=== PATIENT | female | born 1960 | race Caucasian/White ===

== ENCOUNTER → 2016-09-14 | Outpatient (CLI) | payer BC ==
[~2016-09-14] MED LIST: BIOT25007 PO; CALCIUM CITRATE; CHOL2000 PO; CHOL200041 PO; CRANBERRY FRUIT; CYAN5000 PO; FERR-74 PO; FOLI1TAB24 PO; HCG SL; HCT25T; HYDR-3812 PO; KCL10CCR; LACT1CAP62 PO; LEVO88TA2 PO; LEVO88TA26 PO; NF-LEVTH75; NFBIOT1000; OMEG-70 PO; OMG1KC; THM100T; TRIA1CAP4 PO; VIT B; [UNRECOGNIZED DRUG - OTHER]
--- OUTSIDE RECORDS SUMMARY | 2016-09-14 12:00 | XMS REPORT | Continuity of Care Document ---
Author Author [facility] Organization [facility] Address Unknown Phone Unavailable Allergies Active Description Code Type Severity Reaction Onset Reported/Identified Relationship to Patient Clinical Status Yes No Known Drug Allergies [id number] Drug Allergy Unknown N/ A 05/14/2008 Medications Problems Date Dx Coded Attending Type Code Diagnosis Diagnosed By 10/25/2011 Ot 246.9 DISORDER OF THYROID NOS 10/25/2011 Ot 560.9 INTESTINAL OBSTRUCT NOS 10/25/2011 Ot V12.55 PERSONAL HISTORY OF PULMONARY EMBOLISM 10/25/2011 Ot V45.86 BARIATRIC SURGERY STATUS 01/23/2013 NADYA GARRETT, VIGNESH Edmondson Ot V76.51 SCREEN MAL NEOP-COLON 01/28/2015 YONATHAN VALDES DO Ot V76.12 02/07/2015 YONATHAN VALDES DO Ot V76.12 05/11/2015 TATUM HADDAD MD Ot S42.212A UNSP DISP FX OF SURGICAL NECK OF LEFT HU 05/11/2015 TATUM HADDAD MD, Ot S42.252A DISP FX OF GREATER TUBEROSITY OF LEFT HU 05/11/2015 TATUM HADDAD MD Ot W01.0XXA FALL SAME LEV FROM SLIP/TRIP W/O STRIKE 06/21/2015 Ot V76.12 06/21/2015 Ot 611.72 06/21/2015 Ot V76.12 06/21/2015 Ot 793.89 06/21/2015 Ot 793.89 06/21/2015 YONATHAN VALDES DO Ot V76.12 06/21/2015 NADYA GARRETT, VIGNESH Edmondson Ot V72.84 06/21/2015 YONATHAN VALDES DO, Ot V76.12 06/21/2015 YONATHAN VALDES DO, Ot V76.12 07/15/2015 TATUM HADDAD MD Ot S42.232D 07/15/2015 TATUM HADDAD MD Ot X58.XXXD 07/15/2015 TATUM HADDAD MD Ot Y99.8 08/19/2015 BOO GARRETT, TATUM Bryant Ot S42.232D 08/19/2015 BOO GARERTT, TATUM Bryant Ot X58.XXXD 08/19/2015 BOO GARRETT, TATUM Bryant Ot Y99.8 09/03/2015 BOO GARRETT, TATUM Bryant Ot S42.232D 09/03/2015 BOO GARRETT, TATUM Bryant Ot X58.XXXD 09/03/2015 BOO GARRETT, TATUM Bryant Ot Y99.8 09/22/2015 BOO GARRETT, TATUM Bryant Ot S42.232D 3-PART FX SURG NECK OF L HUMERUS, SUBS F 09/22/2015 BOO GARRETT, TATUM Bryant Ot X58.XXXD EXPOSURE TO OTHER SPECIFIED FACTORS, SUB 09/22/2015 BOO GARRETT, TATUM Bryant Ot Y99.8 OTHER EXTERNAL CAUSE STATUS 01/11/2016 Ot 611.72 LUMP OR MASS IN BREAST 01/11/2016 Ot V76.12 OTH SCREEN MAMMO-MALIGN NEOPLASM OF YESI 01/11/2016 Ot 793.89 OTH (ABN) FINDINGS ON RADIOLOGICAL EXAMI 01/11/2016 Ot 793.89 OTH (ABN) FINDINGS ON RADIOLOGICAL EXAMI 01/11/2016 YONATHAN VALDES DO Ot V76.12 OTH SCREEN MAMMO-MALIGN NEOPLASM OF YESI 01/11/2016 NADYA GARRETT, VIGNESH Edmondson Ot V72.84 EXAM PRE-OPERATIVE NOS 01/11/2016 YONATHAN VALDES DO Ot V76.12 OTH SCREEN MAMMO-MALIGN NEOPLASM OF YESI 01/11/2016 YONATHAN VALDES DO Ot V76.12 OTH SCREEN MAMMO-MALIGN NEOPLASM OF YESI 01/11/2016 BOO GARRETT, TATUM Bryant Ot S42.232D 3-PART FX SURG NECK OF L HUMERUS, SUBS F 01/11/2016 BOO GARRETT, TATUM Bryant Ot X58.XXXD EXPOSURE TO OTHER SPECIFIED FACTORS, SUB 01/11/2016 BOO GARRETT, TATUM Bryant Ot Y99.8 OTHER EXTERNAL CAUSE STATUS 02/21/2016 Ot 611.72 LUMP OR MASS IN BREAST 02/21/2016 Ot V76.12 OTH SCREEN MAMMO-MALIGN NEOPLASM OF YESI 02/21/2016 Ot 793.89 OTH (ABN) FINDINGS ON RADIOLOGICAL EXAMI 02/21/2016 Ot 793.89 OTH (ABN) FINDINGS ON RADIOLOGICAL EXAMI 02/21/2016 YONATHAN VALDES DO Ot V76.12 OTH SCREEN MAMMO-MALIGN NEOPLASM OF YESI 02/21/2016 NADYA GARRETT, VIGNESH Edmondson Ot V72.84 EXAM PRE-OPERATIVE NOS 02/21/2016 YONATHAN VALDES DO Ot V76.12 OTH SCREEN MAMMO-MALIGN NEOPLASM OF YESI 02/21/2016 YONATHAN VALDES DO Ot V76.12 OTH SCREEN MAMMO-MALIGN NEOPLASM OF YESI 02/21/2016 TATUM HADDAD MD Ot S42.232D 3-PART FX SURG NECK OF L HUMERUS, SUBS F 02/21/2016 TATUM HADDAD MD Ot X58.XXXD EXPOSURE TO OTHER SPECIFIED FACTORS, SUB 02/21/2016 TATUM HADDAD MD Ot Y99.8 OTHER EXTERNAL CAUSE STATUS 02/24/2016 YONATHAN VALDES DO Ot Z12.31 ENCNTR SCREEN MAMMOGRAM FOR MALIGNANT NE 02/24/2016 YONATHAN VALDES DO, Ot Z12.31 ENCNTR SCREEN MAMMOGRAM FOR MALIGNANT NE 03/16/2016 YONATHAN VALDES DO, Ot Z12.31 ENCNTR SCREEN MAMMOGRAM FOR MALIGNANT NE Procedures Results Encounters ACCT No. Visit Date/Time Discharge Status Pt. Type Provider Facility Loc./Unit Complaint [id number] 09/13/2015 08:02:00 2015 00:01:00 DIS Outpatient TATUM HADDAD MD [facility] REHAB [id number] 05/10/2015 16:38:00 2014 13:10:00 DIS Inpatient TATUM HADDAD MD [facility] 4TH FX L HUMERAL HEAD/NECK [id number] 01/25/2015 13:03:00 2014 23:59:59 CLS Outpatient YONATHAN VALDES DO [facility] RAD [id number] 01/12/2014 09:35:00 2013 23:59:59 CLS Outpatient YONATHAN VALDES DO [facility] RAD [id number] 01/23/2013 06:18:00 2012 08:45:00 DIS Outpatient VIGNESH COVINGTON MD [facility] SDC [id number] 01/20/2013 08:52:00 2012 23:59:59 CLS Outpatient VIGNESH COVINGTON MD [facility] PREOP [id number] 01/06/2013 08:56:00 2012 23:59:59 CLS Outpatient YONATHAN VALDES DO [facility] RAD [id number] 02/21/2016 12:59:00 ACT Outpatient YONATHAN VALDES DO [facility] RAD SCREENING [id number] 09/23/2015 00:07:00 PEN Preadmit BOO GARRETT, TATUM Bryant [facility] REHAB [id number] 01/25/2012 14:31:00 Document Registration [id number] 10/24/2011 11:55:00 Document Registration [id number] 07/21/2011 14:12:00 Document Registration [id number] 07/16/2011 07:55:00 Document Registration [id number] 07/14/2010 08:09:00 Document Registration
--- NOTE | 2016-09-14 12:15 | Diagnostic Imaging Report ---
EXAMINATION: PA and lateral views of the chest. INDICATION: Cough and shortness of breath. FINDINGS: There are predominantly interstitial infiltrates in the mid and lower zones of the left lung. The right lung is clear. The heart size is normal. No effusion or pneumothorax. The mediastinum and jason appear unremarkable. In the upper abdomen, surgical clips and an IVC filter are seen. IMPRESSION: Predominantly interstitial infiltrates in the mid and lower left lung, favored to be atypical pneumonia. The report was faxed to the office of Dr. Tan by MIREYA at 12:20 PM. Dictated by: Dictated on workstation # [id number]
== END ==
LOC: RAD 11:55
PROVIDERS: ATTEND Internal Medicine
DX: J18.9 Pneumonia, unspecified organism (principal)
CPT/HCPCS: 71020

== ENCOUNTER → 2016-09-25 | Outpatient (CLI) | payer BC ==
[~2016-09-25] MED LIST changes: +CATHETER FLUSH 10 ML SYR IV PRN; +IOHEXOL 350 MG/ML 100 ML (OMNIPAQUE 350) VIAL IV ONE; +NS 100 ML (IVPB) BAG IV ONE
--- OUTSIDE RECORDS SUMMARY | 2016-09-25 08:59 | XMS REPORT | Continuity of Care Document ---
Author Author [facility] Organization [facility] Address Unknown Phone Unavailable Allergies Active Description Code Type Severity Reaction Onset Reported/Identified Relationship to Patient Clinical Status Yes No Known Drug Allergies [id number] Drug Allergy Unknown N/ A 05/14/2008 Medications [...] GARRETT, TATUM Bryant Ot S42.232D 08/19/2015 BOO GARRETT, TATUM Bryant Ot X58.XXXD 08/19/2015 BOO GARRETT, [...] MAMMOGRAM FOR MALIGNANT NE 02/24/2016 YONATHAN VALDES DO Ot Z12.31 ENCNTR SCREEN MAMMOGRAM FOR MALIGNANT NE 03/16/2016 YONATHAN VALDES DO Ot Z12.31 ENCNTR SCREEN MAMMOGRAM FOR MALIGNANT NE 09/14/2016 Ot 611.72 LUMP OR MASS IN BREAST 09/14/2016 Ot V76.12 OTH SCREEN MAMMO-MALIGN NEOPLASM OF YESI 09/14/2016 Ot 793.89 OTH (ABN) FINDINGS ON RADIOLOGICAL EXAMI 09/14/2016 Ot 793.89 OTH (ABN) FINDINGS ON RADIOLOGICAL EXAMI 09/14/2016 YONATHAN VALDES DO Ot V76.12 OTH SCREEN MAMMO-MALIGN NEOPLASM OF YESI 09/14/2016 NADYA GARRETT, VIGNESH Edmondson Ot V72.84 EXAM PRE-OPERATIVE NOS 09/14/2016 YONATHAN VALDES DO Ot V76.12 OTH SCREEN MAMMO-MALIGN NEOPLASM OF YESI 09/14/2016 YONATHAN VALDES DO Ot V76.12 OTH SCREEN MAMMO-MALIGN NEOPLASM OF YESI 09/14/2016 TATUM HADDAD MD Ot S42.232D 3-PART FX SURG NECK OF L HUMERUS, SUBS F 09/14/2016 TATUM HADDAD MD Ot X58.XXXD EXPOSURE TO OTHER SPECIFIED FACTORS, SUB 09/14/2016 BOO GARRETT, TATUM Bryant Ot Y99.8 OTHER EXTERNAL CAUSE STATUS 09/14/2016 YONATHAN VALDES DO Ot Z12.31 ENCNTR SCREEN MAMMOGRAM FOR MALIGNANT NE 09/20/2016 YONATHAN VALDES DO Ot J18.9 PNEUMONIA, UNSPECIFIED ORGANISM Procedures Results Encounters ACCT No. Visit Date/Time Discharge Status Pt. Type Provider Facility Loc./Unit Complaint [id number] 09/13/2015 08:02:00 2015 00:01:00 DIS Outpatient TATUM HADDAD MD [facility] REHAB L HUMERAL HEAD FX COMMUNITED FX HEAD AND NECK [id number] 05/10/2015 16:38:00 2014 13:10:00 DIS Inpatient TATUM HADDAD MD [facility] 4TH FX L HUMERAL HEAD/NECK [id number] 01/25/2015 13:03:00 2014 23:59:59 CLS Outpatient YONATHAN VALDES DO [facility] RAD SCREENING [id number] 01/12/2014 09:35:00 2013 23:59:59 CLS Outpatient YONATHAN VALDES DO [facility] RAD SCREENING [id number] 01/23/2013 06:18:00 2012 08:45:00 DIS Outpatient VIGNESH COVINGTON MD [facility] SDC SCREENING [id number] 01/20/2013 08:52:00 2012 23:59:59 CLS Outpatient VIGNESH COVINGTON MD [facility] PREOP SCREENING [id number] 01/06/2013 08:56:00 2012 23:59:59 CLS Outpatient YONATHAN VALDSE DO [facility] RAD SCREENING [id number] 09/14/2016 11:55:00 ACT Outpatient YONATHAN VALDES DO [facility] RAD J18.9 [id number] 02/21/2016 12:59:00 ACT Outpatient YONATHAN VALDES DO [facility] RAD SCREENING [id number] 09/23/2015 00:07:00 PEN Preadmit BOO MD, TATUM [facility] REHAB L HUMERAL HEAD FX COMMUNITED FX HEAD AND NECK [id number] 01/25/2012 14:31:00 Document Registration [id number] 10/24/2011 11:55:00 Document Registration [id number] 07/21/2011 14:12:00 Document Registration [id number] 07/16/2011 07:55:00 Document Registration [id number] 07/14/2010 08:09:00 Document Registration
--- NOTE | 2016-09-25 09:51 | Diagnostic Imaging Report ---
PROCEDURE: CT chest with contrast only. TECHNIQUE: Multiple contiguous axial images were obtained through the chest after administration of intravenous contrast. INDICATION: Increasing cough in patient with melanoma. Correlation is made to abdominal CT scan of 10/24/2011. FINDINGS: At the site of focal parenchymal density seen previously in the left lung base, there has been development of an irregular, spiculated mass measuring 6.3 x 4.0 cm. Reticulonodular densities are scattered throughout the lower two thirds of the left lung as well. There is no significant pleural or pericardial fluid. The right lung is clear. There are mildly prominent lymph nodes in the left hilum and subcarinal region. Left hilar lymph node measures approximately 2.3 x 1.3 cm with subcarinal lymph node measuring 2.3 x 1.2 cm. Aorticopulmonary window and azygous region lymph nodes are also enlarged with largest right paratracheal lymph node near the azygos arch measuring 2.3 x 1.2 cm. No osseous abnormality is seen. IMPRESSION: Spiculated irregular mass in the left lower lobe is suspicious for malignancy. This could be related to melanoma or primary neoplasm of the lung. This would be accessible for bronchoscopy or transthoracic CT guided biopsy. The reticulonodular densities at the left lung would be most suspicious for lymphangitic spread of neoplasm and there is mediastinal adenopathy as well. PET scan may also be of value for further staging. Dictated by: Dictated on workstation # [id number]
== END ==
LOC: RAD 08:55
PROVIDERS: ATTEND Internal Medicine
DX: J18.9 Pneumonia, unspecified organism (principal); R91.8 Other nonspecific abnormal finding of lung field
CPT/HCPCS: 71260

== ENCOUNTER 2016-10-06 12:56 | Outpatient (CLI) | payer BC ==
[~2016-10-06] VITALS: Ht 172.7 cm; Wt 98.5 kg
[~2016-10-06 12:56] MED LIST changes: -CATHETER FLUSH 10 ML SYR IV PRN; -FOLI1TAB24 PO; -IOHEXOL 350 MG/ML 100 ML (OMNIPAQUE 350) VIAL IV ONE; -NS 100 ML (IVPB) BAG IV ONE
[2016-10-23] MEDS ORDERED: BIOT25007 PO (08:59)
== END 2016-10-06 14:26 ==
LOC: PREOP 12:56
PROVIDERS: ATTEND Internal Medicine Critical Care Medicine
DX: J18.9 Pneumonia, unspecified organism (principal); R91.8 Other nonspecific abnormal finding of lung field

== ENCOUNTER 2016-10-07 06:05 | Day surgery (SDC) | payer BC ==
[~2016-10-07] VITALS: Ht 172.7 cm; Wt 98.5 kg
[2016-10-07] MEDS ORDERED: NS IV 1000 ML 1,000 ML IV STA (06:18)
[2016-10-07] MEDS ORDERED: FLUMAZENIL (ROMAZICON) 0.1 MG/ML 5 ML VIAL INJ PRN (06:30)
[2016-10-07] MEDS ORDERED: NALOXONE 0.4 MG/ML 1 ML (NARCAN) VIAL IVP PRN (06:30)
[2016-10-07] MEDS ORDERED: SCOPOLAMINE 1.5 MG (TRANSDERM-SCOP) PATCH ONE (06:32)
[2016-10-07] MEDS ORDERED: FAMOTIDINE 20MG/2ML IV (PEPCID) ONE (06:34)
[2016-10-07] MEDS ORDERED: ONDANSETRON 4 MG/2 ML (SDV) Z0FRAN ONE (06:34)
[2016-10-07] MEDS ORDERED: proPOfol 200 MG/20 ML (DIPRIVAN) VIAL IV ONE (06:46)
[2016-10-07] MEDS ORDERED: MIDAZOLAM 2 MG/2 ML (VERSED) VIAL ONE (06:46)
[2016-10-07] MEDS ORDERED: fentaNYL INJECTION 100 MCG/2 ML AMP ONE (06:46)
[2016-10-07] MEDS ORDERED: LIDOCAINE PF 2% 10 ML (XYLOCAINE) AMP ONE (06:47)
[2016-10-07] MEDS ORDERED: DEXAMETHASONE PF 10 MG/ML (DECADRON) VIAL ONE (06:47)
[2016-10-07 06:54] VITALS: BP 132/95
[2016-10-07] MEDS ORDERED: ONDANSETRON 4 MG/2 ML (SDV) Z0FRAN IVP ONE (07:00)
[2016-10-07] MEDS ORDERED: SCOPOLAMINE 1.5 MG (TRANSDERM-SCOP) PATCH TD ONE (07:00)
[2016-10-07] MEDS ORDERED: FAMOTIDINE 20MG/2ML IV (PEPCID) IVP ONE (07:00)
--- NOTE | 2016-10-07 07:04 | Progress Note-Pre Operative ---
Pre-Operative Progress Note H&P Reviewed The H&P was reviewed, patient examined and no changes noted. Date H&P Reviewed: Oct 07, 2016 Time H&P Reviewed: 07:04 Pre-Operative Diagnosis: lung mass ANTOLIN JULIAN DO Oct 07, 2016 07:04
[2016-10-07] MEDS ORDERED: ROCURONIUM 50 MG/5 ML (ZEMURON) VIAL IV ONE (07:13)
[2016-10-07] MEDS ORDERED: SEVOFLURANE (ULTANE) 15 ML INHAL SOLN ONE (08:05)
[2016-10-07] MEDS ORDERED: GLYCOPYRROLATE 0.2 MG/ML (ROBINUL) 2 ML VIAL ONE (08:10)
[2016-10-07] MEDS ORDERED: NEOSTIGMINE (BLOXIVERZ ) 1 MG/1ML 10 ML VIAL ONE (08:11)
[2016-10-07] MEDS ORDERED: LACTATED RINGERS 1,000 ML IV ONE (08:12)
--- NOTE | 2016-10-07 08:28 | Pulmonary Procedures ---
Pulmonary Procedures Date of Procedure Date of Service: Oct 07, 2016 Bronch Bronchoscopy with EBUS with bx of station 7 and 10R lymph nodes Preop DX: LLL lung mass, mediastinal lymphadenopathy PostOP DX: same Complications: None Pt was sedated per anesthesia. Bronchoscopy was advanced through the ED tube and an anatomical undertaken down to the segmental bronchi bilaterally. No endobronchial lesions noted. From the LLL Wash, BAL and brushes for fungal and cytology were obtained. EBUS was then advanced through ET tube and the mediastinum was US. Station [7] and [4L] lymph nodes were sampled via needle bx under US guidance. Pt tolerated procedure well. No complications noted. ANTOLIN JULIAN DO Oct 07, 2016 08:27
[2016-10-07] MEDS ORDERED: MEPERIDINE (DEMEROL) INJ 50 MG/ML IVP ONE (09:00)
[2016-10-07 09:05] VITALS: BP 122/67
--- NOTE | 2016-10-07 09:17 | Diagnostic Imaging Report ---
EXAMINATION: Portable supine radiograph of the chest. INDICATION: Post thoracoscopy. FINDINGS: There are nodular interstitial infiltrates in the mid and lower left lung zones. The right lung is clear of focal consolidation with minimal background interstitial scarring suggested. The heart size is normal. No effusion or pneumothorax. Mediastinum and jason appear unremarkable. IMPRESSION: Mid and lower left lung nodular infiltrates. Left lung base mass/consolidation in the left lower lobe is not well seen on this radiograph. Dictated by: Dictated on workstation # [id number]
[2016-10-07 09:35] VITALS: BP 124/74
[2016-10-07 09:50] VITALS: BP 124/74
--- NOTE | 2016-10-08 13:51 | Diagnostic Imaging Report ---
INDICATION: Bronchoscopy. Fluoroscopic time provided to the or is 2 minutes and 2 seconds. IMPRESSION: Bronchoscope projecting over the left lung base is seen. Dictated by: Dictated on workstation # [id number]
--- OUTSIDE RECORDS SUMMARY | 2016-10-11 04:28 | XMS REPORT | Continuity of Care Document ---
Author Author [facility] Organization [facility] Address Unknown Phone Unavailable Allergies Active Description Code Type Severity Reaction Onset Reported/Identified Relationship to Patient Clinical Status Yes No Known Drug Allergies [id number] Drug Allergy Unknown N/ A 05/14/2008 Medications [...] MAMMOGRAM FOR MALIGNANT NE 09/20/2016 YONATHAN VALDES DO, Ot J18.9 PNEUMONIA, UNSPECIFIED ORGANISM 09/25/2016 Ot 611.72 LUMP OR MASS IN BREAST 09/25/2016 Ot V76.12 OTH SCREEN MAMMO-MALIGN NEOPLASM OF YESI 09/25/2016 Ot 793.89 OTH (ABN) FINDINGS ON RADIOLOGICAL EXAMI 09/25/2016 Ot 793.89 OTH (ABN) FINDINGS ON RADIOLOGICAL EXAMI 09/25/2016 YONATHAN VALDES DO Ot V76.12 OTH SCREEN MAMMO-MALIGN NEOPLASM OF YESI 09/25/2016 NADYA GARRETT, VIGNESH Edmondson Ot V72.84 EXAM PRE-OPERATIVE NOS 09/25/2016 YONATHAN VALDES DO Ot V76.12 OTH SCREEN MAMMO-MALIGN NEOPLASM OF YESI 09/25/2016 YONATHAN VALDES DO Ot V76.12 OTH SCREEN MAMMO-MALIGN NEOPLASM OF YESI 09/25/2016 BOO GARRETT, TATUM Bryant Ot S42.232D 3-PART FX SURG NECK OF L HUMERUS, SUBS F 09/25/2016 TATUM HADDAD MD Ot X58.XXXD EXPOSURE TO OTHER SPECIFIED FACTORS, SUB 09/25/2016 TATUM HADDAD MD Ot Y99.8 OTHER EXTERNAL CAUSE STATUS 09/25/2016 YONATHAN VALDES DO Ot Z12.31 ENCNTR SCREEN MAMMOGRAM FOR MALIGNANT NE 09/25/2016 YONATHAN VALDES DO Ot J18.9 PNEUMONIA, UNSPECIFIED ORGANISM 09/28/2016 YONATHAN VALDES DO Ot J18.9 PNEUMONIA, UNSPECIFIED ORGANISM 09/28/2016 YONATHAN VALDES DO Ot R91.8 OTHER NONSPECIFIC ABNORMAL FINDING OF [place]BERTO 10/01/2016 YONATHAN VALDES DO Ot J18.9 PNEUMONIA, UNSPECIFIED ORGANISM Procedures Results Test Result Range Sputum Gram stain - 10/07/16 08:00 GRAM STAIN SPUTUM RARE GRAM POSITIVE COCCI NRG Bacteria identification in bronchial specimen by aerobe culture - 10/07/16 08: 00 Bacteria identification in bronchial specimen by aerobe culture NG NRG Sputum Gram stain - 10/07/16 08:00 GRAM STAIN SPUTUM NO BACTERIA NRG Bacteria identification in bronchial specimen by aerobe culture - 10/07/16 08: 00 Bacteria identification in bronchial specimen by aerobe culture NG NRG Mycobacterium species detection by organism specific culture - 10/07/16 08:00 DATE/TIME MICROSCOPIC 10/08/16 17:00 NRG MICROSCOPIC NO ACID-FAST BACILLI FOUND NRG Encounters ACCT No. Visit Date/Time Discharge Status Pt. Type Provider Facility Loc./Unit Complaint [id number] 10/06/2016 12:56:00 2016 14:26:00 DIS Outpatient ANTOLIN JULIAN DO [facility] PREOP LUNG MASS [id number] 09/13/2015 08:02:00 2015 00:01:00 DIS Outpatient TATUM HADDAD MD [facility] REHAB L HUMERAL HEAD FX COMMUNITED FX HEAD AND NECK [id number] 05/10/2015 16:38:00 2014 13:10:00 DIS Inpatient TATUM HADDAD MD [facility] 4TH FX L HUMERAL HEAD/NECK [id number] 01/25/2015 13:03:00 2014 23:59:59 CLS Outpatient YONATHAN VALDES DO [facility] RAD SCREENING [id number] 01/12/2014 09:35:00 2013 23:59:59 CLS Outpatient YONATHAN VALDES DO [facility] RAD SCREENING [id number] 01/23/2013 06:18:00 2012 08:45:00 DIS Outpatient VIGNESH COVINGTON MD [facility] SDC SCREENING [id number] 01/20/2013 08:52:00 2012 23:59:59 CLS Outpatient VIGNESH COVINGTON MD [facility] PREOP SCREENING [id number] 01/06/2013 08:56:00 2012 23:59:59 CLS Outpatient YONATHAN VALDES DO [facility] RAD SCREENING [id number] 10/07/2016 06:05:00 ACT Outpatient ANTOLIN JULIAN DO [facility] ENDO LUNG MASS [id number] 09/25/2016 08:55:00 ACT Outpatient VALDESYONATHAN FRITZ DO [facility] RAD J18.9 [id number] 09/14/2016 11:55:00 ACT Outpatient YONATHAN VALDES DO [facility] RAD J18.9 [id number] 02/21/2016 12:59:00 ACT Outpatient VALDES YONATHAN [facility] RAD SCREENING [id number] 09/23/2015 00:07:00 PEN Preadjose HADDAD MD, TATUM Bryant [facility] REHAB L HUMERAL HEAD FX COMMUNITED FX HEAD AND NECK [id number] 01/25/2012 14:31:00 Document Registration [id number] 10/24/2011 11:55:00 Document Registration [id number] 07/21/2011 14:12:00 Document Registration [id number] 07/16/2011 07:55:00 Document Registration [id number] 07/14/2010 08:09:00 Document Registration
--- OUTSIDE RECORDS SUMMARY | 2016-10-11 04:28 | XMS REPORT | Continuity of Care Document ---
Author Author [facility] Organization [facility] Address Unknown Phone Unavailable Care Team Providers Care Predatory Animal Exterminator Name Role Phone YONATHAN VALDES DO PP Insurance Providers Payer Name Policy Number Subscriber Name Relationship [facility] [id number] Mansoor Cosby 01 Self / Same As Patient Advance Directives Directive Response Recorded Date Advance Directives Y 01/23/13 7:19am Health Care Power of Dietary Aide Y 01/23/13 7:19am Organ Donor Y 01/23/13 7:19am Problems No Known Problems or Medical conditions. Family History History Response Recorded Date/Time Hx Family Cancer Y 10/24/11 1:58pm Hx Family Cardiac Disorders N 10/24/11 1: 58pm Allergies, Adverse Reactions, Alerts Allergen Type Severity Reaction Last Updated No Known Drug Allergies 05/14/08 Medications Medication Dose Units Route Sig Qty Days [Vit B12 5000MCG D] Lactobacillus Acidophilus (Probiotic) 1 Each PO [place]-3S/Dha/Epa/Fish Oil ([place]-3 Fish Oil 1,400 Mg Sfgl) 1 Each PO DAILY Cholecalciferol (Vitamin D3) (D3 Dots) 2000 Unit PO DAILY [Cranberry Fruit +Mg] [Calcium Citrate Pwd] Levothyroxine Sodium (Synthroid) 1 Each PO DAILY Triamterene/Hydrochlorothiazid (Triamterene-Hctz 37.5-25 Mg Cp) 1 Each PO DAILY [Hcg] 120 Ml SL TID Biotin Thiamine HCl (Vitamin B-1) Potassium Chloride (Klor-Con) Immunizations Name Given Type Date of Influenza Vaccine 04/25/12 H Response Recorded Date/Time Status not known Unknown Results Test Date Result Interp. Ref. Range Alanine Aminotransferase (ALT/SGPT) October 25, 2011 5:42am 29 U/L L 30-65 Albumin October 25, 2011 5:42am 3.1 G/DL L 3.4-5.0 Alkaline Phosphatase October 25, 2011 5:42am 86 U/L N 50-136 Amylase Level October 25, 2011 5:42am 69 U /L N 25-115 Aspartate Amino Transf (AST/SGOT) October 25, 2011 5:42am 15 U/L N 15-37 BUN/Creatinine Ratio October 25, 2011 5:42am 7 - Band Neutrophils October 24, 2011 9:30am 13 % - Basophils # (Auto) October 24, 2011 9:30am 0.0 10^3/uL N 0.0-0.1 Basophils % (Manual) October 24, 2011 9:30am 0 % - Basophils (%) (Auto) October 24, 2011 9:30am 0 % N 0-10 Blood Urea Nitrogen October 25, 2011 5:42am 8 MG/DL N 7-18 Calcium Level October 25, 2011 5:42am 8.4 MG/DL L 8.5-10.1 Carbon Dioxide Level October 25, 2011 5:42am 31 MMOL/L N 21-32 Chloride Level October 25, 2011 5:42am 102 MMOL/L N 101-110 Creatinine October 25, 2011 5:42am 1.1 MG/ DL N 0.6-1.3 Eosinophils # (Auto) October 24, 2011 9:30am 0.0 10^3/uL N 0.0-0.3 Eosinophils % (Manual) October 24, 2011 9:30am 0 % - Eosinophils (%) (Auto) October 24, 2011 9:30am 0 % N 0-10 Glucose Level October 25, 2011 5:42am 78 MG/DL N 74-106 Hematocrit October 25, 2011 5:42am 31 % L 35-52 Hemoglobin October 25, 2011 5:42am 10.0 G/ DL L 11.5-16.0 Lipase October 25, 2011 5:42am 135 U/L N 73-393 Lymphocytes # (Auto) October 24, 2011 9:30am 0.9 X 10^3 L 1.0-4.0 Lymphocytes % (Manual) October 24, 2011 9:30am 26 % - Lymphocytes (%) (Auto) October 24, 2011 9:30am 27 % N 12-44 Mean Corpuscular Hemoglobin October 25, 2011 5:42am 28 PG N 25-34 Mean Corpuscular Hemoglobin Concent October 25, 2011 5:42am 32 G/DL N 32-36 Mean Corpuscular Volume October 25, 2011 5:42am 87 FL N 80-99 Mean Platelet Volume October 25, 2011 5:42am 10.1 FL N 7.4-10.4 Monocytes # (Auto) October 24, 2011 9:30am 0.4 X 10^3 N 0.0-1.0 Monocytes % (Manual) October 24, 2011 9:30am 12 % - Monocytes (%) (Auto) October 24, 2011 9:30am 12 % N 0-12 Neutrophils # (Auto) October 24, 2011 9:30am 2.1 X 10^3 N 1.8-7.8 Neutrophils % (Manual) October 24, 2011 9:30am 49 % - Neutrophils (%) (Auto) October 24, 2011 9:30am 61 % N 42-75 Platelet Count October 25, 2011 5:42am 224 10^3/uL N 130-400 Potassium Level October 25, 2011 5:42am 3.0 MMOL/L L 3.6-5.0 Red Blood Count October 25, 2011 5:42am 3.56 10^6/uL L 4.35-5.85 Red Cell Distribution Width October 25, 2011 5:42am 15.9 % H 10.0-14.5 Sodium Level October 25, 2011 5:42am 137 MMOL/L N 135-145 Total Bilirubin October 25, 2011 5:42am 0.5 MG/DL N 0.0-1.0 Total Protein October 25, 2011 5:42am 6.8 G/DL N 6.4-8.2 Urine Bacteria October 24, 2011 9:45am NONE - Urine Bilirubin October 24, 2011 9:45am NEGATIVE - Urine Casts October 24, 2011 9:45am NONE - Urine Clarity October 24, 2011 9:45am CLEAR - Urine Color October 24, 2011 9:45am YELLOW - Urine Crystals October 24, 2011 9:45am NONE - Urine Culture Indicated October 24, 2011 9:45am NO - Urine Glucose (UA) October 24, 2011 9:45am NEGATIVE - Urine Ketones October 24, 2011 9:45am 2+ H - Urine Leukocyte Esterase October 24, 2011 9:45am NEGATIVE - Urine Mucus October 24, 2011 9:45am MODERATE H - Urine Nitrite October 24, 2011 9:45am NEGATIVE - Urine Test May 15, 2008 11:05am Negative - Urine Protein October 24, 2011 9:45am NEGATIVE - Urine RBC October 24, 2011 9:45am NONE / HPF - Urine Specific Froid October 24, 2011 9:45am 1.025 H - Urine Squamous Epithelial Cells October 24, 2011 9:45am 0-2 - Urine Urobilinogen October 24, 2011 9:45am NORMAL MG/DL - Urine WBC October 24, 2011 9:45am NONE / HPF - Urine pH October 24, 2011 9:45am 6.0 - White Blood Count October 25, 2011 5:42am 2.6 10^3/uL L 4.3-11.0 Estimat Glomerular Filtration Rate October 24, 2011 9:30am 52 - Blood Morphology Comment October 24, 2011 9:30am NORMAL - Urine RBC (Auto) October 24, 2011 9:45am NEGATIVE - Procedures Procedure Code Date LAPAROSCOPIC CHOLECYSTECTOMY 51.23 INTRAOPER CHOLANGIOGRAM 87.53 05/15/08 ESOPHAGOGASTRODUODENOSCOPY [EGD] W/CLOSED BIOPSY 45.16 05/15/08 MRSA Screen 05/15/08 Encounters Encounter Location Date/Time Discharged Inpatient [facility] 11:55am
[2016-10-23] MEDS ORDERED: BIOT25007 PO (08:59)
== END 2016-10-07 09:50 | disposition home or self-care (01) ==
LOC: DELPENDDIS → ENDO 06:05
PROVIDERS: ATTEND Internal Medicine Critical Care Medicine
DX: C34.32 Malignant neoplasm of lower lobe, left bronchus or lung (principal); C77.1 Secondary and unspecified malignant neoplasm of intrathoracic lymph nodes
CPT/HCPCS: 71010; 87070; 87101; 87116; 87205; 88112; 88305; 88312; 88341; 88342; 88344

== ENCOUNTER → 2016-10-20 | Outpatient (CLI) | payer BC ==
[~2016-10-20] MED LIST changes: +FOLI1TAB24 PO
--- NOTE | 2016-10-20 19:58 | Diagnostic Imaging Report ---
EXAMINATION: PET/CT, lung cancer - initial. INDICATION: Adenocarcinoma of the lung. EXAMINATION: After intravenous administration of 15.83 mCi of F18-FDG, a series of overlapping emission and transmission PET images was obtained. In the coronal, transaxial and sagittal planes, the area imaged extended from the skull base through the upper thighs. FINDINGS: There are no previous PET/CT examinations available for comparison. The recent CT chest exam performed on 09/25/2016 noted an irregular spiculated mass in the left lung base measuring 6.3 x 4.0 cm. There is also a left hilar lymph node measuring 2.3 x 1.3 cm and a subcarinal node measuring 2.3 x 1.2 cm. Enlarged aorticopulmonary window and paratracheal nodes were also identified. On this exam, the spiculated mass in the left lung base is hypermetabolic with a maximum SUV of 14.8. There is also increased hypermetabolic activity in the left infrahilar region. This area has a maximum SUV of 6.3. Curiously, there is virtually no hypermetabolic activity associated with the nodes in the subcarinal region, the paratracheal region, or in the aorticopulmonary window. There is also generalized increased hypermetabolic activity at the left lung base. The SUV values in this area range from 2.9 to 3.7. These findings are probably secondary to pneumonia/atelectasis, although the possibility that there are some neoplastic deposits in this area should still be considered. There is no abnormal hypermetabolic activity identified below the diaphragm. There is a fair amount of hypermetabolic activity throughout the large and small bowel. This is probably physiologic in nature. There is also activity in the kidneys and the bladder. This too is most likely physiologic. IMPRESSION: 1. The spiculated mass in the left lung base seen on the recent CT chest exam is intensely hypermetabolic and should be considered neoplastic until proven otherwise. There is also a sizable poorly defined area of increased metabolic activity in the left perihilar region. Vague slightly increased hypermetabolic activity is also seen in the left lung base. This may be secondary to pneumonia/atelectasis alone, although the possibility that there are a few small neoplastic deposits in this area cannot be entirely excluded. 2. There is no other hypermetabolic activity to suggest the presence of malignancy. In particular, the enlarged mediastinal nodes seen on the prior CT chest exam are not hypermetabolic. 3. These results were discussed with Dr. Hank Gil. Dictated by: Dictated on workstation # [id number]
== END ==
LOC: RAD 09:46
PROVIDERS: ATTEND Internal Medicine Critical Care Medicine
DX: C34.92 Malignant neoplasm of unspecified part of left bronchus or lung (principal)

== ENCOUNTER → 2016-10-23 | Day surgery (SDC) | payer BC ==
[~2016-10-23] VITALS: Ht 172.7 cm; Wt 98.5 kg
[2016-10-23] VITALS (14 sets, daily range): BP systolic 107–136; BP diastolic 72–90
[~2016-10-23] MED LIST changes: +HYDROcodone/APAP 5 MG/325 MG (LORTAB) TAB PO PRN; +LIDOCAINE 1% INJ 20 ML (XYLOCAINE) VIAL INJ ONE
[2016-10-23 08:52] LABS: MEAN PLATELET VOLUME 10.7 FL (7.4-10.4); RED BLOOD COUNT 4.93 10^6/uL (4.35-5.85); RED CELL DISTRIBUTION WIDTH 14.2 % (10.0-14.5); WHITE BLOOD COUNT 2.4 10^3/uL (4.3-11.0)
[2016-10-23 09:03] LABS: PROTHROMBIN TIME PATIENT 13.2 SEC (12.2-14.7)
[2016-10-23] MEDS: fentaNYL INJECTION 100 MCG/2 ML AMP IVP PRN ×4 (09:47→10:28)
--- NOTE | 2016-10-23 10:19 | Discharge Instructions ---
Discharge Instructions Home Medicaitons Changes Hold any current blood thinner home medications for [24 hours]. CORAL MEDINA MD Oct 23, 2016 10:19
--- NOTE | 2016-10-23 10:19 | Pre-Procedure Progress Note ---
Pre-Procedure Progress Note H&P Reviewed The H&P was reviewed, patient examined and no changes noted. Date H&P Reviewed: Oct 23, 2016 Time H&P Reviewed: 09:15 Pre-Procedure Diagnosis: left lower lobe lung mass CORAL MEDINA MD Oct 23, 2016 10:19
--- NOTE | 2016-10-23 10:50 | Diagnostic Imaging Report ---
EXAMINATION: CT-guided biopsy-lung. INDICATION: Right lower lobe. Current history and physical and other medical records are reviewed prior to the procedure. CONSENT: Informed consent was obtained from the patient. The risks, benefits, potential complications and alternatives were reviewed and all questions answered to the patient's satisfaction. The patient's vital signs, cardiac rhythm, and pulse oximetry were observed throughout the procedure by qualified nursing personnel. Sedation/medications: Fentanyl 75 mcg IV. FINDINGS: Left lower lobe lung mass. PROCEDURE: After maximal sterile barrier technique preparation and draping, 1% lidocaine was utilized for local anesthesia. With the patient in left side down position, and via posterior intercostal approach, a 19-gauge guide needle is introduced into the left lower lobe mass under CT scan guidance. After confirming adequate positioning with saved CT images, multiple 20 gauge core biopsy specimens were obtained. 3 cc of autologous blood patch injected in the tract as the guide needle was removed The patient tolerated the procedure well with no immediate complications. IMPRESSION: Successful CT-guided biopsy of left lower lobe mass. Dictated by: Dictated on workstation # [id number]
--- NOTE | 2016-10-23 16:20 | Diagnostic Imaging Report ---
EXAMINATION: Portable upright radiograph of the chest. INDICATION: Post lung biopsy. FINDINGS: Stable extensive infiltrates in the mid and lower left lung zone with left lung base mass is seen. After biopsy, mild hemorrhage around the mass is expected explaining the increased opacity. There is no pneumothorax. There is no pleural effusion. The right lung is clear. The heart size is normal. IMPRESSION: Stable infiltrates and left lower lobe mass with expected postbiopsy changes. No pneumothorax. Dictated by: Dictated on workstation # [id number]
== END | disposition home or self-care (01) ==
LOC: RAD 08:16
PROVIDERS: ATTEND Internal Medicine Critical Care Medicine
DX: C34.32 Malignant neoplasm of lower lobe, left bronchus or lung (principal); Z87.01 Personal history of pneumonia (recurrent)
CPT/HCPCS: 36415; 71035; 77012; 85027; 85610; 85730; 88305; 88368; 88369; 88381

== ENCOUNTER 2016-11-13 08:50 | Outpatient (CLI) | payer BC ==
[~2016-11-13] VITALS: Ht 172.7 cm; Wt 93.0 kg
[~2016-11-13 08:50] MED LIST changes: -FOLI1TAB24 PO; -HYDROcodone/APAP 5 MG/325 MG (LORTAB) TAB PO PRN; -LIDOCAINE 1% INJ 20 ML (XYLOCAINE) VIAL INJ ONE
[2016-11-13 08:57] VITALS: BP 133/73
[2016-11-13] MEDS ORDERED: FOLI1TAB24 PO (09:01)
== END 2016-11-13 09:05 | disposition home or self-care (01) ==
LOC: PREOP 08:50
PROVIDERS: ATTEND Surgery
DX: Z01.818 Encounter for other preprocedural examination (principal); Z11.2 Encounter for screening for other bacterial diseases; C34.32 Malignant neoplasm of lower lobe, left bronchus or lung
CPT/HCPCS: 87081

== ENCOUNTER 2016-11-16 06:00 | Day surgery (SDC) | payer BC ==
[~2016-11-16] VITALS: Ht 172.7 cm; Wt 91.6 kg
[~2016-11-16 06:00] MED LIST changes: +FOLI1TAB24 PO
[2016-11-16] MEDS ORDERED: ceFAZolin 2 GM/50 ML NS 50 ML ONE (06:33)
[2016-11-16 06:35] VITALS: BP 131/79
[2016-11-16] MEDS ORDERED: PROPOFOL INJECTION 50 ML IV ONE (06:58)
[2016-11-16] MEDS ORDERED: ONDANSETRON 4 MG/2 ML (SDV) Z0FRAN ONE (06:58)
[2016-11-16] MEDS ORDERED: MIDAZOLAM 10 MG/2 ML (VERSED) VIAL ONE (06:59)
[2016-11-16] MEDS ORDERED: LACTATED RINGERS 1,000 ML IV PRN (06:59)
[2016-11-16] MEDS ORDERED: ceFAZolin 2 GM/NS 50 ML IV ONE (07:00)
[2016-11-16] MEDS ORDERED: BUPIVACAINE 0.5% 30 ML (SENSORCAINE) VIAL ONE (07:20)
[2016-11-16] MEDS ORDERED: LIDOCAINE 1% INJ 20 ML (XYLOCAINE) VIAL ONE (07:20)
[2016-11-16] MEDS ORDERED: 0.9% SODIUM CHLORIDE PF INJ 20 ML VIAL ONE (07:23)
[2016-11-16] MEDS ORDERED: HEParin (CENTRAL IV FLUSH) 500 UNIT/5 ML SYR ONE (07:23)
--- NOTE | 2016-11-16 07:37 | Progress Note-Pre Operative ---
Pre-Operative Progress Note H&P Reviewed The H&P was reviewed, patient examined and no changes noted. Date H&P Reviewed: November 16, 2016 Time H&P Reviewed: 07:36 Pre-Operative Diagnosis: lung cancer SHRUTHI GARZA DO November 16, 2016 7:37 am
--- NOTE | 2016-11-16 08:23 | Discharge Inst-Simple/Standard ---
Discharge Inst-Standard Patient Instructions/Follow Up Plan of Care/Instructions/FU: Apply ice to site for 15 mins on and 15 off for the next 48 hours Follow up with Dr. Najera in 2 weeks. Activity as Tolerated: No Discharge Diet: No Restrictions Other Inst to Patient Follow up Appt: Make appointment for 2 weeks. Instructions: No lifting greater than 10 pounds. No strenuous activity. May shower in 24 hours, no tub bath or soaking. Use incentive spirometer at home as directed. No Smoking Skin/Wound Care: May remove bandages. You need to leave the white strips over incision on they will fall off on their own. Symptoms to Report: Appetite Changes, Extremity Discoloration, Numbness/Tingling, Swelling Increased , Bleeding Excessive, Eyesight Changes, Pain Increased, Urine Color Change, Constipation(Persistent), Fever over 101 degree F, Pain/Pressure in chest, Urinating Difficulty, Cough Up/Vomit Blood, Heart Beat Irreg/Pounding, Pain/ Pressure in jaw, Vaginal Bleeding Increase, Cramps in feet or legs, Lightheadedness, Pain/Pressure in shoulder, Diarrhea(Persistent), Memory Changes Suddenly, Questions/Concerns, Weight gain consecutive days, Dizziness/ Fainting, Nausea/Vomiting, Shortness of Breath, Weight gain over 2 pounds If questions or concerns contact your physician Or seek help at emergency department. JOHNATHAN KLINE APRN November 16, 2016 8:22 am
--- NOTE | 2016-11-16 08:28 | Progress Note-Post Operative ---
Post-Operative Progess Note Surgeon (s)/Reaming Machine Tender (s) Surgeon SHRUTHI GARZA DO Reaming Machine Tender: na Pre-Operative Diagnosis lung cancer Post-Operative Diagnosis same Post-Op Procedure Note Date of Procedure: November 16, 2016 Name of Procedure Performed: power port placement right IJ vein using u/s guidance Description of the Procedure: power port placed Findings of the Procedure normal placement of power port Anesthesia Type mac c 25 mL of local Estimated blood loss (mL): minimal Specimen(s) collected/removed none SHRUTHI GARZA DO November 16, 2016 8:28 am
[2016-11-16] MEDS ORDERED: morphine INJ 10 MG/ML 1ML (SYR OR VIAL) IVP PRN (08:45)
--- NOTE | 2016-11-16 08:47 | Diagnostic Imaging Report ---
INDICATION: Port placement. 0839 hours Portable upright view of the chest was obtained with comparison made to study of 10/23/2016. FINDINGS: Overall heart size and pulmonary vascularity are within normal limits. Airspace disease in the left lung has remained stable as well. There has been placement of right anterior chest wall port with catheter tip projecting over the midsuperior vena cava. No pneumothorax is identified. IMPRESSION: Stable infiltrate in the left lung without evidence of complication related to right anterior chest wall port placement. Dictated by: Dictated on workstation # [id number]
[2016-11-16 09:05] VITALS: BP 117/60
[2016-11-16 09:35] VITALS: BP 104/74
--- NOTE | 2016-11-16 09:55 | Diagnostic Imaging Report ---
EXAMINATION: Intraoperative view of the chest. INDICATION: Port placement. FINDINGS: The fluoroscopy time utilized was 32 seconds. IMPRESSION: The provided images demonstrate an infusion port with the tip at the lower SVC level. Dictated by: Dictated on workstation # [id number]
--- NOTE | 2016-11-16 10:10 | OPERATIVE REPORT ---
DATE OF SERVICE: 11/16/2016 PREOPERATIVE DIAGNOSIS: Lung cancer. POSTOPERATIVE DIAGNOSIS: Lung cancer. PROCEDURE: PowerPort placement, right internal jugular vein using ultrasound guidance. SURGEON: Shruthi Najera D.O. ANESTHESIA: MAC with 25 mL of 1% lidocaine and 0.5% Marcaine in 50:50 ratio. ESTIMATED BLOOD LOSS: Minimal. COMPLICATIONS: None. INDICATIONS: The patient is a 56-year-old female with recent diagnosis of lung cancer. She is going to undergo chemotherapy and risks and benefits of PowerPort placement were discussed and the patient wishes to proceed with the procedure. Consent was signed and in the chart. DESCRIPTION OF PROCEDURE: The patient was taken to the operating suite. She was prepped and draped in sterile fashion. Surgical pause was performed. Using ultrasound, the right internal jugular vein was located. Local anesthetic was infiltrated into the right neck and onto the right chest for tunneling purposes. The right internal jugular vein was then accessed with a micro-access kit. The micro-access wire was inserted. Dark, nonpulsatile blood was withdrawn. Micro-access wire was then inserted. Fluoroscopy showed proper placement. This was then converted to the regular guidewire, where the micro-access dilator was inserted over the micro-access wire and the dilator and wire were removed. The normal guidewire was then pushed through the sheath and then fluoroscopy showed proper placement and the sheath was removed. The wire was then secured. A pocket was created over the right chest. A 15-blade scalpel was used to make an incision and cautery used to dissect down to the pectoral fascia and a pocket was created, both with cautery and blunt dissection. Under direct visualization of the laparoscope with dilator sheath was then advanced over the wire and the dilator and wire were removed. The Groshong catheter was inserted through the sheath and the sheath was then removed. The Groshong wire was then removed and this was then tunneled from the neck down to the right chest pocket. Fluoroscopy was used to determine the length of the catheter, which was then cut and then secured to the port, which was then placed in the pocket. The port was then accessed without difficulty. It was flushed first with saline and then with heparin without difficulty. The subcutaneous tissues were then reapproximated using 3-0 Vicryl in a subcuticular fashion. The skin was then closed using 4-0 Vicryl in a subcutaneous fashion. The area was then washed and dried. Dermabond was placed over the incisions of the neck and the right chest. After Dermabond was dried, sterile bandages were applied. The patient tolerated procedure well without any complications. She was taken to the recovery room in stable condition. Chest x-ray pending. Job ID: [id number] DocumentID: [id number] Dictated Date: 11/16/2016 08:31:38 Industrial Maintenance Repairer Helper Date: 11/16/2016 09:04:21 Dictated By: SHRUTHI NAJERA DO
== END 2016-11-16 09:50 | disposition home or self-care (01) ==
LOC: SDC 06:00
PROVIDERS: ATTEND Surgery
DX: C34.32 Malignant neoplasm of lower lobe, left bronchus or lung (principal); Z79.899 Other long term (current) drug therapy
CPT/HCPCS: 71010

== ENCOUNTER 2017-01-20 10:55 | Outpatient (RCR) | payer BC ==
[2016-11-18 15:24] LABS: BASOPHILS % (AUTO) 0 % (0-10); EOSINOPHILS % (AUTO) 0 % (0-10); LYMPHOCYTES # (AUTO) 0.6 X 10^3 (1.0-4.0); LYMPHOCYTES % (AUTO) 11 % (12-44); MEAN CORPUSCULAR HEMOGLOBIN 30 PG (25-34); MEAN CORPUSCULAR HGB CONC 33 G/DL (32-36); MEAN CORPUSCULAR VOLUME 89 FL (80-99); MEAN PLATELET VOLUME 9.8 FL (7.4-10.4); MONOCYTES # (AUTO) 0.2 X 10^3 (0.0-1.0); MONOCYTES % (AUTO) 4 % (0-12); NEUTROPHILS # (AUTO) 4.6 X 10^3 (1.8-7.8); NEUTROPHILS % (AUTO) 85 % (42-75); PLATELET COUNT 235 10^3/uL (130-400); RED BLOOD COUNT 4.42 10^6/uL (4.35-5.85); RED CELL DISTRIBUTION WIDTH 14.9 % (10.0-14.5); WHITE BLOOD COUNT 5.5 10^3/uL (4.3-11.0)
[2016-11-18 15:46] LABS: ALANINE AMINOTRANSFERASE 11 U/L (0-55); ANION GAP 11 MMOL/L (5-14); ASPARTATE AMINO TRANSFERASE 14 U/L (5-34); BILIRUBIN,TOTAL 0.7 MG/DL (0.1-1.0); BLOOD UREA NITROGEN 12 MG/DL (7-18); BUN/CREATININE RATIO 16; CALCIUM 9.7 MG/DL (8.5-10.1); CARBON DIOXIDE 24 MMOL/L (21-32); CHLORIDE 104 MMOL/L (98-107); CREATININE SERUM 0.76 MG/DL (0.60-1.30); GFR ESTIMATED > 60; GLUCOSE 102 MG/DL (70-105); POTASSIUM 3.7 MMOL/L (3.6-5.0); SODIUM 139 MMOL/L (135-145); TOTAL PROTEIN 7.2 G/DL (6.4-8.2)
[2016-12-09 09:11] LABS: BASOPHILS % (AUTO) 0 % (0-10); EOSINOPHILS % (AUTO) 0 % (0-10); LYMPHOCYTES # (AUTO) 0.7 X 10^3 (1.0-4.0); LYMPHOCYTES % (AUTO) 16 % (12-44); MEAN CORPUSCULAR HEMOGLOBIN 30 PG (25-34); MEAN CORPUSCULAR HGB CONC 33 G/DL (32-36); MEAN CORPUSCULAR VOLUME 91 FL (80-99); MEAN PLATELET VOLUME 9.3 FL (7.4-10.4); MONOCYTES # (AUTO) 0.4 X 10^3 (0.0-1.0); MONOCYTES % (AUTO) 10 % (0-12); NEUTROPHILS # (AUTO) 3.1 X 10^3 (1.8-7.8); NEUTROPHILS % (AUTO) 73 % (42-75); PLATELET COUNT 354 10^3/uL (130-400); RED CELL DISTRIBUTION WIDTH 14.9 % (10.0-14.5); WHITE BLOOD COUNT 4.2 10^3/uL (4.3-11.0)
[2016-12-09 09:33] LABS: ALANINE AMINOTRANSFERASE 23 U/L (0-55); ALBUMIN 3.8 G/DL (3.2-4.5); ANION GAP 10 MMOL/L (5-14); ASPARTATE AMINO TRANSFERASE 24 U/L (5-34); BILIRUBIN,TOTAL 0.4 MG/DL (0.1-1.0); BLOOD UREA NITROGEN 16 MG/DL (7-18); BUN/CREATININE RATIO 18; CALCIUM 9.6 MG/DL (8.5-10.1); CARBON DIOXIDE 24 MMOL/L (21-32); CHLORIDE 105 MMOL/L (98-107); CREATININE SERUM 0.89 MG/DL (0.60-1.30); GFR ESTIMATED > 60; GLUCOSE 112 MG/DL (70-105); MAGNESIUM 1.9 MG/DL (1.8-2.4); POTASSIUM 3.9 MMOL/L (3.6-5.0); SODIUM 139 MMOL/L (135-145); TOTAL PROTEIN 6.8 G/DL (6.4-8.2)
--- NOTE | 2016-12-09 13:15 | Diagnostic Imaging Report ---
PA and lateral views of the chest. INDICATION: Cough. FINDINGS: There are left mid and lower lung predominantly interstitial infiltrates. Left lower lobe mass is better seen on prior CT scans. There is a small left pleural effusion. There is minimal change compared to previous studies including 09/14/2016. The right lung is clear. The heart size is normal. There is an infusion port with the tip at the SVC level. IMPRESSION: Mid and lower left lung infiltrates, small effusion and underlying left basilar mass. Findings are similar to 09/14/2016. Dictated by: Dictated on workstation # [id number]
[2016-12-30 14:37] LABS: BASOPHILS % (AUTO) 0 % (0-10); EOSINOPHILS % (AUTO) 0 % (0-10); LYMPHOCYTES # (AUTO) 0.5 X 10^3 (1.0-4.0); LYMPHOCYTES % (AUTO) 21 % (12-44); MEAN CORPUSCULAR HEMOGLOBIN 30 PG (25-34); MEAN CORPUSCULAR HGB CONC 33 G/DL (32-36); MEAN CORPUSCULAR VOLUME 92 FL (80-99); MEAN PLATELET VOLUME 9.7 FL (7.4-10.4); MONOCYTES # (AUTO) 0.4 X 10^3 (0.0-1.0); MONOCYTES % (AUTO) 13 % (0-12); NEUTROPHILS # (AUTO) 1.7 X 10^3 (1.8-7.8); NEUTROPHILS % (AUTO) 66 % (42-75); PLATELET COUNT 283 10^3/uL (130-400); RED BLOOD COUNT 3.63 10^6/uL (4.35-5.85); RED CELL DISTRIBUTION WIDTH 16.9 % (10.0-14.5); WHITE BLOOD COUNT 2.6 10^3/uL (4.3-11.0)
[2016-12-30 14:57] LABS: ALANINE AMINOTRANSFERASE 19 U/L (0-55); ALBUMIN 4.1 GM/DL (3.2-4.5); ANION GAP 15 MMOL/L (5-14); ASPARTATE AMINO TRANSFERASE 20 U/L (5-34); BILIRUBIN,TOTAL 0.5 MG/DL (0.1-1.0); BLOOD UREA NITROGEN 17 MG/DL (7-18); BUN/CREATININE RATIO 20 (0-20); CALCIUM 9.8 MG/DL (8.5-10.1); CARBON DIOXIDE 21 MMOL/L (21-32); CHLORIDE 103 MMOL/L (98-107); CREATININE SERUM 0.87 MG/DL (0.60-1.30); GFR ESTIMATED > 60; GLUCOSE 107 MG/DL (70-105); MAGNESIUM 1.8 MG/DL (1.8-2.4); POTASSIUM 3.5 MMOL/L (3.6-5.0); SODIUM 139 MMOL/L (135-145); TOTAL PROTEIN 6.9 GM/DL (6.4-8.2)
--- NOTE | 2016-12-30 15:10 | Diagnostic Imaging Report ---
INDICATION: Left lower lobe infiltrate. EXAMINATION: PA and lateral chest. COMPARISON: Comparison is made with study from 12/09/2016. FINDINGS: There is diffuse interstitial infiltrate in the left lower lung that has not shown any interval improvement. Right lung is clear. There are no effusions or pneumothoraces. Right IJ Port-A-Cath tip projects over the SVC. IMPRESSION: Diffuse alveolar nodular infiltrate in the left lower lung. This could represent bronchoalveolar adenocarcinoma. Dictated by: Dictated on workstation # [id number]
[~2017-01-20] VITALS: Ht 172.7 cm; Wt 89.4 kg
[~2017-01-20 10:55] MED LIST changes: +CARBOPLATIN IV SCH; +CYANOCOBALAMIN INJ 1000 MCG/ML (CANCER CENTER) ONE; +D5W IV SCH; +FOSAPREPITANT 150 MG/NS 150 MG IVPB (CANCER CTR) IV PRN; +NS IV 500 ML (CANCER CENTER) IV SCH; +PALONOSETRON 0.25 MG, DEXAMETHASONE 10 MG/NS 50 ML IVPB IV PRN; +PEMETREXED DISODIUM 1,000 MG in NS (IVPB) CANCER CENTER 100 ML IV SCH; +diphenhydrAMINE 25 MG TAB (BENADRYL) CANCER CENTER PO ONE; +diphenhydrAMINE 50 MG/ML INJ (CANCER CENTER) ONE
[2017-01-20 11:27] LABS: BASOPHILS % (AUTO) 0 % (0-10); EOSINOPHILS % (AUTO) 0 % (0-10); LYMPHOCYTES # (AUTO) 0.4 X 10^3 (1.0-4.0); LYMPHOCYTES % (AUTO) 15 % (12-44); MEAN CORPUSCULAR HEMOGLOBIN 31 PG (25-34); MEAN CORPUSCULAR HGB CONC 33 G/DL (32-36); MEAN CORPUSCULAR VOLUME 93 FL (80-99); MEAN PLATELET VOLUME 9.6 FL (7.4-10.4); MONOCYTES # (AUTO) 0.5 X 10^3 (0.0-1.0); MONOCYTES % (AUTO) 16 % (0-12); NEUTROPHILS # (AUTO) 1.9 X 10^3 (1.8-7.8); NEUTROPHILS % (AUTO) 68 % (42-75); PLATELET COUNT 213 10^3/uL (130-400); RED BLOOD COUNT 3.34 10^6/uL (4.35-5.85); RED CELL DISTRIBUTION WIDTH 18.7 % (10.0-14.5); WHITE BLOOD COUNT 2.7 10^3/uL (4.3-11.0)
[2017-01-20] MEDS ORDERED: diphenhydrAMINE 25 MG TAB (BENADRYL) CANCER CENTER PO ONE (11:48)
[2017-01-20 12:05] LABS: ALANINE AMINOTRANSFERASE 19 U/L (0-55); ANION GAP 13 MMOL/L (5-14); ASPARTATE AMINO TRANSFERASE 21 U/L (5-34); BILIRUBIN,TOTAL 0.5 MG/DL (0.1-1.0); BLOOD UREA NITROGEN 17 MG/DL (7-18); BUN/CREATININE RATIO 19; CALCIUM 9.7 MG/DL (8.5-10.1); CARBON DIOXIDE 23 MMOL/L (21-32); CHLORIDE 103 MMOL/L (98-107); CREATININE SERUM 0.88 MG/DL (0.60-1.30); GFR ESTIMATED > 60; GLUCOSE 113 MG/DL (70-105); MAGNESIUM 1.7 MG/DL (1.8-2.4); POTASSIUM 3.2 MMOL/L (3.6-5.0); SODIUM 139 MMOL/L (135-145); TOTAL PROTEIN 7.2 GM/DL (6.4-8.2)
== END 2017-02-08 | disposition home or self-care (01) ==
LOC: ONC 10:55
PROVIDERS: ATTEND Internal Medicine Hematology & Oncology
DX: Z51.11 Encounter for antineoplastic chemotherapy (principal); C34.32 Malignant neoplasm of lower lobe, left bronchus or lung; C77.1 Secondary and unspecified malignant neoplasm of intrathoracic lymph nodes; E03.9 Hypothyroidism, unspecified; Z98.84 Bariatric surgery status; Z79.899 Other long term (current) drug therapy
CPT/HCPCS: 36591; 71020; 80053; 83735; 85025; 96367; 96372; 96375; 96409; 96411; 96413; 99213; 99214

== ENCOUNTER → 2017-02-25 | Outpatient (CLI) | payer BC ==
[~2017-02-25] MED LIST changes: -CARBOPLATIN IV SCH; -CYANOCOBALAMIN INJ 1000 MCG/ML (CANCER CENTER) ONE; -D5W IV SCH; -FOSAPREPITANT 150 MG/NS 150 MG IVPB (CANCER CTR) IV PRN; -NS IV 500 ML (CANCER CENTER) IV SCH; -PALONOSETRON 0.25 MG, DEXAMETHASONE 10 MG/NS 50 ML IVPB IV PRN; -PEMETREXED DISODIUM 1,000 MG in NS (IVPB) CANCER CENTER 100 ML IV SCH; -diphenhydrAMINE 25 MG TAB (BENADRYL) CANCER CENTER PO ONE; -diphenhydrAMINE 50 MG/ML INJ (CANCER CENTER) ONE
--- NOTE | 2017-02-25 19:30 | Diagnostic Imaging Report ---
Bilateral screening mammogram 2D views with tomosynthesis The current study was also evaluated with a Computer Aided Detection (CAD) system. INDICATION: Screening. No current complaints stated on the questionnaire. COMPARISON: 02/21/2016. FINDINGS: The breasts are composed of scattered fibroglandular densities. There are occasional benign-appearing calcifications. Allowing for technique and positional differences, no suspicious change is seen. IMPRESSION: No significant change. ACR BI-RADS Category 2: Benign findings. Result letter will be mailed to the patient. Note: At least 10% of breast cancer is not imaged by mammography. Dictated by: Dictated on workstation # [id number]
== END ==
LOC: RAD 09:20
PROVIDERS: ATTEND Internal Medicine
DX: Z12.31 Encounter for screening mammogram for malignant neoplasm of breast (principal)
CPT/HCPCS: 77067

== ENCOUNTER 2017-04-15 09:22 | Outpatient (RCR) | payer BC ==
[2017-02-09 14:29] LABS: BASOPHILS % (AUTO) 0 % (0-10); EOSINOPHILS % (AUTO) 0 % (0-10); LYMPHOCYTES # (AUTO) 0.5 X 10^3 (1.0-4.0); LYMPHOCYTES % (AUTO) 15 % (12-44); MEAN CORPUSCULAR HEMOGLOBIN 32 PG (25-34); MEAN CORPUSCULAR HGB CONC 33 G/DL (32-36); MEAN CORPUSCULAR VOLUME 97 FL (80-99); MEAN PLATELET VOLUME 9.6 FL (7.4-10.4); MONOCYTES # (AUTO) 0.4 X 10^3 (0.0-1.0); MONOCYTES % (AUTO) 11 % (0-12); NEUTROPHILS # (AUTO) 2.5 X 10^3 (1.8-7.8); NEUTROPHILS % (AUTO) 74 % (42-75); PLATELET COUNT 171 10^3/uL (130-400); RED BLOOD COUNT 2.81 10^6/uL (4.35-5.85); RED CELL DISTRIBUTION WIDTH 19.9 % (10.0-14.5); WHITE BLOOD COUNT 3.3 10^3/uL (4.3-11.0)
[2017-02-09 14:50] LABS: ALBUMIN 4.1 GM/DL (3.2-4.5); BILIRUBIN,TOTAL 0.4 MG/DL (0.1-1.0); CALCIUM 9.5 MG/DL (8.5-10.1); CREATININE SERUM 0.96 MG/DL (0.60-1.30); MAGNESIUM 1.8 MG/DL (1.8-2.4); POTASSIUM 3.8 MMOL/L (3.6-5.0); TOTAL PROTEIN 7.3 GM/DL (6.4-8.2)
[2017-03-02 14:20] LABS: BASOPHILS % (AUTO) 0 % (0-10); EOSINOPHILS % (AUTO) 0 % (0-10); LYMPHOCYTES # (AUTO) 0.4 X 10^3 (1.0-4.0); LYMPHOCYTES % (AUTO) 15 % (12-44); MEAN CORPUSCULAR HEMOGLOBIN 33 PG (25-34); MEAN CORPUSCULAR HGB CONC 32 G/DL (32-36); MEAN CORPUSCULAR VOLUME 104 FL (80-99); MEAN PLATELET VOLUME 8.6 FL (7.4-10.4); MONOCYTES # (AUTO) 0.2 X 10^3 (0.0-1.0); MONOCYTES % (AUTO) 7 % (0-12); NEUTROPHILS # (AUTO) 2.2 X 10^3 (1.8-7.8); NEUTROPHILS % (AUTO) 78 % (42-75); PLATELET COUNT 278 10^3/uL (130-400); RED BLOOD COUNT 2.59 10^6/uL (4.35-5.85); RED CELL DISTRIBUTION WIDTH 21.2 % (10.0-14.5); WHITE BLOOD COUNT 2.9 10^3/uL (4.3-11.0)
[2017-03-02 14:50] LABS: ALANINE AMINOTRANSFERASE 50 U/L (0-55); ALBUMIN 3.9 GM/DL (3.2-4.5); ANION GAP 11 MMOL/L (5-14); ASPARTATE AMINO TRANSFERASE 46 U/L (5-34); BILIRUBIN,TOTAL 0.6 MG/DL (0.1-1.0); BLOOD UREA NITROGEN 21 MG/DL (7-18); BUN/CREATININE RATIO 22; CALCIUM 9.6 MG/DL (8.5-10.1); CARBON DIOXIDE 25 MMOL/L (21-32); CHLORIDE 104 MMOL/L (98-107); CREATININE SERUM 0.95 MG/DL (0.60-1.30); GFR ESTIMATED > 60; GLUCOSE 119 MG/DL (70-105); MAGNESIUM 1.6 MG/DL (1.8-2.4); POTASSIUM 3.7 MMOL/L (3.6-5.0); SODIUM 140 MMOL/L (135-145); TOTAL PROTEIN 7.1 GM/DL (6.4-8.2)
[2017-03-02 15:12] LABS: RETICULOCYTE % 3.46 % (0.50-2.40)
[2017-03-03 07:40] LABS: HOMOCYSTEINE 12.3 umol/L (<=10.3)
[2017-03-05 06:50] LABS: METHYLMALONIC ACID 0.18 umol/L (0.00-0.40)
[2017-03-24 15:00] LABS: BASOPHILS % (AUTO) 0 % (0-10); EOSINOPHILS % (AUTO) 0 % (0-10); LYMPHOCYTES # (AUTO) 0.4 X 10^3 (1.0-4.0); LYMPHOCYTES % (AUTO) 12 % (12-44); MEAN CORPUSCULAR HEMOGLOBIN 34 PG (25-34); MEAN CORPUSCULAR HGB CONC 31 G/DL (32-36); MEAN CORPUSCULAR VOLUME 109 FL (80-99); MEAN PLATELET VOLUME 9.3 FL (7.4-10.4); MONOCYTES # (AUTO) 0.3 X 10^3 (0.0-1.0); MONOCYTES % (AUTO) 8 % (0-12); NEUTROPHILS # (AUTO) 2.8 X 10^3 (1.8-7.8); NEUTROPHILS % (AUTO) 80 % (42-75); PLATELET COUNT 212 10^3/uL (130-400); RED BLOOD COUNT 2.54 10^6/uL (4.35-5.85); RED CELL DISTRIBUTION WIDTH 17.1 % (10.0-14.5); WHITE BLOOD COUNT 3.5 10^3/uL (4.3-11.0)
[2017-03-24 15:18] LABS: ALBUMIN 3.9 GM/DL (3.2-4.5); BILIRUBIN,TOTAL 0.4 MG/DL (0.1-1.0); CALCIUM 9.1 MG/DL (8.5-10.1); CREATININE SERUM 1.05 MG/DL (0.60-1.30); POTASSIUM 3.7 MMOL/L (3.6-5.0); TOTAL PROTEIN 6.9 GM/DL (6.4-8.2)
--- NOTE | 2017-03-24 19:15 | Diagnostic Imaging Report ---
INDICATION: Carcinoma of the lung. EXAMINATION: PA and lateral chest at 2:42 p.m. FINDINGS: The heart size is within normal limits and stable when compared to 12/30/16. The alveolar/interstitial infiltrate involving the left midlung and left lung base seen on the prior study are again evident and no different. The left upper lung and right lung remain generally clear. The mediastinum is not widened. The right-sided Port-A-Cath is unchanged in position. IMPRESSION: 1. The appearance of the chest is stable when compared to the prior exam. The abnormal parenchymal density involving the left midlung and left lung base, seen previously, is essentially no different. 2. There is no acute cardiopulmonary abnormality evident. Dictated by: Dictated on workstation # [id number]
[~2017-04-15] VITALS: Ht 172.7 cm; Wt 88.0 kg
[~2017-04-15 09:22] MED LIST changes: +CARBOPLATIN IV SCH; +CYANOCOBALAMIN INJ 1000 MCG/ML (CANCER CENTER) ONE; +D5W IV SCH; +FOSAPREPITANT 150 MG/NS 150 MG IVPB (CANCER CTR) IV PRN; +NS IV 500 ML (CANCER CENTER) IV SCH; +PALONOSETRON 0.25 MG, DEXAMETHASONE 10 MG/NS 50 ML IVPB IV PRN; +PEMETREXED DISODIUM 1,000 MG in NS (IVPB) CANCER CENTER 100 ML IV SCH; +PEMETREXED DISODIUM 500 MG, PEMETREXED DISODIUM 400 MG in NS (IVPB) CANCER CENTER 100 ML IV SCH; +diphenhydrAMINE 25 MG TAB (BENADRYL) CANCER CENTER PO PRN; +diphenhydrAMINE 25 MG TAB (BENADRYL) CANCER CENTER PO SCH
[2017-04-15 09:49] LABS: BASOPHILS % (AUTO) 0 % (0-10); EOSINOPHILS % (AUTO) 0 % (0-10); LYMPHOCYTES # (AUTO) 0.6 X 10^3 (1.0-4.0); LYMPHOCYTES % (AUTO) 18 % (12-44); MEAN CORPUSCULAR HEMOGLOBIN 33 PG (25-34); MEAN CORPUSCULAR HGB CONC 31 G/DL (32-36); MEAN CORPUSCULAR VOLUME 107 FL (80-99); MEAN PLATELET VOLUME 9.5 FL (7.4-10.4); MONOCYTES # (AUTO) 0.5 X 10^3 (0.0-1.0); MONOCYTES % (AUTO) 16 % (0-12); NEUTROPHILS # (AUTO) 2.3 X 10^3 (1.8-7.8); NEUTROPHILS % (AUTO) 67 % (42-75); PLATELET COUNT 253 10^3/uL (130-400); RED BLOOD COUNT 2.64 10^6/uL (4.35-5.85); RED CELL DISTRIBUTION WIDTH 14.1 % (10.0-14.5); WHITE BLOOD COUNT 3.5 10^3/uL (4.3-11.0)
[2017-04-15 10:19] LABS: ALBUMIN 3.7 GM/DL (3.2-4.5); BILIRUBIN,TOTAL 0.4 MG/DL (0.1-1.0); CREATININE SERUM 0.96 MG/DL (0.60-1.30); MAGNESIUM 1.7 MG/DL (1.8-2.4); POTASSIUM 3.3 MMOL/L (3.6-5.0); TOTAL PROTEIN 7.3 GM/DL (6.4-8.2)
== END 2017-04-17 | disposition home or self-care (01) ==
LOC: ONC 09:22
PROVIDERS: ATTEND Internal Medicine Hematology & Oncology
DX: Z51.11 Encounter for antineoplastic chemotherapy (principal); C34.32 Malignant neoplasm of lower lobe, left bronchus or lung; C77.1 Secondary and unspecified malignant neoplasm of intrathoracic lymph nodes; D64.9 Anemia, unspecified; E03.9 Hypothyroidism, unspecified; Z98.84 Bariatric surgery status; Z79.899 Other long term (current) drug therapy
CPT/HCPCS: 36591; 71020; 80053; 82728; 83090; 83540; 83735; 83921; 85025; 85045; 96372; 96375; 96409; 99213

== ENCOUNTER 2017-04-21 09:26 | Emergency (ER) | payer BC ==
[~2017-04-21] VITALS: Ht 172.7 cm; Wt 86.6 kg
[~2017-04-21 09:26] MED LIST changes: -CARBOPLATIN IV SCH; -CYANOCOBALAMIN INJ 1000 MCG/ML (CANCER CENTER) ONE; -D5W IV SCH; -FOSAPREPITANT 150 MG/NS 150 MG IVPB (CANCER CTR) IV PRN; -NS IV 500 ML (CANCER CENTER) IV SCH; -PALONOSETRON 0.25 MG, DEXAMETHASONE 10 MG/NS 50 ML IVPB IV PRN; -PEMETREXED DISODIUM 1,000 MG in NS (IVPB) CANCER CENTER 100 ML IV SCH; -PEMETREXED DISODIUM 500 MG, PEMETREXED DISODIUM 400 MG in NS (IVPB) CANCER CENTER 100 ML IV SCH; -diphenhydrAMINE 25 MG TAB (BENADRYL) CANCER CENTER PO PRN; -diphenhydrAMINE 25 MG TAB (BENADRYL) CANCER CENTER PO SCH
[2017-04-21] MEDS ORDERED: fentaNYL INJECTION 100 MCG/2 ML AMP IVP STA ×2 (09:44→10:16)
[2017-04-21] MEDS ORDERED: POTA10TA10 (09:45)
[2017-04-21] MEDS ORDERED: MAGN400T6 (09:45)
[2017-04-21] MEDS ORDERED: ONDANSETRON 4 MG/2 ML (SDV) Z0FRAN IVP ONE (09:45)
[2017-04-21] MEDS ORDERED: PANT20TA3 (09:45)
[2017-04-21] MEDS ORDERED: DEXA4TAB (09:45)
[2017-04-21 10:11] LABS: BASOPHILS % (AUTO) 0 % (0-10); EOSINOPHILS % (AUTO) 2 % (0-10); LYMPHOCYTES # (AUTO) 0.4 X 10^3 (1.0-4.0); LYMPHOCYTES % (AUTO) 27 % (12-44); MEAN CORPUSCULAR HEMOGLOBIN 34 PG (25-34); MEAN CORPUSCULAR HGB CONC 32 G/DL (32-36); MEAN CORPUSCULAR VOLUME 106 FL (80-99); MEAN PLATELET VOLUME 9.1 FL (7.4-10.4); MONOCYTES # (AUTO) 0.1 X 10^3 (0.0-1.0); MONOCYTES % (AUTO) 8 % (0-12); NEUTROPHILS # (AUTO) 0.8 X 10^3 (1.8-7.8); NEUTROPHILS % (AUTO) 63 % (42-75); PLATELET COUNT 139 10^3/uL (130-400); RED BLOOD COUNT 2.48 10^6/uL (4.35-5.85); RED CELL DISTRIBUTION WIDTH 13.2 % (10.0-14.5)
[2017-04-21 10:12] LABS: WHITE BLOOD COUNT 1.3 10^3/uL (4.3-11.0)
--- NOTE | 2017-04-21 10:18 | ED Chest Pain ---
General Chief Complaint: General Problems/Pain Stated Complaint: LT SIDE/LT BREAST/LEFT SIDE BACK PAIN/CANCER PT Nursing Triage Note: ARRIVED VIA AMB TO ROOM 08 WITH COMPLAINTS OF LEFT SIDED CHEST PAIN THAT STARTED THRUSDAY AFTER CHEMO AND IS NOT GOING AWAY WITH TYLENOL. STATES THE CHEST PAIN IS TYPICAL BUT USUALLY GOES AWAY AND THIS ISNT. Nursing Sepsis Screen: No Definite Risk Source: patient Exam Limitations: no limitations History of Present Illness Time seen by provider: 09:40 Initial Comments Here with complaint of left chest wall pain that has been going on for a couple of days. States that this usually occurs after chemotherapy. This is her fourth round of chemotherapy for stage IV lung cancer with lesion on the left and probable metastases to the right. The first 2 rounds of chemotherapy she had similar pain but a little bit lower. The third round of chemotherapy she had right-sided pain. She went to the cancer center but her doctor is out and they sent her here for further evaluation. Patient is very anxious and in obvious pain. She only takes Tylenol for pain control. Some of this is because she does not want to take stronger pain medicines because of concerns about use. She is open to better pain control though now. Does have family history of cardiac disease including mother who from massive heart attack. She does have history of DVT in 2002. Timing/Duration: getting worse, 2-3 days Severity/Quality: moderate Location: other (left middle chest.) Radiation: shoulders (left), back Prior CP/Workup: no prior chest pain ASA po WIRELESS OPERATOR: No NTG SL WIRELESS OPERATOR: No Associated Symptoms: back pain (pain in the back on the left side), No fatigue , No fever/chills, No nausea/vomiting, shortness of breath (pain with deep breathing), No weakness Allergies and Home Medications Allergies Coded Allergies: latex (Verified Allergy, Unknown, 04/21/17) morphine (Verified Adverse Reaction, Unknown, N/V, 04/21/17) Home Medications Biotin 2,500 Mcg Capsule, 5,000 MCG PO DAILY, (Reported) Cholecalciferol (Vitamin D3) 2,000 Unit Capsule, 2,000 UNIT PO HS, (Reported) Cyanocobalamin (Vitamin B-12) 5,000 Mcg Tab.subl, 5,000 MCG PO HS, (Reported) Dexamethasone 4 Mg Tablet, (Reported) Ferrous Sulfate 325 Mg Tablet, 325 MG PO HS, (Reported) Folic Acid 1 Mg Tablet, 1 MG PO DAILY, (Reported) Levothyroxine Sodium 88 Mcg Tablet, 88 MCG PO DAILY, (Reported) Magnesium Oxide 400 Mg Tablet, (Reported) Pantoprazole Sodium 20 Mg Tablet.dr, (Reported) Potassium Chloride 10 Meq Tablet.er, (Reported) Triamterene/Hydrochlorothiazid 1 Each Capsule, 1 TAB PO DAILY, (Reported) Review of Systems Constitutional: see HPI, No chills, No fever EENTM: No Symptoms Reported Respiratory: No Symptoms Reported Cardiovascular: See HPI, Chest Pain, Edema, Denies Irregular Heart Rate Gastrointestinal: Denies Nausea, Denies Vomiting Genitourinary: No Symptoms Reported Musculoskeletal: see HPI, back pain, muscle pain Skin: no symptoms reported Psychiatric/Neurological: Anxiety, Denies Weakness Endocrine: No Symptoms Reported All Other Systems Reviewed Negative Unless Noted: Yes Past Alifxes-Uqfeln-Pgjhno Hx Patient Social History Alcohol Use: Denies Use Recreational Drug Use: No Smoking Status: Never a Smoker Recent Foreign Travel: No Contact w/Someone Who Travel: No Recent Infectious Disease Expo: No Recent Hopitalizations: No Immunizations Up To Date Date of Influenza Vaccine: Apr 24, 2016 Seasonal Allergies Seasonal Allergies: No Surgeries History of Surgeries: Yes (gastric bypass in 2001, WISDOM TEETH, GABY FILTER, PLASTIC SURGERY,) Surgeries: Breast, Eye Surgery, Gallbladder, Orthopedic, Tonsillectomy Respiratory History of Respiratory Disorde: Yes (lung ca) Respiratory Disorders: Pulmonary Embolism Currently Using CPAP: No Cardiovascular History of Cardiac Disorders: No Neurological History of Neurological Disord: Yes Neurological Disorders: Headaches /Migraines Reproductive System Hx Reproductive Disorders: No Sexually Transmitted Disease: No HIV/AIDS: No Female Reproductive Disorders: Denies Gastrointestinal History of Gastrointestinal Di: No Musculoskeletal History of Musculoskeletal Dis: Yes Musculoskeletal Disorders: Osteoporosis 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) Endocrine Disorders: Hyperthyroidism Cancer History of Cancer: Yes Cancer: Lung, Melanoma Psychosocial History of Psychiatric Problem: No Integumentary History of Skin or Integumenta: No Blood Transfusions History of Blood Disorders: No Reviewed Nursing Assessment Reviewed/Agree w Nursing PMH: Yes Family Medical History Family Medial History: Alzheimer's disease Arthritis Cardiovascular disease Diabetes mellitus Glaucoma Hypertension Myocardial infarction Thyroid disease Visual disorder Physical Exam Vital Signs Vital Sign - Last 12Hours 04/21/17 09:26 Temp 98.0 Pulse 99 Resp 18 B/P (MAP) 154/100 Pulse Ox 97 Capillary Refill : Less Than 3 Seconds General Appearance: No Apparent Distress, Anxious HEENT: PERRL/EOMI, Pharynx Normal Neck: Non Tender, Supple Respiratory: Lungs Clear, Normal Breath Sounds, Other (tenderness to the left anterior chest wall) Cardiovascular: Regular Rate, Rhythm, No Murmur Gastrointestinal: Non Tender, Soft Extremity: Normal Range of Motion, Non Tender, Pedal Edema (1+ to the mid tibia bilaterally) Neurologic/Psychiatric: Alert, Oriented x3, No Motor/Sensory Deficits Skin: Normal Color, Warm/Dry Progress/Results/Core Measures Results/Orders Lab Results Laboratory Tests Test 04/21/17 10:00 Range/Units White Blood Count 1.3 *L 4.3-11.0 10^3/uL Red Blood Count 2.48 L 4.35-5.85 10^6/uL Hemoglobin 8.4 L 11.5-16.0 G/DL Hematocrit 26 L 35-52 % Mean Corpuscular Volume 106 H 80-99 FL Mean Corpuscular Hemoglobin 34 25-34 PG Mean Corpuscular Hemoglobin Concent 32 32-36 G/DL Red Cell Distribution Width 13.2 10.0-14.5 % Platelet Count 139 130-400 10^3/uL Mean Platelet Volume 9.1 7.4-10.4 FL Neutrophils (%) (Auto) 63 42-75 % Lymphocytes (%) (Auto) 27 12-44 % Monocytes (%) (Auto) 8 0-12 % Eosinophils (%) (Auto) 2 0-10 % Basophils (%) (Auto) 0 0-10 % Neutrophils # (Auto) 0.8 L 1.8-7.8 X 10^3 Lymphocytes # (Auto) 0.4 L 1.0-4.0 X 10^3 Monocytes # (Auto) 0.1 0.0-1.0 X 10^3 Eosinophils # (Auto) 0.0 0.0-0.3 10^3/uL Basophils # (Auto) 0.0 0.0-0.1 10^3/uL Prothrombin Time 12.6 12.2-14.7 SEC INR Comment 0.9 0.8-1.4 Activated Partial Thromboplast Time 23 L 24-35 SEC Sodium Level 138 135-145 MMOL/L Potassium Level 3.3 L 3.6-5.0 MMOL/L Chloride Level 101 98-107 MMOL/L Carbon Dioxide Level 28 21-32 MMOL/L Anion Gap 9 5-14 MMOL/L Blood Urea Nitrogen 19 H 7-18 MG/DL Creatinine 0.86 0.60-1.30 MG/DL Estimat Glomerular Filtration Rate > 60 BUN/Creatinine Ratio 22 Glucose Level 90 70-105 MG/DL Calcium Level 9.2 8.5-10.1 MG/DL Magnesium Level 1.7 L 1.8-2.4 MG/DL Total Bilirubin 0.6 0.1-1.0 MG/DL Aspartate Amino Transf (AST/SGOT) 26 5-34 U/L Alanine Aminotransferase (ALT/SGPT) 32 0-55 U/L Alkaline Phosphatase 66 40-136 U/L Myoglobin 22.7 10.0-92.0 NG/ML Troponin I < 0.30 <0.30 NG/ML Total Protein 6.5 6.4-8.2 GM/DL Albumin 3.5 3.2-4.5 GM/DL My Orders Orders - HEATHER HERRERA MD Cbc With Automated Diff (04/21/17 09:44) Magnesium (04/21/17 09:44) Chest 1 View, Ap/Pa Only (04/21/17 09:44) Ekg Tracing (04/21/17 09:44) Cardiac Profile 1 (04/21/17 09:44) Comprehensive Metabolic Panel (04/21/17 09:44) Myoglobin Serum (04/21/17 09:44) Protime With Inr (04/21/17 09:44) Partial Thromboplastin Time (04/21/17 09:44) O2 (04/21/17 09:44) Monitor-Rhythm Ecg Trace Only (04/21/17 09:44) Lipid Panel (04/22/17 06:00) Saline Lock/Iv-Start (04/21/17 09:44) Fentanyl Injection (Sublimaze Injection (04/21/17 09:44) Ondansetron Injection (Zofran Injectio (04/21/17 09:45) Fentanyl Injection (Sublimaze Injection (04/21/17 10:16) Lorazepam Injection (Ativan Injection) (04/21/17 10:30) Ct Angio Chest W (04/21/17 11:20) Ns Iv 1000 Ml (Sodium Chloride 0.9%) (04/21/17 11:20) Iohexol Injection (Omnipaque 350 Mg/Ml 1 (04/21/17 11:45) Ns (Ivpb) (Sodium Chloride 0.9% Ivpb Bag (04/21/17 11:45) Hydrocodone/Apap 7.5/325 Tab (Lortab 7. (04/21/17 14:27) Medications Given in ED Current Medications Medications Dose Ordered Sig/Jose Luis Route Start Time Stop Time Status Last Admin Dose Admin Iohexol 125 ml ONCE ONCE IV 04/21/17 11:45 04/21/17 11:46 DC 04/21/17 12:13 125 ML Lorazepam 0.5 mg ONCE ONCE IVP 04/21/17 10:30 04/21/17 10:31 DC 04/21/17 10:25 0.5 MG Ondansetron HCl 4 mg ONCE ONCE IVP 04/21/17 09:45 04/21/17 09:46 DC 04/21/17 10:02 4 MG Sodium Chloride 100 ml ONCE ONCE IV 04/21/17 11:45 04/21/17 11:46 DC 04/21/17 12:13 80 ML Sodium Chloride 1,000 ml @ 0 mls/hr Q0M ONCE IV 04/21/17 11:20 04/21/17 11:21 DC 04/21/17 11:25 1,000 MLS/HR Vital Signs/I&O Vital Sign - Last 12Hours 04/21/17 09:26 Temp 98.0 Pulse 99 Resp 18 B/P (MAP) 154/100 Pulse Ox 97 Blood Pressure Mean: 118 Progress Note : Progress Note Seen and evaluated. IV, labs, EKG and chest x-ray ordered. Fentanyl 50 g IV and Zofran 4 mg IV ordered. Monitor patient. Patient crying and obviously anxious with continued pain. Patient is still very anxious but was concerned about taking any medicines. After conversation, patient decided that it was okay and Ativan 0.5 mg IV and fentanyl 50 g IV ordered and given. 1047: Patient doing a little better. Still intermittently crying but states that she is tolerating better now and does not want anymore medicine. Monitor patient. 1120: CT angiogram chest ordered to rule out pulmonary embolism. Patient is doing better. 1300: CT angiogram complete. Pending results. Patient remains comfortable. 1420: CT angiogram results posted. Results noted. Discussed with patient. No pulmonary embolism. Patient remains improved with pain of 3 or 4 out of 10. She states it's much more tolerable. She is amiable to more appropriate pain relief. Hydrocodone 7.5/325 one tab by mouth given. We will continue outpatient therapy with hydrocodone 5/325 one to 2 tabs every 6 hours. We did discuss pain control and pain management. She will follow-up with her Dr. for further evaluation and control of pain. Discharged home with return precautions. Patient verbalize understanding instructions and agreement with plan. ECG Initial ECG Impression Date: Apr 21, 2017 Initial ECG Impression Time: 10:04 Initial ECG Rate: 92 Initial ECG Rhythm: Normal Sinus Comment Sinus rhythm with right bundle branch block. No evidence of ST elevation [place]. No previous available for comparison. Interpreted by me. Diagnostic Imaging Diagonstic Imaging: Xray Plain Films/CT/US/NM/MRI: chest Comments NAME: MANSOOR PIÑA [employer] REC#: [id number] PT STATUS: REG ER : 1960 PHYSICIAN: HEATHER HERRERA MD ADMIT DATE: 04/21/17/ER Signed Date of Exam: 04/21/17 CHEST 1 VIEW, AP/PA ONLY Portable upright radiograph of the chest. INDICATION: Chest pain. COMPARISON: 03/24/2017. FINDINGS: There are increasing infiltrates in the mid and lower left lung zones. The right lung is clear. The heart size is mildly prominent. No effusion or pneumothorax. The mediastinum and jason appear unremarkable. There is right internal jugular infusion port with the tip at the SVC level without change. IMPRESSION: Worsening mid and lower left lung infiltrates. Dictated by: Dictated on workstation # [id number] Dict: 04/21/17 1050 Trans: 04/21/17 1257 Interpreted by: CORAL MEDINA MD Electronically signed by: CORAL MEDINA MD 04/21/17 1257 Diagonstic Imaging: CT Plain Films/CT/US/NM/MRI: chest Comments NAME: MANSOOR PIÑA J MED REC#: [id number] PT STATUS: REG ER : 1960 PHYSICIAN: HEATHER HERRERA MD ADMIT DATE: 04/21/17/ER Signed Date of Exam: 04/21/17 CT ANGIO CHEST W PROCEDURE: CT angiography of the chest with contrast. TECHNIQUE: Multiple contiguous axial images were obtained through the chest after uneventful bolus administration of intravenous contrast. Reconstructed CTA MIP acquisitions were also performed. INDICATION: Left chest pain. Lung cancer. 125 mL of Omnipaque 350 is administered intravenously. FINDINGS: There is good opacification of the pulmonary arteries with no filling defects to suggest pulmonary embolism. The thoracic aorta is normal in caliber. The mediastinum demonstrates no mass. There is a precarinal mildly enlarged lymph node measuring 1.2 cm in size similar to the previous exam. There is also infracarinal lymphadenopathy measuring up to 1.2 cm. There is a 1.1 cm left infrahilar lymph node seen. The axillae demonstrate no lymphadenopathy or mass. There is a left lower lobe mass measuring 5.4 x 3.5 cm, enlarged compared to 10/20/2016 measurements of 5 x 3.7 cm. There is adjacent atelectasis particularly inferior and posterior to the mass. There is extensive micronodular pattern and groundglass opacities seen in the left lower lobe and extending to parts of the left upper lobe without significant change from 10/20/2016. This could be related to neoplastic involvement. The right lung demonstrates no significant consolidation, mass or suspicious nodule. There is a small left pleural effusion. No pericardial effusion. The osseous structures demonstrate mild degenerative changes. Cholecystectomy clips are seen. There is a portacatheter with the tip at the lower SVC level. IMPRESSION: 1. No pulmonary embolism. 2. Interval enlargement of left lower lobe lung mass measuring now 5.5 cm with associated chronic extensive micronodules involving the left lower lobe and portions of the left upper lobe, probably neoplastic in etiology. There are also mildly enlarged left hilar and mediastinal lymph nodes. Dictated by: Dictated on workstation # [id number] Dict: 04/21/171411 Trans: 04/21/17 141 Interpreted by: CORAL MEDINA MD Electronically signed by: CORAL MEDINA MD 04/21/17 1414 Departure Impression Impression: Primary Impression: Metastatic lung cancer (metastasis from lung to other site) Qualified Codes: C34.92 - Malignant neoplasm of unspecified part of left bronchus or lung Additional Impression: Chest wall pain Disposition: 01 HOME, SELF-CARE Condition: Stable Departure-Patient Inst. Decision time for Depature: 14:36 Referrals: KIMBERLY CARABALLO WILLIAM J DO (PCP/Family) Primary Care Physician Patient Instructions: Chest Pain (DC), Pleuritic Chest Pain Add. Discharge Instructions: All discharge instructions reviewed with patient and/or family. Voiced understanding. Take medications as directed. Follow-up with Dr. Espino in the next 2-3 days. Return for worse pain, fever, vomiting, weakness, breathing problems or other concerns as needed. Scripts Hydrocodone/Acetaminophen (Hydrocodon -Acetaminophen 5-325) 1 Each Tablet 1-2 EACH PO Q6H Y for PAIN-MODERATE, #30 TAB 0 Refills Prov: HEATHER HERRERA MD 04/21/17 Copy Copies To 1: KIMBERLY CARABALLO TIMOTHY D MD Apr 21, 2017 10:18
[2017-04-21 10:20] LABS: INR 0.9 (0.8-1.4); PROTHROMBIN TIME PATIENT 12.6 SEC (12.2-14.7)
[2017-04-21 10:29] LABS: ALANINE AMINOTRANSFERASE 32 U/L (0-55); ALBUMIN 3.5 GM/DL (3.2-4.5); ANION GAP 9 MMOL/L (5-14); ASPARTATE AMINO TRANSFERASE 26 U/L (5-34); BILIRUBIN,TOTAL 0.6 MG/DL (0.1-1.0); BLOOD UREA NITROGEN 19 MG/DL (7-18); BUN/CREATININE RATIO 22; CALCIUM 9.2 MG/DL (8.5-10.1); CARBON DIOXIDE 28 MMOL/L (21-32); CHLORIDE 101 MMOL/L (98-107); CREATININE SERUM 0.86 MG/DL (0.60-1.30); GFR ESTIMATED > 60; GLUCOSE 90 MG/DL (70-105); MAGNESIUM 1.7 MG/DL (1.8-2.4); POTASSIUM 3.3 MMOL/L (3.6-5.0); SODIUM 138 MMOL/L (135-145); TOTAL PROTEIN 6.5 GM/DL (6.4-8.2)
[2017-04-21] MEDS ORDERED: LORazepam INJ 2 MG/ML (ATIVAN) VIAL IVP ONE (10:30)
[2017-04-21 10:35] LABS: MYOGLOBIN SERUM 22.7 NG/ML (10.0-92.0)
--- NOTE | 2017-04-21 10:55 | Diagnostic Imaging Report ---
Portable upright radiograph of the chest. INDICATION: Chest pain. COMPARISON: 03/24/2017. FINDINGS: There are increasing infiltrates in the mid and lower left lung zones. The right lung is clear. The heart size is mildly prominent. No effusion or pneumothorax. The mediastinum and jason appear unremarkable. There is right internal jugular infusion port with the tip at the SVC level without change. IMPRESSION: Worsening mid and lower left lung infiltrates. Dictated by: Dictated on workstation # [id number]
[2017-04-21] MEDS ORDERED: NS IV 1000 ML 1,000 ML IV ONE (11:20)
[2017-04-21] MEDS ORDERED: NS 100 ML (IVPB) BAG IV ONE (11:45)
[2017-04-21] MEDS ORDERED: IOHEXOL 350 MG/ML 150 ML (OMNIPAQUE 350) VIAL IV ONE (11:45)
--- NOTE | 2017-04-21 14:16 | Diagnostic Imaging Report ---
PROCEDURE: CT angiography of the chest with contrast. TECHNIQUE: Multiple contiguous axial images were obtained through the chest after uneventful bolus administration of intravenous contrast. Reconstructed CTA MIP acquisitions were also performed. INDICATION: Left chest pain. Lung cancer. 125 mL of Omnipaque 350 is administered intravenously. FINDINGS: There is good opacification of the pulmonary arteries with no filling defects to suggest pulmonary embolism. The thoracic aorta is normal in caliber. The mediastinum demonstrates no mass. There is a precarinal mildly enlarged lymph node measuring 1.2 cm in size similar to the previous exam. There is also infracarinal lymphadenopathy measuring up to 1.2 cm. There is a 1.1 cm left infrahilar lymph node seen. The axillae demonstrate no lymphadenopathy or mass. There is a left lower lobe mass measuring 5.4 x 3.5 cm, enlarged compared to 10/20/2016 measurements of 5 x 3.7 cm. There is adjacent atelectasis particularly inferior and posterior to the mass. There is extensive micronodular pattern and groundglass opacities seen in the left lower lobe and extending to parts of the left upper lobe without significant change from 10/20/2016. This could be related to neoplastic involvement. The right lung demonstrates no significant consolidation, mass or suspicious nodule. There is a small left pleural effusion. No pericardial effusion. The osseous structures demonstrate mild degenerative changes. Cholecystectomy clips are seen. There is a portacatheter with the tip at the lower SVC level. IMPRESSION: 1. No pulmonary embolism. 2. Interval enlargement of left lower lobe lung mass measuring now 5.5 cm with associated chronic extensive micronodules involving the left lower lobe and portions of the left upper lobe, probably neoplastic in etiology. There are also mildly enlarged left hilar and mediastinal lymph nodes. Dictated by: Dictated on workstation # [id number]
[2017-04-21] MEDS ORDERED: HYDROcodone/APAP 7.5 MG/325 MG (LORTAB, LORCET PLUS) TABLET PO STA (14:27)
[2017-04-21] MEDS ORDERED: HYDR-3812 PO (14:38)
[2017-04-21 14:45] VITALS: BP 107/42
== END 2017-04-21 14:44 | disposition home or self-care (01) ==
LOC: EDUNIT# 09:26 → ER 09:29
DX: C34.92 Malignant neoplasm of unspecified part of left bronchus or lung (principal); C79.9 Secondary malignant neoplasm of unspecified site; G43.909 Migraine, unspecified, not intractable, without status migrainosus; M81.0 Age-related osteoporosis without current pathological fracture; E05.90 Thyrotoxicosis, unspecified without thyrotoxic crisis or storm; Z82.49 Family history of ischemic heart disease and other diseases of the circulatory system; Z86.718 Personal history of other venous thrombosis and embolism; Z98.84 Bariatric surgery status; Z90.89 Acquired absence of other organs
CPT/HCPCS: 36415; 71010; 71275; 80053; 83735; 83874; 84484; 85025; 85610; 85730; 93005; 96361; 96374; 96375

== ENCOUNTER 2017-05-04 14:19 | Outpatient (RCR) | payer BC ==
[~2017-05-04 14:19] MED LIST changes: +DEXA4TAB; +MAGN400T6; +NS IV 500 ML (CANCER CENTER) IV SCH; +PALONOSETRON 0.25 MG, DEXAMETHASONE 10 MG/NS 50 ML IVPB IV PRN; +PANT20TA3; +PEMETREXED DISODIUM 500 MG, PEMETREXED DISODIUM 400 MG in NS (IVPB) CANCER CENTER 100 ML IV SCH; +POTA10TA10; +diphenhydrAMINE 25 MG TAB (BENADRYL) CANCER CENTER PO PRN
[2017-05-04 14:40] LABS: BASOPHILS % (AUTO) 0 % (0-10); EOSINOPHILS % (AUTO) 0 % (0-10); LYMPHOCYTES # (AUTO) 0.5 X 10^3 (1.0-4.0); LYMPHOCYTES % (AUTO) 12 % (12-44); MEAN CORPUSCULAR HEMOGLOBIN 33 PG (25-34); MEAN CORPUSCULAR HGB CONC 31 G/DL (32-36); MEAN CORPUSCULAR VOLUME 107 FL (80-99); MEAN PLATELET VOLUME 9.4 FL (7.4-10.4); MONOCYTES # (AUTO) 0.4 X 10^3 (0.0-1.0); MONOCYTES % (AUTO) 9 % (0-12); NEUTROPHILS # (AUTO) 3.6 X 10^3 (1.8-7.8); NEUTROPHILS % (AUTO) 79 % (42-75); PLATELET COUNT 321 10^3/uL (130-400); RED BLOOD COUNT 2.61 10^6/uL (4.35-5.85); RED CELL DISTRIBUTION WIDTH 14.2 % (10.0-14.5); WHITE BLOOD COUNT 4.5 10^3/uL (4.3-11.0)
[2017-05-04] MEDS ORDERED: CYANOCOBALAMIN INJ 1000 MCG/ML (CANCER CENTER) ONE (14:46)
[2017-05-04 15:02] LABS: ALBUMIN 3.8 GM/DL (3.2-4.5); BILIRUBIN,TOTAL 0.3 MG/DL (0.1-1.0); CALCIUM 9.7 MG/DL (8.5-10.1); CREATININE SERUM 0.98 MG/DL (0.60-1.30); MAGNESIUM 1.6 MG/DL (1.8-2.4); POTASSIUM 3.5 MMOL/L (3.6-5.0); TOTAL PROTEIN 7.6 GM/DL (6.4-8.2)
== END 2017-06-16 08:48 | disposition home or self-care (01) ==
LOC: ONC 14:19
PROVIDERS: ATTEND Internal Medicine Hematology & Oncology
DX: C34.32 Malignant neoplasm of lower lobe, left bronchus or lung (principal); C77.1 Secondary and unspecified malignant neoplasm of intrathoracic lymph nodes; D64.9 Anemia, unspecified; E03.9 Hypothyroidism, unspecified; Z98.84 Bariatric surgery status; Z79.899 Other long term (current) drug therapy
CPT/HCPCS: 36591; 80053; 83735; 85025; 96375; 96409; 99213

== ENCOUNTER → 2017-08-24 | Outpatient (CLI) | payer BC ==
[~2017-08-24] MED LIST changes: +ACET-2267 PO; +ACHD5005 PO; +AZIT250T12 PO; +BIOT50002 SL; +BISA10SU6 RC; -DEXA4TAB; +DEXA4TAB PO; -FERR-74 PO; +FERR325T18 PO; -HYDR-3812 PO; +HYDR-757 PO; -MAGN400T6; +MAGN400T6 PO; -NS IV 500 ML (CANCER CENTER) IV SCH; +ONDA8TAB6 PO; -PALONOSETRON 0.25 MG, DEXAMETHASONE 10 MG/NS 50 ML IVPB IV PRN; -PANT20TA3; +PANT20TA3 PO; -PEMETREXED DISODIUM 500 MG, PEMETREXED DISODIUM 400 MG in NS (IVPB) CANCER CENTER 100 ML IV SCH; +POLY17PO6 PO; +POTA10CA43 PO; +PROC-1 PO; +SORB1SOL2 PO; -diphenhydrAMINE 25 MG TAB (BENADRYL) CANCER CENTER PO PRN
--- NOTE | 2017-08-24 12:26 | Diagnostic Imaging Report ---
EXAMINATION: PA and lateral chest at 1057. INDICATION: Chest pain The heart size is within normal limits and the heart does seem less prominent than noted on the prior exam of 04/21/2017. The previous CTA chest exam performed on 04/21/2017 did note pneumonia/atelectasis throughout the left midlung and left lung base as well as a mass in the left lower lobe. That mass is difficult to appreciate on this exam as the left lung base is obscured by alveolar/interstitial pulmonary infiltrates. There does appear to have been a slight increase in the amount of fluid in the left lung base. The left upper lung and right lung are generally clear. On the lateral view there is a vague 1.3 CM poorly defined nodular density in the retrosternal space. There is no corresponding abnormality seen on the PA view. Even so, this could represent a newly developed nodule since the prior exam. If further study is desired, then a repeat CT chest exam would be recommended. The mediastinum is not widened. The osseous structures are intact. The right-sided Port-A-Cath seen previously is again evident and no different. IMPRESSION: 1. The heart has decreased in size since the prior exam but the left lung base remains obscured by atelectasis/infiltrate. There has also been a slight increase in the amount of fluid in the left lung base. 2. The mass involving the left lower lobe seen previously could not be identified on this study. There is also a question of new mass in the retrosternal region. If further evaluation of these findings are desired, then a repeat CT chest exam should be obtained. Dictated by: Dictated on workstation # [id number]
== END ==
LOC: RAD 10:26
PROVIDERS: ATTEND Internal Medicine Hematology & Oncology
DX: C34.32 Malignant neoplasm of lower lobe, left bronchus or lung (principal); M54.9 Dorsalgia, unspecified; Z95.828 Presence of other vascular implants and grafts
CPT/HCPCS: 71046

== ENCOUNTER 2017-08-26 11:00 | Outpatient (RCR) | payer BC ==
[2017-06-16 09:19] LABS: BASOPHILS % (AUTO) 0 % (0-10); EOSINOPHILS % (AUTO) 0 % (0-10); HEMATOCRIT 29 % (35-52); LYMPHOCYTES # (AUTO) 0.6 X 10^3 (1.0-4.0); LYMPHOCYTES % (AUTO) 20 % (12-44); MEAN CORPUSCULAR HEMOGLOBIN 33 PG (25-34); MEAN CORPUSCULAR HGB CONC 32 G/DL (32-36); MEAN CORPUSCULAR VOLUME 106 FL (80-99); MEAN PLATELET VOLUME 9.7 FL (7.4-10.4); MONOCYTES # (AUTO) 0.5 X 10^3 (0.0-1.0); MONOCYTES % (AUTO) 16 % (0-12); NEUTROPHILS # (AUTO) 2.1 X 10^3 (1.8-7.8); NEUTROPHILS % (AUTO) 65 % (42-75); PLATELET COUNT 248 10^3/uL (130-400); RED CELL DISTRIBUTION WIDTH 15.4 % (10.0-14.5); WHITE BLOOD COUNT 3.2 10^3/uL (4.3-11.0)
[2017-06-16 09:39] LABS: ALBUMIN 3.7 GM/DL (3.2-4.5); BILIRUBIN,TOTAL 0.4 MG/DL (0.1-1.0); CALCIUM 9.7 MG/DL (8.5-10.1); CREATININE SERUM 1.06 MG/DL (0.60-1.30); POTASSIUM 3.6 MMOL/L (3.6-5.0); TOTAL PROTEIN 7.4 GM/DL (6.4-8.2)
[2017-07-07 15:20] LABS: BASOPHILS % (AUTO) 0 % (0-10); EOSINOPHILS % (AUTO) 0 % (0-10); HEMATOCRIT 28 % (35-52); HEMOGLOBIN 8.6 G/DL (11.5-16.0); LYMPHOCYTES # (AUTO) 0.5 X 10^3 (1.0-4.0); LYMPHOCYTES % (AUTO) 12 % (12-44); MEAN CORPUSCULAR HEMOGLOBIN 33 PG (25-34); MEAN CORPUSCULAR HGB CONC 31 G/DL (32-36); MEAN CORPUSCULAR VOLUME 107 FL (80-99); MEAN PLATELET VOLUME 9.2 FL (7.4-10.4); MONOCYTES # (AUTO) 0.3 X 10^3 (0.0-1.0); MONOCYTES % (AUTO) 7 % (0-12); NEUTROPHILS # (AUTO) 3.7 X 10^3 (1.8-7.8); NEUTROPHILS % (AUTO) 81 % (42-75); PLATELET COUNT 308 10^3/uL (130-400); RED BLOOD COUNT 2.62 10^6/uL (4.35-5.85); RED CELL DISTRIBUTION WIDTH 15.8 % (10.0-14.5); WHITE BLOOD COUNT 4.5 10^3/uL (4.3-11.0)
[2017-07-07 15:47] LABS: ALBUMIN 3.7 GM/DL (3.2-4.5); BILIRUBIN,TOTAL 0.3 MG/DL (0.1-1.0); CALCIUM 9.4 MG/DL (8.5-10.1); CREATININE SERUM 1.12 MG/DL (0.60-1.30); MAGNESIUM 1.8 MG/DL (1.8-2.4); POTASSIUM 3.5 MMOL/L (3.6-5.0); TOTAL PROTEIN 7.5 GM/DL (6.4-8.2)
[2017-07-28 15:13] LABS: BASOPHILS % (AUTO) 0 % (0-10); EOSINOPHILS % (AUTO) 0 % (0-10); HEMATOCRIT 27 % (35-52); HEMOGLOBIN 8.4 G/DL (11.5-16.0); LYMPHOCYTES # (AUTO) 0.4 X 10^3 (1.0-4.0); LYMPHOCYTES % (AUTO) 13 % (12-44); MEAN CORPUSCULAR HEMOGLOBIN 34 PG (25-34); MEAN CORPUSCULAR HGB CONC 32 G/DL (32-36); MEAN CORPUSCULAR VOLUME 106 FL (80-99); MEAN PLATELET VOLUME 9.1 FL (7.4-10.4); MONOCYTES # (AUTO) 0.3 X 10^3 (0.0-1.0); MONOCYTES % (AUTO) 9 % (0-12); NEUTROPHILS # (AUTO) 2.6 X 10^3 (1.8-7.8); NEUTROPHILS % (AUTO) 78 % (42-75); PLATELET COUNT 276 10^3/uL (130-400); RED BLOOD COUNT 2.51 10^6/uL (4.35-5.85); RED CELL DISTRIBUTION WIDTH 15.3 % (10.0-14.5); WHITE BLOOD COUNT 3.3 10^3/uL (4.3-11.0)
[2017-07-28 15:25] LABS: ALBUMIN 3.4 GM/DL (3.2-4.5); BILIRUBIN,TOTAL 0.3 MG/DL (0.1-1.0); CALCIUM 9.1 MG/DL (8.5-10.1); CREATININE SERUM 0.99 MG/DL (0.60-1.30); MAGNESIUM 1.6 MG/DL (1.8-2.4); POTASSIUM 3.6 MMOL/L (3.6-5.0); TOTAL PROTEIN 6.8 GM/DL (6.4-8.2)
[2017-08-18 14:45] LABS: BASOPHILS % (AUTO) 0 % (0-10); EOSINOPHILS % (AUTO) 0 % (0-10); HEMATOCRIT 26 % (35-52); HEMOGLOBIN 7.9 G/DL (11.5-16.0); LYMPHOCYTES # (AUTO) 0.6 X 10^3 (1.0-4.0); LYMPHOCYTES % (AUTO) 16 % (12-44); MEAN CORPUSCULAR HEMOGLOBIN 33 PG (25-34); MEAN CORPUSCULAR HGB CONC 31 G/DL (32-36); MEAN CORPUSCULAR VOLUME 107 FL (80-99); MEAN PLATELET VOLUME 9.6 FL (7.4-10.4); MONOCYTES # (AUTO) 0.4 X 10^3 (0.0-1.0); MONOCYTES % (AUTO) 11 % (0-12); NEUTROPHILS # (AUTO) 2.5 X 10^3 (1.8-7.8); NEUTROPHILS % (AUTO) 73 % (42-75); PLATELET COUNT 285 10^3/uL (130-400); RED BLOOD COUNT 2.39 10^6/uL (4.35-5.85); RED CELL DISTRIBUTION WIDTH 15.7 % (10.0-14.5); WHITE BLOOD COUNT 3.4 10^3/uL (4.3-11.0)
[2017-08-18 15:07] LABS: ALBUMIN 3.4 GM/DL (3.2-4.5); BILIRUBIN,TOTAL 0.2 MG/DL (0.1-1.0); CALCIUM 9.1 MG/DL (8.5-10.1); CREATININE SERUM 1.09 MG/DL (0.60-1.30); MAGNESIUM 1.8 MG/DL (1.8-2.4); POTASSIUM 3.9 MMOL/L (3.6-5.0)
[2017-08-24 09:41] LABS: BASOPHILS % (AUTO) 0 % (0-10); EOSINOPHILS % (AUTO) 3 % (0-10); HEMATOCRIT 29 % (35-52); HEMOGLOBIN 9.4 G/DL (11.5-16.0); LYMPHOCYTES # (AUTO) 0.4 X 10^3 (1.0-4.0); LYMPHOCYTES % (AUTO) 49 % (12-44); MEAN CORPUSCULAR HEMOGLOBIN 33 PG (25-34); MEAN CORPUSCULAR HGB CONC 32 G/DL (32-36); MEAN CORPUSCULAR VOLUME 102 FL (80-99); MEAN PLATELET VOLUME 8.8 FL (7.4-10.4); MONOCYTES % (AUTO) 4 % (0-12); NEUTROPHILS # (AUTO) 0.3 X 10^3 (1.8-7.8); NEUTROPHILS % (AUTO) 45 % (42-75); PLATELET COUNT 112 10^3/uL (130-400); RED BLOOD COUNT 2.88 10^6/uL (4.35-5.85); RED CELL DISTRIBUTION WIDTH 14.9 % (10.0-14.5)
[2017-08-24 09:44] LABS: WHITE BLOOD COUNT 0.7 10^3/uL (4.3-11.0)
[2017-08-24 09:59] LABS: CALCIUM 9.4 MG/DL (8.5-10.1); CREATININE SERUM 1.41 MG/DL (0.60-1.30); MAGNESIUM 1.6 MG/DL (1.8-2.4); POTASSIUM 3.7 MMOL/L (3.6-5.0)
[~2017-08-26] VITALS: Ht 172.7 cm; Wt 87.1 kg
[~2017-08-26 11:00] MED LIST changes: -ACET-2267 PO; -AZIT250T12 PO; -BIOT50002 SL; -BISA10SU6 RC; +CYANOCOBALAMIN INJ 1000 MCG/ML (CANCER CENTER) ONE; -HYDR-757 PO; +NS IV 1000 ML (CANCER CTR) 1,000 ML ONE; +NS IV 500 ML (CANCER CENTER) 500 ML ONE; +NS IV 500 ML (CANCER CENTER) IV SCH; -ONDA8TAB6 PO; +PALONOSETRON 0.25 MG, DEXAMETHASONE 10 MG/NS 50 ML IVPB IV PRN; +PEMETREXED DISODIUM 500 MG, PEMETREXED DISODIUM 400 MG in NS (IVPB) CANCER CENTER 100 ML IV SCH; -POLY17PO6 PO; -POTA10CA43 PO; -PROC-1 PO; -SORB1SOL2 PO; +diphenhydrAMINE 25 MG TAB (BENADRYL) CANCER CENTER PO PRN
[2017-08-26] MEDS ORDERED: NS IV 1000 ML (CANCER CTR) 1,000 ML ONE (11:19)
[2017-08-26 12:36] LABS: BASOPHILS % (AUTO) 2 % (0-10); EOSINOPHILS % (AUTO) 2 % (0-10); HEMATOCRIT 25 % (35-52); HEMOGLOBIN 8.2 G/DL (11.5-16.0); LYMPHOCYTES # (AUTO) 0.3 X 10^3 (1.0-4.0); LYMPHOCYTES % (AUTO) 52 % (12-44); MEAN CORPUSCULAR HEMOGLOBIN 33 PG (25-34); MEAN CORPUSCULAR HGB CONC 33 G/DL (32-36); MEAN CORPUSCULAR VOLUME 99 FL (80-99); MEAN PLATELET VOLUME 10.8 FL (7.4-10.4); MONOCYTES # (AUTO) 0.1 X 10^3 (0.0-1.0); MONOCYTES % (AUTO) 17 % (0-12); NEUTROPHILS # (AUTO) 0.2 X 10^3 (1.8-7.8); NEUTROPHILS % (AUTO) 28 % (42-75); PLATELET COUNT 44 10^3/uL (130-400); RED BLOOD COUNT 2.51 10^6/uL (4.35-5.85); RED CELL DISTRIBUTION WIDTH 14.5 % (10.0-14.5)
[2017-08-26 12:37] LABS: WHITE BLOOD COUNT 0.6 10^3/uL (4.3-11.0)
[2017-08-26 12:55] LABS: ALBUMIN 3.2 GM/DL (3.2-4.5); BILIRUBIN,TOTAL 0.4 MG/DL (0.1-1.0); CALCIUM 8.4 MG/DL (8.5-10.1); CREATININE SERUM 1.24 MG/DL (0.60-1.30); POTASSIUM 2.7 MMOL/L (3.6-5.0); TOTAL PROTEIN 6.5 GM/DL (6.4-8.2)
[2017-08-26] MEDS ORDERED: POLY17PO6 PO (14:09)
[2017-08-26] MEDS ORDERED: AZIT250T12 PO (14:09)
[2017-08-26] MEDS ORDERED: SORB1SOL2 PO (14:09)
[2017-08-26] MEDS ORDERED: ACET-2267 PO (14:09)
[2017-08-26] MEDS ORDERED: POTA10CA43 PO (14:09)
[2017-08-26] MEDS ORDERED: ONDA8TAB6 PO (14:09)
[2017-08-26] MEDS ORDERED: PROC-1 PO (14:09)
[2017-08-26] MEDS ORDERED: HYDR-757 PO (14:09)
[2017-08-26] MEDS ORDERED: BIOT50002 SL (14:09)
[2017-08-26] MEDS ORDERED: BISA10SU6 RC (14:09)
== END 2017-09-07 12:31 | disposition home or self-care (01) ==
LOC: ONC 11:00
PROVIDERS: ATTEND Internal Medicine Hematology & Oncology
DX: C34.32 Malignant neoplasm of lower lobe, left bronchus or lung (principal); C77.1 Secondary and unspecified malignant neoplasm of intrathoracic lymph nodes; D64.9 Anemia, unspecified; E03.9 Hypothyroidism, unspecified; R42 Dizziness and giddiness; Z98.84 Bariatric surgery status; Z79.899 Other long term (current) drug therapy
CPT/HCPCS: 36415; 36591; 80048; 80053; 83735; 85025; 87040; 87804; 96360; 96361; 96372; 96375; 96409

== ENCOUNTER 2017-08-26 12:25 | Inpatient (IN) | payer BC ==
[~2017-08-26] VITALS: Ht 172.7 cm; Wt 85.7 kg
[~2017-08-26 12:25] MED LIST changes: -CYANOCOBALAMIN INJ 1000 MCG/ML (CANCER CENTER) ONE; -NS IV 1000 ML (CANCER CTR) 1,000 ML ONE; -NS IV 500 ML (CANCER CENTER) 500 ML ONE; -NS IV 500 ML (CANCER CENTER) IV SCH; -PALONOSETRON 0.25 MG, DEXAMETHASONE 10 MG/NS 50 ML IVPB IV PRN; -PEMETREXED DISODIUM 500 MG, PEMETREXED DISODIUM 400 MG in NS (IVPB) CANCER CENTER 100 ML IV SCH; -diphenhydrAMINE 25 MG TAB (BENADRYL) CANCER CENTER PO PRN
[2017-08-26] MEDS ORDERED: BISACODYL 10 MG SUPP (DULCOLAX) PR PRN (14:00)
[2017-08-26] MEDS ORDERED: ENOXAPARIN 40 MG/0.4 ML (LOVENOX) SYR SC SCH (14:00)
[2017-08-26] MEDS ORDERED: ONDANSETRON 4 MG/2 ML (SDV) Z0FRAN IV PRN (14:00)
[2017-08-26] MEDS ORDERED: ANTACID SUSP 30 ML UDC (MYLANTA) PO PRN (14:00)
[2017-08-26] MEDS ORDERED: MILK OF MAGNESIA 400 MG/5 ML 30 ML UDC PO PRN (14:00)
[2017-08-26] MEDS ORDERED: VANCOMYCIN INJECTION 1,000 MG in NS (IVPB) 250 ML IV SCH (14:00)
[2017-08-26] MEDS ORDERED: ONDA8TAB6 PO (14:09)
[2017-08-26] MEDS ORDERED: BIOT50002 SL (14:09)
[2017-08-26] MEDS ORDERED: ACET-2267 PO (14:09)
[2017-08-26] MEDS ORDERED: BISA10SU6 RC (14:09)
[2017-08-26] MEDS ORDERED: HYDR-757 PO (14:09)
[2017-08-26] MEDS ORDERED: POTA10CA43 PO (14:09)
[2017-08-26] MEDS ORDERED: POLY17PO6 PO (14:09)
[2017-08-26] MEDS ORDERED: PROC-1 PO (14:09)
[2017-08-26] MEDS ORDERED: SORB1SOL2 PO (14:09)
[2017-08-26] MEDS ORDERED: AZIT250T12 PO (14:09)
[2017-08-26] MEDS ORDERED: PIPERACILLIN SODIUM/TAZOBACTAM 4.5 GM in NS (IVPB) 100 ML IV NR (14:30)
[2017-08-26] MEDS ORDERED: ACETAMINOPHEN 325 MG TABLET/CAPLET (TYLENOL) PO PRN (14:30)
[2017-08-26] MEDS ORDERED: CATHETER FLUSH 10 ML SYR IV PRN (14:45)
[2017-08-26] MEDS ORDERED: VANCOMYCIN 1,750 MG/NS 500 ML IVPB IV NR ×2 (15:00)
--- NOTE | 2017-08-26 15:20 | History & Physical-Hospitalist ---
HPI History of Present Illness: HPI/Chief Complaint Pt is a 56yoCF with a PMH of hypothyroidism and lung cancer who presented as a direct admit for neutropenic fever and presumed pneumonia after failing outpatient therapy. She reports that she had her 14th cycle of chemo on 08/18 and felt well immediately following it but on 08/21 started to cough and feel very weak. She continued to worsen and was seen by her Oncologist on 08/24 and was started on a Z-pack for pneumonia. She was feeling better on 08/25 but worsened today and presented back to her oncologist. She was found to be febrile and WBC from 08/24 was 0.7. She was then direct admitted for IV abx for outpatient failure. She complains to me of cough still and that her weakness has progressed to the point where she has passed out twice while ambulating. She has had poor PO intake but has been trying to drink gatorade. She is also SOB and GUNDERSON. Denies any chest pain. Source: patient Date Seen 08/26/17 Time Seen by Provider: 13:45 Attending Physician Zandra Lutz MD PCP Francis Tan DO Referring Physician Date of Admission Aug 26, 2017 at 1:20 pm Home Medications & Allergies Home Medications Reviewed patient Home Medication Reconciliation Form Allergies Allergies Coded Allergies latex (Verified Allergy, Unknown, 04/21/17) morphine (Verified Adverse Reaction, Unknown, N/V, 04/21/17) Past Apmahzr-Wkxnvh-Ismhiz Hx Patient Social History Marrital Status: Employed/Student: employed Smoking Status: Never a Smoker Recent Hopitalizations: No Immunizations Up To Date Date of Influenza Vaccine: Apr 24, 2016 Seasonal Allergies Seasonal Allergies: No Surgeries Yes (gastric bypass in 2001, WISDOM TEETH, GABY FILTER, PLASTIC SURGERY,) Breast, Eye Surgery, Gallbladder, Orthopedic, Tonsillectomy Respiratory Yes (lung ca) Currently Using CPAP: No Cardiovascular No Neurological Yes Headaches /Migraines Reproductive System Hx Reproductive Disorders: No Sexually Transmitted Disease: No HIV/AIDS: No Female Reproductive Disorders: Denies Gastrointestinal No Musculoskeletal Yes Osteoporosis 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) Endocrine Disorders: Hyperthyroidism Cancer Yes Lung, Melanoma Psychosocial History of Psychiatric Problem: No Integumentary History of Skin or Integumenta: No Blood Transfusions History of Blood Disorders: No Family Medical History Family Hx: Alzheimer's disease Arthritis Cardiovascular disease Diabetes mellitus Glaucoma Hypertension Myocardial infarction Thyroid disease Visual disorder Review of Systems Constitutional: fever, weakness Respiratory: cough, dyspnea on exertion, No hemoptysis, No phlegm, short of breath Cardiovascular: No chest pain, No palpitations Gastrointestinal: No abdominal pain, diarrhea, loss of appetite, No nausea, No vomiting Genitourinary: No dysuria, No frequency Musculoskeletal: muscle weakness Skin: no symptoms reported Psychiatric/Neurological: No Symptoms Reported Physical Exam Physical Exam Vital Signs Vital Signs - First Documented 08/26/17 14:51 Temp 100.1 Capillary Refill : General Appearance: No Apparent Distress, WD/WN Respiratory: No Accessory Muscle Use, No Respiratory Distress, Decreased Breath Sounds, Rhonci Cardiovascular: Regular Rate, Rhythm, No Murmur Gastrointestinal: Normal Bowel Sounds, Non Tender, Soft Extremity: No Calf Tenderness, No Pedal Edema Neurologic/Psychiatric: Alert, Oriented x3 Assessment/Plan Admission Diagnosis CAP neutropenic fever Diagnosis/Problems Diagnosis/Problems (1) CAP (community acquired pneumonia) Status: Acute Assessment & Plan: Meets sepsis criteria (fever and leukopenic) Lactic normal Blood cultures drawn in Cancer center Will start Vanc and Zosyn Sputum culture ordered Qualifiers: Qualified Codes: J18.1 - Lobar pneumonia, unspecified organism (2) Neutropenic fever Assessment & Plan: Chemo on 08/18 Will cover with broad spectrum antibiotics and place on precautions Diflucan ordered in addition to above antibiotics (3) Lung cancer Status: Chronic Assessment & Plan: Follows with Dr Anderson Onc consulted, appreciate recs Qualifiers: Qualified Codes: C34.90 - Malignant neoplasm of unspecified part of unspecified bronchus or lung (4) Normocytic anemia Assessment & Plan: Like due to chemo Will trend (5) Hyponatremia Assessment & Plan: Hypovolumia likely as no previous hyponetremia noted If worsens with fluids could CT chest IVF (6) Hypokalemia Assessment & Plan: In fluids Recheck in AM Will add Mag (7) Prophylactic measure Assessment & Plan: Lovenox given- will hold now that labs available and thrombocytopenia noted Neutropenic diet NS +20KCl at 125ml/hr ZANDRA LUTZ MD Aug 26, 2017 3:20 pm
[2017-08-26] MEDS ORDERED: FLUCONAZOLE 200 MG/100 ML 100 ML IV NR (15:30)
--- NOTE | 2017-08-26 15:48 | Diagnostic Imaging Report ---
INDICATION: Lower respiratory infection. PA and lateral chest. FINDINGS: Right IJ Port-A-Cath tip projects over the SVC. There are some patchy alveolar infiltrate in the right upper lobe and left lower lung. These are unchanged from 08/24/2017. IMPRESSION: Stable right upper lobe and left lower lobe infiltrates. Dictated by: Dictated on workstation # [id number]
[2017-08-26 16:00] VITALS: BP 113/65
[2017-08-26] MEDS: NS W/KCL 20 MEQ/L 1,000 ML IV SCH ×2 (16:59→21:25)
[2017-08-26] MEDS: inSUlin ASPART (NovoLOG) 1 UNIT/0.01 ML (CHARGE PER UNIT) SC SCH ×2 (16:59→20:47)
[2017-08-26] MEDS ORDERED: RT-ALBUTEROL SULF 2.5 MG/3 ML PRE-MIX VIAL INH PRN (17:15)
[2017-08-26] MEDS: MAGNESIUM 1 GM/100 ML IVPB 100 ML IV SCH ×2 (18:05→19:35)
[2017-08-26 19:43] VITALS: BP 107/64
[2017-08-26] MEDS: PIPERACILLIN SODIUM/TAZOBACTAM 4.5 GM in NS (IVPB) 100 ML IV SCH (21:26)
[2017-08-26] MEDS: CATHETER FLUSH 10 ML SYR IV SCH (21:31)
[2017-08-27 00:43] VITALS: BP 93/55
[2017-08-27] MEDS: PIPERACILLIN SODIUM/TAZOBACTAM 4.5 GM in NS (IVPB) 100 ML IV SCH ×3 (04:40→20:24)
[2017-08-27 05:39] VITALS: BP 101/66
[2017-08-27] MEDS: CATHETER FLUSH 10 ML SYR IV SCH ×3 (06:03→20:25)
[2017-08-27] MEDS: inSUlin ASPART (NovoLOG) 1 UNIT/0.01 ML (CHARGE PER UNIT) SC SCH ×4 (06:03→21:06)
[2017-08-27 06:40] LABS: CALCIUM 7.6 MG/DL (8.5-10.1); CREATININE SERUM 1.27 MG/DL (0.60-1.30); POTASSIUM 3.2 MMOL/L (3.6-5.0)
[2017-08-27 07:10] LABS: BASOPHILS % (AUTO) 0 % (0-10); EOSINOPHILS % (AUTO) 3 % (0-10); HEMATOCRIT 21 % (35-52); LYMPHOCYTES # (AUTO) 0.4 X 10^3 (1.0-4.0); LYMPHOCYTES % (AUTO) 61 % (12-44); MEAN CORPUSCULAR HEMOGLOBIN 33 PG (25-34); MEAN CORPUSCULAR HGB CONC 33 G/DL (32-36); MEAN CORPUSCULAR VOLUME 100 FL (80-99); MEAN PLATELET VOLUME 11.7 FL (7.4-10.4); MONOCYTES # (AUTO) 0.1 X 10^3 (0.0-1.0); MONOCYTES % (AUTO) 10 % (0-12); NEUTROPHILS # (AUTO) 0.2 X 10^3 (1.8-7.8); NEUTROPHILS % (AUTO) 25 % (42-75); RED BLOOD COUNT 2.13 10^6/uL (4.35-5.85); RED CELL DISTRIBUTION WIDTH 14.6 % (10.0-14.5)
[2017-08-27 07:37] LABS: PLATELET COUNT 27 10^3/uL (130-400); WHITE BLOOD COUNT 0.7 10^3/uL (4.3-11.0)
[2017-08-27 08:00] VITALS: BP 104/68
[2017-08-27] MEDS ORDERED: KCL 20 MEQ TAB (K-DUR) PO NR (08:00)
[2017-08-27] MEDS: TBO-FILGRASTIM 480 MCG/0.8 ML (GRANIX) SQ SCH (09:49)
[2017-08-27] MEDS: FLUCONAZOLE 100 MG/50 ML 50 ML IV SCH (09:49)
[2017-08-27] MEDS: FOLIC ACID 1 MG TAB PO SCH (10:49)
[2017-08-27 12:00] VITALS: BP 94/62
--- NOTE | 2017-08-27 13:24 | Progress Note-Hospitalist ---
Subjective HPI/CC On Admission Date Seen by Provider: Aug 27, 2017 Time Seen by Provider: 09:00 Pt is a 56yoCF with a PMH of hypothyroidism and lung cancer who presented as a direct admit for neutropenic fever and presumed pneumonia after failing outpatient therapy. She reports that she had her 14th cycle of chemo on 08/18 and felt well immediately following it but on 08/21 started to cough and feel very weak. She continued to worsen and was seen by her Oncologist on 08/24 and was started on a Z-pack for pneumonia. She was feeling better on 08/25 but worsened today and presented back to her oncologist. She was found to be febrile and WBC from 08/24 was 0.7. She was then direct admitted for IV abx for outpatient failure. She complains to me of cough still and that her weakness has progressed to the point where she has passed out twice while ambulating. She has had poor PO intake but has been trying to drink gatorade. She is also SOB and GUNDERSON. Denies any chest pain. Subjective/Events-last exam Pt reports feeling much better today. She has been up and ambulating and does not feel weak any longer. Remains neutropenic. Objective Exam Vital Signs Vital Signs Date Time Temp Pulse Resp B/P (MAP) Pulse Ox O2 Delivery O2 Flow Rate FiO2 08/26/17 14:51 100.1 08/26/17 16:00 61 14 113/65 (81) 91 Nasal Cannula 3.00 Capillary Refill : General Appearance: No Apparent Distress, WD/WN Respiratory: Lungs Clear, No Accessory Muscle Use, No Respiratory Distress Cardiovascular: Regular Rate, Rhythm, No Murmur Gastrointestinal: Normal Bowel Sounds, Non Tender, Soft Extremity: No Calf Tenderness, No Pedal Edema Neurologic/Psychiatric: Alert, Oriented x3 Results/Procedures Lab Laboratory Tests 08/27/17 05:55 08/27/17 07:03 Assessment/Plan Assessment and Plan Assess & Plan/Chief Complaint Neutropenic Fever Diagnosis/Problems Diagnosis/Problems (1) CAP (community acquired pneumonia) Status: Acute Assessment & Plan: Sepsis criteria resolved Lactic normal Blood cultures drawn in Cancer center- pending Will start Vanc and Zosyn Sputum culture ordered Qualifiers: Qualified Codes: J18.1 - Lobar pneumonia, unspecified organism (2) Neutropenic fever Assessment & Plan: Chemo on 08/18 Will cover with broad spectrum antibiotics and place on precautions Diflucan ordered in addition to above antibiotics Granix added (3) Lung cancer Status: Chronic Assessment & Plan: Follows with Dr Anderson Onc consulted, appreciate recs Qualifiers: Qualified Codes: C34.90 - Malignant neoplasm of unspecified part of unspecified bronchus or lung (4) Normocytic anemia Assessment & Plan: Likely due to chemo Will trend- done to 7.0 today If drops further will transfuse (5) Hyponatremia Status: Resolved Assessment & Plan: Hypovolumia likely as no previous hyponetremia noted Resolved with IVF (6) Hypokalemia Assessment & Plan: In fluids Recheck in AM Will add Mag (7) Prophylactic measure Assessment & Plan: SCDs for thrombocytopenia Neutropenic diet NS +20KCl at 50ml/hr ARVIN CROUCH MD Aug 27, 2017 1:24 pm
[2017-08-27] MEDS ORDERED: VANCOMYCIN 1500 MG/NS 500 ML IVPB IV SCH ×2 (15:00)
[2017-08-27 15:44] VITALS: BP 101/63
[2017-08-27] MEDS: NS W/KCL 20 MEQ/L 1,000 ML IV SCH ×2 (16:02→19:32)
[2017-08-27 20:30] VITALS: BP 98/65
[2017-08-28] VITALS: BP 95/58
[2017-08-28 04:00] VITALS: BP 99/64
[2017-08-28] MEDS: CATHETER FLUSH 10 ML SYR IV SCH ×3 (04:10→21:27)
[2017-08-28] MEDS: PIPERACILLIN SODIUM/TAZOBACTAM 4.5 GM in NS (IVPB) 100 ML IV SCH ×3 (05:22→21:27)
[2017-08-28 05:29] LABS: BASOPHILS % (AUTO) 0 % (0-10); EOSINOPHILS # (AUTO) 0.1 10^3/uL (0.0-0.3); EOSINOPHILS % (AUTO) 1 % (0-10); LYMPHOCYTES # (AUTO) 0.7 X 10^3 (1.0-4.0); LYMPHOCYTES % (AUTO) 11 % (12-44); MEAN CORPUSCULAR HEMOGLOBIN 33 PG (25-34); MEAN CORPUSCULAR HGB CONC 33 G/DL (32-36); MEAN CORPUSCULAR VOLUME 101 FL (80-99); MEAN PLATELET VOLUME 12.2 FL (7.4-10.4); MONOCYTES # (AUTO) 0.1 X 10^3 (0.0-1.0); MONOCYTES % (AUTO) 2 % (0-12); NEUTROPHILS # (AUTO) 5.3 X 10^3 (1.8-7.8); NEUTROPHILS % (AUTO) 86 % (42-75); RED BLOOD COUNT 1.98 10^6/uL (4.35-5.85); RED CELL DISTRIBUTION WIDTH 14.6 % (10.0-14.5); WHITE BLOOD COUNT 6.2 10^3/uL (4.3-11.0)
[2017-08-28 05:33] LABS: HEMATOCRIT 20 % (35-52); HEMOGLOBIN 6.6 G/DL (11.5-16.0); PLATELET COUNT 19 10^3/uL (130-400)
[2017-08-28 05:45] LABS: CALCIUM 7.8 MG/DL (8.5-10.1); CREATININE SERUM 1.12 MG/DL (0.60-1.30); POTASSIUM 2.9 MMOL/L (3.6-5.0)
[2017-08-28] MEDS: inSUlin ASPART (NovoLOG) 1 UNIT/0.01 ML (CHARGE PER UNIT) SC SCH (06:01)
[2017-08-28 08:00] VITALS: BP 92/61
--- NOTE | 2017-08-28 08:33 | Progress Note-Hospitalist ---
Subjective HPI/CC On Admission Time Seen by Provider: 08:32 Pt is a 56yoCF with a PMH of hypothyroidism and lung cancer who presented as a direct admit for neutropenic fever and presumed pneumonia after failing outpatient therapy. She reports that she had her 14th cycle of chemo on 08/18 and felt well immediately following it but on 08/21 started to cough and feel very weak. She continued to worsen and was seen by her Oncologist on 08/24 and was started on a Z-pack for pneumonia. She was feeling better on 08/25 but worsened today and presented back to her oncologist. She was found to be febrile and WBC from 08/24 was 0.7. She was then direct admitted for IV abx for outpatient failure. She complains to me of cough still and that her weakness has progressed to the point where she has passed out twice while ambulating. She has had poor PO intake but has been trying to drink gatorade. She is also SOB and GUNDERSON. Denies any chest pain. Subjective/Events-last exam Pt reports continued improvement but having dry cough. Objective Exam Vital Signs Vital Signs Date Time Temp Pulse Resp B/P (MAP) Pulse Ox O2 Delivery O2 Flow Rate FiO2 08/26/17 14:51 100.1 08/26/17 16:00 61 14 113/65 (81) 91 Nasal Cannula 3.00 Capillary Refill : General Appearance: No Apparent Distress, WD/WN Respiratory: Lungs Clear, No Respiratory Distress Cardiovascular: Regular Rate, Rhythm, No Murmur Gastrointestinal: Normal Bowel Sounds, Non Tender, Soft Extremity: Non Tender, No Calf Tenderness Neurologic/Psychiatric: Alert, Oriented x3 Results/Procedures Lab Laboratory Tests 08/28/17 05:25 Assessment/Plan Assessment and Plan Assess & Plan/Chief Complaint Neutropenic Fever Diagnosis/Problems Diagnosis/Problems (1) CAP (community acquired pneumonia) Status: Acute Assessment & Plan: Sepsis criteria resolved Lactic normal Blood cultures drawn in Cancer center- NGTD Continue on Zosyn Will DC Vanc Sputum culture ordered Qualifiers: Qualified Codes: J18.1 - Lobar pneumonia, unspecified organism (2) Neutropenic fever Assessment & Plan: Chemo on 08/18 Will cover with broad spectrum antibiotics and place on precautions Diflucan ordered in addition to above antibiotics Granix added and neutropenia now resolved Will DC when ANC >10k (3) Lung cancer Status: Chronic Assessment & Plan: Follows with Dr Anderson Onc consulted, appreciate recs Qualifiers: Qualified Codes: C34.90 - Malignant neoplasm of unspecified part of unspecified bronchus or lung (4) Normocytic anemia Assessment & Plan: Likely due to chemo Will trend- down to 6.6 this am Offered transfusion and discussed risks and benefits and patient declined at this time (5) Hyponatremia Status: Resolved Assessment & Plan: Hypovolumia likely as no previous hyponetremia noted Resolved with IVF (6) Hypokalemia Assessment & Plan: Persistent, will add daily supplement Mag level added again (7) Prophylactic measure Assessment & Plan: SCDs for thrombocytopenia Neutropenic diet Saline lock ARVIN CROUCH MD Aug 28, 2017 08:33
[2017-08-28] MEDS: FOLIC ACID 1 MG TAB PO SCH (09:18)
[2017-08-28] MEDS: BENZONATATE 100 MG (TESSALON) CAPSULE PO SCH ×3 (09:18→21:27)
[2017-08-28] MEDS: FLUCONAZOLE 100 MG/50 ML 50 ML IV SCH (09:18)
[2017-08-28] MEDS: TBO-FILGRASTIM 480 MCG/0.8 ML (GRANIX) SQ SCH (09:29)
[2017-08-28] MEDS: KCL 20 MEQ TAB (K-DUR) PO SCH (12:37)
[2017-08-28] MEDS ORDERED: TROUGH ORDER-PHARMACY XX ONE (14:00)
[2017-08-28 15:30] VITALS: BP 98/53
[2017-08-28 22:29] LABS: BILIRUBIN,URINE NEGATIVE (NEGATIVE); CLARITY,URINE CLEAR; COLOR,URINE YELLOW; GLUCOSE, URINE (UA) NEGATIVE (NEGATIVE); KETONES,URINE NEGATIVE (NEGATIVE); LEUKOCYTE ESTERASE ,URINE 1+ (NEGATIVE); NITRITE,URINE NEGATIVE (NEGATIVE); PH,URINE 6 (5-9); PROTEIN,URINE 1+ (NEGATIVE); UROBILINOGEN,URINE NORMAL (NORMAL)
[2017-08-28 22:37] LABS: BACTERIA,URINE TRACE /HPF
[2017-08-29] VITALS: BP 103/63
[2017-08-29] MEDS: PIPERACILLIN SODIUM/TAZOBACTAM 4.5 GM in NS (IVPB) 100 ML IV SCH ×3 (05:30→20:17)
[2017-08-29] MEDS: KCL 20 MEQ TAB (K-DUR) PO SCH (05:39)
[2017-08-29] MEDS: CATHETER FLUSH 10 ML SYR IV SCH ×3 (05:39→20:17)
[2017-08-29] MEDS: guaiFENesin/CODEINE (ROBITUSSIN AC) 10ML UDC PO PRN ×2 (05:40→13:05)
[2017-08-29 05:41] LABS: BASOPHILS % (AUTO) 0 % (0-10); EOSINOPHILS # (AUTO) 0.1 10^3/uL (0.0-0.3); EOSINOPHILS % (AUTO) 1 % (0-10); HEMATOCRIT 21 % (35-52); LYMPHOCYTES # (AUTO) 0.9 X 10^3 (1.0-4.0); LYMPHOCYTES % (AUTO) 8 % (12-44); MEAN CORPUSCULAR HEMOGLOBIN 34 PG (25-34); MEAN CORPUSCULAR HGB CONC 33 G/DL (32-36); MEAN CORPUSCULAR VOLUME 102 FL (80-99); MEAN PLATELET VOLUME 11.9 FL (7.4-10.4); MONOCYTES # (AUTO) 0.3 X 10^3 (0.0-1.0); MONOCYTES % (AUTO) 3 % (0-12); NEUTROPHILS % (AUTO) 88 % (42-75); RED BLOOD COUNT 2.09 10^6/uL (4.35-5.85); RED CELL DISTRIBUTION WIDTH 14.8 % (10.0-14.5); WHITE BLOOD COUNT 11.4 10^3/uL (4.3-11.0)
--- OUTSIDE RECORDS SUMMARY | 2017-08-29 05:41 | XMS REPORT | Continuity of Care Document ---
Author Author [facility] Organization [facility] Address Unknown Phone Unavailable Allergies Active Description Code Type Severity Reaction Onset Reported/Identified Relationship to Patient Clinical Status Yes No Known Drug Allergies [id number] Drug Allergy Unknown N/A 05/14/2008 Yes latex [id number] Drug Allergy Unknown N/A 04/21/2017 Yes morphine [id number] Drug Allergy Unknown N/V 04/21/2017 Medications There is no data. 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 KIMBERLY CARABALLO Ot D64.9 ANEMIA, UNSPECIFIED KIMBERLY CARABALLO Ot E03.9 HYPOTHYROIDISM, UNSPECIFIED KIMBERLY CARABALLO Ot Z79.899 OTHER HALF-WAY (CURRENT) DRUG THERAPY KIMBERLY CARABALLO Ot Z98.84 BARIATRIC SURGERY STATUS 10/25/2011 Ot 246.9 DISORDER OF THYROID NOS 10/25/2011 Ot 560.9 INTESTINAL OBSTRUCT NOS 10/25/2011 Ot V12.55 PERSONAL HISTORY OF PULMONARY EMBOLISM 10/25/2011 Ot V45.86 BARIATRIC SURGERY STATUS 01/23/2013 NADYA GARRETT, VIGNESH Edmondson Ot V76.51 SCREEN MAL NEOP-COLON 01/28/2015 YONATHAN VALDES DO Ot V76.12 02/07/2015 YONATHAN VALDES DO Ot V76.12 05/11/2015 BOO GARRETT, TATUM Bryant Ot S42.212A UNSP DISP FX OF SURGICAL NECK OF LEFT HU 05/11/2015 TATUM HADDAD MD Ot S42.252A DISP FX OF GREATER TUBEROSITY OF LEFT HU 05/11/2015 BOO GARRETT, TATUM Bryant Ot W01.0XXA FALL SAME LEV FROM SLIP/TRIP W/O STRIKE 06/21/2015 Ot V76.12 06/21/2015 Ot 611.72 06/21/2015 Ot V76.12 06/21/2015 Ot 793.89 06/21/2015 Ot 793.89 06/21/2015 YONATHAN VALDES DO Ot V76.12 06/21/2015 NADYA GARRETT, VIGNESH Edmondson Ot V72.84 06/21/2015 YONATHAN VALDES DO Ot V76.12 06/21/2015 YONATHAN VALDES DO Ot V76.12 07/15/2015 BOO GARRETT, TATUM Bryant Ot S42.232D 07/15/2015 BOO GARRETT, TATUM Bryant Ot X58.XXXD 07/15/2015 BOO GARRETT, TATUM Bryant Ot Y99.8 08/19/2015 BOO GARRETT, TATUM Bryant Ot S42.232D 08/19/2015 BOO GARRETT, TATUM Bryant Ot X58.XXXD 08/19/2015 BOO GARRETT, TAUTM rByant Ot Y99.8 09/03/2015 BOO GARRETT, TATUM Bryant [...] OTH SCREEN MAMMO-MALIGN NEOPLASM OF YESI 01/11/2016 TATUM HADDAD MD Ot S42.232D 3-PART FX SURG NECK OF L HUMERUS, SUBS F 01/11/2016 TATUM HADDAD MD Ot X58.XXXD EXPOSURE TO OTHER SPECIFIED FACTORS, SUB 01/11/2016 TATUM HADDAD MD Ot Y99.8 OTHER EXTERNAL CAUSE STATUS 02/21/2016 [...] EXPOSURE TO OTHER SPECIFIED FACTORS, SUB 09/14/2016 TATUM HADDAD MD Ot Y99.8 OTHER EXTERNAL CAUSE STATUS 09/14/2016 YONATHAN VALDES DO Ot Z12.31 ENCNTR SCREEN MAMMOGRAM FOR MALIGNANT NE 09/20/2016 YONATHAN VALDES DO Ot J18.9 PNEUMONIA, UNSPECIFIED ORGANISM 09/25/2016 Ot [...] OTH SCREEN MAMMO-MALIGN NEOPLASM OF YESI 09/25/2016 TATUM HADDAD MD Ot S42.232D 3-PART FX [...] VALDES DO Ot J18.9 PNEUMONIA, UNSPECIFIED ORGANISM 10/06/2016 ANTOLIN JULIAN DO Ot J18.9 PNEUMONIA, UNSPECIFIED ORGANISM 10/06/2016 ANTOLIN JULIAN DO Ot R91.8 OTHER NONSPECIFIC ABNORMAL FINDING OF NORBERTO 10/07/2016 ANTOLIN JULIAN DO Ot C34.32 MALIGNANT NEOPLASM OF LOWER LOBE, LEFT B 10/07/2016 ANTOLIN JULIAN DO Ot 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 10/07/2016 ANTOLIN JULIAN DO Ot R59.0 LOCALIZED ENLARGED LYMPH NODES 10/07/2016 ANTOLIN JULIAN DO Ot R91.8 OTHER NONSPECIFIC ABNORMAL FINDING OF NORBERTO 10/07/2016 ANTOLIN JULIAN DO Ot J18.9 PNEUMONIA, UNSPECIFIED ORGANISM 10/07/2016 ANTOLIN JULIAN DO Ot R91.8 OTHER NONSPECIFIC ABNORMAL FINDING OF NORBERTO 10/07/2016 ANTOLIN JULIAN DO Ot J18.9 PNEUMONIA, UNSPECIFIED ORGANISM 10/07/2016 ANTOLIN JULIAN DO Ot R91.8 OTHER NONSPECIFIC ABNORMAL FINDING OF NORBERTO 10/07/2016 YONATHAN VALDES DO Ot J18.9 PNEUMONIA, UNSPECIFIED ORGANISM 10/07/2016 YONATHAN VALDES DO Ot R91.8 OTHER NONSPECIFIC ABNORMAL FINDING OF NORBERTO 10/09/2016 Ot 611.72 LUMP OR MASS IN BREAST 10/09/2016 Ot V76.12 OTH SCREEN MAMMO-MALIGN NEOPLASM OF YESI 10/09/2016 Ot 793.89 OTH (ABN) FINDINGS ON RADIOLOGICAL EXAMI 10/09/2016 Ot 793.89 OTH (ABN) FINDINGS ON RADIOLOGICAL EXAMI 10/09/2016 YONATHAN VALDES DO Ot V76.12 OTH SCREEN MAMMO-MALIGN NEOPLASM OF YESI 10/09/2016 NADYA GARRETT, VIGNESH Edmondson Ot V72.84 EXAM PRE-OPERATIVE NOS 10/09/2016 YONATHAN VALDES DO Ot V76.12 OTH SCREEN MAMMO-MALIGN NEOPLASM OF YESI 10/09/2016 YONATHAN VALDES DO Ot V76.12 OTH SCREEN MAMMO-MALIGN NEOPLASM OF YESI 10/09/2016 TATUM HADDAD MD Ot S42.232D 3-PART FX SURG NECK OF L HUMERUS, SUBS F 10/09/2016 TATUM HADDAD MD Ot X58.XXXD EXPOSURE TO OTHER SPECIFIED FACTORS, SUB 10/09/2016 TATUM HADDAD MD Ot Y99.8 OTHER EXTERNAL CAUSE STATUS 10/09/2016 YONATHAN VALDES DO Ot Z12.31 ENCNTR SCREEN MAMMOGRAM FOR MALIGNANT NE 10/09/2016 YONATHAN VALDES DO Ot J18.9 PNEUMONIA, UNSPECIFIED ORGANISM 10/09/2016 YONATHAN VALDES DO Ot J18.9 PNEUMONIA, UNSPECIFIED ORGANISM 10/09/2016 YONATHAN VLADES DO Ot R91.8 OTHER NONSPECIFIC ABNORMAL FINDING OF NORBERTO 10/12/2016 ANTOLIN JULIAN DO Ot J18.9 PNEUMONIA, UNSPECIFIED ORGANISM 10/12/2016 ANTOLIN JULIAN DO Ot R91.8 OTHER NONSPECIFIC ABNORMAL FINDING OF NORBERTO 10/12/2016 ANTOLIN JULIAN DO Ot C34.32 MALIGNANT NEOPLASM OF LOWER LOBE, LEFT B 10/12/2016 ANTOLIN JULIAN DO Ot 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 10/20/2016 ANTOLIN JULIAN DO Ot C34.32 MALIGNANT NEOPLASM OF LOWER LOBE, LEFT B 10/20/2016 ANTOLIN JULIAN DO Ot 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 10/28/2016 ANTOLIN JULIAN DO Ot C34.32 MALIGNANT NEOPLASM OF LOWER LOBE, LEFT B 10/28/2016 ANTOLIN JULIAN DO Ot Z87.01 PERSONAL HISTORY OF PNEUMONIA (RECURRENT 11/06/2016 ANTOLIN JULIAN DO Ot C34.32 MALIGNANT NEOPLASM OF LOWER LOBE, LEFT B 11/06/2016 ANTOLIN JULIAN DO Ot Z87.01 PERSONAL HISTORY OF PNEUMONIA (RECURRENT 11/06/2016 ANTOLIN JULIAN DO Ot C34.92 MALIGNANT NEOPLASM OF UNSP PART OF LEFT 11/10/2016 Ot 611.72 LUMP OR MASS IN BREAST 11/10/2016 Ot V76.12 OTH SCREEN MAMMO-MALIGN NEOPLASM OF YESI 11/10/2016 Ot 793.89 OTH (ABN) FINDINGS ON RADIOLOGICAL EXAMI 11/10/2016 Ot 793.89 OTH (ABN) FINDINGS ON RADIOLOGICAL EXAMI 11/10/2016 YONATHAN VALDES DO Ot V76.12 OTH SCREEN MAMMO-MALIGN NEOPLASM OF YSEI 11/10/2016 NADYA GARRETT, VIGNESH Edmondson Ot V72.84 EXAM PRE-OPERATIVE NOS 11/10/2016 YONATHAN VALDES DO Ot V76.12 OTH SCREEN MAMMO-MALIGN NEOPLASM OF YESI 11/10/2016 YONATHAN VALDES DO Ot V76.12 OTH SCREEN MAMMO-MALIGN NEOPLASM OF YESI 11/10/2016 BOO GARRETT, TATUM Bryant Ot S42.232D 3-PART FX SURG NECK OF L HUMERUS, SUBS F 11/10/2016 TATUM HADDAD MD Ot X58.XXXD EXPOSURE TO OTHER SPECIFIED FACTORS, SUB 11/10/2016 TATUM HADDAD MD Ot Y99.8 OTHER EXTERNAL CAUSE STATUS 11/10/2016 YONATHAN VALDES DO Ot Z12.31 ENCNTR SCREEN MAMMOGRAM FOR MALIGNANT NE 11/10/2016 YONATHAN VALDES DO Ot J18.9 PNEUMONIA, UNSPECIFIED ORGANISM 11/10/2016 YONATHAN VALDES DO, Ot J18.9 PNEUMONIA, UNSPECIFIED ORGANISM 11/10/2016 YONATHAN VALDES DO Ot R91.8 OTHER NONSPECIFIC ABNORMAL FINDING OF NORBERTO 11/10/2016 ANTOLIN JULIAN DO Ot C34.32 MALIGNANT NEOPLASM OF LOWER LOBE, LEFT B 11/10/2016 ANTOLIN JULIAN DO Ot Z87.01 PERSONAL HISTORY OF PNEUMONIA (RECURRENT 11/10/2016 ANTOLIN JULIAN DO Ot C34.92 MALIGNANT NEOPLASM OF UNSP PART OF LEFT 11/16/2016 SHRUTHI GARZA DO Ot C34.32 MALIGNANT NEOPLASM OF LOWER LOBE, LEFT B 11/16/2016 SHRUTHI GARZA DO Ot Z79.899 OTHER HIGH HEEL BUILDER (CURRENT) DRUG THERAPY 11/16/2016 SHRUTHI GARZA DO Ot C34.32 MALIGNANT NEOPLASM OF LOWER LOBE, LEFT B 11/16/2016 GARZA SHRUTHI Ot Z01.818 ENCOUNTER FOR OTHER PREPROCEDURAL EXAMIN 11/16/2016 SHRUTHI GARZA DO Ot Z11.2 ENCOUNTER FOR SCREENING FOR OTHER BACTER 11/18/2016 KIMBERLY CARABALLO N Ot C34.32 MALIGNANT NEOPLASM OF LOWER LOBE, LEFT B 11/18/2016 KIMBERLY CARABALLO N Ot 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 11/18/2016 KIMBERLY CARABALLO N Ot E03.9 HYPOTHYROIDISM, UNSPECIFIED 11/18/2016 KIMBERLY CARABALLO N Ot Z79.899 OTHER HIGH HEEL BUILDER (CURRENT) DRUG THERAPY 11/18/2016 KIMBERLY CARABALLO N Ot Z98.84 BARIATRIC SURGERY STATUS 12/03/2016 KIMBERLY CARABALLO N Ot C34.32 MALIGNANT NEOPLASM OF LOWER LOBE, LEFT B 12/03/2016 KIMBERLY CARABALLO N Ot 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 12/03/2016 KIMBERLY CARABALLO N Ot E03.9 HYPOTHYROIDISM, UNSPECIFIED 12/03/2016 RASHMIKIMBERLY HINKLE N Ot Z79.899 OTHER HALF-WAY (CURRENT) DRUG THERAPY 12/03/2016 KIMBERLY CARABALLO N Ot Z98.84 BARIATRIC SURGERY STATUS 12/09/2016 KIMBERLY CARABALLO N Ot C34.32 MALIGNANT NEOPLASM OF LOWER LOBE, LEFT B 12/09/2016 KIMBERLY CARABALLO N Ot 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 12/09/2016 KIMBERLY CARABALLO N Ot E03.9 HYPOTHYROIDISM, UNSPECIFIED 12/09/2016 KIMBERLY CARABALLO N Ot Z79.899 OTHER HIGH HEEL BUILDER (CURRENT) DRUG THERAPY 12/09/2016 RASHMIKIMBERLY HINKLE N Ot Z98.84 BARIATRIC SURGERY STATUS 12/30/2016 KIMBERLY CARABALLO N Ot C34.32 MALIGNANT NEOPLASM OF LOWER LOBE, LEFT B 12/30/2016 KIMBERLY CARABALLO N Ot 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 12/30/2016 KIMBERLY CARABALLO N Ot E03.9 HYPOTHYROIDISM, UNSPECIFIED 12/30/2016 RASHMI BOBAN N Ot Z79.899 OTHER HALF-WAY (CURRENT) DRUG THERAPY 12/30/2016 RASHMI, BOBAN N Ot Z98.84 BARIATRIC SURGERY STATUS 02/08/2017 RASHMIKIMBERLY HINKLE N Ot C34.32 MALIGNANT NEOPLASM OF LOWER LOBE, LEFT B 02/08/2017 RASHMIKIMBERLY HINKLE N Ot 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 02/08/2017 KIMBERLY CARABALLO N Ot E03.9 HYPOTHYROIDISM, UNSPECIFIED 02/08/2017 RASHMIKIMBERLY N Ot Z51.11 ENCOUNTER FOR ANTINEOPLASTIC CHEMOTHERAP 02/08/2017 SEBASTIAN CARABALLOAN N Ot Z79.899 OTHER HIGH HEEL BUILDER (CURRENT) DRUG THERAPY 02/08/2017 RASHMIKIMBERLY N Ot Z98.84 BARIATRIC SURGERY STATUS 02/09/2017 RASHMIKIMBERLY HINKLE N Ot C34.32 MALIGNANT NEOPLASM OF LOWER LOBE, LEFT B 02/09/2017 KIMBERLY CARABALLO N Ot 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 02/09/2017 KIMBERLY CARABALLO N Ot E03.9 HYPOTHYROIDISM, UNSPECIFIED 02/09/2017 RASHMIKIMBERLY N Ot Z51.11 ENCOUNTER FOR ANTINEOPLASTIC CHEMOTHERAP 02/09/2017 KIMBERLY CARABALLO N Ot Z79.899 OTHER HIGH HEEL BUILDER (CURRENT) DRUG THERAPY 02/09/2017 RASHMIKIMBERLY HINKLE N Ot Z98.84 BARIATRIC SURGERY STATUS 02/10/2017 KIMBERLY CARABALLO N Ot C34.32 MALIGNANT NEOPLASM OF LOWER LOBE, LEFT B 02/10/2017 KIMBERLY CARABALLO N Ot 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 02/10/2017 KIMBERLY CARABALLO N Ot E03.9 HYPOTHYROIDISM, UNSPECIFIED 02/10/2017 KIMBERLY CARABALLO N Ot Z51.11 ENCOUNTER FOR ANTINEOPLASTIC CHEMOTHERAP 02/10/2017 SEBASTIAN CARABALLOAN N Ot Z79.899 OTHER HIGH HEEL BUILDER (CURRENT) DRUG THERAPY 02/10/2017 KIMBERLY CARABALLO N Ot Z98.84 BARIATRIC SURGERY STATUS 03/02/2017 KIMBERLY CARABALLO N Ot C34.32 MALIGNANT NEOPLASM OF LOWER LOBE, LEFT B 03/02/2017 KIMBERLY CARABALLO N Ot 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 03/02/2017 RASHMIKIMBERLY HINKLE N Ot E03.9 HYPOTHYROIDISM, UNSPECIFIED 03/02/2017 RASHMIKIMBERLY N Ot Z51.11 ENCOUNTER FOR ANTINEOPLASTIC CHEMOTHERAP 03/02/2017 RASHMI BOBAN N Ot Z79.899 OTHER HALF-WAY (CURRENT) DRUG THERAPY 03/02/2017 RASHMIKIMBERLY N Ot Z98.84 BARIATRIC SURGERY STATUS 03/10/2017 RASHMIKIMBERLY HINKLE N Ot C34.32 MALIGNANT NEOPLASM OF LOWER LOBE, LEFT B 03/10/2017 RASHMIKIMBERLY HINKLE N Ot 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 03/10/2017 RASHMIKIMBERLY N Ot E03.9 HYPOTHYROIDISM, UNSPECIFIED 03/10/2017 RASHMI BOBAPPLE N Ot Z51.11 ENCOUNTER FOR ANTINEOPLASTIC CHEMOTHERAP 03/10/2017 RASHMI BOBAN N Ot Z79.899 OTHER HALF-WAY (CURRENT) DRUG THERAPY 03/10/2017 RASHMI, BOBAN N Ot Z98.84 BARIATRIC SURGERY STATUS 03/15/2017 YONATHAN VALDES DO Ot Z12.31 ENCNTR SCREEN MAMMOGRAM FOR MALIGNANT NE 03/24/2017 KIMBERLY CARABALLO N Ot C34.32 MALIGNANT NEOPLASM OF LOWER LOBE, LEFT B 03/24/2017 RASHMIKIMBERLY HINKLE N Ot 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 03/24/2017 RASHMIKIMBERLY N Ot E03.9 HYPOTHYROIDISM, UNSPECIFIED 03/24/2017 RASHMI BOBAN N Ot Z51.11 ENCOUNTER FOR ANTINEOPLASTIC CHEMOTHERAP 03/24/2017 RASHMIKIMBERLY N Ot Z79.899 OTHER HIGH HEEL BUILDER (CURRENT) DRUG THERAPY 03/24/2017 RASHMIKIMBERLY N Ot Z98.84 BARIATRIC SURGERY STATUS 04/17/2017 RASHMIKIMBERLY HINKLE N Ot C34.32 MALIGNANT NEOPLASM OF LOWER LOBE, LEFT B 04/17/2017 RASHMIKIMBERLY N Ot 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 04/17/2017 RASHMIKIMBERLY N Ot D64.9 ANEMIA, UNSPECIFIED 04/17/2017 RASHMI BOBAN N Ot E03.9 HYPOTHYROIDISM, UNSPECIFIED 04/17/2017 RASHMI, BOBAN N Ot Z51.11 ENCOUNTER FOR ANTINEOPLASTIC CHEMOTHERAP 04/17/2017 RASHMI BOBAN N Ot Z79.899 OTHER HALF-WAY (CURRENT) DRUG THERAPY 04/17/2017 RASHMISEBASTIANAN N Ot Z98.84 BARIATRIC SURGERY STATUS 04/21/2017 BOOTATUM CRAFT MD Ot S42.232D 3-PART FX SURG NECK OF L HUMERUS, SUBS F 04/21/2017 TATUM HADDAD MD Ot X58.XXXD EXPOSURE TO OTHER SPECIFIED FACTORS, SUB 04/21/2017 TATUM HADDAD MD Ot Y99.8 OTHER EXTERNAL CAUSE STATUS 04/21/2017 RASHMI, KIMBERLY [place] Ot C34.32 MALIGNANT NEOPLASM OF LOWER LOBE, LEFT B 04/21/2017 RASHMI, KIMBERLY [place] Ot 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 04/21/2017 RASHMI KIMBERLY [place] Ot E03.9 HYPOTHYROIDISM, UNSPECIFIED 04/21/2017 RASHMIKIMBERLY Ot Z51.11 ENCOUNTER FOR ANTINEOPLASTIC CHEMOTHERAP 04/21/2017 KIMBERLY CARABALLO Ot Z79.899 OTHER HALF-WAY (CURRENT) DRUG THERAPY 04/21/2017 KIMBERLY CARABALLO Ot Z98.84 BARIATRIC SURGERY STATUS 04/21/2017 HEATHER HERRERA MD, Ot C34.92 MALIGNANT NEOPLASM OF UNSP PART OF LEFT 04/21/2017 HEATHER HERRERA MD, Ot C79.9 SECONDARY MALIGNANT NEOPLASM OF UNSPECIF 04/21/2017 HEATHER HERRERA MD Ot E05.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, UNSP WITHOUT THYROTOXIC 04/21/2017 HEATHER HERRERA MD, Ot G43.909 MIGRAINE, UNSP, NOT INTRACTABLE, WITHOUT 04/21/2017 HEATHER HERRERA MD Ot M81.0 AGE-RELATED OSTEOPOROSIS W/O CURRENT PAT 04/21/2017 HEATHER HERRERA MD Ot R07.89 OTHER CHEST PAIN 04/21/2017 HEATHER HERRERA MD Ot Z82.49 FAMILY HX OF ISCHEM HEART DIS AND OTH DI 04/21/2017 HEATHER HERRERA MD, Ot Z86.718 PERSONAL HISTORY OF OTHER VENOUS THROMBO 04/21/2017 HEATHER HERRERA MD, Ot Z90.89 ACQUIRED ABSENCE OF OTHER ORGANS 04/21/2017 HEATHER HERRERA MD, Ot Z98.84 BARIATRIC SURGERY STATUS 04/26/2017 RASHMI KIMBERLY [place] Ot C34.32 MALIGNANT NEOPLASM OF LOWER LOBE, LEFT B 04/26/2017 KIMBERLY CARABALLO Ot 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 04/26/2017 KIMBERLY CARABALLO N Ot D64.9 ANEMIA, UNSPECIFIED 04/26/2017 KIMBERLY CARABALLO N Ot E03.9 HYPOTHYROIDISM, UNSPECIFIED 04/26/2017 KIMBERLY CARABALLO N Ot Z79.899 OTHER HIGH HEEL BUILDER (CURRENT) DRUG THERAPY 04/26/2017 KIMBERLY CARABALLO N Ot Z98.84 BARIATRIC SURGERY STATUS 06/08/2017 KIMBERLY CARABALLO N Ot C34.32 MALIGNANT NEOPLASM OF LOWER LOBE, LEFT B 06/08/2017 KIMBERLY CARABALLO N Ot 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 06/08/2017 KIMBERLY CARABALLO N Ot D64.9 ANEMIA, UNSPECIFIED 06/08/2017 KIMBERLY CARABALLO N Ot E03.9 HYPOTHYROIDISM, UNSPECIFIED 06/08/2017 KIMBERLY CARABALLO N Ot Z79.899 OTHER HIGH HEEL BUILDER (CURRENT) DRUG THERAPY 06/08/2017 KIMBERLY CARABALLO N Ot Z98.84 BARIATRIC SURGERY STATUS 06/16/2017 KIMBERLY CARABALLO N Ot C34.32 MALIGNANT NEOPLASM OF LOWER LOBE, LEFT B 06/16/2017 KIMBERLY CARABALLO N Ot 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 06/16/2017 KIMBERLY CARABALLO N Ot D64.9 ANEMIA, UNSPECIFIED 06/16/2017 KIMBERLY CARABALLO N Ot E03.9 HYPOTHYROIDISM, UNSPECIFIED 06/16/2017 KIMBERLY CARABALLO N Ot Z79.899 OTHER HALF-WAY (CURRENT) DRUG THERAPY 06/16/2017 KIMBERLY CARABALLO N Ot Z98.84 BARIATRIC SURGERY STATUS 06/17/2017 LAVONNE MARR MD, Ot C34.32 MALIGNANT NEOPLASM OF LOWER LOBE, LEFT B 06/17/2017 LAVONNE MARR MD, Ot 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 06/17/2017 LAVONNE MARR MD Ot D64.9 ANEMIA, UNSPECIFIED 06/17/2017 LAVONNE MARR MD Ot E03.9 HYPOTHYROIDISM, UNSPECIFIED 06/17/2017 LAVONNE MARR MD Ot Z79.899 OTHER HIGH HEEL BUILDER (CURRENT) DRUG THERAPY 06/17/2017 LAVONNE MARR MD Ot Z98.84 BARIATRIC SURGERY STATUS 07/07/2017 LAVONNE MARR MD Ot C34.32 MALIGNANT NEOPLASM OF LOWER LOBE, LEFT B 07/07/2017 LAVONNE MARR MD, Ot 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 07/07/2017 LAVONNE MARR MD Ot D64.9 ANEMIA, UNSPECIFIED 07/07/2017 LAVONNE MARR MD Ot E03.9 HYPOTHYROIDISM, UNSPECIFIED 07/07/2017 LAVONNE MARR MD Ot Z79.899 OTHER HALF-WAY (CURRENT) DRUG THERAPY 07/07/2017 LAVONNE MARR MD Ot Z98.84 BARIATRIC SURGERY STATUS 07/28/2017 LAVONNE MARR MD Ot C34.32 MALIGNANT NEOPLASM OF LOWER LOBE, LEFT B 07/28/2017 LAVONNE MARR MD Ot 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 07/28/2017 LAVONNE MARR MD Ot D64.9 ANEMIA, UNSPECIFIED 07/28/2017 LAVONNE MARR MD Ot E03.9 HYPOTHYROIDISM, UNSPECIFIED 07/28/2017 LAVONNE MARR MD Ot Z79.899 OTHER HIGH HEEL BUILDER (CURRENT) DRUG THERAPY 07/28/2017 LAVONNE MARR MD Ot Z98.84 BARIATRIC SURGERY STATUS 08/25/2017 KIMBERLY CARABALLO N Ot C34.32 MALIGNANT NEOPLASM OF LOWER LOBE, LEFT B 08/25/2017 KIMBERLY CARABALLO N Ot M54.9 DORSALGIA, UNSPECIFIED 08/25/2017 KIMBERLY CARABALLO N Ot Z95.828 PRESENCE OF OTHER VASCULAR IMPLANTS AND 08/25/2017 KIMBERLY CARABALLO N Ot C34.32 MALIGNANT NEOPLASM OF LOWER LOBE, LEFT B 08/25/2017 KIMBERLY CARABALLO N Ot M54.9 DORSALGIA, UNSPECIFIED 08/25/2017 KIMBERLY CARABALLO N Ot Z95.828 PRESENCE OF OTHER VASCULAR IMPLANTS AND Procedures There is no data. Results Test Result Range Sputum Gram stain [...] NRG MICROSCOPIC NO ACID-FAST BACILLI FOUND NRG AFB CULTURE NO MYCOBACTERIA RECOVERED AFTER 6 WEEKS NRG DATE FINAL AFB CULTURE 11/19/2016 NRG Fungus culture - 10/07/16 08:00 Fungus culture NG NRG Fungus culture - 10/07/16 08:00 Fungus culture NG NR Automated blood complete blood count (hemogram) panel - 10/23/16 08:40 Blood leukocytes automated count (number/volume) 2.4 10*3/uL 4.3-11.0 Blood erythrocytes automated count (number/volume) 4.93 10*6/uL 4.35-5.85 Venous blood hemoglobin measurement (mass/volume) 14.6 g/dL 11.5-16.0 Blood hematocrit (volume fraction) 43 % 35-52 Automated erythrocyte mean corpuscular volume 87 [foz_us] 80-99 Automated erythrocyte mean corpuscular hemoglobin (mass per erythrocyte) 30 pg 25-34 Automated erythrocyte mean corpuscular hemoglobin concentration measurement ( mass/volume) 34 g/dL 32-36 Automated erythrocyte distribution width ratio 14.2 % 10.0-14.5 Automated blood platelet count (count/volume) 203 10*3/uL 130-400 Automated blood platelet mean volume measurement 10.7 [foz_us] 7.4-10.4 PT panel in platelet poor plasma by coagulation assay - 10/23/16 08:40 Prothrombin time (PT) in platelet poor plasma by coagulation assay 13.2 s 12.2-14.7 INR in platelet poor plasma or blood by coagulation assay 1.0 0.8-1.4 Activated partial thromboplastin time (aPTT) in platelet poor plasma bycoagulation assay - 10/23/16 08:40 Activated partial thromboplastin time (aPTT) in platelet poor plasma bycoagulation assay 23 s 24-35 Methicillin resistant Staphylococcus aureus (MRSA) screening culture - 09:04 Methicillin resistant Staphylococcus aureus (MRSA) screening culture NEG NR Complete blood count (CBC) with automated white blood cell (WBC) differential - 04/21/17 10:00 Blood leukocytes automated count (number/volume) 1.3 10*3/uL 4.3-11.0 Blood erythrocytes automated count (number/volume) 2.48 10*6/uL 4.35-5.85 Venous blood hemoglobin measurement (mass/volume) 8.4 g/dL 11.5-16.0 Blood hematocrit (volume fraction) 26 % 35-52 Automated erythrocyte mean corpuscular volume 106 [foz_us] 80-99 Automated erythrocyte mean corpuscular hemoglobin (mass per erythrocyte) 34 pg 25-34 Automated erythrocyte mean corpuscular hemoglobin concentration measurement ( mass/volume) 32 g/dL 32-36 Automated erythrocyte distribution width ratio 13.2 % 10.0-14.5 Automated blood platelet count (count/volume) 139 10*3/uL 130-400 Automated blood platelet mean volume measurement 9.1 [foz_us] 7.4-10.4 Automated blood neutrophils/100 leukocytes 63 % 42-75 Automated blood lymphocytes/100 leukocytes 27 % 12-44 Blood monocytes/100 leukocytes 8 % 0-12 Automated blood eosinophils/100 leukocytes 2 % 0-10 Automated blood basophils/100 leukocytes 0 % 0-10 Blood neutrophils automated count (number/volume) 0.8 10*3 1.8-7.8 Blood lymphocytes automated count (number/volume) 0.4 10*3 1.0-4.0 Blood monocytes automated count (number/volume) 0.1 10*3 0.0-1.0 Automated eosinophil count 0.0 10*3/uL 0.0-0.3 Automated blood basophil count (count/volume) 0.0 10*3/uL 0.0-0.1 PT panel in platelet poor plasma by coagulation assay - 04/21/17 10:00 Prothrombin time (PT) in platelet poor plasma by coagulation assay 12.6 s 12.2-14.7 INR in platelet poor plasma or blood by coagulation assay 0.9 0.8-1.4 Activated partial thromboplastin time (aPTT) in platelet poor plasma bycoagulation assay - 04/21/17 10:00 Activated partial thromboplastin time (aPTT) in platelet poor plasma bycoagulation assay 23 s 24-35 Comprehensive metabolic panel - 04/21/17 10:00 Serum or plasma sodium measurement (moles/volume) 138 mmol/L 135-145 Serum or plasma potassium measurement (moles/volume) 3.3 mmol/L 3.6-5.0 Serum or plasma chloride measurement (moles/volume) 101 mmol/L 98-107 Carbon dioxide 28 mmol/L 21-32 Serum or plasma anion gap determination (moles/volume) 9 mmol/L 5-14 Serum or plasma urea nitrogen measurement (mass/volume) 19 mg/dL 7-18 Serum or plasma creatinine measurement (mass/volume) 0.86 mg/dL 0.60-1.30 Serum or plasma urea nitrogen/creatinine mass ratio 22 NRG Serum or plasma creatinine measurement with calculation of estimated glomerular filtration rate > NRG Serum or plasma glucose measurement (mass/volume) 90 mg/dL 70-105 Serum or plasma calcium measurement (mass/volume) 9.2 mg/dL 8.5-10.1 Serum or plasma total bilirubin measurement (mass/volume) 0.6 mg/dL 0.1-1.0 Serum or plasma alkaline phosphatase measurement (enzymatic activity/volume) 66 U/L 40-136 Serum or plasma aspartate aminotransferase measurement (enzymatic activity/ volume) 26 U/L 5-34 Serum or plasma alanine aminotransferase measurement (enzymatic activity/volume ) 32 U/L 0-55 Serum or plasma protein measurement (mass/volume) 6.5 g/dL 6.4-8.2 Serum or plasma albumin measurement (mass/volume) 3.5 g/dL 3.2-4.5 Magnesium - 04/21/17 10:00 Magnesium 1.7 mg/dL 1.8-2.4 Serum or plasma troponin i.cardiac measurement (mass/volume) - 04/21/17 10:00 Serum or plasma troponin i.cardiac measurement (mass/volume) < ng/ mL <0.30 Myoglobin, serum - 04/21/17 10:00 Myoglobin, serum 22.7 ng/mL 10.0-92.0 Magnesium - 08/26/17 11:15 Magnesium 1.3 mg/dL 1.8-2.4 Blood lactic acid measurement (moles/volume) - 08/26/17 14:19 Blood lactic acid measurement (moles/volume) 0.74 mmol/L 0.50-2.00 Urine Legionella pneumophila antigen assay - 08/26/17 16:07 Urine Legionella pneumophila antigen assay Negative NRG Streptococcus pneumoniae antigen detection - 08/26/17 16:07 Streptococcus pneumoniae antigen detection Negative NRG Capillary blood glucose measurement by glucometer (mass/volume) - 08/26/17 16: 41 Capillary blood glucose measurement by glucometer (mass/volume) 100 mg/dL 70-110 Capillary blood glucose measurement by glucometer (mass/volume) - 08/26/17 20: 35 Capillary blood glucose measurement by glucometer (mass/volume) 142 mg/dL 70-110 Whole blood basic metabolic panel - 08/27/17 05:55 Serum or plasma sodium measurement (moles/volume) 139 mmol/L 135-145 Serum or plasma potassium measurement (moles/volume) 3.2 mmol/L 3.6-5.0 Serum or plasma chloride measurement (moles/volume) 103 mmol/L 98-107 Carbon dioxide 23 mmol/L 21-32 Serum or plasma anion gap determination (moles/volume) 13 mmol/L 5-14 Serum or plasma urea nitrogen measurement (mass/volume) 18 mg/dL 7-18 Serum or plasma creatinine measurement (mass/volume) 1.27 mg/dL 0.60-1.30 Serum or plasma urea nitrogen/creatinine mass ratio 14 NRG Serum or plasma creatinine measurement with calculation of estimated glomerular filtration rate 44 NRG Serum or plasma glucose measurement (mass/volume) 77 mg/dL 70-105 Serum or plasma calcium measurement (mass/volume) 7.6 mg/dL 8.5-10.1 Magnesium - 08/27/17 05:55 Magnesium 1.9 mg/dL 1.8-2.4 Capillary blood glucose measurement by glucometer (mass/volume) - 08/27/17 05: 58 Capillary blood glucose measurement by glucometer (mass/volume) 87 mg/dL 70-110 Sputum Gram stain - 08/27/17 06:50 GRAM STAIN SPUTUM NO BACTERIA OBSERVED NRG Bacterial sputum culture - 08/27/17 06:50 Bacterial sputum culture NORMAL NRG Complete blood count (CBC) with automated white blood cell (WBC) differential - 08/27/17 07:03 Blood leukocytes automated count (number/volume) 0.7 10*3/uL 4.3-11.0 Blood erythrocytes automated count (number/volume) 2.13 10*6/uL 4.35-5.85 Venous blood hemoglobin measurement (mass/volume) 7.0 g/dL 11.5-16.0 Blood hematocrit (volume fraction) 21 % 35-52 Automated erythrocyte mean corpuscular volume 100 [foz_us] 80-99 Automated erythrocyte mean corpuscular hemoglobin (mass per erythrocyte) 33 pg 25-34 Automated erythrocyte mean corpuscular hemoglobin concentration measurement ( mass/volume) 33 g/dL 32-36 Automated erythrocyte distribution width ratio 14.6 % 10.0-14.5 Automated blood platelet count (count/volume) 27 10*3/uL 130-400 Automated blood platelet mean volume measurement 11.7 [foz_us] 7.4-10.4 Automated blood neutrophils/100 leukocytes 25 % 42-75 Automated blood lymphocytes/100 leukocytes 61 % 12-44 Blood monocytes/100 leukocytes 10 % 0-12 Automated blood eosinophils/100 leukocytes 3 % 0-10 Automated blood basophils/100 leukocytes 0 % 0-10 Blood neutrophils automated count (number/volume) 0.2 10*3 1.8-7.8 Blood lymphocytes automated count (number/volume) 0.4 10*3 1.0-4.0 Blood monocytes automated count (number/volume) 0.1 10*3 0.0-1.0 Automated eosinophil count 0.0 10*3/uL 0.0-0.3 Automated blood basophil count (count/volume) 0.0 10*3/uL 0.0-0.1 [id number] - 08/27/17 07:03 [id number] SPECIMEN AVAILABLE [facility] Capillary blood glucose measurement by glucometer (mass/volume) - 08/27/17 10: 50 Capillary blood glucose measurement by glucometer (mass/volume) 111 mg/dL 70-110 Capillary blood glucose measurement by glucometer (mass/volume) - 08/27/17 15: 55 Capillary blood glucose measurement by glucometer (mass/volume) 92 mg/dL 70-110 Capillary blood glucose measurement by glucometer (mass/volume) - 08/27/17 20: 53 Capillary blood glucose measurement by glucometer (mass/volume) 121 mg/dL 70-110 Complete blood count (CBC) with automated white blood cell (WBC) differential - 08/28/17 05:25 Blood leukocytes automated count (number/volume) 6.2 10*3/uL 4.3-11.0 Blood erythrocytes automated count (number/volume) 1.98 10*6/uL 4.35-5.85 Venous blood hemoglobin measurement (mass/volume) 6.6 g/dL 11.5-16.0 Blood hematocrit (volume fraction) 20 % 35-52 Automated erythrocyte mean corpuscular volume 101 [foz_us] 80-99 Automated erythrocyte mean corpuscular hemoglobin (mass per erythrocyte) 33 pg 25-34 Automated erythrocyte mean corpuscular hemoglobin concentration measurement ( mass/volume) 33 g/dL 32-36 Automated erythrocyte distribution width ratio 14.6 % 10.0-14.5 Automated blood platelet count (count/volume) 19 10*3/uL 130-400 Automated blood platelet mean volume measurement 12.2 [foz_us] 7.4-10.4 Automated blood neutrophils/100 leukocytes 86 % 42-75 Automated blood lymphocytes/100 leukocytes 11 % 12-44 Blood monocytes/100 leukocytes 2 % 0-12 Automated blood eosinophils/100 leukocytes 1 % 0-10 Automated blood basophils/100 leukocytes 0 % 0-10 Blood neutrophils automated count (number/volume) 5.3 10*3 1.8-7.8 Blood lymphocytes automated count (number/volume) 0.7 10*3 1.0-4.0 Blood monocytes automated count (number/volume) 0.1 10*3 0.0-1.0 Automated eosinophil count 0.1 10*3/uL 0.0-0.3 Automated blood basophil count (count/volume) 0.0 10*3/uL 0.0-0.1 Whole blood basic metabolic panel - 08/28/17 05:25 Serum or plasma sodium measurement (moles/volume) 138 mmol/L 135-145 Serum or plasma potassium measurement (moles/volume) 2.9 mmol/L 3.6-5.0 Serum or plasma chloride measurement (moles/volume) 105 mmol/L 98-107 Carbon dioxide 22 mmol/L 21-32 Serum or plasma anion gap determination (moles/volume) 11 mmol/L 5-14 Serum or plasma urea nitrogen measurement (mass/volume) 12 mg/dL 7-18 Serum or plasma creatinine measurement (mass/volume) 1.12 mg/dL 0.60-1.30 Serum or plasma urea nitrogen/creatinine mass ratio 11 NRG Serum or plasma creatinine measurement with calculation of estimated glomerular filtration rate 50 NRG Serum or plasma glucose measurement (mass/volume) 74 mg/dL 70-105 Serum or plasma calcium measurement (mass/volume) 7.8 mg/dL 8.5-10.1 Magnesium - 08/28/17 05:25 Magnesium 1.5 mg/dL 1.8-2.4 Complete urinalysis with reflex to culture - 08/28/17 21:30 Urine color determination YELLOW NRG Urine clarity determination CLEAR NRG Urine pH measurement by test strip 6 5-9 Specific gravity of urine by test strip 1.010 1.016- 1.022 Urine protein assay by test strip, semi-quantitative 1+ NEGATIVE Urine glucose detection by automated test strip NEGATIVE NEGATIVE Erythrocytes detection in urine sediment by light microscopy NEGATIVE NEGATIVE Urine ketones detection by automated test strip NEGATIVE NEGATIVE Urine nitrite detection by test strip NEGATIVE NEGATIVE Urine total bilirubin detection by test strip NEGATIVE NEGATIVE Urine urobilinogen measurement by automated test strip (mass/volume) NORMAL NORMAL Urine leukocyte esterase detection by dipstick 1+ NEGATIVE Automated urine sediment erythrocyte count by microscopy (number/high power field) NONE NRG Automated urine sediment leukocyte count by microscopy (number/high power field ) [HPF] NRG Bacteria detection in urine sediment by light microscopy TRACE NRG Crystals detection in urine sediment by light microscopy NONE NRG Casts detection in urine sediment by light microscopy NONE NRG Mucus detection in urine sediment by light microscopy NEGATIVE NRG Complete urinalysis with reflex to culture YES NRG Encounters ACCT No. Visit Date/Time Discharge Status Pt. Type Provider Facility Loc./Unit Complaint [id number] 08/24/2017 10:26:00 08/24/2017 23:59:59 CLS Outpatient KIMBERLY CARABALLO [facility] RAD [id number] 05/04/2017 14:19:00 06/16/2017 08:48:00 DIS Outpatient KIMBERLY CARABALLO [facility] ONC [id number] 04/21/2017 09:29:00 04/21/2017 14:44:00 DIS Emergency HEATHER HERRERA MD [facility] ER LT SIDE/LT BREAST/ LEFT SIDE BACK PAIN/CANCER PT [id number] 04/15/2017 09:22:00 04/17/2017 00:01:00 DIS Outpatient KIMBERLY CARABALLO [facility] ONC [id number] 02/25/2017 09:20:00 02/25/2017 23:59:59 CLS Outpatient YONATHAN VALDES DO [facility] RAD SCREENING Z12.31 [id number] 01/20/2017 10:55:00 02/08/2017 00:01:00 DIS Outpatient KIMBERLY CARABALLO [facility] ONC [id number] 11/16/2016 06:00:00 11/16/2016 09:50:00 DIS Outpatient SHRUTHI GARZA DO [facility] SDC LUNG CA [id number] 11/13/2016 08:50:00 11/13/2016 09:05:00 DIS Outpatient SHRUTHI GARZA DO [facility] PREOP LUNG CA [id number] 10/23/2016 08:16:00 10/23/2016 23:59:59 CLS Outpatient ANTOLIN JULIAN DO [facility] RAD LUNG MASS,ADENOCARCINOMA, PNEUMONIA [id number] 10/20/2016 09:46:00 10/20/2016 23:59:59 CLS Outpatient ANTOLIN JULIAN DO [facility] RAD ADENOCARCINOMA [id number] 10/07/2016 06:05:00 10/07/2016 09:50:00 DIS Outpatient ANTOLIN JULIAN DO [facility] ENDO LUNG MASS [id number] 10/06/2016 12:56:00 10/06/2016 14:26:00 DIS Outpatient ANTOLIN JULIAN DO [facility] PREOP LUNG MASS [id number] 09/25/2016 08:55:00 09/25/2016 23:59:59 CLS Outpatient YONATHAN VALDES DO [facility] RAD J18.9 [id number] 09/14/2016 11:55:00 09/14/2016 23:59:59 CLS Outpatient YONATHAN VALDES DO [facility] RAD J18.9 [id number] 02/21/2016 12:59:00 02/21/2016 23:59:59 CLS Outpatient YONATHAN VALDES DO [facility] RAD SCREENING [id number] 09/23/2015 00:07:00 09/23/2015 23:59:59 CLS Preadmit TATUM HADDAD MD [facility] REHAB L HUMERAL HEAD FX COMMUNITED FX HEAD AND NECK [id number] 09/13/2015 08:02:00 09/22/2015 00:01:00 DIS Outpatient TATUM HADDAD MD [facility] REHAB L HUMERAL HEAD FX COMMUNITED FX HEAD AND NECK [id number] 05/10/2015 16:38:00 05/11/2015 13:10:00 DIS Inpatient TATUM HADDAD MD [facility] 4TH FX L HUMERAL HEAD/NECK [id number] 01/25/2015 13:03:00 01/25/2015 23:59:59 CLS Outpatient YONATHAN VALDES DO [facility] RAD SCREENING [id number] 01/12/2014 09:35:00 01/12/2014 23:59:59 CLS Outpatient YONATHAN VALDES DO [facility] RAD SCREENING [id number] 01/23/2013 06:18:00 01/23/2013 08:45:00 DIS Outpatient VIGNESH COVINGTON MD [facility] SDC SCREENING [id number] 01/20/2013 08:52:00 01/20/2013 23:59:59 CLS Outpatient VIGNESH COVINGTON MD [facility] PREOP SCREENING [id number] 01/06/2013 08:56:00 01/06/2013 23:59:59 CLS Outpatient YONATHAN VALDES DO [facility] RAD SCREENING [id number] 08/26/2017 13:20:00 ACT Inpatient ARVIN CROUCH MD [facility] 4TH FEVER [id number] 08/26/2017 11:00:00 ACT Outpatient LAVONNE MARR MD [facility] ONC [id number] 01/25/2012 14:31:00 Document Registration [id number] 10/24/2011 11:55:00 Document Registration [id number] 07/21/2011 14:12:00 Document Registration [id number] 07/16/2011 07:55:00 Document Registration [id number] 07/14/2010 08:09:00 Document Registration
[2017-08-29 05:44] LABS: PLATELET COUNT 20 10^3/uL (130-400)
[2017-08-29 05:59] LABS: CREATININE SERUM 1.06 MG/DL (0.60-1.30); POTASSIUM 3.3 MMOL/L (3.6-5.0)
[2017-08-29 07:55] VITALS: BP 103/63
[2017-08-29 08:00] VITALS: BP 104/63
[2017-08-29] MEDS: FLUCONAZOLE 100 MG/50 ML 50 ML IV SCH (09:02)
[2017-08-29] MEDS: FOLIC ACID 1 MG TAB PO SCH (09:02)
--- NOTE | 2017-08-29 09:34 | Progress Note-Hospitalist ---
Subjective HPI/CC On Admission Date Seen by Provider: Aug 29, 2017 Time Seen by Provider: 08:45 Pt is a 56yoCF with a PMH of hypothyroidism and lung cancer who presented as a direct admit for neutropenic fever and presumed pneumonia after failing outpatient therapy. She reports that she had her 14th cycle of chemo on 08/18 and felt well immediately following it but on 08/21 started to cough and feel very weak. She continued to worsen and was seen by her Oncologist on 08/24 and was started on a Z-pack for pneumonia. She was feeling better on 08/25 but worsened today and presented back to her oncologist. She was found to be febrile and WBC from 08/24 was 0.7. She was then direct admitted for IV abx for outpatient failure. She complains to me of cough still and that her weakness has progressed to the point where she has passed out twice while ambulating. She has had poor PO intake but has been trying to drink gatorade. She is also SOB and GUNDERSON. Denies any chest pain. Subjective/Events-last exam Pt reports feeling better. Eating and drinking well. Has been up ambulating around her room. Objective Exam Vital Signs Vital Signs Date Time Temp Pulse Resp B/P (MAP) Pulse Ox O2 Delivery O2 Flow Rate FiO2 08/26/17 14:51 100.1 08/26/17 16:00 61 14 113/65 (81) 91 Nasal Cannula 3.00 08/29/17 07:55 28 Capillary Refill : General Appearance: No Apparent Distress, WD/WN Respiratory: Lungs Clear, No Respiratory Distress Cardiovascular: Regular Rate, Rhythm, No Murmur Gastrointestinal: Normal Bowel Sounds, Non Tender, Soft Extremity: Non Tender, No Calf Tenderness Neurologic/Psychiatric: Alert, Oriented x3 Results/Procedures Lab Laboratory Tests 08/29/17 05:35 Assessment/Plan Assessment and Plan Assess & Plan/Chief Complaint Neutropenic Fever Diagnosis/Problems Diagnosis/Problems (1) CAP (community acquired pneumonia) Status: Acute Assessment & Plan: Sepsis criteria resolved Lactic normal Blood cultures drawn in Cancer center- NGTD Continue on Zosyn and Diflucan Sputum culture- normal archana Qualifiers: Qualified Codes: J18.1 - Lobar pneumonia, unspecified organism (2) Neutropenic fever Assessment & Plan: Chemo on 08/18 Continue abx as above Granix added and neutropenia resolved with ANC 10k DC granix today (3) Lung cancer Status: Chronic Assessment & Plan: Follows with Dr Anderson Onc consulted, appreciate recs Qualifiers: Qualified Codes: C34.90 - Malignant neoplasm of unspecified part of unspecified bronchus or lung (4) Normocytic anemia Assessment & Plan: Likely due to chemo Hgb up to 7.0 this AM (5) Hyponatremia Status: Resolved Assessment & Plan: Hypovolumia likely as no previous hyponetremia noted Resolved with IVF (6) Hypokalemia Assessment & Plan: Persistent, cont daily supplement (7) Hypomagnesemia Assessment & Plan: supplementation ordered (8) Prophylactic measure Assessment & Plan: SCDs for thrombocytopenia Neutropenic diet Saline lock ARVIN CROUCH MD Aug 29, 2017 9:34 am
[2017-08-29] MEDS: MAGNESIUM 1 GM/100 ML IVPB 100 ML IV SCH ×2 (09:46→10:52)
[2017-08-29] MEDS: BENZONATATE 100 MG (TESSALON) CAPSULE PO SCH ×3 (09:46→19:28)
[2017-08-29 16:45] VITALS: BP 128/79
[2017-08-30] VITALS: BP 103/56
[2017-08-30] MEDS: CATHETER FLUSH 10 ML SYR IV SCH (05:35)
[2017-08-30] MEDS: PIPERACILLIN SODIUM/TAZOBACTAM 4.5 GM in NS (IVPB) 100 ML IV SCH ×2 (05:35→11:32)
[2017-08-30] MEDS: KCL 20 MEQ TAB (K-DUR) PO SCH (05:35)
[2017-08-30 05:46] LABS: BASOPHILS % (AUTO) 0 % (0-10); EOSINOPHILS # (AUTO) 0.1 10^3/uL (0.0-0.3); EOSINOPHILS % (AUTO) 1 % (0-10); HEMATOCRIT 21 % (35-52); LYMPHOCYTES # (AUTO) 0.9 X 10^3 (1.0-4.0); LYMPHOCYTES % (AUTO) 11 % (12-44); MEAN CORPUSCULAR HEMOGLOBIN 34 PG (25-34); MEAN CORPUSCULAR HGB CONC 33 G/DL (32-36); MEAN CORPUSCULAR VOLUME 104 FL (80-99); MEAN PLATELET VOLUME 10.9 FL (7.4-10.4); MONOCYTES # (AUTO) 0.3 X 10^3 (0.0-1.0); MONOCYTES % (AUTO) 4 % (0-12); NEUTROPHILS % (AUTO) 84 % (42-75); RED BLOOD COUNT 1.99 10^6/uL (4.35-5.85); WHITE BLOOD COUNT 8.3 10^3/uL (4.3-11.0)
[2017-08-30 05:48] LABS: HEMOGLOBIN 6.7 G/DL (11.5-16.0); PLATELET COUNT 24 10^3/uL (130-400)
[2017-08-30 06:02] LABS: BUN/CREATININE RATIO 7; CALCIUM 8.2 MG/DL (8.5-10.1); CARBON DIOXIDE 23 MMOL/L (21-32); CHLORIDE 108 MMOL/L (98-107); CREATININE SERUM 0.95 MG/DL (0.60-1.30); GFR ESTIMATED > 60; GLUCOSE 80 MG/DL (70-105); MAGNESIUM 1.7 MG/DL (1.8-2.4); POTASSIUM 3.5 MMOL/L (3.6-5.0); SODIUM 140 MMOL/L (135-145)
[2017-08-30 08:00] VITALS: BP 104/55
[2017-08-30 08:27] VITALS: BP 104/55
[2017-08-30] MEDS: FLUCONAZOLE 100 MG/50 ML 50 ML IV SCH (08:39)
[2017-08-30] MEDS: FOLIC ACID 1 MG TAB PO SCH (08:39)
[2017-08-30] MEDS: BENZONATATE 100 MG (TESSALON) CAPSULE PO SCH ×2 (08:39→12:29)
[2017-08-30] MEDS: guaiFENesin/CODEINE (ROBITUSSIN AC) 10ML UDC PO PRN (08:42)
--- NOTE | 2017-08-30 11:45 | Progress Note-Hospitalist ---
Standard Progress Note Progress Notes/Assess & Plan Date Seen 08/30/17 Time Seen by Provider: 11:40 Diagnosis CAP neutropenic fever Assess & Plan/Chief Complaint The patient has exhibited fever only at admission and then at 100.1. Her white count has climbed from the admission 300 to 8300 today. She continues to have a bit of cough but produces only clear sputum. Chest x-ray had suggested an infiltrate on the right. Additionally there is comment about the left which is actually apparently the site of her tumor. Accordingly she will be dismissed today. Physical exam: She is pleasant alert and oriented. Breath sounds are distant but clear. CV is regular. Impression: 1.neutropenic fever. 2.carcinoma of the lung undergoing chemotherapy. Plan: Discharge. See discharge sequence for medications and particulars. Labs Laboratory Tests 08/29/17 05:35 08/30/17 05:38 FLORENTIN PLUMMER MD Aug 30, 2017 11:45
[2017-08-30 13:50] VITALS: BP 104/55
== END 2017-08-30 13:50 | disposition home health service (06) | DRG 808 ==
LOC: 4TH 13:20
PROVIDERS: ADMIT Family Medicine; ATTEND Family Medicine
DX: D70.9 Neutropenia, unspecified (principal); R50.81 Fever presenting with conditions classified elsewhere; J18.9 Pneumonia, unspecified organism; C34.90 Malignant neoplasm of unspecified part of unspecified bronchus or lung; E87.1 Hypo-osmolality and hyponatremia; E87.6 Hypokalemia; E83.42 Hypomagnesemia; D64.9 Anemia, unspecified; E03.9 Hypothyroidism, unspecified; L93.2 Other local lupus erythematosus; Z98.84 Bariatric surgery status
CPT/HCPCS: 36415; 71046; 80048; 81000; 82962; 83605; 83735; 85025; 87070; 87088; 87205; 87449; 87899; 94640; 94664; 94761

== ENCOUNTER 2017-12-03 14:25 | Outpatient (RCR) | payer BC ==
[2017-09-08 10:36] LABS: BASOPHILS % (AUTO) 0 % (0-10); EOSINOPHILS % (AUTO) 0 % (0-10); HEMATOCRIT 24 % (35-52); HEMOGLOBIN 7.5 G/DL (11.5-16.0); LYMPHOCYTES # (AUTO) 0.7 X 10^3 (1.0-4.0); LYMPHOCYTES % (AUTO) 11 % (12-44); MEAN CORPUSCULAR HEMOGLOBIN 34 PG (25-34); MEAN CORPUSCULAR HGB CONC 32 G/DL (32-36); MEAN CORPUSCULAR VOLUME 106 FL (80-99); MEAN PLATELET VOLUME 9.6 FL (7.4-10.4); MONOCYTES # (AUTO) 0.5 X 10^3 (0.0-1.0); MONOCYTES % (AUTO) 8 % (0-12); NEUTROPHILS % (AUTO) 81 % (42-75); PLATELET COUNT 250 10^3/uL (130-400); RED BLOOD COUNT 2.23 10^6/uL (4.35-5.85); RED CELL DISTRIBUTION WIDTH 16.5 % (10.0-14.5); WHITE BLOOD COUNT 6.2 10^3/uL (4.3-11.0)
[2017-09-08 10:54] LABS: ALBUMIN 3.6 GM/DL (3.2-4.5); BILIRUBIN,TOTAL 0.5 MG/DL (0.1-1.0); CALCIUM 9.6 MG/DL (8.5-10.1); CREATININE SERUM 1.23 MG/DL (0.60-1.30); MAGNESIUM 1.8 MG/DL (1.8-2.4); POTASSIUM 3.5 MMOL/L (3.6-5.0); TOTAL PROTEIN 7.5 GM/DL (6.4-8.2)
[~2017-12-03 14:25] MED LIST changes: +ACET-2267 PO; +ACETAMINOPHEN 500 MG TAB (TYLENOL) CANCER CTR ONE; +AZIT250T12 PO; +BIOT50002 SL; +BISA10SU6 RC; +CYANOCOBALAMIN INJ 1000 MCG/ML (CANCER CENTER) ONE; +HYDR-757 PO; +NS (IVPB) CANCER CENTER 250 ML ONE; +NS IV 1000 ML (CANCER CTR) 1,000 ML ONE; +NS IV 500 ML (CANCER CENTER) IV SCH; +ONDA8TAB6 PO; +PALONOSETRON 0.25 MG, DEXAMETHASONE 10 MG/NS 50 ML IVPB IV PRN; +PEGFILGRASTIM 6 MG/0.6ML NEULASTA SC SCH; +PEMETREXED DISODIUM 500 MG, PEMETREXED DISODIUM 300 MG in NS (IVPB) CANCER CENTER 100 ML IV SCH; +PEMETREXED DISODIUM 500 MG, PEMETREXED DISODIUM 400 MG in NS (IVPB) CANCER CENTER 100 ML IV SCH; +POLY17PO6 PO; +POTA10CA43 PO; +PROC-1 PO; +SORB1SOL2 PO; +TBO-FILGRASTIM 480 MCG/0.8 ML (GRANIX) CANCER CTR SQ SCH; +diphenhydrAMINE 25 MG TAB (BENADRYL) CANCER CENTER PO PRN
== END 2017-12-07 | disposition home or self-care (01) ==
LOC: ONC 14:25
PROVIDERS: ATTEND Internal Medicine Hematology & Oncology
DX: C34.32 Malignant neoplasm of lower lobe, left bronchus or lung (principal); C77.1 Secondary and unspecified malignant neoplasm of intrathoracic lymph nodes; D70.1 Agranulocytosis secondary to cancer chemotherapy; D64.9 Anemia, unspecified; E03.9 Hypothyroidism, unspecified; Z98.84 Bariatric surgery status; Z79.899 Other long term (current) drug therapy; T45.1X5A Adverse effect of antineoplastic and immunosuppressive drugs, initial encounter
CPT/HCPCS: 36430; 36591; 80053; 83735; 85025; 86850; 86900; 86901; 86920; 96360; 96361; 96372; 96375; 96409

== ENCOUNTER 2018-03-25 15:22 | Outpatient (RCR) | payer BC ==
[2018-03-12 08:57] VITALS: BP 104/68
[~2018-03-25] VITALS: Ht 172.7 cm; Wt 82.7 kg
[~2018-03-25 15:22] MED LIST changes: -ACETAMINOPHEN 500 MG TAB (TYLENOL) CANCER CTR ONE; -CYANOCOBALAMIN INJ 1000 MCG/ML (CANCER CENTER) ONE; +FILGRASTIM 480 MCG/1.6 ML VIAL CANCER CENTER SQ SCH; +HYDR-4226 PO; -HYDR-757 PO; -NS (IVPB) CANCER CENTER 250 ML ONE; -NS IV 1000 ML (CANCER CTR) 1,000 ML ONE; -NS IV 500 ML (CANCER CENTER) IV SCH; -PALONOSETRON 0.25 MG, DEXAMETHASONE 10 MG/NS 50 ML IVPB IV PRN; -PEGFILGRASTIM 6 MG/0.6ML NEULASTA SC SCH; -PEMETREXED DISODIUM 500 MG, PEMETREXED DISODIUM 300 MG in NS (IVPB) CANCER CENTER 100 ML IV SCH; -PEMETREXED DISODIUM 500 MG, PEMETREXED DISODIUM 400 MG in NS (IVPB) CANCER CENTER 100 ML IV SCH; -diphenhydrAMINE 25 MG TAB (BENADRYL) CANCER CENTER PO PRN
== END 2018-04-20 15:24 | disposition home or self-care (01) ==
LOC: ONC 15:22
PROVIDERS: ATTEND Internal Medicine Hematology & Oncology
DX: D70.9 Neutropenia, unspecified (principal)
CPT/HCPCS: 96372

== ENCOUNTER → 2018-04-07 | Outpatient (CLI) | payer BC ==
[~2018-04-07] MED LIST changes: -FILGRASTIM 480 MCG/1.6 ML VIAL CANCER CENTER SQ SCH; -TBO-FILGRASTIM 480 MCG/0.8 ML (GRANIX) CANCER CTR SQ SCH
--- NOTE | 2018-04-11 16:05 | Diagnostic Imaging Report ---
Indication: Screening. The current study was also evaluated with a Computer Aided Detection (CAD) system. Comparison made with prior examination of 02/25/2017 back through 07/16/2011. Findings: The fibroglandular tissue is heterogeneously dense. There are a few benign type calcifications. There is no dominant mass, spiculated lesion or suspicious calcifications identified. Skin, nipples and axilla are unremarkable. Impression: Category 2 benign. ACR BI-RADS Category 2: Benign findings. Result letter will be mailed to the patient. Note: At least 10% of breast cancer is not imaged by mammography. Dictated by: Dictated on workstation # [id number]
== END ==
LOC: RAD 14:17
PROVIDERS: ATTEND Internal Medicine
DX: Z12.31 Encounter for screening mammogram for malignant neoplasm of breast (principal)
CPT/HCPCS: 77067

== ENCOUNTER 2018-04-22 15:30 | Outpatient (RCR) | payer BC ==
[~2018-04-22 15:30] MED LIST changes: +FILGRASTIM 480 MCG/1.6 ML VIAL CANCER CENTER SQ SCH; +TBO-FILGRASTIM 480 MCG/0.8 ML (GRANIX) CANCER CTR SQ SCH
== END 2018-07-19 | disposition home or self-care (01) ==
LOC: ONC 15:30
PROVIDERS: ATTEND Internal Medicine Hematology & Oncology
DX: D70.9 Neutropenia, unspecified (principal)
CPT/HCPCS: 96372

== ENCOUNTER 2018-11-21 10:18 | Inpatient (IN) | payer BC ==
[~2018-11-21] VITALS: Ht 172.7 cm; Wt 76.3 kg
[~2018-11-21 10:18] MED LIST changes: -FILGRASTIM 480 MCG/1.6 ML VIAL CANCER CENTER SQ SCH; -TBO-FILGRASTIM 480 MCG/0.8 ML (GRANIX) CANCER CTR SQ SCH
--- NOTE | 2018-11-21 10:30 | NUR ---
MANSOOR PIÑA admitted to room 429-1, with an admitting diagnosis of FEVER, LUNG CANCER, FATIGUE, on 11/21/18 from DIRECT ADMIT FROM CANCER CENTER via WHEELCHAIR, accompanied by [facility] STAFF. MANSOOR PIÑA introduced to surroundings, call light, bed controls, phone, TV, temperature control, lights, meal times, smoking policy, visitor policy, side rail policy, bathrooms and showers. Patient Rights given to patient in the handbook. MANSOOR PI[facility]A verbalizes understanding that [facility] is not responsible for the loss or damage to any personal effects or valuables that are kept in the patients possession during their hospitalization. The following Patient Care Plans were discussed with the PATIENT: Discharge Planning, LUNG CANCER, INFLUENZA and KNOWLEDGE DEFICIT. MANSOOR PIÑA verbalizes understanding of Interdisciplinary Patient Education. Patient and/or family were informed about the Rapid Response Team and its purpose.
[2018-11-21 10:52] VITALS: BP 106/57
[2018-11-21 10:53] VITALS: BP 106/57
[2018-11-21] MEDS ORDERED: NS 1000 ML IV BAG IV SCH (11:00)
[2018-11-21] MEDS ORDERED: PIPERACILLIN/TAZOBACTAM (BULK) 4.5 GM in NS (IVPB) 100 ML IV NR (11:24)
[2018-11-21] MEDS: NS IV 1000 ML 1,000 ML IV SCH ×2 (11:36→21:11)
[2018-11-21 11:43] VITALS: BP 108/54
[2018-11-21] MEDS: OSELTAMIVIR 75 MG (TAMIFLU) CAPSULE PO SCH ×2 (12:10→21:05)
[2018-11-21] MEDS: ENOXAPARIN 40 MG/0.4 ML (LOVENOX) SYR SC SCH (12:11)
--- OUTSIDE RECORDS SUMMARY | 2018-11-21 13:17 | XMS REPORT | Continuity of Care Document ---
Author Organization Unknown Address Unknown Allergies Active Description Code Type Severity Reaction Onset Reported/Identified Relationship to Patient Clinical Status Yes No Known Drug Allergies [id number] Drug Allergy Unknown N/A 05/14/2008 Yes latex [id number] Drug Allergy Unknown N/A 04/21/2017 Yes morphine [id number] Drug Allergy Unknown N/V 04/21/2017 Medications There is no data. 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 KIMBERLY CARABALLO Ot Z98.84 BARIATRIC SURGERY STATUS 06/17/1230 LAVONNE MARR MD, Ot C34.32 MALIGNANT NEOPLASM OF LOWER LOBE, LEFT B 06/17/1230 LAVONNE MARR MD Ot 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 06/17/1230 LAVONNE MARR MD Ot D64.9 ANEMIA, UNSPECIFIED 06/17/1230 LAVONNE MARR MD Ot E03.9 HYPOTHYROIDISM, UNSPECIFIED 06/17/1230 LAVONNE MARR MD Ot R42 DIZZINESS AND GIDDINESS 06/17/1230 LAVONNE MARR MD Ot 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 06/17/1230 LAVONNE MARR MD Ot Z98.84 BARIATRIC SURGERY STATUS 06/17/1313 KIMBERLY CARABALLO Ot C34.32 MALIGNANT NEOPLASM OF LOWER LOBE, LEFT B 06/17/1313 KIMBERLY CARABALLO Ot 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 06/17/1313 KIMBERLY CARABALLO Ot D64.9 ANEMIA, UNSPECIFIED 06/17/1313 KIMBERLY CARABALLO Ot D70.1 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 06/17/1313 KIMBERLY CARABALLO Ot E03.9 HYPOTHYROIDISM, UNSPECIFIED 06/17/1313 KIMBERLY CARABALLO Ot T45.1X5A ADVERSE EFFECT OF ANTINEOPLASTIC AND IMM 06/17/1313 KIMBERLY CARABALLO Ot Z79.899 OTHER LONGTERM (CURRENT) DRUG THERAPY 06/17/1313 KIMBERLY CARABALLO Ot Z98.84 BARIATRIC SURGERY STATUS 06/17/1523 KIMBERLY CARABALLO Ot D70.9 NEUTROPENIA, UNSPECIFIED 10/25/2011 Ot 246.9 DISORDER OF THYROID NOS 10/25/2011 Ot 560.9 INTESTINAL OBSTRUCT NOS 10/25/2011 Ot V12.55 PERSONAL HISTORY OF PULMONARY EMBOLISM 10/25/2011 Ot V45.86 BARIATRIC SURGERY STATUS 01/23/2013 NADYA GARRETT, VIGNEHS Edmondson Ot V76.51 SCREEN MAL NEOP-COLON 01/28/2015 YONATHAN VALDES DO Ot V76.12 02/07/2015 YONATHAN VALDES DO, Ot V76.12 05/11/2015 TATUM HADDAD MD Ot S42.212A UNSP DISP FX OF SURGICAL NECK OF LEFT HU 05/11/2015 TATUM HADDAD MD, Ot S42.252A DISP FX OF GREATER TUBEROSITY OF LEFT HU 05/11/2015 TATUM HADDAD MD Ot W01.0XXA FALL SAME LEV FROM SLIP/TRIP W/O STRIKE 06/21/2015 Ot V76.12 06/21/2015 Ot 611.72 06/21/2015 Ot V76.12 06/21/2015 Ot 793.89 06/21/2015 Ot 793.89 06/21/2015 YONATHAN VALDES DO, Ot V76.12 06/21/2015 NADYA GARRETT, VIGNESH Edmondson Ot V72.84 06/21/2015 YONATHAN VALDES DO, Ot V76.12 06/21/2015 YONATHAN VALDES DO, Ot V76.12 07/15/2015 TATUM HADDAD MD, Ot S42.232D 07/15/2015 TATUM HADDAD MD T Ot X58.XXXD 07/15/2015 BOO GARRETT, TATUM Bryant [...] NECK OF L HUMERUS, SUBS F 09/22/2015 TATUM HADDAD MD Ot X58.XXXD EXPOSURE TO OTHER SPECIFIED FACTORS, SUB 09/22/2015 TATUM HADDAD MD Ot Y99.8 OTHER EXTERNAL CAUSE STATUS 01/11/2016 [...] MAMMO-MALIGN NEOPLASM OF YESI 10/09/2016 YONATHAN VALDES DO, Ot V76.12 OTH SCREEN MAMMO-MALIGN NEOPLASM OF YESI 10/09/2016 TATUM HADDAD MD, Ot S42.232D 3-PART FX SURG NECK OF [...] UNSPECIFIED ORGANISM 10/09/2016 YONATHAN VALDES DO Ot R91.8 OTHER NONSPECIFIC [...] OTH SCREEN MAMMO-MALIGN NEOPLASM OF YESI 11/10/2016 NADYA GARRETT, VIGNESH Edmondson Ot V72.84 EXAM PRE-OPERATIVE NOS 11/10/2016 YONATHAN VALDES DO Ot V76.12 OTH SCREEN MAMMO-MALIGN NEOPLASM OF YESI 11/10/2016 YONATHAN VALDES DO Ot V76.12 OTH SCREEN MAMMO-MALIGN NEOPLASM OF YESI 11/10/2016 TATUM HADDAD MD Ot S42.232D 3-PART FX SURG NECK OF L HUMERUS, SUBS F 11/10/2016 TATUM HADDAD MD Ot X58.XXXD EXPOSURE TO OTHER SPECIFIED FACTORS, SUB 11/10/2016 TATUM HADDAD MD Ot Y99.8 OTHER EXTERNAL CAUSE STATUS 11/10/2016 YONATHAN VALDES DO Ot Z12.31 ENCNTR SCREEN MAMMOGRAM FOR MALIGNANT NE 11/10/2016 YONATHAN VALDES DO, Ot J18.9 PNEUMONIA, UNSPECIFIED ORGANISM 11/10/2016 YONATHAN VALDES DO, Ot J18.9 PNEUMONIA, UNSPECIFIED ORGANISM 11/10/2016 YONATHAN VALDES DO Ot R91.8 OTHER NONSPECIFIC ABNORMAL FINDING OF NORBERTO 11/10/2016 ANTOLIN JULIAN DO, Ot C34.32 MALIGNANT NEOPLASM OF LOWER LOBE, LEFT B 11/10/2016 ANTOLIN JULIAN DO Ot Z87.01 PERSONAL HISTORY OF PNEUMONIA (RECURRENT 11/10/2016 ANTOLIN JULIAN DO Ot C34.92 MALIGNANT NEOPLASM OF UNSP PART OF LEFT 11/13/2016 SHRUTHI GARZA DO, Ot C34.32 MALIGNANT NEOPLASM OF LOWER LOBE, LEFT B 11/13/2016 SHRUTHI GARZA DO Ot Z01.818 ENCOUNTER FOR OTHER PREPROCEDURAL EXAMIN 11/13/2016 SHRUTHI GARZA DO Ot Z11.2 ENCOUNTER FOR SCREENING FOR OTHER BACTER 11/16/2016 SHRUTHI GARZA DO Ot C34.32 MALIGNANT NEOPLASM OF LOWER LOBE, LEFT B 11/16/2016 SHRUTHI GARZA DO Ot 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 11/16/2016 SHRUTHI GARZA DO, Ot C34.32 MALIGNANT NEOPLASM OF LOWER LOBE, LEFT B 11/16/2016 SHRUTHI GARZA DO Ot Z01.818 ENCOUNTER FOR OTHER PREPROCEDURAL EXAMIN 11/16/2016 SHRUTHI GARZA DO Ot Z11.2 ENCOUNTER FOR SCREENING FOR OTHER BACTER 11/18/2016 RASHMI, BOBAN N Ot C34.32 MALIGNANT NEOPLASM OF LOWER LOBE, LEFT B 11/18/2016 RASHMIKIMBERLY HINKLE N Ot 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 11/18/2016 KIMBERLY CARABALLO N Ot E03.9 HYPOTHYROIDISM, UNSPECIFIED 11/18/2016 KIMBERLY CARABALLO N Ot 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 11/18/2016 RASHMIKIMBERLY HINKLE N Ot Z98.84 BARIATRIC SURGERY STATUS 12/03/2016 KIMBERLY CARABALLO N Ot C34.32 MALIGNANT NEOPLASM OF LOWER LOBE, LEFT B 12/03/2016 KIMBERLY CARABALLO N Ot 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 12/03/2016 KIMBERLY CARABALLO N Ot E03.9 HYPOTHYROIDISM, UNSPECIFIED 12/03/2016 RASHMIKIMBERLY HINKLE N Ot Z79.899 OTHER LONGTERM (CURRENT) DRUG THERAPY 12/03/2016 RASHMIKIMBERLY HINKLE N Ot Z98.84 BARIATRIC SURGERY STATUS 12/09/2016 KIMBERLY CARABALLO N Ot C34.32 MALIGNANT NEOPLASM OF LOWER LOBE, LEFT B 12/09/2016 RASHMIKIMBERLY HINKLE N Ot 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 12/09/2016 RASHMIKIMBERLY HINKLE N Ot E03.9 HYPOTHYROIDISM, UNSPECIFIED 12/09/2016 RASHMIKIMBERLY HINKLE N Ot Z79.899 OTHER LONGTERM (CURRENT) DRUG THERAPY 12/09/2016 RASHMIKIMBERLY HINKLE N Ot Z98.84 BARIATRIC SURGERY STATUS 12/30/2016 KIMBERLY CARABALLO N Ot C34.32 MALIGNANT NEOPLASM OF LOWER LOBE, LEFT B 12/30/2016 KIMBERLY CARABALLO N Ot 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 12/30/2016 RASHMIKIMBERLY HINKLE N Ot E03.9 HYPOTHYROIDISM, UNSPECIFIED 12/30/2016 RASHMIKIMBERLY N Ot 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 12/30/2016 RASHMIKIMBERLY N Ot Z98.84 BARIATRIC SURGERY STATUS 02/08/2017 KIMBERLY CARABALLO N Ot C34.32 MALIGNANT NEOPLASM OF LOWER LOBE, LEFT B 02/08/2017 RASHMIKIMBERLY HINKLE N Ot 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 02/08/2017 RASHMIKIMBERLY HINKLE N Ot E03.9 HYPOTHYROIDISM, UNSPECIFIED 02/08/2017 RASHMISEBASTIAN HINKLEAN N Ot Z51.11 ENCOUNTER FOR ANTINEOPLASTIC CHEMOTHERAP 02/08/2017 RASHMISEBASTIANAN N Ot 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 02/08/2017 RASHMISEBASTIANAN N Ot Z98.84 BARIATRIC SURGERY STATUS 02/09/2017 SEBASTIAN CARABALLOAN N Ot C34.32 MALIGNANT NEOPLASM OF LOWER LOBE, LEFT B 02/09/2017 RASHMISEBASTIANAN N Ot 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 02/09/2017 RASHMISEBASTIANAN N Ot E03.9 HYPOTHYROIDISM, UNSPECIFIED 02/09/2017 RASHMISEBASTIANAN N Ot Z51.11 ENCOUNTER FOR ANTINEOPLASTIC CHEMOTHERAP 02/09/2017 RASHMI BOBAN N Ot 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 02/09/2017 RASHMI BOBAN N Ot Z98.84 BARIATRIC SURGERY STATUS 02/10/2017 RASHMISEBASTIANAN N Ot C34.32 MALIGNANT NEOPLASM OF LOWER LOBE, LEFT B 02/10/2017 RASHMI BOBAN N Ot 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 02/10/2017 RASHMIKIMBERLY N Ot E03.9 HYPOTHYROIDISM, UNSPECIFIED 02/10/2017 RASHMISEBASTIANAN N Ot Z51.11 ENCOUNTER FOR ANTINEOPLASTIC CHEMOTHERAP 02/10/2017 RASHMIKIMBERLY N Ot Z79.899 OTHER LONGTERM (CURRENT) DRUG THERAPY 02/10/2017 RASHMIKIMBERLY N Ot Z98.84 BARIATRIC SURGERY STATUS 03/02/2017 RASHMIKIMBERLY N Ot C34.32 MALIGNANT NEOPLASM OF LOWER LOBE, LEFT B 03/02/2017 RASHMIKIMBERLY N Ot 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 03/02/2017 RASHMI BOBAN N Ot E03.9 HYPOTHYROIDISM, UNSPECIFIED 03/02/2017 RASHMI BOBAN N Ot Z51.11 ENCOUNTER FOR ANTINEOPLASTIC CHEMOTHERAP 03/02/2017 RASHIM BOBAN N Ot Z79.899 OTHER LONGTERM (CURRENT) DRUG THERAPY 03/02/2017 RASHMI BOBAN N Ot Z98.84 BARIATRIC SURGERY STATUS 03/10/2017 RASHMISEBASTIANAN N Ot C34.32 MALIGNANT NEOPLASM OF LOWER LOBE, LEFT B 03/10/2017 RASHMI, BOBAN N Ot 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 03/10/2017 RASHMIKIMBERLY HINKLE N Ot E03.9 HYPOTHYROIDISM, UNSPECIFIED 03/10/2017 RASHMIKIMBERLY N Ot Z51.11 ENCOUNTER FOR ANTINEOPLASTIC CHEMOTHERAP 03/10/2017 KIMBERLY CARABALLO N Ot 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 03/10/2017 RASHMIKIMBERLY HINKLE N Ot Z98.84 BARIATRIC SURGERY STATUS 03/15/2017 YONATHAN VALDES DO Ot Z12.31 ENCNTR SCREEN MAMMOGRAM FOR MALIGNANT NE 03/24/2017 KIMBERLY CARABALLO N Ot C34.32 MALIGNANT NEOPLASM OF LOWER LOBE, LEFT B 03/24/2017 KIMBERLY CARABALLO N Ot 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 03/24/2017 KIMBERLY CARABALLO N Ot E03.9 HYPOTHYROIDISM, UNSPECIFIED 03/24/2017 RASHMIKIMBERLY HINKLE N Ot Z51.11 ENCOUNTER FOR ANTINEOPLASTIC CHEMOTHERAP 03/24/2017 KIMBERLY CARABALLO N Ot Z79.899 OTHER LONGTERM (CURRENT) DRUG THERAPY 03/24/2017 RASHMIKIMBERLY HINKLE N Ot Z98.84 BARIATRIC SURGERY STATUS 04/17/2017 RASHMIKIMBERLY HINKLE N Ot C34.32 MALIGNANT NEOPLASM OF LOWER LOBE, LEFT B 04/17/2017 KIMBERLY CARABALLO N Ot 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 04/17/2017 KIMBERLY CARABALLO N Ot D64.9 ANEMIA, UNSPECIFIED 04/17/2017 KIMBERLY CARABALLO N Ot E03.9 HYPOTHYROIDISM, UNSPECIFIED 04/17/2017 KIMBERLY CARABALLO N Ot Z51.11 ENCOUNTER FOR ANTINEOPLASTIC CHEMOTHERAP 04/17/2017 RASHMIKIMBERLY N Ot 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11 ENCOUNTER FOR ANTINEOPLASTIC CHEMOTHERAP 04/21/2017 KIMBERLY CARABALLO [employer] Ot 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 04/21/2017 RASHMI KIMBERLY [place] Ot Z98.84 BARIATRIC SURGERY STATUS 04/21/2017 HEATHER HERRERA MD, Ot C34.92 MALIGNANT NEOPLASM OF UNSP PART OF LEFT 04/21/2017 HEATHER HERRERA MD, Ot C79.9 SECONDARY MALIGNANT NEOPLASM OF UNSPECIF 04/21/2017 HEATHER HERRERA MD, Ot E05.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, UNSP WITHOUT THYROTOXIC 04/21/2017 HEATHER HERRERA MD, Ot G43.909 MIGRAINE, UNSP, NOT INTRACTABLE, WITHOUT 04/21/2017 HEATHER HERRERA MD Ot M81.0 AGE-RELATED OSTEOPOROSIS W/O CURRENT PAT 04/21/2017 HEATHER HERRERA MD Ot R07.89 OTHER CHEST PAIN 04/21/2017 HEATHER HERRERA MD Ot Z82.49 FAMILY HX OF ISCHEM HEART DIS AND OTH DI 04/21/2017 HEATHER HERRERA MD Ot Z86.718 PERSONAL HISTORY OF OTHER VENOUS THROMBO 04/21/2017 HEATHER HERRERA MD Ot Z90.89 ACQUIRED ABSENCE OF OTHER ORGANS 04/21/2017 HEATHER HERRERA MD Ot Z98.84 BARIATRIC SURGERY STATUS 04/26/2017 KIMBERLY CARABALLO [employer] Ot C34.32 MALIGNANT NEOPLASM OF LOWER LOBE, LEFT B 04/26/2017 KIMBERLY CARABALLO [employer] Ot 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 04/26/2017 KIMBERLY CARABALLO [employer] Ot D64.9 ANEMIA, UNSPECIFIED 04/26/2017 RASHMI SEBASTIANAPPLE [employer] Ot E03.9 HYPOTHYROIDISM, UNSPECIFIED 04/26/2017 RASHMI SEBASTIANAPPLE [employer] Ot Z79.899 OTHER LONGTERM (CURRENT) DRUG THERAPY 04/26/2017 RASHMI, KIMBERLY [place] Ot Z98.84 BARIATRIC SURGERY STATUS 06/08/2017 KIMBERLY CARABALLO Ot C34.32 MALIGNANT NEOPLASM OF LOWER LOBE, LEFT B 06/08/2017 KIMBERLY CARABALLO Ot 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 06/08/2017 KIMBERLY CARABALLO Ot D64.9 ANEMIA, UNSPECIFIED 06/08/2017 KIMBERLY CARABALLO Ot E03.9 HYPOTHYROIDISM, UNSPECIFIED 06/08/2017 KIMBERLY CARABALLO Ot 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 06/08/2017 KIMBERLY CARABALLO N Ot Z98.84 BARIATRIC SURGERY STATUS 06/16/2017 KIMBERLY CARABALLO Ot C34.32 MALIGNANT NEOPLASM OF LOWER LOBE, LEFT B 06/16/2017 KIMBERLY CARABALLO Ot 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 06/16/2017 KIMBERLY CARABALLO N Ot D64.9 ANEMIA, UNSPECIFIED 06/16/2017 KIMBERLY CARABALLO N Ot E03.9 HYPOTHYROIDISM, UNSPECIFIED 06/16/2017 KIMBERLY CARABALLO N Ot Z79.899 OTHER LONGTERM (CURRENT) DRUG THERAPY 06/16/2017 KIMBERLY CARABALLO N Ot Z98.84 BARIATRIC SURGERY STATUS 06/17/2017 LAVONNE MARR MD, Ot C34.32 MALIGNANT NEOPLASM OF LOWER LOBE, LEFT B 06/17/2017 LAVONNE MARR MD, Ot 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 06/17/2017 LAVONNE MARR MD, Ot D64.9 ANEMIA, UNSPECIFIED 06/17/2017 LAVONNE MARR MD Ot E03.9 HYPOTHYROIDISM, UNSPECIFIED 06/17/2017 LAVONNE MARR MD Ot 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 06/17/2017 LAVONNE MARR MD Ot Z98.84 BARIATRIC SURGERY STATUS 07/07/2017 LAVONNE MARR MD Ot C34.32 MALIGNANT NEOPLASM OF LOWER LOBE, LEFT B 07/07/2017 LAVONNE MARR MD, Ot 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 07/07/2017 LAVONNE MARR MD Ot D64.9 ANEMIA, UNSPECIFIED 07/07/2017 LAVONNE MARR MD Ot E03.9 HYPOTHYROIDISM, UNSPECIFIED 07/07/2017 LAVONNE MARR MD Ot 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 07/07/2017 LAVONNE MARR MD Ot Z98.84 BARIATRIC SURGERY STATUS 07/28/2017 LAVONNE MARR MD Ot C34.32 MALIGNANT NEOPLASM OF LOWER LOBE, LEFT B 07/28/2017 LAVONNE MARR MD Ot 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 07/28/2017 LAVONNE MARR MD, Ot D64.9 ANEMIA, UNSPECIFIED 07/28/2017 LAVONNE MARR MD Ot E03.9 HYPOTHYROIDISM, UNSPECIFIED 07/28/2017 LAVONNE MARR MD Ot 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 07/28/2017 LAVONNE MARR MD Ot Z98.84 BARIATRIC SURGERY STATUS 08/25/2017 RASHMI, BOBAN N Ot C34.32 MALIGNANT NEOPLASM OF LOWER LOBE, LEFT B 08/25/2017 RASHMI, BOBAN N Ot M54.9 DORSALGIA, UNSPECIFIED 08/25/2017 RASHMI, BOBAN N Ot Z95.828 PRESENCE OF OTHER VASCULAR IMPLANTS AND 08/25/2017 RASHMI, BOBAN N Ot C34.32 MALIGNANT NEOPLASM OF LOWER LOBE, LEFT B 08/25/2017 RASHMI, BOBAN N Ot M54.9 DORSALGIA, UNSPECIFIED 08/25/2017 RASHMI, BOBAN N Ot Z95.828 PRESENCE OF OTHER VASCULAR IMPLANTS AND 08/30/2017 RASHMI, BOBAN N Ot C34.32 MALIGNANT NEOPLASM OF LOWER LOBE, LEFT B 08/30/2017 RASHMI, BOBAN N Ot M54.9 DORSALGIA, UNSPECIFIED 08/30/2017 RASHMI, BOBAN N Ot Z95.828 PRESENCE OF OTHER VASCULAR IMPLANTS AND 08/30/2017 ARVIN CROUCH MD Ot C34.90 MALIGNANT NEOPLASM OF UNSP PART OF UNSP 08/30/2017 ARVIN CROUCH MD, Ot C34.92 MALIGNANT NEOPLASM OF UNSP PART OF LEFT 08/30/2017 ARVIN CROUCH MD, Ot 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 08/30/2017 ARVIN CROUCH MD, Ot D64.81 ANEMIA DUE TO ANTINEOPLASTIC CHEMOTHERAP 08/30/2017 ARVIN CROUCH MD, Ot D64.9 ANEMIA, UNSPECIFIED 08/30/2017 ARVIN CROUCH MD, Ot D70.9 NEUTROPENIA, UNSPECIFIED 08/30/2017 ARVIN CROUCH MD, Ot E03.9 HYPOTHYROIDISM, UNSPECIFIED 08/30/2017 ARVIN CROUCH MD Ot E83.42 HYPOMAGNESEMIA 08/30/2017 ARVIN CROUCH MD Ot E87.1 HYPO-OSMOLALITY AND HYPONATREMIA 08/30/2017 ARVIN CROUCH MD Ot E87.6 HYPOKALEMIA 08/30/2017 ARVIN CROUCH MD Ot J18.9 PNEUMONIA, UNSPECIFIED ORGANISM 08/30/2017 ARVIN CROUCH MD Ot L93.2 OTHER LOCAL LUPUS ERYTHEMATOSUS 08/30/2017 ARVIN CROUCH MD Ot R50.81 FEVER PRESENTING WITH CONDITIONS CLASSIF 08/30/2017 ARVIN CROUCH MD Ot T45.1X5A ADVERSE EFFECT OF ANTINEOPLASTIC AND IMM 08/30/2017 ARVIN CROUCH MD Ot Z98.84 BARIATRIC SURGERY STATUS 09/07/2017 LAVONNE MARR MD Ot C34.32 MALIGNANT NEOPLASM OF LOWER LOBE, LEFT B 09/07/2017 LAVONNE MARR MD Ot 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 09/07/2017 LAVONNE MARR MD Ot D64.9 ANEMIA, UNSPECIFIED 09/07/2017 LAVONNE MARR MD Ot E03.9 HYPOTHYROIDISM, UNSPECIFIED 09/07/2017 LAVONNE MARR MD Ot R42 DIZZINESS AND GIDDINESS 09/07/2017 LAVONNE MARR MD Ot Z79.899 OTHER LONGTERM (CURRENT) DRUG THERAPY 09/07/2017 LAVONNE MARR MD Ot Z98.84 BARIATRIC SURGERY STATUS 09/07/2017 KIMBERLY CARABALLO Ot C34.32 MALIGNANT NEOPLASM OF LOWER LOBE, LEFT B 09/07/2017 KIMBERLY CARABALLO Ot 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 09/07/2017 KIMBERLY CARABALLO Ot D64.9 ANEMIA, UNSPECIFIED 09/07/2017 KIMBERLY CARABALLO Ot E03.9 HYPOTHYROIDISM, UNSPECIFIED 09/07/2017 KIMBERLY CARABALLO Ot 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 09/07/2017 KIMBERLY CARABALLO Ot Z98.84 BARIATRIC SURGERY STATUS 09/08/2017 KIMBERLY CARABALLO Ot C34.32 MALIGNANT NEOPLASM OF LOWER LOBE, LEFT B 09/08/2017 KIMBERLY CARABALLO N Ot 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 09/08/2017 RASHMIKIMBERLY HINKLE N Ot D64.9 ANEMIA, UNSPECIFIED 09/08/2017 RASHMIKIMBERLY N Ot E03.9 HYPOTHYROIDISM, UNSPECIFIED 09/08/2017 RASHMIKIMBERLY N Ot Z79.899 OTHER LONGTERM (CURRENT) DRUG THERAPY 09/08/2017 RASHMIKIMBERLY HINKLE N Ot Z98.84 BARIATRIC SURGERY STATUS 09/08/2017 RASHMIKIMBERLY HINKLE N Ot C34.32 MALIGNANT NEOPLASM OF LOWER LOBE, LEFT B 09/08/2017 RASHMIKIMBERLY HINKLE N Ot 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 09/08/2017 RASHMIKIMBERLY HINKLE N Ot D64.9 ANEMIA, UNSPECIFIED 09/08/2017 RASHMIKIMBERLY N Ot E03.9 HYPOTHYROIDISM, UNSPECIFIED 09/08/2017 RASHMIKIMBERLY N Ot Z79.899 OTHER LONGTERM (CURRENT) DRUG THERAPY 09/08/2017 RASHMIKIMBERLY N Ot Z98.84 BARIATRIC SURGERY STATUS 09/09/2017 RASHMIKIMBERLY N Ot C34.32 MALIGNANT NEOPLASM OF LOWER LOBE, LEFT B 09/09/2017 RASHMIKIMBERLY HINKLE N Ot 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 09/09/2017 RASHMIKIMBERLY HINKLE N Ot D64.9 ANEMIA, UNSPECIFIED 09/09/2017 RASHMIKIMBERLY HINKLE N Ot E03.9 HYPOTHYROIDISM, UNSPECIFIED 09/09/2017 RASHMIKIMBERLY N Ot Z79.899 OTHER LONGTERM (CURRENT) DRUG THERAPY 09/09/2017 RASHMIKIMBERLY N Ot Z98.84 BARIATRIC SURGERY STATUS 10/01/2017 RASHMIKIMBERLY N Ot C34.32 MALIGNANT NEOPLASM OF LOWER LOBE, LEFT B 10/01/2017 RASHMIKIMBERLY HINKLE N Ot 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 10/01/2017 RASHMIKIMBERLY HINKLE N Ot D64.9 ANEMIA, UNSPECIFIED 10/01/2017 RASHMI, BOBAN N Ot E03.9 HYPOTHYROIDISM, UNSPECIFIED 10/01/2017 RASHMIKIMBERLY N Ot 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 10/01/2017 RASHMI BOBAN N Ot Z98.84 BARIATRIC SURGERY STATUS 10/01/2017 KIMBERLY CARABALLO N Ot C34.32 MALIGNANT NEOPLASM OF LOWER LOBE, LEFT B 10/01/2017 RASHMIKIMBERLY HINKLE N Ot M54.9 DORSALGIA, UNSPECIFIED 10/01/2017 KIMBERLY CARABALLO N Ot Z95.828 PRESENCE OF OTHER VASCULAR IMPLANTS AND 12/07/2017 RASHMIKIMBERLY HINKLE N Ot C34.32 MALIGNANT NEOPLASM OF LOWER LOBE, LEFT B 12/07/2017 RASHMIKIMBERLY HINKLE N Ot 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 12/07/2017 RASHMIKIMBERLY HINKLE N Ot D64.9 ANEMIA, UNSPECIFIED 12/07/2017 RASHMIKIMBERLY N Ot D70.1 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 12/07/2017 RASHMIKIMBERLY N Ot E03.9 HYPOTHYROIDISM, UNSPECIFIED 12/07/2017 RASHMIKIMBERLY N Ot T45.1X5A ADVERSE EFFECT OF ANTINEOPLASTIC AND IMM 12/07/2017 RASHMIKIMBERLY N Ot 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 12/07/2017 RASHMIKIMBERLY HINKLE N Ot Z98.84 BARIATRIC SURGERY STATUS 12/13/2017 RASHMIKIMBERLY HINKLE N Ot C34.32 MALIGNANT NEOPLASM OF LOWER LOBE, LEFT B 12/13/2017 RASHMIKIMBERLY HINKLE N Ot 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 12/13/2017 RASHMIKIMBERLY N Ot D64.9 ANEMIA, UNSPECIFIED 12/13/2017 RASHMIKIMBERLY N Ot D70.1 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 12/13/2017 RASHMIKIMBERLY N Ot E03.9 HYPOTHYROIDISM, UNSPECIFIED 12/13/2017 RASHMIKIMBERLY N Ot T45.1X5A ADVERSE EFFECT OF ANTINEOPLASTIC AND IMM 12/13/2017 RASHMIKIMBERLY N Ot Z79.899 OTHER LONGTERM (CURRENT) DRUG THERAPY 12/13/2017 RASHMIKIMBERLY N Ot Z98.84 BARIATRIC SURGERY STATUS 01/10/2018 RASHMIKIMBERLY HINKLE N Ot C34.32 MALIGNANT NEOPLASM OF LOWER LOBE, LEFT B 01/10/2018 RASHMIKIMBERLY HINKLE N Ot 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 01/10/2018 RASHMIKIMBERLY N Ot D64.9 ANEMIA, UNSPECIFIED 01/10/2018 RASHMIKIMBERLY N Ot D70.1 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 01/10/2018 RASHMIKIMBERLY N Ot E03.9 HYPOTHYROIDISM, UNSPECIFIED 01/10/2018 RASHMIKIMBERLY N Ot T45.1X5A ADVERSE EFFECT OF ANTINEOPLASTIC AND IMM 01/10/2018 RASHMIKIMBERLY N Ot 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 01/10/2018 RASHMIKIMBERLY N Ot Z98.84 BARIATRIC SURGERY STATUS 01/10/2018 RASHMIKIMBERLY HINKLE N Ot C34.32 MALIGNANT NEOPLASM OF LOWER LOBE, LEFT B 01/10/2018 RASHMIKIMBERLY N Ot 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 01/10/2018 RASHMIKIMBERLY HINKLE N Ot D64.9 ANEMIA, UNSPECIFIED 01/10/2018 RASHMIKIMBERLY N Ot D70.1 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 01/10/2018 RASHMIKIMBERLY N Ot E03.9 HYPOTHYROIDISM, UNSPECIFIED 01/10/2018 RASHMIKIMBERLY N Ot T45.1X5A ADVERSE EFFECT OF ANTINEOPLASTIC AND IMM 01/10/2018 RASHMIKIMBERLY N Ot Z79.899 OTHER LONGTERM (CURRENT) DRUG THERAPY 01/10/2018 RASHMIKIMBERLY N Ot Z98.84 BARIATRIC SURGERY STATUS 01/27/2018 RASHMIKIMBERLY N Ot C34.32 MALIGNANT NEOPLASM OF LOWER LOBE, LEFT B 01/27/2018 RASHMIKIMBERLY N Ot 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 01/27/2018 RASHMIKIMBERLY HINKLE N Ot D64.9 ANEMIA, UNSPECIFIED 01/27/2018 RASHMIKIMBERLY N Ot D70.1 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 01/27/2018 RASHMISEBASTIANAN N Ot E03.9 HYPOTHYROIDISM, UNSPECIFIED 01/27/2018 RASHMI, KIMBERLY N Ot T45.1X5A ADVERSE EFFECT OF ANTINEOPLASTIC AND IMM 01/27/2018 RASHMI BOBAN N Ot 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 01/27/2018 RASHMIKIMBERLY N Ot Z98.84 BARIATRIC SURGERY STATUS 01/29/2018 RASHMIKIMBERLY N Ot C34.32 MALIGNANT NEOPLASM OF LOWER LOBE, LEFT B 01/29/2018 RASHMIKIMBERLY N Ot 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 01/29/2018 RASHMIKIMBERLY N Ot D64.9 ANEMIA, UNSPECIFIED 01/29/2018 RASHMI BOBAN N Ot D70.1 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 01/29/2018 RASHMI, BOBAN N Ot E03.9 HYPOTHYROIDISM, UNSPECIFIED 01/29/2018 RASHMI BOBAN N Ot T45.1X5A ADVERSE EFFECT OF ANTINEOPLASTIC AND IMM 01/29/2018 RASHMIKIMBERLY N Ot Z79.899 OTHER LONGTERM (CURRENT) DRUG THERAPY 01/29/2018 RASHMI BOBAN N Ot Z98.84 BARIATRIC SURGERY STATUS 01/31/2018 RASHMIKIMBERLY N Ot C34.32 MALIGNANT NEOPLASM OF LOWER LOBE, LEFT B 01/31/2018 RASHMIKIMBERLY HINKLE N Ot 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 01/31/2018 RASHMIKIMBERLY HINKLE N Ot D64.9 ANEMIA, UNSPECIFIED 01/31/2018 RASHMI BOBAN N Ot D70.1 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 01/31/2018 RASHMI BOBAN N Ot E03.9 HYPOTHYROIDISM, UNSPECIFIED 01/31/2018 RASHMI, BOBAN N Ot T45.1X5A ADVERSE EFFECT OF ANTINEOPLASTIC AND IMM 01/31/2018 RASHMI, BOBAN N Ot Z79.899 OTHER LONGTERM (CURRENT) DRUG THERAPY 01/31/2018 RASHMIKIMBERLY N Ot Z98.84 BARIATRIC SURGERY STATUS 02/12/2018 RASHMIKIMBERLY N Ot C34.32 MALIGNANT NEOPLASM OF LOWER LOBE, LEFT B 02/12/2018 RASHMIKIMBERLY N Ot 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 02/12/2018 RASHMI, BOBAN N Ot D64.9 ANEMIA, UNSPECIFIED 02/12/2018 RASHMI BOBAN N Ot D70.1 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 02/12/2018 RASHMI, BOBAN N Ot E03.9 HYPOTHYROIDISM, UNSPECIFIED 02/12/2018 RASHMI, BOBAN N Ot T45.1X5A ADVERSE EFFECT OF ANTINEOPLASTIC AND IMM 02/12/2018 RASHMI, BOBAN N Ot Z79.899 OTHER LONGTERM (CURRENT) DRUG THERAPY 02/12/2018 RASHMI, BOBAN N Ot Z98.84 BARIATRIC SURGERY STATUS 03/10/2018 KIMBERLY CARABALLO Ot C34.32 MALIGNANT NEOPLASM OF LOWER LOBE, LEFT B 03/10/2018 KIMBERLY CARABALLO Ot 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 03/10/2018 KIMBERLY CARABALLO Ot D64.9 ANEMIA, UNSPECIFIED 03/10/2018 KIMBERLY CARABALLO Ot D70.1 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 03/10/2018 KIMBERLY CARABALLO Ot E03.9 HYPOTHYROIDISM, UNSPECIFIED 03/10/2018 KIMBERLY CARABALLO Ot T45.1X5A ADVERSE EFFECT OF ANTINEOPLASTIC AND IMM 03/10/2018 KIMBERLY CARABALLO [facility] Ot Z79.899 OTHER LONGTERM (CURRENT) DRUG THERAPY 03/10/2018 KIMBERLY CARABALLO [facility] Ot Z98.84 BARIATRIC SURGERY STATUS 03/12/2018 KIMBERLY CARABALLO Ot D70.9 NEUTROPENIA, UNSPECIFIED 03/30/2018 KIMBERLY CARABALLO Ot D70.9 NEUTROPENIA, UNSPECIFIED 04/20/2018 YONATHAN VALDES DO Ot Z12.31 ENCNTR SCREEN MAMMOGRAM FOR MALIGNANT NE 04/20/2018 KIMBERLY CARABALLO [facility] Ot D70.9 NEUTROPENIA, UNSPECIFIED 04/20/2018 YONATHAN VALDES DO Ot V76.12 OTH SCREEN MAMMO-MALIGN NEOPLASM OF YESI 04/20/2018 NADYA GARRETT, VIGNESH Edmondson Ot V72.84 EXAM PRE-OPERATIVE NOS 04/20/2018 YONATHAN VALDES DO Ot V76.12 OTH SCREEN MAMMO-MALIGN NEOPLASM OF YESI 04/20/2018 YONATHAN VALDES DO, Ot V76.12 OTH SCREEN MAMMO-MALIGN NEOPLASM OF YESI 04/20/2018 BOO GARRETT, TATUM Bryant Ot S42.232D 3-PART FX SURG NECK OF L HUMERUS, SUBS F 04/20/2018 TATUM HADDAD MD, Ot X58.XXXD EXPOSURE TO OTHER SPECIFIED FACTORS, SUB 04/20/2018 TATUM HADDAD MD, Ot Y99.8 OTHER EXTERNAL CAUSE STATUS 04/20/2018 YONATHAN VALDES DO Ot Z12.31 ENCNTR SCREEN MAMMOGRAM FOR MALIGNANT NE 04/20/2018 YONATHAN VALDES DO Ot J18.9 PNEUMONIA, UNSPECIFIED ORGANISM 04/20/2018 YONATHAN VALDES DO Ot J18.9 PNEUMONIA, UNSPECIFIED ORGANISM 04/20/2018 YONATHAN VALDES DO Ot R91.8 OTHER NONSPECIFIC ABNORMAL FINDING OF NORBERTO 04/20/2018 ANTOLIN JULIAN DO, Ot C34.32 MALIGNANT NEOPLASM OF LOWER LOBE, LEFT B 04/20/2018 ANTOLIN JULIAN DO, Ot Z87.01 PERSONAL HISTORY OF PNEUMONIA (RECURRENT 04/20/2018 ANTOLIN JULIAN DO, Ot C34.92 MALIGNANT NEOPLASM OF UNSP PART OF LEFT 04/20/2018 YONATHAN VALDES DO Ot Z12.31 ENCNTR SCREEN MAMMOGRAM FOR MALIGNANT NE 04/20/2018 KIMBELRY CARABALLO Ot C34.32 MALIGNANT NEOPLASM OF LOWER LOBE, LEFT B 04/20/2018 KIMBERLY CARABALLO Ot M54.9 DORSALGIA, UNSPECIFIED 04/20/2018 KIMBERLY CARABALLO Ot Z95.828 PRESENCE OF OTHER VASCULAR IMPLANTS AND 04/20/2018 YONATHAN VALDES DO Ot Z12.31 ENCNTR SCREEN MAMMOGRAM FOR MALIGNANT NE 04/20/2018 KIMBERLY CARABALLO Ot D70.9 NEUTROPENIA, UNSPECIFIED 04/22/2018 KIMBERLY CARABALLO Ot D70.9 NEUTROPENIA, UNSPECIFIED 07/19/2018 KIMBERLY CARABALLO Ot D70.9 NEUTROPENIA, UNSPECIFIED 07/20/2018 RASHMIKIMBERLY Ot D70.9 NEUTROPENIA, UNSPECIFIED 07/26/2018 RASHMIKIMBERLY Ot D70.9 NEUTROPENIA, UNSPECIFIED 11/07/2018 KIMBERLY CARABALLO Ot C34.32 MALIGNANT NEOPLASM OF LOWER LOBE, LEFT B 11/07/2018 KIMBERLY CARABALLO Ot 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 11/07/2018 KIMBERLY CARABALLO Ot D64.9 ANEMIA, UNSPECIFIED 11/07/2018 KIMBERLY CARABALLO Ot E03.9 HYPOTHYROIDISM, UNSPECIFIED 11/07/2018 KIMBERLY CARABALLO Ot Z45.2 ENCOUNTER FOR ADJUSTMENT AND MANAGEMENT 11/07/2018 KIMBERLY CARABALLO Ot Z79.899 OTHER LONGTERM (CURRENT) DRUG THERAPY 11/07/2018 KIMBERLY CARABALLO Ot Z98.84 BARIATRIC SURGERY STATUS 11/09/2018 KIMBERLY CARABALLO Ot C34.32 MALIGNANT NEOPLASM OF LOWER LOBE, LEFT B 11/09/2018 RASHMIKIMBERLY N Ot 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 11/09/2018 RASHMIKIMBERLY HINKLE N Ot D64.9 ANEMIA, UNSPECIFIED 11/09/2018 RASHMI, BOBAN N Ot E03.9 HYPOTHYROIDISM, UNSPECIFIED 11/09/2018 RASHMI, BOBAN N Ot Z45.2 ENCOUNTER FOR ADJUSTMENT AND MANAGEMENT 11/09/2018 RASHMISEBASTIANAN N Ot Z79.899 OTHER LONGTERM (CURRENT) DRUG THERAPY 11/09/2018 RASHMI BOBAN N Ot Z98.84 BARIATRIC SURGERY STATUS 11/10/2018 RASHMISEBASTIANAN N Ot C34.32 MALIGNANT NEOPLASM OF LOWER LOBE, LEFT B 11/10/2018 RASHMI, BOBAPPLE N Ot 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 11/10/2018 RASHMI, BOBAPPLE N Ot D64.9 ANEMIA, UNSPECIFIED 11/10/2018 RASHMI BOBAN N Ot E03.9 HYPOTHYROIDISM, UNSPECIFIED 11/10/2018 RASHMI, BOBAN N Ot Z45.2 ENCOUNTER FOR ADJUSTMENT AND MANAGEMENT 11/10/2018 RASHMI BOBAN N Ot 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 11/10/2018 RASHMI BOBAN N Ot Z98.84 BARIATRIC SURGERY STATUS 11/10/2018 RASHMI, BOBAPPLE N Ot C34.32 MALIGNANT NEOPLASM OF LOWER LOBE, LEFT B 11/10/2018 RASHMIKIMBERLY HINKLE N Ot 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 11/10/2018 RASHMIKIMBERLY HINKLE N Ot D64.9 ANEMIA, UNSPECIFIED 11/10/2018 RASHMI BOBAN N Ot E03.9 HYPOTHYROIDISM, UNSPECIFIED 11/10/2018 RASHMI, BOBAN N Ot Z45.2 ENCOUNTER FOR ADJUSTMENT AND MANAGEMENT 11/10/2018 RASHMI BOBAN N Ot 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 11/10/2018 RASHMI, BOBAN N Ot Z98.84 BARIATRIC SURGERY STATUS 11/10/2018 RASHMI BOBAN N Ot C34.32 MALIGNANT NEOPLASM OF LOWER LOBE, LEFT B 11/10/2018 RASHMIKIMBERLY N Ot 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 11/10/2018 RASHMI BOBAN N Ot D64.9 ANEMIA, UNSPECIFIED 11/10/2018 KIMBERLY CARABALLO Ot E03.9 HYPOTHYROIDISM, UNSPECIFIED 11/10/2018 KIMBERLY CARABALLO Ot Z45.2 ENCOUNTER FOR ADJUSTMENT AND MANAGEMENT 11/10/2018 KIMBERLY CARABALLO Ot 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 Results Test [...] - 10/07/16 08:00 Fungus culture NG NRG Automated blood complete blood count (hemogram) panel [...] resistant Staphylococcus aureus (MRSA) screening culture NEG NRG Complete blood count (CBC) with automated [...] NRG Bacterial sputum culture - 08/27/17 06:50 FREE TEXT EXTERNAL FEW COLONIES OBSERVED NRG QUANTITY OF GROWTH Scant Growth NRG Bacterial sputum culture [id number] NRG Complete blood count (CBC) with automated [...] blood basophil count (count/volume) 0.0 10*3/uL 0.0-0.1 [id number] - 08/27/17 07:03 [id number] SPECIMEN AVAILABLE NRG Capillary blood glucose measurement by glucometer [...] urinalysis with reflex to culture YES NRG Bacterial urine culture - 08/28/17 21:30 Bacterial urine culture NG NRG Complete blood count (CBC) with automated white blood cell (WBC) differential - 08/29/17 05:35 Blood leukocytes automated count (number/volume) 11.4 10*3/uL 4.3-11.0 Blood erythrocytes automated count (number/volume) 2.09 10*6/uL 4.35-5.85 Venous blood hemoglobin measurement (mass/volume) 7.0 g/dL 11.5-16.0 Blood hematocrit (volume fraction) 21 % 35-52 Automated erythrocyte mean corpuscular volume 102 [foz_us] 80-99 Automated erythrocyte mean corpuscular hemoglobin (mass per erythrocyte) 34 pg 25-34 Automated erythrocyte mean corpuscular hemoglobin concentration measurement ( mass/volume) 33 g/dL 32-36 Automated erythrocyte distribution width ratio 14.8 % 10.0-14.5 Automated blood platelet count (count/volume) 20 10*3/uL 130-400 Automated blood platelet mean volume measurement 11.9 [foz_us] 7.4-10.4 Automated blood neutrophils/100 leukocytes 88 % 42-75 Automated blood lymphocytes/100 leukocytes 8 % 12-44 Blood monocytes/100 leukocytes 3 % 0-12 Automated blood eosinophils/100 leukocytes 1 % 0-10 Automated blood basophils/100 leukocytes 0 % 0-10 Blood neutrophils automated count (number/volume) 10.0 10*3 1.8-7.8 Blood lymphocytes automated count (number/volume) 0.9 10*3 1.0-4.0 Blood monocytes automated count (number/volume) 0.3 10*3 0.0-1.0 Automated eosinophil count 0.1 10*3/uL 0.0-0.3 Automated blood basophil count (count/volume) 0.0 10*3/uL 0.0-0.1 Whole blood basic metabolic panel - 08/29/17 05:35 Serum or plasma sodium measurement (moles/volume) 140 mmol/L 135-145 Serum or plasma potassium measurement (moles/volume) 3.3 mmol/L 3.6-5.0 Serum or plasma chloride measurement (moles/volume) 107 mmol/L 98-107 Carbon dioxide 22 mmol/L 21-32 Serum or plasma anion gap determination (moles/volume) 11 mmol/L 5-14 Serum or plasma urea nitrogen measurement (mass/volume) 9 mg/dL 7-18 Serum or plasma creatinine measurement (mass/volume) 1.06 mg/dL 0.60-1.30 Serum or plasma urea nitrogen/creatinine mass ratio 8 NRG Serum or plasma creatinine measurement with calculation of estimated glomerular filtration rate 54 NRG Serum or plasma glucose measurement (mass/volume) 75 mg/dL 70-105 Serum or plasma calcium measurement (mass/volume) 8.0 mg/dL 8.5-10.1 Complete blood count (CBC) with automated white blood cell (WBC) differential - 08/30/17 05:38 Blood leukocytes automated count (number/volume) 8.3 10*3/uL 4.3-11.0 Blood erythrocytes automated count (number/volume) 1.99 10*6/uL 4.35-5.85 Venous blood hemoglobin measurement (mass/volume) 6.7 g/dL 11.5-16.0 Blood hematocrit (volume fraction) 21 % 35-52 Automated erythrocyte mean corpuscular volume 104 [foz_us] 80-99 Automated erythrocyte mean corpuscular hemoglobin (mass per erythrocyte) 34 pg 25-34 Automated erythrocyte mean corpuscular hemoglobin concentration measurement ( mass/volume) 33 g/dL 32-36 Automated erythrocyte distribution width ratio 15.0 % 10.0-14.5 Automated blood platelet count (count/volume) 24 10*3/uL 130-400 Automated blood platelet mean volume measurement 10.9 [foz_us] 7.4-10.4 Automated blood neutrophils/100 leukocytes 84 % 42-75 Automated blood lymphocytes/100 leukocytes 11 % 12-44 Blood monocytes/100 leukocytes 4 % 0-12 Automated blood eosinophils/100 leukocytes 1 % 0-10 Automated blood basophils/100 leukocytes 0 % 0-10 Blood neutrophils automated count (number/volume) 7.0 10*3 1.8-7.8 Blood lymphocytes automated count (number/volume) 0.9 10*3 1.0-4.0 Blood monocytes automated count (number/volume) 0.3 10*3 0.0-1.0 Automated eosinophil count 0.1 10*3/uL 0.0-0.3 Automated blood basophil count (count/volume) 0.0 10*3/uL 0.0-0.1 Whole blood basic metabolic panel - 08/30/17 05:38 Serum or plasma sodium measurement (moles/volume) 140 mmol/L 135-145 Serum or plasma potassium measurement (moles/volume) 3.5 mmol/L 3.6-5.0 Serum or plasma chloride measurement (moles/volume) 108 mmol/L 98-107 Carbon dioxide 23 mmol/L 21-32 Serum or plasma anion gap determination (moles/volume) 9 mmol/L 5-14 Serum or plasma urea nitrogen measurement (mass/volume) 7 mg/dL 7-18 Serum or plasma creatinine measurement (mass/volume) 0.95 mg/dL 0.60-1.30 Serum or plasma urea nitrogen/creatinine mass ratio 7 NRG Serum or plasma creatinine measurement with calculation of estimated glomerular filtration rate > NRG Serum or plasma glucose measurement (mass/volume) 80 mg/dL 70-105 Serum or plasma calcium measurement (mass/volume) 8.2 mg/dL 8.5-10.1 Magnesium - 08/30/17 05:38 Magnesium 1.7 mg/dL 1.8-2.4 Encounters ACCT No. Visit Date/Time Discharge Status Pt. Type Provider Facility Loc./Unit Complaint [id number] 11/10/2018 10:00:00 11/10/2018 23:59:59 CLS Outpatient KIMBERLY CARABALLO [facility] ONC [id number] 04/22/2018 15:30:00 07/19/2018 00:01:00 DIS Outpatient KIMBERLY CARABALLO [facility] ONC [id number] 03/25/2018 15:22:00 04/20/2018 15:24:00 DIS Outpatient KIMBERLY CARABALLO [facility] ONC [id number] 04/07/2018 14:17:00 04/07/2018 23:59:59 CLS Outpatient YONATHAN VALDES DO [facility] RAD SCREENING [id number] 02/12/2018 09:15:00 03/10/2018 13:14:00 DIS Outpatient KIMBERLY CARABALLO [facility] 4TH RCR [id number] 02/14/2018 08:48:00 02/14/2018 08:48:00 CAN Preadmit KIMBERLY CARABALLO [facility] 4THo CANCER SHOT ON 4TH FLOOR [id number] 12/03/2017 14:25:00 12/07/2017 00:01:00 DIS Outpatient KIMBERLY CARABALLO [facility] ONC [id number] 08/26/2017 11:00:00 09/07/2017 12:31:00 DIS Outpatient LAVONNE MARR MD [facility] ONC [id number] 08/26/2017 13:20:00 08/30/2017 13:50:00 DIS Inpatient ARVIN CROUCH MD [facility] 4TH FEVER [id number] 08/24/2017 10:26:00 08/24/2017 23:59:59 CLS Outpatient RASHMIKIMBERLY [facility] RAD [id number] 05/04/2017 14:19:00 06/16/2017 08:48:00 DIS Outpatient RASHMI KIMBERLY [facility] ONC [id number] 04/21/2017 09:29:00 04/21/2017 14:44:00 DIS Emergency HEATHER HERRERA MD [facility] ER LT SIDE/LT BREAST/ LEFT SIDE BACK PAIN/CANCER PT [id number] 04/15/2017 09:22:00 04/17/2017 00:01:00 DIS Outpatient KIMBERLY CARABALLO [facility] ONC [id number] 02/25/2017 09:20:00 02/25/2017 23:59:59 CLS Outpatient YONATHAN VALDES DO [facility] RAD SCREENING Z12.31 [id number] 01/20/2017 10:55:00 02/08/2017 00:01:00 DIS Outpatient KIMBERLY CARABALLO [facility] ONC [id number] 11/16/2016 06:00:00 11/16/2016 09:50:00 DIS Outpatient SHRUTHI GARZA DO [facility] SDC LUNG CA [id number] 11/13/2016 08:50:00 11/13/2016 09:05:00 DIS Outpatient SHRUTHI GARZA DO [facility] PREOP LUNG CA [id number] 10/23/2016 08:16:00 10/23/2016 23:59:59 CLS Outpatient ANTOLIN JULIAN DO [facility] RAD LUNG MASS,ADENOCARCINOMA, PNEUMONIA [id number] 10/20/2016 09:46:00 10/20/2016 23:59:59 CLS Outpatient IESHA CESPEDESANTOLIN [facility] RAD ADENOCARCINOMA [id number] 10/07/2016 06:05:00 10/07/2016 09:50:00 DIS Outpatient IESHA CESPEDESANTOLIN [facility] ENDO LUNG MASS [id number] 10/06/2016 12:56:00 10/06/2016 14:26:00 DIS Outpatient IESHA CESPEDESANTOLIN [facility] PREOP LUNG MASS [id number] 09/25/2016 08:55:00 09/25/2016 23:59:59 CLS Outpatient YONATHAN VALDES DO [facility] RAD J18.9 [id number] 09/14/2016 11:55:00 09/14/2016 23:59:59 CLS Outpatient YONATHAN VALDES DO [facility] RAD J18.9 [id number] 02/21/2016 12:59:00 02/21/2016 23:59:59 CLS Outpatient YONATHAN VALDES DO [facility] RAD SCREENING [id number] 09/23/2015 00:07:00 09/23/2015 23:59:59 CLS Preadmit TATUM HADDAD MD [facility] REHAB L HUMERAL HEAD FX COMMUNITED FX HEAD AND NECK [id number] 09/13/2015 08:02:00 09/22/2015 00:01:00 DIS Outpatient TATUM HADDAD MD [facility] REHAB L HUMERAL HEAD FX COMMUNITED FX HEAD AND NECK [id number] 05/10/2015 16:38:00 05/11/2015 13:10:00 DIS Inpatient TATUM HADDAD MD [facility] 4TH FX L HUMERAL HEAD/NECK [id number] 01/25/2015 13:03:00 01/25/2015 23:59:59 CLS Outpatient YONATHAN VALDES DO [facility] RAD SCREENING [id number] 01/12/2014 09:35:00 01/12/2014 23:59:59 CLS Outpatient VALDES DO, YONATHAN J [facility] RAD SCREENING [id number] 01/23/2013 06:18:00 01/23/2013 08:45:00 DIS Outpatient VIGNESH COVINGTON MD [facility] SDC SCREENING [id number] 01/20/2013 08:52:00 01/20/2013 23:59:59 CLS Outpatient VIGNESH COVINGTON MD [facility] PREOP SCREENING [id number] 01/06/2013 08:56:00 01/06/2013 23:59:59 CLS Outpatient YONATHAN VALDES DO [facility] RAD SCREENING [id number] 01/25/2012 14:31:00 Document Registration [id number] 10/24/2011 11:55:00 Document Registration [id number] 07/21/2011 14:12:00 Document Registration [id number] 07/16/2011 07:55:00 Document Registration [id number] 07/14/2010 08:09:00 Document Registration [id number] 01/26/2015 05:00:20 ACT Document Registration
--- NOTE | 2018-11-21 14:15 | Diagnostic Imaging Report ---
INDICATION: Pneumothorax. COMPARISON: 11/14/2018. FINDINGS: Single frontal radiographic view of the chest was obtained and demonstrates interval resolution of previously described left-sided pneumothorax. Left pleural space is now fluid-filled. There is persistent dense consolidation of the left mid and lower lung cherry. Multiple subcentimeter nodular opacities are again identified within the residual aerated portions of the left upper lung. By comparison, right lung is clear. There is no large effusion or pneumothorax on the right. Cardiac silhouette is heavily obscured. Pulmonary vasculature is within normal limits. Right internal jugular Port-A-Cath is seen with tip in the low SVC. Bony structures show no gross acute abnormalities. IMPRESSION: 1. Interval resolution of left-sided pneumothorax. 2. Moderate left-sided pleural effusion with persistent dense consolidation of the left mid and lower lung cherry as well as multiple persistent nodular and micronodular opacities of the residual aerated left upper lung. Dictated by: Dictated on workstation # [id number]
[2018-11-21] MEDS ORDERED: POTA20TA15 PO (14:27)
[2018-11-21] MEDS ORDERED: CYAN100015 SL (14:27)
[2018-11-21] MEDS ORDERED: CURCUMIN PO (14:27)
[2018-11-21] MEDS ORDERED: FURO40TA4 PO (14:27)
[2018-11-21] MEDS ORDERED: RT-ALBUINH IH (14:28)
--- NOTE | 2018-11-21 14:29 | NUR ---
SPOKE WITH THE PATIENT ABOUT HER MEDICATIONS, WE WENT OVER THE EXT MED HX AND SHE VERIFIED HOW SHE TAKES THEM.
[2018-11-21 15:49] VITALS: BP 96/62
[2018-11-21] MEDS ORDERED: ACETAMINOPHEN 325 MG TABLET PO PRN (16:45)
[2018-11-21] MEDS: PIPERACILLIN/TAZOBACTAM (BULK) 4.5 GM in NS (IVPB) 100 ML IV SCH (17:57)
[2018-11-21 19:15] VITALS: BP 90/56
--- NOTE | 2018-11-21 20:07 | HISTORY AND PHYSICAL ---
DATE OF SERVICE: 11/21/2018 THE PATIENT IS ADMITTED TO ROOM: 429. PRESENTING COMPLAINT: Fever and fatigue. HISTORY OF PRESENT ILLNESS: The patient is a 58-year-old female with history of metastatic nonsmall cell lung cancer, adenocarcinoma subtype diagnosed in early 2016. She was initially treated with chemotherapy using carboplatin and pemetrexed regimen followed by pemetrexed maintainence, but had evidence of progressive disease by 08/2017. She was then started on investigational therapy with Nivolumab and [id number] at [facility]. She was diagnosed with progressive disease approximately a month ago and was taken off the clinical trial. She was recommended to continue Nivolumab as a single agent until further progression or symptoms. She received the last dose of Nivolumab on 11/03/2018. She started feeling sick last week and did not seek medical attention until today morning. She has significant fatigue and has not been eating or drinking well. Today during evaluation at the Cancer Center she was noted to have a temperature of more than 101 degree Fahrenheit. Because of this, baseline lab work as well as mars cultures and a nasal swab for influenza was obtained. The patient was positive for influenza B. Because of her extreme fatigue, and poor oral intake, it was decided to admit her to the hospital for further management. PAST MEDICAL HISTORY: Significant for diagnosis of adenocarcinoma of the left lung diagnosed in early 2016. Tumor was negative for EGFR, ALK, ROS1 and low positive for PD-L1 at 1%. She completed a consultation at [facility] and was recommended standard chemotherapy. She was treated with four courses of chemotherapy with carboplatin and Alimta regimen followed by Alimta maintenance. She was diagnosed with progressive disease by 08/2017. At this point, she was enrolled in a clinical trial at [facility] utilizing Opdivo plus [id number]. She was diagnosed with progressive disease by early 2018 and discontinued the investigational trial. Since then she has continued on single agent Opdivo and took one course. Other significant past medical history include a laparoscopic gastric bypass surgery in late 2001. She was diagnosed with pulmonary embolism in early 2002 and had an IVC filter placed and was on anticoagulation for 3 months. Hypothyroidism diagnosed more than 20 years ago and is on replacement. History of bundle branch block, but no other cardiac symptoms. PAST SURGICAL HISTORY: Includes tonsillectomy and adenoidectomy in 1963. Left wrist compound fracture requiring hardware followed by removal in 1981. Laparoscopic gastric bypass surgery in 2001. Excess skin removal in 2003. Laparoscopic cholecystectomy in 2007. Bronchoscopy and biopsy as well as CT-guided needle biopsy in early 2016 followed by port placement. SOCIAL HISTORY: The patient is and lives in [place], [place]. They have no children. 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 No history of tobacco use, but has exposure to secondhand smoke during childhood until the age of 12 years. No history of alcohol or other recreational drug use. No history of exposure to chemicals or asbestos. FAMILY HISTORY: Significant for maternal grandmother with breast cancer diagnosed at the age of 53 years. No other malignancies in the family. PHYSICAL EXAMINATION: GENERAL: Today showed an elderly female, weak appearing, awake and oriented and in moderate distress due to the fatigue. VITAL SIGNS: Temperature was more than 101 degrees Fahrenheit at the Cancer Center. Pulse rate was 82, respirations 18, blood pressure 106/57, pulse oximetry was 98% on 2 liters of oxygen by nasal cannula. HEENT: Normocephalic, extraocular muscles intact, conjunctivae pink, oral mucosa moist. NECK: Supple, with no JVD. No cervical, supraclavicular or axillary lymphadenopathy palpable. CHEST: Symmetrical. LUNGS: Decreased breath sounds in the left lung except in the apex. Right lung is fairly clear without any wheezes or rales. CARDIOVASCULAR: Regular in rate and rhythm without murmurs or gallops. ABDOMEN: Soft, nontender with no hepatosplenomegaly or other masses palpable. EXTREMITIES: Showed trace edema around the ankles. NEUROLOGIC EXAMINATION: Showed no focal motor deficits. LABORATORY DATA: CBC done today showed WBC 14.3, hemoglobin 8.4, MCV 95, platelet count 348,000 with a neutrophil count 13.2 and lymphocyte count 0.4. Chemistry panel done today showed sodium level of 132 and chloride 91. BUN was 17 and creatinine 1.07 with GFR 53 mL per minute. Nonfasting glucose was 124, corrected calcium was 10.4. Total bilirubin was 1.2 with the rest of the liver function studies normal. Albumin level was 3.0. TSH 0.89. Serum lactic acid level was 1.47. Nasal swab for influenza was positive for influenza B antigen. Chest x-ray done today showed interval resolution of left-sided pneumothorax, which was noted in late 10/2018. Moderate left-sided pleural effusion with persistent dense consolidation of the left mid and lower lung field as well as multiple persistent nodular and micronodular opacities of the residual aerated left upper lung. Right internal jugular Port-A-Cath is seen. ASSESSMENT: 1. Febrile illness and significant fatigue. 2. Influenza B. 3. Rule out secondary bacterial infection, either pneumonia or UTI. 4. Metastatic non-small cell lung cancer, adenocarcinoma subtype. Currently on treatment with single agent Opdivo. 5. Chronic kidney disease stage III. PLAN: 1. I will admit the patient to the hospital and start her on hydration with normal saline at 100 mL per hour. 2. Start her on Tamiflu 75 mg b.i.d. 3. I will start the patient on broad spectrum antibiotic with Zosyn until the blood culture results and the urine culture results are available. 4. Continue home medication and Tylenol as needed to control the temperature. 5. I will hold treatment with Opdivo until her clinical status is improved. 6. Her overall prognosis is guarded. Job ID: [id number] DocumentID: [id number] Dictated Date: 11/21/2018 18:39:13 Laundry Presser Date: 11/21/2018 20:05:58 Dictated By: KIMBERLY CARABALLO MD [facility]
[2018-11-21 23:49] VITALS: BP 107/66
[2018-11-22] MEDS: PIPERACILLIN/TAZOBACTAM (BULK) 4.5 GM in NS (IVPB) 100 ML IV SCH ×3 (01:56→16:51)
[2018-11-22 04:22] VITALS: BP 102/64
[2018-11-22] MEDS: LEVOTHYROXINE 88 MCG (LEVOTHORID) TAB PO SCH (06:05)
[2018-11-22] MEDS: NS IV 1000 ML 1,000 ML IV SCH (06:05)
[2018-11-22] MEDS: ACETAMINOPHEN 325 MG TABLET PO PRN ×3 (06:07→23:25)
[2018-11-22 08:45] VITALS: BP 110/62
[2018-11-22] MEDS: PANTOPRAZOLE 40 MG (PROTONIX) TAB PO SCH (09:22)
[2018-11-22] MEDS: OSELTAMIVIR 75 MG (TAMIFLU) CAPSULE PO SCH ×2 (09:25→21:23)
[2018-11-22] MEDS ORDERED: NS IV 1000 ML 1,000 ML IV SCH (09:30)
[2018-11-22] MEDS: BENZONATATE 100 MG (TESSALON) CAPSULE PO SCH ×3 (09:41→21:24)
[2018-11-22] MEDS: NS W/KCL 20 MEQ/L 1,000 ML IV SCH ×3 (10:24→21:23)
[2018-11-22] MEDS: ENOXAPARIN 40 MG/0.4 ML (LOVENOX) SYR SC SCH (11:41)
--- NOTE | 2018-11-22 12:33 | Progress Note-Standard ---
Standard Progress Note Progress Notes/Assess & Plan Date Seen by a Provider: November 22, 2018 Time Seen by a Provider: 12:30 Progress/Assessment & Plan 58-year-old female with the history of metastatic adenocarcinoma of lung admitted to the hospital with febrile illness. Influenza screen positive for influenza B. Patient was started on IV hydration, Tamiflu and Zosyn. She had low-grade temperature of 100.3F last night. No chills or sweats. Overall she is feeling slightly better. Oral intake still poor. Continue IV fluids. Gradually increase activity and oral intake. Cultures negative so far. We'll continue current antibiotics and antiviral agents. Add antitussive agents. We will hold treatment for lung cancer until she has recovered. Repeat lab work tomorrow. KIMBERLY CARABALLO November 22, 2018 12:33
[2018-11-22 12:41] VITALS: BP 113/54
[2018-11-22] MEDS ORDERED: POLYETHYLENE GLYCOL 17 GM (MIRALAX) PACK PO NR (14:30)
[2018-11-22 17:05] VITALS: BP 116/63
--- NOTE | 2018-11-22 18:09 | NUR ---
AFTER TYLENOL TEMPERATURE IS NOW 98.6.
[2018-11-22 19:03] VITALS: BP 99/61
--- NOTE | 2018-11-22 21:00 | NUR ---
when verifying fluids, and preparing to change iv tubing i found the zosyn had not started. Started zosyn, contacted pharmacy to retime.
[2018-11-22] MEDS: DOCUSATE SODIUM 100 MG (COLACE) CAP PO SCH (21:25)
[2018-11-22 23:29] VITALS: BP 109/60
--- NOTE | 2018-11-23 | NUR ---
temp 100.9 tylenol 650 given
--- NOTE | 2018-11-23 01:00 | NUR ---
patient temperature 99 after tylenol 650
[2018-11-23] MEDS: PIPERACILLIN/TAZOBACTAM (BULK) 4.5 GM in NS (IVPB) 100 ML IV SCH ×4 (05:39→21:37)
[2018-11-23] MEDS: LEVOTHYROXINE 88 MCG (LEVOTHORID) TAB PO SCH (05:43)
[2018-11-23 06:46] LABS: BASOPHILS % (AUTO) 0 % (0-10); EOSINOPHILS % (AUTO) 0 % (0-10); HEMATOCRIT 22 % (35-52); LYMPHOCYTES # (AUTO) 0.3 X 10^3 (1.0-4.0); LYMPHOCYTES % (AUTO) 3 % (12-44); MEAN CORPUSCULAR HEMOGLOBIN 31 PG (25-34); MEAN CORPUSCULAR HGB CONC 32 G/DL (32-36); MEAN CORPUSCULAR VOLUME 96 FL (80-99); MEAN PLATELET VOLUME 8.7 FL (7.4-10.4); MONOCYTES # (AUTO) 0.7 X 10^3 (0.0-1.0); MONOCYTES % (AUTO) 7 % (0-12); NEUTROPHILS # (AUTO) 9.8 X 10^3 (1.8-7.8); NEUTROPHILS % (AUTO) 90 % (42-75); PLATELET COUNT 304 10^3/uL (130-400); WHITE BLOOD COUNT 10.9 10^3/uL (4.3-11.0)
[2018-11-23 07:09] LABS: ALANINE AMINOTRANSFERASE 10 U/L (0-55); ALBUMIN 2.2 GM/DL (3.2-4.5); ALKALINE PHOSPHATASE 52 U/L (40-136); BILIRUBIN,TOTAL 0.5 MG/DL (0.1-1.0); BUN/CREATININE RATIO 14; CALCIUM 8.7 MG/DL (8.5-10.1); CARBON DIOXIDE 26 MMOL/L (21-32); CHLORIDE 103 MMOL/L (98-107); CREATININE SERUM 0.79 MG/DL (0.60-1.30); GFR ESTIMATED > 60; GLUCOSE 95 MG/DL (70-105); MAGNESIUM 1.5 MG/DL (1.8-2.4); POTASSIUM 3.3 MMOL/L (3.6-5.0); SODIUM 138 MMOL/L (135-145); TOTAL PROTEIN 5.7 GM/DL (6.4-8.2)
[2018-11-23 08:00] VITALS: BP 108/52
[2018-11-23] MEDS: PANTOPRAZOLE 40 MG (PROTONIX) TAB PO SCH (09:32)
[2018-11-23] MEDS: BENZONATATE 100 MG (TESSALON) CAPSULE PO SCH ×3 (09:33→21:36)
[2018-11-23] MEDS: OSELTAMIVIR 75 MG (TAMIFLU) CAPSULE PO SCH ×2 (09:33→21:36)
[2018-11-23] MEDS: DOCUSATE SODIUM 100 MG (COLACE) CAP PO SCH ×2 (09:36→21:37)
[2018-11-23] MEDS: NS W/KCL 20 MEQ/L 1,000 ML IV SCH ×2 (09:40→16:22)
[2018-11-23] MEDS: ENOXAPARIN 40 MG/0.4 ML (LOVENOX) SYR SC SCH (12:11)
--- NOTE | 2018-11-23 14:13 | Progress Note-Standard ---
Standard Progress Note Progress Notes/Assess & Plan Date Seen by a Provider: November 23, 2018 Time Seen by a Provider: 14:03 Progress/Assessment & Plan 58-year-old female with the history of metastatic adenocarcinoma of lung admitted to the hospital with febrile illness. Influenza screen positive for influenza B. Patient was started on IV hydration, Tamiflu and Zosyn. She still has low-grade temperature and significant cough. No help with guaifenesin as outpatient and benzonatate. No chills or sweats. Oral intake still poor but improving. Continue IV fluids. Gradually increase activity as tolerated. Cultures negative so far. We'll continue current antibiotics and antiviral agents and I will obtain mycoplasma titers and start patient on Zithromax 500 mg daily. Will start patient on albuterol by nebulizer. We will hold treatment for lung cancer until she has recovered. Hemoglobin level was 7.0 and we will transfuse 1 unit of PRBC today. If cough is not improving by tomorrow, will add steroids. Repeat lab work tomorrow. KIMBERLY CARABALLO November 23, 2018 14:13
[2018-11-23] MEDS: RT-ALBUTEROL SULF 2.5 MG/3 ML PRE-MIX VIAL INH SCH ×2 (14:55→19:04)
[2018-11-23] MEDS: MAGNESIUM 1 GM/100 ML IVPB 100 ML IV SCH ×3 (16:20→23:40)
[2018-11-23] MEDS: AZITHROMYCIN 250 MG TAB (ZITHROMAX) PO SCH (16:20)
[2018-11-23 16:30] VITALS: BP 115/70
[2018-11-23] MEDS: ACETAMINOPHEN 325 MG TABLET PO PRN ×2 (16:34→22:39)
[2018-11-23] MEDS ORDERED: NS IV 500 ML 500 ML ONE (17:32)
[2018-11-23 17:44] VITALS: BP 96/60
[2018-11-23 18:10] VITALS: BP 94/55
[2018-11-23] MEDS ORDERED: MAGNESIUM 1 GM/100 ML IVPB 200 ML IV ONE (19:12)
[2018-11-23 22:24] VITALS: BP 118/69
[2018-11-24] VITALS: BP 98/60
[2018-11-24] MEDS: NS W/KCL 20 MEQ/L 1,000 ML IV SCH ×3 (05:01→23:46)
[2018-11-24] MEDS: PIPERACILLIN/TAZOBACTAM (BULK) 4.5 GM in NS (IVPB) 100 ML IV SCH ×3 (05:03→19:40)
[2018-11-24] MEDS: LEVOTHYROXINE 88 MCG (LEVOTHORID) TAB PO SCH (06:16)
[2018-11-24] MEDS: RT-ALBUTEROL SULF 2.5 MG/3 ML PRE-MIX VIAL INH SCH ×3 (07:00→19:08)
[2018-11-24 07:22] LABS: BASOPHILS % (AUTO) 0 % (0-10); EOSINOPHILS % (AUTO) 0 % (0-10); HEMATOCRIT 25 % (35-52); HEMOGLOBIN 7.8 G/DL (11.5-16.0); LYMPHOCYTES # (AUTO) 0.3 X 10^3 (1.0-4.0); LYMPHOCYTES % (AUTO) 3 % (12-44); MEAN CORPUSCULAR HEMOGLOBIN 30 PG (25-34); MEAN CORPUSCULAR HGB CONC 32 G/DL (32-36); MEAN CORPUSCULAR VOLUME 93 FL (80-99); MEAN PLATELET VOLUME 8.9 FL (7.4-10.4); MONOCYTES # (AUTO) 0.7 X 10^3 (0.0-1.0); MONOCYTES % (AUTO) 7 % (0-12); NEUTROPHILS # (AUTO) 9.7 X 10^3 (1.8-7.8); NEUTROPHILS % (AUTO) 90 % (42-75); PLATELET COUNT 340 10^3/uL (130-400); RED CELL DISTRIBUTION WIDTH 14.6 % (10.0-14.5); WHITE BLOOD COUNT 10.7 10^3/uL (4.3-11.0)
[2018-11-24 07:51] LABS: BUN/CREATININE RATIO 12; CALCIUM 8.3 MG/DL (8.5-10.1); CARBON DIOXIDE 24 MMOL/L (21-32); CHLORIDE 103 MMOL/L (98-107); CREATININE SERUM 0.77 MG/DL (0.60-1.30); GFR ESTIMATED > 60; GLUCOSE 101 MG/DL (70-105); MAGNESIUM 1.9 MG/DL (1.8-2.4); POTASSIUM 3.3 MMOL/L (3.6-5.0); SODIUM 135 MMOL/L (135-145)
[2018-11-24 08:00] VITALS: BP 105/65
[2018-11-24 08:34] LABS: BAND NEUTROPHILS 5 %; BASOPHILS % (MANUAL) 0 %; ELLIPT/OVALOCYTES SLIGHT; EOSINOPHILS % (MANUAL) 0 %; LYMPHOCYTES % (MANUAL) 3 %; MONOCYTES % (MANUAL) 5 %; NEUTROPHILS % (MANUAL) 87 %
[2018-11-24] MEDS: OSELTAMIVIR 75 MG (TAMIFLU) CAPSULE PO SCH ×2 (09:19→19:40)
[2018-11-24] MEDS: PANTOPRAZOLE 40 MG (PROTONIX) TAB PO SCH (09:19)
[2018-11-24] MEDS: DOCUSATE SODIUM 100 MG (COLACE) CAP PO SCH ×2 (09:19→19:41)
[2018-11-24] MEDS: BENZONATATE 100 MG (TESSALON) CAPSULE PO SCH ×3 (09:19→19:40)
[2018-11-24] MEDS: AZITHROMYCIN 250 MG TAB (ZITHROMAX) PO SCH (09:20)
[2018-11-24] MEDS: ENOXAPARIN 40 MG/0.4 ML (LOVENOX) SYR SC SCH (11:39)
[2018-11-24 16:20] VITALS: BP 116/68
--- NOTE | 2018-11-24 17:49 | Progress Note-Standard ---
Standard Progress Note Progress Notes/Assess & Plan Date Seen by a Provider: November 24, 2018 Time Seen by a Provider: 17:43 Progress/Assessment & Plan 58-year-old female with the history of metastatic adenocarcinoma of lung admitted to the hospital with febrile illness. Influenza screen positive for influenza B. Patient was started on IV hydration, Tamiflu and Zosyn. Zithromax added in on 11/23/2018. She had temperature spike of 101F last evening but normal today. She continues to have paroxysmal cough productive of scanty whitish sputum. No chills or sweats. Oral intake still poor but improving. Will decrease IV fluids to 75 ml/hr. Cultures negative so far. We'll continue current antibiotics regimen. No diarrhea but had soft stools today. Continue albuterol by nebulizer. Hemoglobin is 7.9 after transfusion. Decreased breath sounds left lung cherry with right side fairly clear. Repeat lab work tomorrow. Will obtain chest x-ray tomorrow morning. We will start the patient on Solu- Medrol 62.5 IV every 8 hours because of continued paroxysmal cough and shortness of breath. KIMBERLY CARABALLO November 24, 2018 17:49
[2018-11-24] MEDS: ACETAMINOPHEN 325 MG TABLET PO PRN (20:31)
[2018-11-24] MEDS: methylPREDNISolone 125 MG (Solu-MEDROL) VIAL IVP SCH (21:07)
[2018-11-25 00:45] VITALS: BP 115/74
[2018-11-25] MEDS: NS W/KCL 20 MEQ/L 1,000 ML IV SCH (03:09)
[2018-11-25] MEDS: LEVOTHYROXINE 88 MCG (LEVOTHORID) TAB PO SCH (05:06)
[2018-11-25] MEDS: methylPREDNISolone 125 MG (Solu-MEDROL) VIAL IVP SCH ×3 (05:06→20:36)
[2018-11-25] MEDS: PIPERACILLIN/TAZOBACTAM (BULK) 4.5 GM in NS (IVPB) 100 ML IV SCH ×3 (05:06→20:36)
[2018-11-25 05:42] LABS: BASOPHILS % (AUTO) 0 % (0-10); EOSINOPHILS % (AUTO) 0 % (0-10); HEMATOCRIT 29 % (35-52); HEMOGLOBIN 9.3 G/DL (11.5-16.0); LYMPHOCYTES # (AUTO) 0.5 X 10^3 (1.0-4.0); LYMPHOCYTES % (AUTO) 4 % (12-44); MEAN CORPUSCULAR HEMOGLOBIN 30 PG (25-34); MEAN CORPUSCULAR HGB CONC 32 G/DL (32-36); MEAN CORPUSCULAR VOLUME 94 FL (80-99); MEAN PLATELET VOLUME 9.1 FL (7.4-10.4); MONOCYTES # (AUTO) 0.4 X 10^3 (0.0-1.0); MONOCYTES % (AUTO) 4 % (0-12); NEUTROPHILS # (AUTO) 11.5 X 10^3 (1.8-7.8); NEUTROPHILS % (AUTO) 93 % (42-75); PLATELET COUNT 395 10^3/uL (130-400); RED CELL DISTRIBUTION WIDTH 14.9 % (10.0-14.5); WHITE BLOOD COUNT 12.4 10^3/uL (4.3-11.0)
[2018-11-25 05:56] LABS: BUN/CREATININE RATIO 11; CALCIUM 9.5 MG/DL (8.5-10.1); CARBON DIOXIDE 20 MMOL/L (21-32); CHLORIDE 107 MMOL/L (98-107); CREATININE SERUM 0.79 MG/DL (0.60-1.30); GFR ESTIMATED > 60; GLUCOSE 138 MG/DL (70-105); MAGNESIUM 1.8 MG/DL (1.8-2.4); POTASSIUM 4.3 MMOL/L (3.6-5.0); SODIUM 138 MMOL/L (135-145)
[2018-11-25] MEDS: RT-ALBUTEROL SULF 2.5 MG/3 ML PRE-MIX VIAL INH SCH ×4 (07:57→19:31)
[2018-11-25 08:00] VITALS: BP 105/56
[2018-11-25] MEDS: BENZONATATE 100 MG (TESSALON) CAPSULE PO SCH ×3 (08:39→20:36)
[2018-11-25] MEDS: DOCUSATE SODIUM 100 MG (COLACE) CAP PO SCH ×2 (08:39→20:36)
[2018-11-25] MEDS: AZITHROMYCIN 250 MG TAB (ZITHROMAX) PO SCH (08:40)
[2018-11-25] MEDS: PANTOPRAZOLE 40 MG (PROTONIX) TAB PO SCH (08:40)
[2018-11-25] MEDS: OSELTAMIVIR 75 MG (TAMIFLU) CAPSULE PO SCH ×2 (08:41→20:37)
--- NOTE | 2018-11-25 09:19 | Diagnostic Imaging Report ---
Indication: Cough and shortness of breath. Time of exam 8:43 AM Correlation is made with prior study from 11/21/2018. Right chest wall port has tip overlying the SVC. Left-sided effusion and left-sided airspace infiltrate similar to exam 4 days earlier. Right lung is clear. There is no pneumothorax. Impression: Stable left-sided infiltrates and pleural fluid when compared with examination 4 days earlier. Dictated by: Dictated on workstation # [id number]
[2018-11-25] MEDS: ENOXAPARIN 40 MG/0.4 ML (LOVENOX) SYR SC SCH (10:44)
--- NOTE | 2018-11-25 14:17 | Progress Note-Standard ---
Standard Progress Note Progress Notes/Assess & Plan Date Seen by a Provider: November 25, 2018 Time Seen by a Provider: 14:12 Progress/Assessment & Plan 58-year-old female with the history of metastatic adenocarcinoma of lung admitted to the hospital with febrile illness. Influenza screen positive for influenza B. Patient was started on IV hydration, Tamiflu and Zosyn. Zithromax added in on 11/23/2018. She is feeling better today and the cough is also improving. Oral intake better and she is drinking adequately. Will DC IV fluids. She complained of diarrhea 2 today. We'll continue current antibiotics regimen. We will check stools for C. difficile toxin. Continue albuterol by nebulizer. Change Solu-Medrol to twice a day. Has mild bilateral lower extremity edema probably related to steroids. We will request a PT evaluation for strengthening and ambulation. If she is continuing to improve and C. difficile is negative, I will plan on discharging her in few days. KIMBERLY CARABALLO November 25, 2018 14:16
--- NOTE | 2018-11-25 14:56 | Physical Therapy Evaluation ---
PT Evaluation-General Medical Diagnosis Admission Date November 21, 2018 at 10:38 Medical Diagnosis: fever, lung CA, fatigue Onset Date: November 21, 2018 Therapy Diagnosis Therapy Diagnosis: impaired mobility, strength, endurance Height/Weight Height (Feet): 5 Height (Inches): 8.00 Weight (Pounds): 168 Weight (Ounces): 5.0 Precautions Precautions/Isolations: Standard Precautions Weight Bear Status Right Lower Extremity: Right Weight Bearing/Tolerated Left Lower Extremity: Left Weight Bearing/Tolerated Referral Physician: Mayi Anderson MD Reason for Referral: Evaluation/Treatment Medical History Additional Medical History Lung CA, laparoscopic gastric bypass surgery in late 2001. She was diagnosed with pulmonary embolism in early 2002 and had an IVC filter placed and was on anticoagulation for 3 months. Hypothyroidism diagnosed more than 20 years ago and is on replacement. History of bundle branch block, but no other cardiac symptoms. PAST SURGICAL HISTORY: Includes tonsillectomy and adenoidectomy in 1963. Left wrist compound fracture requiring hardware followed by removal in 1981. Laparoscopic gastric bypass surgery in 2001. Excess skin removal in 2003. Laparoscopic cholecystectomy in 2007. Bronchoscopy and biopsy as well as CT-guided needle biopsy in early 2016 followed by port placement. Reviewed History: Yes Social History Home: Single Level Current Living Status: Spouse Entry Into Home: Stairs With Railing PT Steps Into Home: 4 Prior/Core FIM Prior Level of Function Therapy Code Descriptions/Definitions Functional [place] Measure: 0=Not Assessed/NA 4=Minimal Assistance 1=Total Assistance 5=Supervision or Setup 2=Maximal Assistance 6=Modified [place] 3=Moderate Assistance 7=Complete [place] Therapy Quality Codes: 6 Independent with activity with or without an assistive device 5 Patient requires set up or clean up by helper. Patient completes activity by themselves 4 Supervision or touching assist (CGA). [place] provide cues , steadying assist 3 The helper provides less than half the effort to complete the activity 2 The helper provides more than half the effort to complete the activity 1 Dependent. The helper does all the effort to complete an activity 7 Patient refused to complete or attempt activity 9 The patient did not perform the activity before the current illness or injury 88 Not attempted due to Medical conditions or safety concerns Functional Abilities and Goals: Independent: Patient completed the activities by him/herself, with or without an assistive device, with no assistance from a helper. Needed Some Help: Patient needed partial assistance from another person to complete activities. Dependent: A helper completed the activities for the patient. Unknown: Not Applicable: Bed Mobility: 7 Transfers (B,C,W/C) (FIM): 7 Gait: 7 Stairs: 7 Indoor Mobility (Ambulation): Independent Stairs: Independent PT Evaluation-Current Subjective Patient in bed pre tx, agrees to PT, has no complaints of pain. Pt/Family Goals "to get stronger, I feel weak" Objective Patient Orientation: Person, Place, Situation Attachments: Oxygen, IV 2L of O2 nasal canula ROM/Strength ROM Lower Extremities WNL Strength Lower Extremities right lower extremity (hip flexion 3+/5, knee flexion 4+/5, knee extension 4+/5 , dorsiflexion 4+/5), left lower extremity (hip flexion 3+/5, knee flexion 4+/5 , knee extension 4+/5, dorsiflexion 4+/5) Neuromuscular (Tone, Coordination, Reflexes) NT Sensory Vision: Wears Glasses Hearing: Functional Sensation Right Lower Extremit: Intact Sensation Left Lower Extremity: Intact Sensation Lower Extremities Patient states that she has some numbness in her feet but had intact light touch sensation when tested. Transfers Therapy Code Descriptions/Definitions Functional [place] Measure: 0=Not Assessed/NA 4=Minimal Assistance 1=Total Assistance 5=Supervision or Setup 2=Maximal Assistance 6=Modified [place] 3=Moderate Assistance 7=Complete [place] Transfers (B, C, W/C) (FIM): 6 Scootin Rollin Supine to/from Sit: 6 Sit to/from Stand: 6 Safe transfers and bed mobility, no LOB or unsteadiness. Gait Mode of Locomotion: Walk Anticipated Mode of Locomotion: Walk Gait (FIM): 1 Distance: 40' Gait Level of Assist: 5 Gait Persons Needed: 1 Gait Assistive Device: None Comments/Gait Description Slow, steady ambulation but gets SOB with going just 40'. Balance Sitting Static: Normal Sitting Dynamic: Normal Standing Static: Good Standing Dynamic: Good Treatment Supine exercises x15 (AP, HS) Assessment/Needs Patient has impaired mobility, strength, endurance. She has safe transfers and ambulation in the room but gets SOB with activity. Patient encouraged to ambulate in her room several times a day and perform LE ex to help prevent DVT' s and improve LE strength. Rehab Potential: Fair PT Short Term Goals Short Term Goals Time Frame: December 02, 2018 Transfers (B,C,W/C) (FIM): 7 Gait (FIM): 7 Gait Distance Comment: 150' Gait Assistive Device: None PT Plan Problem List Problem List: Activity Tolerance, Functional Strength, Safety, Balance, Gait, Transfer Treatment/Plan Treatment Plan: Continue Plan of Care Treatment Plan: Bed Mobility, Education, Functional Activity Alberto, Functional Strength, Gait, Safety, Therapeutic Exercise, Transfers Treatment Duration: December 02, 2018 Frequency: 6 times per week Estimated Hrs Per Day: .25 hour per day (15-30') Patient and/or Family Agrees t: Yes Safety Risks/Education Patient Education: Gait Training, Transfer Techniques, Correct Positioning, Safety Issues Teaching Recipient: Patient Teaching Methods: Demonstration, Discussion Response to Teaching: Reinforcement Needed Discharge Recommendations Plan Patient will perform bed mobility and transfer training, balance and endurance training, functional strengthening, stair training, gait training, and education , to improve functional mobility and independence at home. Therapy D/C Recommendations: Home w/ Family Support Time/GCodes Time In: 1433 Time Out: 1446 Total Billed Treatment Time: 13 Total Billed Treatment 1 visit JJ 13' JUANA PEREZ PT November 25, 2018 14:56
[2018-11-25 16:59] VITALS: BP 110/67
[2018-11-26 00:30] VITALS: BP 125/75
[2018-11-26] MEDS: PIPERACILLIN/TAZOBACTAM (BULK) 4.5 GM in NS (IVPB) 100 ML IV SCH (05:57)
[2018-11-26] MEDS: LEVOTHYROXINE 88 MCG (LEVOTHORID) TAB PO SCH (05:58)
[2018-11-26] MEDS: RT-ALBUTEROL SULF 2.5 MG/3 ML PRE-MIX VIAL INH SCH ×3 (07:39→12:17)
[2018-11-26] MEDS: DOCUSATE SODIUM 100 MG (COLACE) CAP PO SCH (07:58)
[2018-11-26 08:00] VITALS: BP 113/69
[2018-11-26] MEDS: PANTOPRAZOLE 40 MG (PROTONIX) TAB PO SCH (09:31)
[2018-11-26] MEDS: BENZONATATE 100 MG (TESSALON) CAPSULE PO SCH (09:31)
[2018-11-26] MEDS: AZITHROMYCIN 250 MG TAB (ZITHROMAX) PO SCH (09:31)
[2018-11-26] MEDS: methylPREDNISolone 125 MG (Solu-MEDROL) VIAL IVP SCH (09:33)
[2018-11-26] MEDS: OSELTAMIVIR 75 MG (TAMIFLU) CAPSULE PO SCH (10:09)
[2018-11-26] MEDS: ENOXAPARIN 40 MG/0.4 ML (LOVENOX) SYR SC SCH (11:58)
--- NOTE | 2018-11-26 12:03 | Physical Therapy Progress Note ---
Therapy Progress Note Pt had just returned to bed from walking around her room. Her indicated that she had already done her exercises for the day. Pt is getting up every hour and walking around her room for exercise. Formal treatment withheld due to prior activity. DEVONTE FRANCO PT November 26, 2018 12:03
[2018-11-26] MEDS ORDERED: PRED10TA22 BC (12:21)
[2018-11-26] MEDS ORDERED: PRD10T BC (12:21)
--- NOTE | 2018-11-26 12:24 | Discharge Inst-Simple/Standard ---
Discharge Inst-Standard Discharge Medications New, Converted or Re-Newed RX: Transmitted to Pharmacy Patient Instructions/Follow Up Plan of Care/Instructions/FU: Prednisone 20 mg po in morning with food for 2 days, then 10 mg in morning with food for 4 days. F/u at cancer center on 12/08/2018 as scheduled. Activity as Tolerated: Yes Discharge Diet: No Restrictions Return to The Hospital For: Fever, SOB. KIMBERLY CARABALLO November 26, 2018 12:24
--- NOTE | 2018-11-26 19:27 | DISCHARGE SUMMARY ---
DATE OF SERVICE: FINAL DIAGNOSES: 1. Influenza B infection. 2. Metastatic nonsmall cell lung cancer, adenocarcinoma subtype. 3. Significant weakness and deconditioning. 4. Hypokalemia and hypomagnesemia. HOSPITAL COURSE: The patient is a 58-year-old female with a history of metastatic nonsmall cell lung cancer diagnosed two years ago and has been on various treatments. Most recently, she is on treatment with Opdivo. She presented to the [facility] [place] [facility] on 11/21/2018 with extreme weakness and poor oral intake for a few days. She also had a temperature more than 101 degrees Fahrenheit at the time of presentation. Pancultures as well as a nasal swab was obtained. The nasal swab was positive for influenza B. Because of her significant deconditioning and the possibility of a secondary bacterial infection, it was decided to admit her to the hospital. She was started on Tamiflu as well as a broad spectrum antibiotic with Zosyn. Pancultures were negative with no bacterial agent identified. She continued to have significant cough. The possibility of mycoplasma was entertained with serum titers obtained. Only the IgG was positive but she was empirically started on antibiotic therapy with Zithromax also. In spite of this, she continued to have significant cough. The patient had suffered a small spontaneous pneumothorax a week before her admission to the hospital and a chest x-ray was obtained during the current admission which showed complete resolution of this pneumothorax. As the cultures were negative, it was felt that the cough was related to post-viral tracheobronchitis and she was started on Solu-Medrol. This improved the cough within 24-48 hours. Physical Therapy was consulted who evaluated the patient and made recommendations regarding strengthening exercises. She was able to ambulate with minimal assistance. She continues on oxygen 2 liters by nasal cannula throughout. She also developed significant diarrhea and stool studies were obtained for C. difficile toxin, which was negative. On 11/26/2018, she was felt stable enough to be discharged home with the following instructions and medications: She will continue all her home medications as before. The antibiotics will be discontinued. She will take prednisone 20 mg every morning with food for two additional days and then 10 mg every morning for 4 days. The new prescription was sent to her pharmacy. She was instructed to keep her followup appointment at the [facility] on 12/08/2018. If she is having any new or unusual symptoms prior to followup, she was instructed to contact the [facility] [place] [facility]. Job ID: [id number] DocumentID: [id number] Dictated Date: 11/26/2018 12:33:51 [employer] Farm Laborer Date: 11/26/2018 19:27:09 Dictated By: KIMBERLY CARABALLO MD
== END 2018-11-26 13:21 | disposition home or self-care (01) | DRG 194 ==
LOC: UNDOADMOB 10:38 → 4TH 10:38 → EDSTATUS 11:47 → UNDODISOB 11-26 13:21
PROVIDERS: ADMIT Internal Medicine Hematology & Oncology; ATTEND Internal Medicine Hematology & Oncology
DX: J10.1 Influenza due to other identified influenza virus with other respiratory manifestations (principal); J40 Bronchitis, not specified as acute or chronic; C34.92 Malignant neoplasm of unspecified part of left bronchus or lung; C79.9 Secondary malignant neoplasm of unspecified site; E87.6 Hypokalemia; E83.42 Hypomagnesemia; R19.7 Diarrhea, unspecified; N18.3 Chronic kidney disease, stage 3 (moderate); E03.9 Hypothyroidism, unspecified; I45.4 Nonspecific intraventricular block; Z86.711 Personal history of pulmonary embolism
CPT/HCPCS: 36415; 71045; 71046; 80048; 80053; 83735; 85007; 85025; 85027; 86738; 86850; 86900; 86901; 86920; 87324; 87449; 94640; 94760

== ENCOUNTER → 2019-01-05 | Outpatient (CLI) | payer BC ==
[~2019-01-05] MED LIST changes: +CURCUMIN PO; +CYAN100015 SL; +FURO40TA4 PO; +POTA20TA15 PO; +PRD10T BC; +PRED10TA22 BC; +RT-ALBUINH IH
== END ==
LOC: RAD 13:12
PROVIDERS: ATTEND Nurse Practitioner Adult Health
DX: C34.92 Malignant neoplasm of unspecified part of left bronchus or lung (principal); C77.1 Secondary and unspecified malignant neoplasm of intrathoracic lymph nodes; Z95.828 Presence of other vascular implants and grafts

== ENCOUNTER → 2019-01-05 | Outpatient (CLI) | payer BC ==
--- NOTE | 2019-01-05 15:37 | Diagnostic Imaging Report ---
PA and lateral chest at 1:23. Indication: Lung cancer As noted on the prior exam of 12/08/2018, the left midlung and left lung base are opacified by atelectasis/infiltrate and fluid. The alveolar/interstitial infiltrate involving the left upper lung seen previously is again evident and not significantly changed. There is also fluid extending over the left apex. This finding is stable as well. The small right pleural effusion is no different than noted on the previous study. The right lung is generally clear. The heart is obscured but appears stable. The mediastinum is not widened. The osseous structures are intact. The right-sided Port-A-Cath is unchanged in position. Impression: Stable chest. There has been no significant change since the prior exam. Dictated by: Dictated on workstation # [id number]
== END ==
LOC: RAD 09:16
PROVIDERS: ATTEND Nurse Practitioner Adult Health
DX: C34.92 Malignant neoplasm of unspecified part of left bronchus or lung (principal); C77.1 Secondary and unspecified malignant neoplasm of intrathoracic lymph nodes
CPT/HCPCS: 71046

== ENCOUNTER 2019-01-06 09:50 | Outpatient (RCR) | payer BC ==
[2018-11-03 09:33] LABS: BASOPHILS % (AUTO) 0 % (0-10); EOSINOPHILS % (AUTO) 0 % (0-10); HEMATOCRIT 33 % (35-52); HEMOGLOBIN 10.3 G/DL (11.5-16.0); LYMPHOCYTES # (AUTO) 0.4 X 10^3 (1.0-4.0); LYMPHOCYTES % (AUTO) 17 % (12-44); MEAN CORPUSCULAR HEMOGLOBIN 31 PG (25-34); MEAN CORPUSCULAR HGB CONC 32 G/DL (32-36); MEAN CORPUSCULAR VOLUME 97 FL (80-99); MEAN PLATELET VOLUME 9.1 FL (7.4-10.4); MONOCYTES # (AUTO) 0.3 X 10^3 (0.0-1.0); MONOCYTES % (AUTO) 13 % (0-12); NEUTROPHILS # (AUTO) 1.7 X 10^3 (1.8-7.8); NEUTROPHILS % (AUTO) 70 % (42-75); PLATELET COUNT 352 10^3/uL (130-400); RED CELL DISTRIBUTION WIDTH 14.1 % (10.0-14.5); WHITE BLOOD COUNT 2.5 10^3/uL (4.3-11.0)
[2018-11-03 09:51] LABS: ALBUMIN 3.2 GM/DL (3.2-4.5); BILIRUBIN,TOTAL 0.5 MG/DL (0.1-1.0); CALCIUM 9.8 MG/DL (8.5-10.1); CREATININE SERUM 1.08 MG/DL (0.60-1.30); POTASSIUM 4.2 MMOL/L (3.6-5.0); TOTAL PROTEIN 7.4 GM/DL (6.4-8.2)
--- NOTE | 2018-11-10 17:31 | Diagnostic Imaging Report ---
INDICATION: Adenocarcinoma of the left lung. TIME OF EXAM: 10:31 AM CORRELATION is made with prior chest from 01/10/2018. FINDINGS: Right chest wall port has tip overlying the SVC right atrial junction. Left basilar consolidation and pleural fluid is similar to prior exam. There is a small right effusion. There are some slightly nodular densities in the left upper lobe on today's study. The right lung is fairly clear. There is a left apical pneumothorax which is new on today's study. This measures approximately 2.5 cm in thickness at the left apex is likely less than 10%. No other normalities are seen. Impression: 1. Development of small left apical pneumothorax, less than 10%. 2. Continued left-sided parenchymal consolidation and pleural fluid with small right effusion. Dr. Ray was notified of these results prior to this dictation. Dictated by: Dictated on workstation # [id number]
--- NOTE | 2018-11-14 14:01 | Diagnostic Imaging Report ---
INDICATION: Pneumothorax, left lung carcinoma. PA and lateral chest obtained at 11:57 a.m. and compared with 11/10/2018. FINDINGS: There is cardiomegaly. There are nodular densities over the left upper lobe. There is a left pleural effusion which appears unchanged. There is a minimal right pleural effusion. Right-sided Port-A-Cath is unchanged. The left apical pneumothorax appears stable and unchanged compared to the prior study. The distance between the superior chest wall and top of the lung is about 2.5 cm which is unchanged from the prior study. IMPRESSION: Unchanged left apical pneumothorax. Bilateral pleural effusions remain present, moderate on the left side and minimal on the right side. Left basilar infiltrate and nodular densities overlying left lung are stable. Dictated by: Dictated on workstation # [id number]
[2018-11-21 09:37] LABS: BASOPHILS % (AUTO) 0 % (0-10); EOSINOPHILS % (AUTO) 0 % (0-10); HEMATOCRIT 27 % (35-52); HEMOGLOBIN 8.4 G/DL (11.5-16.0); LYMPHOCYTES # (AUTO) 0.4 X 10^3 (1.0-4.0); LYMPHOCYTES % (AUTO) 3 % (12-44); MEAN CORPUSCULAR HEMOGLOBIN 30 PG (25-34); MEAN CORPUSCULAR HGB CONC 31 G/DL (32-36); MEAN CORPUSCULAR VOLUME 95 FL (80-99); MEAN PLATELET VOLUME 8.7 FL (7.4-10.4); MONOCYTES # (AUTO) 0.7 X 10^3 (0.0-1.0); MONOCYTES % (AUTO) 5 % (0-12); NEUTROPHILS # (AUTO) 13.2 X 10^3 (1.8-7.8); NEUTROPHILS % (AUTO) 92 % (42-75); PLATELET COUNT 348 10^3/uL (130-400); RED CELL DISTRIBUTION WIDTH 13.9 % (10.0-14.5); WHITE BLOOD COUNT 14.3 10^3/uL (4.3-11.0)
[2018-11-21 09:43] LABS: CLARITY,URINE CLEAR; COLOR,URINE YELLOW; GLUCOSE, URINE (UA) NEGATIVE (NEGATIVE); KETONES,URINE NEGATIVE (NEGATIVE); LEUKOCYTE ESTERASE ,URINE 1+ (NEGATIVE); NITRITE,URINE NEGATIVE (NEGATIVE); PH,URINE 7 (5-9); PROTEIN,URINE 2+ (NEGATIVE); UROBILINOGEN,URINE 8 MG/DL (NORMAL)
[2018-11-21 10:06] LABS: BACTERIA,URINE FEW /HPF; BILIRUBIN,URINE 1+ (NEGATIVE); RBC,URINE 0-2 /HPF
[2018-11-21 10:11] LABS: BILIRUBIN,TOTAL 1.2 MG/DL (0.1-1.0); CALCIUM 9.6 MG/DL (8.5-10.1); CREATININE SERUM 1.07 MG/DL (0.60-1.30); POTASSIUM 3.7 MMOL/L (3.6-5.0); TOTAL PROTEIN 7.4 GM/DL (6.4-8.2)
[2018-12-08 10:00] LABS: BASOPHILS % (AUTO) 0 % (0-10); EOSINOPHILS % (AUTO) 0 % (0-10); HEMATOCRIT 27 % (35-52); HEMOGLOBIN 8.6 G/DL (11.5-16.0); LYMPHOCYTES # (AUTO) 0.4 X 10^3 (1.0-4.0); LYMPHOCYTES % (AUTO) 7 % (12-44); MEAN CORPUSCULAR HEMOGLOBIN 30 PG (25-34); MEAN CORPUSCULAR HGB CONC 32 G/DL (32-36); MEAN CORPUSCULAR VOLUME 93 FL (80-99); MEAN PLATELET VOLUME 8.9 FL (7.4-10.4); MONOCYTES # (AUTO) 0.6 X 10^3 (0.0-1.0); MONOCYTES % (AUTO) 12 % (0-12); NEUTROPHILS % (AUTO) 81 % (42-75); PLATELET COUNT 425 10^3/uL (130-400); RED CELL DISTRIBUTION WIDTH 14.9 % (10.0-14.5)
[2018-12-08 10:19] LABS: ALBUMIN 3.3 GM/DL (3.2-4.5); BILIRUBIN,TOTAL 0.6 MG/DL (0.1-1.0); CREATININE SERUM 0.95 MG/DL (0.60-1.30); POTASSIUM 3.9 MMOL/L (3.6-5.0); TOTAL PROTEIN 7.9 GM/DL (6.4-8.2)
--- NOTE | 2018-12-08 15:05 | Diagnostic Imaging Report ---
Indication: Adenocarcinoma of the left lung. Time of Exam: 9:38 AM Correlation is made with prior study from 11/25/2018. Right chest wall port has tip overlying the SVC. Left-sided infiltrate and moderate left effusion are unchanged. There is a small right effusion. No pneumothorax is seen. Impression: Overall similar appearance to the chest when compared to the exam from 11/25/2018. Dictated by: Dictated on workstation # [id number]
[2019-01-05 13:39] LABS: BASOPHILS % (AUTO) 0 % (0-10); EOSINOPHILS % (AUTO) 0 % (0-10); HEMATOCRIT 25 % (35-52); HEMOGLOBIN 7.5 G/DL (11.5-16.0); LYMPHOCYTES # (AUTO) 0.3 X 10^3 (1.0-4.0); LYMPHOCYTES % (AUTO) 8 % (12-44); MEAN CORPUSCULAR HEMOGLOBIN 28 PG (25-34); MEAN CORPUSCULAR HGB CONC 31 G/DL (32-36); MEAN CORPUSCULAR VOLUME 91 FL (80-99); MEAN PLATELET VOLUME 8.4 FL (7.4-10.4); MONOCYTES # (AUTO) 0.3 X 10^3 (0.0-1.0); MONOCYTES % (AUTO) 9 % (0-12); NEUTROPHILS # (AUTO) 2.9 X 10^3 (1.8-7.8); NEUTROPHILS % (AUTO) 83 % (42-75); PLATELET COUNT 392 10^3/uL (130-400); RED CELL DISTRIBUTION WIDTH 16.2 % (10.0-14.5); WHITE BLOOD COUNT 3.4 10^3/uL (4.3-11.0)
[2019-01-05 13:57] LABS: ALBUMIN 3.3 GM/DL (3.2-4.5); BILIRUBIN,TOTAL 0.4 MG/DL (0.1-1.0); CALCIUM 9.2 MG/DL (8.5-10.1); CREATININE SERUM 1.05 MG/DL (0.60-1.30); TOTAL PROTEIN 7.5 GM/DL (6.4-8.2)
[~2019-01-06] VITALS: Ht 172.7 cm; Wt 71.7 kg
[~2019-01-06 09:50] MED LIST changes: +NIVOLUMAB 480 MG in NS (IVPB) CANCER CENTER 100 ML IV SCH; +NS (IVPB) CANCER CENTER 250 ML IV SCH; +NS IV 500 ML (CANCER CENTER) IV SCH
== END 2019-02-01 | disposition home or self-care (01) ==
LOC: ONC 09:50
PROVIDERS: ATTEND Internal Medicine Hematology & Oncology
DX: C34.32 Malignant neoplasm of lower lobe, left bronchus or lung (principal); C77.1 Secondary and unspecified malignant neoplasm of intrathoracic lymph nodes; D64.9 Anemia, unspecified; E03.9 Hypothyroidism, unspecified; Z98.84 Bariatric surgery status; Z79.899 Other long term (current) drug therapy; Z45.2 Encounter for adjustment and management of vascular access device
CPT/HCPCS: 36415; 36430; 36591; 71046; 80053; 81000; 83605; 84443; 85025; 86850; 86900; 86901; 86920; 87040; 87088; 87804; 96413

== ENCOUNTER → 2019-01-24 | Outpatient (CLI) | payer BC ==
[~2019-01-24] MED LIST changes: +CATHETER FLUSH 10 ML SYR IV PRN; +GADOBUTROL 7.5 MMOL/7.5 ML (GADAVIST) VIAL IV ONE; +HOLD METFORMIN - RECEIVED CONTRAST 20 ML VIAL IV SCH; +IOHEXOL 350 MG/ML 100 ML (OMNIPAQUE 350) VIAL IV ONE; -NIVOLUMAB 480 MG in NS (IVPB) CANCER CENTER 100 ML IV SCH; -NS (IVPB) CANCER CENTER 250 ML IV SCH; +NS 100 ML (IVPB) BAG IV ONE; -NS IV 500 ML (CANCER CENTER) IV SCH
--- NOTE | 2019-01-24 13:40 | Diagnostic Imaging Report ---
PROCEDURE: CT chest, abdomen, and pelvis with contrast. TECHNIQUE: Multiple contiguous axial images were obtained through the chest, abdomen, and pelvis after the administration of intravenous contrast. Auto Exposure Controls were utilized during the CT exam to meet ALARA standards for radiation dose reduction. INDICATION: Adenocarcinoma of the left lung. Study is performed for restaging. COMPARISON: Comparison is made with outside CT from [facility] performed on 10/09/2018. A conventional CT of the abdomen and pelvis was submitted, however, no conventional CT chest was submitted. Only CT axial MIP reconstructions were submitted. CT CHEST: Right chest wall port has its tip at the SVC right atrial junction. No definite axillary lymphadenopathy is seen. Lymph node in the precarinal location measures 19 mm x 14 mm. This was not definitely seen on prior exam. Right hilum is unremarkable. There is a small right pleural effusion which appears to be smaller when compared with prior CT. Large loculated left-sided effusion persists and is similar to perhaps slightly smaller on today's study. Significant consolidation/mass in the left lung is noted where there is near complete opacification of the left hemithorax. Only a small amount of aerated lung in the left upper lobe is seen. There are numerous nodular densities throughout the visualized aerated left lung which may represent metastatic nodules. Numerous nodules throughout the right lung are also present. These involve the right upper lobe as well as the right lower lobe, most numerous in the right lower lobe. These are all less than [address] ABDOMEN AND PELVIS: No discrete liver mass is seen. Gallbladder is surgically absent. No biliary duct dilatation is seen. The pancreas and spleen are unremarkable. No adrenal mass is seen. Kidneys appear stable. 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 Aorta is non-aneurysmal. There is a filter in the IVC. No central retroperitoneal or mesenteric lymphadenopathy is seen. Small and large bowel loops are normal in caliber. There is no ascites. Calcified mass in the uterus is seen consistent with a fibroid. Bladder is unremarkable. No definite pelvic lymphadenopathy is seen. Bony structures are nonacute. IMPRESSION: 1. Small right and large left pleural effusion. Pleural fluid on the right appears to be improved since the outside CT. Pleural fluid on the left is largely loculated. There is near complete opacification of the left hemithorax with only a small amount of aeration in the left upper lobe, similar to prior CT. There are numerous bilateral pulmonary nodules consistent with metastatic disease. Enlarged mediastinal lymph node is present which is likely metastatic. 2. No evidence of metastatic disease in the abdomen or pelvis. Dictated by: Dictated on workstation # [id number]
--- NOTE | 2019-01-24 14:03 | Diagnostic Imaging Report ---
PROCEDURE: MR imaging of the brain with and without contrast. TECHNIQUE: Multiplanar, multisequence MR imaging of the brain was performed with and without contrast. INDICATION: Lung cancer. Patient complains of dizziness. COMPARISON: Comparison is made with outside MRI of the brain from [facility] on 11/04/2016. FINDINGS: The ventricles and sulci are within normal limits. No sulcal effacement or midline shift is seen. No acute intra-axial or extra-axial hemorrhage is detected. No diffusion restriction is seen. The normal expected flow voids in the carotid siphons are seen. Postcontrast images demonstrate a small area of enhancement in the right cerebellar hemisphere. This measures approximately 3 mm in size. This is very similar to the MRI from 2017. This has the appearance of a developmental venous abnormality such as venous angioma. There is however an enhancing lesion in the right cerebral hemisphere measuring approximately 4 mm in size in the right centrum semiovale. This was not present on prior MRI. This has some slight ring enhancement and is suspicious for a new metastatic lesion. No perilesional edema is present. No other regions of abnormal enhancement are seen. There is an area of minimal FLAIR signal in the left cerebellar hemisphere which was not present on prior exam but this does not show enhancement on postcontrast imaging. IMPRESSION: 4 mm ring-enhancing lesion in the right centrum semiovale, new since outside study from 2017 and suspicious for a metastatic lesion. Dictated by: Dictated on workstation # [id number]
--- NOTE | 2019-01-24 16:31 | Diagnostic Imaging Report ---
INDICATION: Lung carcinoma. Patient does complain of anterior chest wall pain. TECHNIQUE: The patient was administered 25.8 mCi of technetium-99m MDP intravenously and whole body imaging was performed after a three-hour delay. COMPARISON: No prior bone scan is available for comparison. FINDINGS: There is normal uptake of activity by the axial and appendicular skeleton. There is uptake by the kidneys with excretion into the urinary bladder. There is a very small solitary focus of uptake in the anterior right chest in the region of the anterior right fourth rib. This is indeterminate. No underlying abnormality at this location on CT study performed the same day is identified. No other suspicious foci are identified. IMPRESSION: Solitary focus of uptake in anterior right chest at the level of the anterior fourth rib. A solitary metastasis cannot be excluded. No other significant abnormality is seen. Dictated by: Dictated on workstation # [id number]
== END ==
LOC: CARD 11:41
PROVIDERS: ATTEND Nurse Practitioner Adult Health
DX: Z01.89 Encounter for other specified special examinations (principal); C34.32 Malignant neoplasm of lower lobe, left bronchus or lung; C77.1 Secondary and unspecified malignant neoplasm of intrathoracic lymph nodes; G93.89 Other specified disorders of brain
CPT/HCPCS: 70553; 71260; 74177; 78306

== ENCOUNTER 2019-02-02 15:45 | Outpatient (CLI) | payer BC ==
[~2019-02-02] VITALS: Ht 172.7 cm; Wt 70.3 kg
[~2019-02-02 15:45] MED LIST changes: -CATHETER FLUSH 10 ML SYR IV PRN; -GADOBUTROL 7.5 MMOL/7.5 ML (GADAVIST) VIAL IV ONE; -HOLD METFORMIN - RECEIVED CONTRAST 20 ML VIAL IV SCH; -IOHEXOL 350 MG/ML 100 ML (OMNIPAQUE 350) VIAL IV ONE; -NS 100 ML (IVPB) BAG IV ONE
[2019-02-02 15:50] VITALS: BP 111/66
[2019-02-02 16:28] VITALS: BP 94/61
--- NOTE | 2019-02-02 16:30 | NUR ---
PROCEDURE ENDED AT 1625, XRAY AT BEDSIDE AT 1630. PT TOLERATED WELL
[2019-02-02 17:10] VITALS: BP 103/66
--- NOTE | 2019-02-02 17:17 | Diagnostic Imaging Report ---
INDICATION: Pleural effusion. FINDINGS: Ultrasound guidance was provided for Dr. Najera during right thoracentesis. IMPRESSION: Ultrasound guidance for thoracentesis, as described. Dictated by: Dictated on workstation # [id number]
--- NOTE | 2019-02-02 17:18 | Diagnostic Imaging Report ---
INDICATION: Pleural effusion. EXAMINATION: Upright portable AP view of the chest was obtained. FINDINGS: Since 01/05/2019, there has been reduction in blunting of the right costophrenic sulcus. No pneumothorax is identified. There is near complete opacification of the left hemithorax indicating pleural fluid and associated pulmonary infiltrate. IMPRESSION: 1. No significant residual right pneumothorax or evidence of complication related to right thoracentesis. 2. There is near complete opacification of the left hemithorax. Dictated by: Dictated on workstation # [id number]
--- NOTE | 2019-02-02 17:20 | NUR ---
CALLED DR. GARZA AND READ XRAY REPORT, HE STATED PT CAN GO HOME NOW
--- NOTE | 2019-02-03 02:37 | OPERATIVE REPORT ---
DATE OF SERVICE: 02/02/2019 PREOPERATIVE DIAGNOSIS: Bilateral pleural effusions. POSTOPERATIVE DIAGNOSIS: Bilateral pleural effusions. PROCEDURE: Ultrasound-guided right thoracentesis. SURGEON: Shruthi Najera DO ANESTHESIA: A 1% lidocaine. ESTIMATED BLOOD LOSS: Minimal. COMPLICATIONS: None. INDICATIONS: The patient is a 58-year-old female, who has bilateral pleural effusions. The patient understands risks and benefits of procedure and wished to proceed with procedure. Consent was signed in the chart. DESCRIPTION OF PROCEDURE: The patient was sitting upright in the leaning-forward position over a table. Ultrasound was used to isolate the largest pocket for visualization with the ultrasound. Once the pocket was located, the area was prepped and draped in sterile fashion. Local anesthetic was infiltrated in the area and 11 blade scalpel was used to make a skin incision and the safety thoracentesis needle was advanced with the catheter. Once straw-colored fluid was withdrawn, the catheter was then advanced and a total of 500 mL of straw-colored fluid was withdrawn. Once removed, the catheter was then withdrawn and sterile bandage was applied. The patient tolerated procedure well without any complications. Chest x-ray pending for dismissal. Job ID: [id number] DocumentID: [id number] Dictated Date: 02/02/2019 17:04:18 Rug Cleaning Supervisor Date: 02/03/2019 02:37:46 Dictated By: SHRUTHI NAJERA DO
== END 2019-02-02 17:28 | disposition home or self-care (01) ==
LOC: RAD 15:45
PROVIDERS: ATTEND Surgery
DX: J90 Pleural effusion, not elsewhere classified (principal)
CPT/HCPCS: 32554; 32555; 71045

== ENCOUNTER → 2019-03-23 | Outpatient (CLI) | payer BC ==
[~2019-03-23] VITALS: Ht 172.7 cm; Wt 67.1 kg
[~2019-03-23] MED LIST changes: -BISA10SU6 RC; +BISA10SU8 RC
--- NOTE | 2019-03-23 16:13 | Diagnostic Imaging Report ---
INDICATION: Post thoracentesis. EXAMINATION: Frontal chest was obtained at 4:06 p.m. COMPARISON: 03/22/2019. FINDINGS: Complete opacification of the left hemithorax is again noted. Port-A-Cath is unchanged. There is no pneumothorax. Small right pleural effusion has resolved compared to the prior study. There is some patchy infiltrate in the right perihilar region and base. IMPRESSION: No pneumothorax following right thoracentesis. There is some patchy infiltrate in the right perihilar region and base. Complete opacification of the left hemithorax is again noted. Dictated by: Dictated on workstation # [id number]
--- NOTE | 2019-03-23 17:52 | Diagnostic Imaging Report ---
INDICATION: Lung cancer and pleural effusion. EXAMINATION: Sonographic guidance was provided for Dr. Najera for thoracentesis. FINDINGS: Images demonstrate a markedly septated pleural effusion in the left chest. Approximately 1100 mL of fluid was drained. IMPRESSION: Sonographic guidance for left-sided thoracentesis for Dr. Najera. Dictated by: Dictated on workstation # [id number]
--- NOTE | 2019-03-23 20:54 | OPERATIVE REPORT ---
DATE OF SERVICE: 03/23/2019 PREOPERATIVE DIAGNOSIS: Right symptomatic pleural effusion. POSTOPERATIVE DIAGNOSIS: Symptomatic pleural effusion. PROCEDURE: Right ultrasound-guided thoracentesis. SURGEON: Shruthi Najera DO ANESTHESIA: 1% lidocaine 4 mL. ESTIMATED BLOOD LOSS: Minimal. COMPLICATIONS: None. INDICATIONS: The patient is a 58-year-old female with symptomatic right pleural effusion. She understands risks and benefits of thoracentesis. She has had several before. She wishes to proceed. Consent was signed in the chart. DESCRIPTION OF PROCEDURE: The patient was taken to the procedure room. She was prepped and draped in sterile fashion. The ultrasound was used to isolate the area of the largest pocket and best accessed to the pleural fluid. Local anesthetic was infiltrated in this area. A #11 blade scalpel was used to make a small stab incision and the Hkic-R-Eiafppsc needle and catheter were advanced until straw colored fluid was returned. The catheter was then advanced and the needle was removed. A total of 1100 mL of straw colored fluid was drawn off and the catheter was then removed and sterile bandage was applied. The patient tolerated the procedure well without any complications. She has a chest x-ray pending. Job ID: [id number] DocumentID: [id number] Dictated Date: 03/23/2019 16:34:25 [employer] Sales Consultant Date: 03/23/2019 20:53:16 Dictated By: SHRUTHI NAJERA DO
== END ==
LOC: RAD 14:52
PROVIDERS: ATTEND Nurse Practitioner Adult Health
DX: C34.92 Malignant neoplasm of unspecified part of left bronchus or lung (principal); J90 Pleural effusion, not elsewhere classified; Z95.828 Presence of other vascular implants and grafts; Z98.890 Other specified postprocedural states
CPT/HCPCS: 32555; 71045

== ENCOUNTER → 2019-04-19 | Outpatient (CLI) | payer BC ==
[~2019-04-19] VITALS: Ht 172.7 cm; Wt 64.5 kg
[~2019-04-19] MED LIST changes: +LIDOCAINE 1% INJ 20 ML 20 ML VIAL INJ ONE; +LIDOCAINE 1% INJ 20 ML 20 ML VIAL ONE
--- NOTE | 2019-04-19 15:52 | Diagnostic Imaging Report ---
INDICATION: Lung cancer EXAMINATION: Right-sided thoracentesis. FINDINGS: The chest exam performed on 04/18/2019 at the left lung was opacified by atelectasis/infiltrate and fluid. There also appeared to be a small to moderate right pleural effusion. The ultrasound examination of the right thorax revealed a collection of fluid in the right lung base. The skin over the fluid collection was marked. Following aseptic preparation of the skin and administration of local anesthesia, thoracentesis was performed by Dr. Aubrey Najera. Approximately 1 L of fluid was removed. The patient tolerated the procedure well. IMPRESSION: There has been a successful ultrasound guided right thoracentesis. Dictated by: Dictated on workstation # [id number]
--- NOTE | 2019-04-19 15:59 | Diagnostic Imaging Report ---
EXAMINATION: Portable erect AP chest at 3:39 p.m. INDICATION: post thoracentesis. FINDINGS: The chest exam performed on 04/18/2019 noted a dnrdp-xm-ckcghogw right pleural effusion. In the interval since the prior examination, the patient has undergone thoracentesis on the right. The right lung base does seem much better aerated. There is only minimal residual fluid still present. There is no sign of pneumothorax on the right. As noted on the prior study, there is near-complete opacification of the left hemithorax by atelectasis/infiltrate and fluid. The heart is obscured. The mediastinum does not seem widened C. The osseous structures are intact. The right-sided Port-A-Cath is unchanged in position. IMPRESSION: 1. The appearance of the chest has improved following the thoracentesis on the right as the right lung base does seem better aerated. There is only minimal residual fluid still present. 2. There is no sign of pneumothorax. 3. There is persistent near-complete opacification of the left thorax by atelectasis/infiltrate and fluid. Dictated by: Dictated on workstation # [id number]
--- NOTE | 2019-04-19 20:55 | OPERATIVE REPORT ---
DATE OF SERVICE: 04/19/2019 PREOPERATIVE DIAGNOSIS: Right pleural effusion. POSTOPERATIVE DIAGNOSIS: Right pleural effusion. PROCEDURE: Right ultrasound-guided thoracentesis. SURGEON: Shruthi Najera DO ANESTHESIA: 1% lidocaine 3 mL. ESTIMATED BLOOD LOSS: Minimal. COMPLICATIONS: None. INDICATIONS: The patient is a 58-year-old female with recurrent right pleural effusion. She understands risks and benefits of procedure and wished to proceed with procedure. She has been having increasing shortness of breath and wishes to proceed. Consent was signed in the chart. DESCRIPTION OF PROCEDURE: The patient was prepped and draped in sterile fashion. Ultrasound was used to isolate the largest pocket for insertion of the thoracentesis catheter. A local anesthetic was infiltrated. A 11 blade scalpel was used to make a skin incision. The Smyy-Z-Ucfcbkzp needle and catheter were inserted until straw colored fluid was withdrawn and the catheter was then advanced. A total of 1000 mL was removed and the catheter was removed. The patient began having improved breathing. The catheter was removed and sterile bandage was applied. The patient tolerated the procedure well without any complications. Chest x-ray is pending. Job ID: [id number] DocumentID: [id number] Dictated Date: 04/19/2019 16:34:05 Sack Filler Date: 04/19/2019 20:55:04 Dictated By: SHRUTHI NAJERA DO
== END ==
LOC: RAD 14:34
PROVIDERS: ATTEND Surgery
DX: C34.90 Malignant neoplasm of unspecified part of unspecified bronchus or lung (principal); J90 Pleural effusion, not elsewhere classified
CPT/HCPCS: 32555; 71045

== ENCOUNTER 2019-04-21 11:00 | Outpatient (RCR) | payer BC ==
[2019-02-20 11:06] LABS: BASOPHILS % (AUTO) 0 % (0-10); EOSINOPHILS % (AUTO) 0 % (0-10); HEMATOCRIT 24 % (35-52); LYMPHOCYTES # (AUTO) 0.2 X 10^3 (1.0-4.0); LYMPHOCYTES % (AUTO) 4 % (12-44); MEAN CORPUSCULAR HEMOGLOBIN 27 PG (25-34); MEAN CORPUSCULAR HGB CONC 29 G/DL (32-36); MEAN CORPUSCULAR VOLUME 94 FL (80-99); MEAN PLATELET VOLUME 8.2 FL (7.4-10.4); MONOCYTES # (AUTO) 0.4 X 10^3 (0.0-1.0); MONOCYTES % (AUTO) 7 % (0-12); NEUTROPHILS # (AUTO) 4.8 X 10^3 (1.8-7.8); NEUTROPHILS % (AUTO) 89 % (42-75); PLATELET COUNT 433 10^3/uL (130-400); RED CELL DISTRIBUTION WIDTH 18.2 % (10.0-14.5); WHITE BLOOD COUNT 5.4 10^3/uL (4.3-11.0)
[2019-02-20 11:30] LABS: ALANINE AMINOTRANSFERASE < 6 U/L (0-55); ALBUMIN 3.1 GM/DL (3.2-4.5); ALKALINE PHOSPHATASE 58 U/L (40-136); BILIRUBIN,TOTAL 0.4 MG/DL (0.1-1.0); BUN/CREATININE RATIO 20; CALCIUM 9.7 MG/DL (8.5-10.1); CARBON DIOXIDE 25 MMOL/L (21-32); CHLORIDE 99 MMOL/L (98-107); CREATININE SERUM 1.03 MG/DL (0.60-1.30); GFR ESTIMATED 55; GLUCOSE 96 MG/DL (70-105); POTASSIUM 4.7 MMOL/L (3.6-5.0); SODIUM 136 MMOL/L (135-145)
--- NOTE | 2019-02-22 14:13 | Diagnostic Imaging Report ---
INDICATION: Lung cancer. EXAMINATION: PA and lateral chest. FINDINGS: The right IJ Port-A-Cath tip projects over the SVC. There is a large area of consolidation in the left lower lung. There is a left effusion with some left apical pleural capping. There is a tiny right pleural effusion. IMPRESSION: There is a large area of consolidation in the left lower lung with an effusion. There is also a small right pleural effusion. The changes in the left lung appear similar to the prior exam dated 02/02/2019. Dictated by: Dictated on workstation # [id number]
[2019-02-27 15:43] LABS: BASOPHILS % (AUTO) 0 % (0-10); EOSINOPHILS % (AUTO) 1 % (0-10); HEMATOCRIT 24 % (35-52); HEMOGLOBIN 6.9 G/DL (11.5-16.0); LYMPHOCYTES # (AUTO) 0.3 X 10^3 (1.0-4.0); LYMPHOCYTES % (AUTO) 9 % (12-44); MEAN CORPUSCULAR HEMOGLOBIN 27 PG (25-34); MEAN CORPUSCULAR HGB CONC 29 G/DL (32-36); MEAN CORPUSCULAR VOLUME 93 FL (80-99); MEAN PLATELET VOLUME 8.5 FL (7.4-10.4); MONOCYTES # (AUTO) 0.3 X 10^3 (0.0-1.0); MONOCYTES % (AUTO) 12 % (0-12); NEUTROPHILS # (AUTO) 2.1 X 10^3 (1.8-7.8); NEUTROPHILS % (AUTO) 78 % (42-75); PLATELET COUNT 379 10^3/uL (130-400); RED CELL DISTRIBUTION WIDTH 17.4 % (10.0-14.5); WHITE BLOOD COUNT 2.7 10^3/uL (4.3-11.0)
[2019-02-27 16:04] LABS: ALANINE AMINOTRANSFERASE < 6 U/L (0-55); ALKALINE PHOSPHATASE 63 U/L (40-136); BILIRUBIN,TOTAL 0.3 MG/DL (0.1-1.0); BUN/CREATININE RATIO 21; CALCIUM 8.6 MG/DL (8.5-10.1); CARBON DIOXIDE 26 MMOL/L (21-32); CHLORIDE 101 MMOL/L (98-107); CREATININE SERUM 1.12 MG/DL (0.60-1.30); GFR ESTIMATED 50; GLUCOSE 87 MG/DL (70-105); POTASSIUM 3.5 MMOL/L (3.6-5.0); SODIUM 138 MMOL/L (135-145); TOTAL PROTEIN 6.8 GM/DL (6.4-8.2)
[2019-03-06 14:26] LABS: BASOPHILS % (AUTO) 0 % (0-10); EOSINOPHILS % (AUTO) 0 % (0-10); HEMATOCRIT 31 % (35-52); HEMOGLOBIN 9.6 G/DL (11.5-16.0); LYMPHOCYTES # (AUTO) 0.2 X 10^3 (1.0-4.0); LYMPHOCYTES % (AUTO) 7 % (12-44); MEAN CORPUSCULAR HEMOGLOBIN 29 PG (25-34); MEAN CORPUSCULAR HGB CONC 31 G/DL (32-36); MEAN CORPUSCULAR VOLUME 93 FL (80-99); MEAN PLATELET VOLUME 8.4 FL (7.4-10.4); MONOCYTES # (AUTO) 0.2 X 10^3 (0.0-1.0); MONOCYTES % (AUTO) 8 % (0-12); NEUTROPHILS # (AUTO) 2.3 X 10^3 (1.8-7.8); NEUTROPHILS % (AUTO) 85 % (42-75); PLATELET COUNT 187 10^3/uL (130-400); WHITE BLOOD COUNT 2.7 10^3/uL (4.3-11.0)
[2019-03-06 14:45] LABS: BUN/CREATININE RATIO 22; CALCIUM 9.4 MG/DL (8.5-10.1); CARBON DIOXIDE 24 MMOL/L (21-32); CHLORIDE 102 MMOL/L (98-107); CREATININE SERUM 0.88 MG/DL (0.60-1.30); GFR ESTIMATED > 60; GLUCOSE 159 MG/DL (70-105); POTASSIUM 4.7 MMOL/L (3.6-5.0); SODIUM 136 MMOL/L (135-145)
[2019-03-15 15:10] LABS: BASOPHILS % (AUTO) 0 % (0-10); EOSINOPHILS % (AUTO) 0 % (0-10); HEMATOCRIT 30 % (35-52); HEMOGLOBIN 9.2 G/DL (11.5-16.0); LYMPHOCYTES # (AUTO) 0.3 X 10^3 (1.0-4.0); LYMPHOCYTES % (AUTO) 9 % (12-44); MEAN CORPUSCULAR HEMOGLOBIN 28 PG (25-34); MEAN CORPUSCULAR HGB CONC 31 G/DL (32-36); MEAN CORPUSCULAR VOLUME 93 FL (80-99); MEAN PLATELET VOLUME 9.5 FL (7.4-10.4); MONOCYTES # (AUTO) 0.3 X 10^3 (0.0-1.0); MONOCYTES % (AUTO) 9 % (0-12); NEUTROPHILS # (AUTO) 2.8 X 10^3 (1.8-7.8); NEUTROPHILS % (AUTO) 83 % (42-75); PLATELET COUNT 60 10^3/uL (130-400); RED CELL DISTRIBUTION WIDTH 15.4 % (10.0-14.5); WHITE BLOOD COUNT 3.4 10^3/uL (4.3-11.0)
[2019-03-15 15:26] LABS: BUN/CREATININE RATIO 34; CALCIUM 10.4 MG/DL (8.5-10.1); CARBON DIOXIDE 30 MMOL/L (21-32); CHLORIDE 98 MMOL/L (98-107); CREATININE SERUM 0.86 MG/DL (0.60-1.30); GFR ESTIMATED > 60; GLUCOSE 101 MG/DL (70-105); POTASSIUM 5.5 MMOL/L (3.6-5.0); SODIUM 138 MMOL/L (135-145)
[2019-03-22 11:40] LABS: BASOPHILS % (AUTO) 1 % (0-10); EOSINOPHILS % (AUTO) 2 % (0-10); HEMATOCRIT 27 % (35-52); LYMPHOCYTES # (AUTO) 0.3 X 10^3 (1.0-4.0); LYMPHOCYTES % (AUTO) 13 % (12-44); MEAN CORPUSCULAR HEMOGLOBIN 29 PG (25-34); MEAN CORPUSCULAR HGB CONC 30 G/DL (32-36); MEAN CORPUSCULAR VOLUME 96 FL (80-99); MONOCYTES # (AUTO) 0.6 X 10^3 (0.0-1.0); MONOCYTES % (AUTO) 30 % (0-12); NEUTROPHILS # (AUTO) 1.1 X 10^3 (1.8-7.8); NEUTROPHILS % (AUTO) 55 % (42-75); PLATELET COUNT 671 10^3/uL (130-400); WHITE BLOOD COUNT 2.1 10^3/uL (4.3-11.0)
--- NOTE | 2019-03-22 11:44 | Diagnostic Imaging Report ---
EXAMINATION: PA and lateral chest at 1105 hours. INDICATION: Shortness of breath. FINDINGS: The appearance of the chest has worsened since the prior study of 02/22/2019 as there is now near-complete opacification of the left thorax. There is only minimal residual aerated lung still present in the left upper lobe. The small amount of atelectasis/infiltrate and fluid in the right lung base seen previously is again evident and no different. The right lung is otherwise generally clear. The heart is obscured by the opacified left hemithorax. The mediastinum does not seem to be widened. The osseous structures are intact. The right-sided Port-A-Cath seen previously is again evident. IMPRESSION: 1. The appearance of the chest has worsened since the prior study as there is now near-complete opacification of the left hemithorax by atelectasis/infiltrate and fluid. 2. If further imaging is desired, then a CT chest would be be recommended. Dictated by: Dictated on workstation # [id number]
[2019-03-22 12:02] LABS: ALANINE AMINOTRANSFERASE 11 U/L (0-55); ALBUMIN 3.2 GM/DL (3.2-4.5); ALKALINE PHOSPHATASE 65 U/L (40-136); BILIRUBIN,TOTAL 0.3 MG/DL (0.1-1.0); BUN/CREATININE RATIO 21; CALCIUM 8.1 MG/DL (8.5-10.1); CARBON DIOXIDE 28 MMOL/L (21-32); CHLORIDE 106 MMOL/L (98-107); CREATININE SERUM 0.72 MG/DL (0.60-1.30); GFR ESTIMATED > 60; GLUCOSE 88 MG/DL (70-105); MAGNESIUM 2.2 MG/DL (1.6-2.4); POTASSIUM 4.2 MMOL/L (3.6-5.0); SODIUM 138 MMOL/L (135-145); TOTAL PROTEIN 7.3 GM/DL (6.4-8.2)
[2019-03-28 13:19] LABS: BASOPHILS % (AUTO) 0 % (0-10); EOSINOPHILS % (AUTO) 1 % (0-10); HEMATOCRIT 28 % (35-52); HEMOGLOBIN 8.3 G/DL (11.5-16.0); LYMPHOCYTES # (AUTO) 0.3 X 10^3 (1.0-4.0); LYMPHOCYTES % (AUTO) 11 % (12-44); MEAN CORPUSCULAR HEMOGLOBIN 29 PG (25-34); MEAN CORPUSCULAR HGB CONC 30 G/DL (32-36); MEAN CORPUSCULAR VOLUME 96 FL (80-99); MONOCYTES # (AUTO) 0.7 X 10^3 (0.0-1.0); MONOCYTES % (AUTO) 26 % (0-12); NEUTROPHILS # (AUTO) 1.8 X 10^3 (1.8-7.8); NEUTROPHILS % (AUTO) 63 % (42-75); PLATELET COUNT 493 10^3/uL (130-400); RED CELL DISTRIBUTION WIDTH 17.8 % (10.0-14.5); WHITE BLOOD COUNT 2.8 10^3/uL (4.3-11.0)
[2019-03-28 13:39] LABS: BUN/CREATININE RATIO 26; CALCIUM 9.3 MG/DL (8.5-10.1); CARBON DIOXIDE 29 MMOL/L (21-32); CHLORIDE 102 MMOL/L (98-107); CREATININE SERUM 0.76 MG/DL (0.60-1.30); GFR ESTIMATED > 60; GLUCOSE 84 MG/DL (70-105); SODIUM 140 MMOL/L (135-145)
[2019-04-04 13:16] LABS: BASOPHILS % (AUTO) 0 % (0-10); EOSINOPHILS % (AUTO) 0 % (0-10); HEMATOCRIT 25 % (35-52); HEMOGLOBIN 7.3 G/DL (11.5-16.0); LYMPHOCYTES # (AUTO) 0.3 X 10^3 (1.0-4.0); LYMPHOCYTES % (AUTO) 6 % (12-44); MEAN CORPUSCULAR HEMOGLOBIN 28 PG (25-34); MEAN CORPUSCULAR HGB CONC 30 G/DL (32-36); MEAN CORPUSCULAR VOLUME 95 FL (80-99); MEAN PLATELET VOLUME 8.3 FL (7.4-10.4); MONOCYTES # (AUTO) 0.8 X 10^3 (0.0-1.0); MONOCYTES % (AUTO) 19 % (0-12); NEUTROPHILS # (AUTO) 3.2 X 10^3 (1.8-7.8); NEUTROPHILS % (AUTO) 74 % (42-75); PLATELET COUNT 197 10^3/uL (130-400); RED CELL DISTRIBUTION WIDTH 16.3 % (10.0-14.5); WHITE BLOOD COUNT 4.3 10^3/uL (4.3-11.0)
[2019-04-04 13:35] LABS: BUN/CREATININE RATIO 30; CALCIUM 9.2 MG/DL (8.5-10.1); CARBON DIOXIDE 26 MMOL/L (21-32); CHLORIDE 101 MMOL/L (98-107); CREATININE SERUM 0.79 MG/DL (0.60-1.30); GFR ESTIMATED > 60; GLUCOSE 100 MG/DL (70-105); POTASSIUM 4.3 MMOL/L (3.6-5.0); SODIUM 137 MMOL/L (135-145)
[2019-04-11 15:57] LABS: BASOPHILS % (AUTO) 1 % (0-10); EOSINOPHILS % (AUTO) 1 % (0-10); HEMATOCRIT 28 % (35-52); HEMOGLOBIN 8.3 G/DL (11.5-16.0); LYMPHOCYTES # (AUTO) 0.3 X 10^3 (1.0-4.0); LYMPHOCYTES % (AUTO) 13 % (12-44); MEAN CORPUSCULAR HEMOGLOBIN 29 PG (25-34); MEAN CORPUSCULAR HGB CONC 30 G/DL (32-36); MEAN CORPUSCULAR VOLUME 97 FL (80-99); MEAN PLATELET VOLUME 8.5 FL (7.4-10.4); MONOCYTES # (AUTO) 0.4 X 10^3 (0.0-1.0); MONOCYTES % (AUTO) 21 % (0-12); NEUTROPHILS # (AUTO) 1.4 X 10^3 (1.8-7.8); NEUTROPHILS % (AUTO) 66 % (42-75); PLATELET COUNT 129 10^3/uL (130-400); RED CELL DISTRIBUTION WIDTH 16.6 % (10.0-14.5); WHITE BLOOD COUNT 2.1 10^3/uL (4.3-11.0)
[2019-04-11 16:17] LABS: BUN/CREATININE RATIO 23; CALCIUM 9.6 MG/DL (8.5-10.1); CARBON DIOXIDE 28 MMOL/L (21-32); CHLORIDE 101 MMOL/L (98-107); GFR ESTIMATED > 60; GLUCOSE 95 MG/DL (70-105); POTASSIUM 4.4 MMOL/L (3.6-5.0); SODIUM 138 MMOL/L (135-145)
[2019-04-18 14:41] LABS: BASOPHILS % (AUTO) 0 % (0-10); EOSINOPHILS % (AUTO) 1 % (0-10); HEMATOCRIT 28 % (35-52); HEMOGLOBIN 8.4 G/DL (11.5-16.0); LYMPHOCYTES # (AUTO) 0.3 X 10^3 (1.0-4.0); LYMPHOCYTES % (AUTO) 7 % (12-44); MEAN CORPUSCULAR HEMOGLOBIN 30 PG (25-34); MEAN CORPUSCULAR HGB CONC 30 G/DL (32-36); MEAN CORPUSCULAR VOLUME 98 FL (80-99); MEAN PLATELET VOLUME 8.7 FL (7.4-10.4); MONOCYTES # (AUTO) 0.8 X 10^3 (0.0-1.0); MONOCYTES % (AUTO) 16 % (0-12); NEUTROPHILS # (AUTO) 3.8 X 10^3 (1.8-7.8); NEUTROPHILS % (AUTO) 76 % (42-75); PLATELET COUNT 598 10^3/uL (130-400); WHITE BLOOD COUNT 4.9 10^3/uL (4.3-11.0)
[2019-04-18 14:59] LABS: ALBUMIN 3.5 GM/DL (3.2-4.5); BILIRUBIN,TOTAL 0.4 MG/DL (0.1-1.0); CALCIUM 9.5 MG/DL (8.5-10.1); CREATININE SERUM 1.15 MG/DL (0.60-1.30); POTASSIUM 3.9 MMOL/L (3.6-5.0); TOTAL PROTEIN 7.7 GM/DL (6.4-8.2)
--- NOTE | 2019-04-18 15:24 | Diagnostic Imaging Report ---
EXAMINATION: CHEST (PA AND LATERAL) CLINICAL INDICATION: 58-year-old female, history of adenocarcinoma of the left lung. Increased shortness of breath and weakness. COMPARISON: March 23, 2019. FINDINGS: There is a right-sided port catheter with tip overlying the lower SVC. There is volume loss of the left lung with near complete opacification of the left hemithorax. There are areas of air bronchograms in the upper aspect of the left lung. There is blunting of the right lateral costophrenic angle which is increased from prior imaging. There are also mildly prominent interstitial opacities on the right. The interstitial opacities are largely unchanged. There is no identified pneumothorax. IMPRESSION: 1. Near complete opacification of the left hemithorax with volume loss of the left lung. There is slight improvement in aeration in the left upper lung compared to prior exam. The consolidation may reflect airspace consolidative process, effusion, and/or atelectasis. 2. Qmqdr-ez-zjkdgaeb right pleural effusion which is increased since March 23, 2019. 3. Stable predominantly interstitial opacities in the right lung. Pulmonary edema and atypical infection would be the primary differential diagnostic considerations. Dictated by: Dictated on workstation # [id number]
[~2019-04-21 11:00] MED LIST changes: +GEMCITABINE HCL 1 GM, GEMCITABINE HCL 500 MG in NS (IVPB) CANCER CENTER 100 ML IV SCH; +GEMCITABINE HCL IV SCH; -LIDOCAINE 1% INJ 20 ML 20 ML VIAL INJ ONE; -LIDOCAINE 1% INJ 20 ML 20 ML VIAL ONE; +NIVOLUMAB 480 MG in NS (IVPB) CANCER CENTER 100 ML IV SCH; +NS (IVPB) CANCER CENTER 250 ML IV SCH; +NS IV 1000 ML (CANCER CTR) IV SCH; +NS IV 500 ML (CANCER CENTER) 500 ML ONE; +NS IV 500 ML (CANCER CENTER) IV SCH; +NS IV ONE; +NS IV SCH; +ONDANSETRON MDV (CANCER CENTER 16 MG, DEXAMETHASONE INJECTION 10 MG in NS (IVPB) CANCER... IV SCH; +PAMIDRONATE IV ONE
[2019-04-21] MEDS ORDERED: NS IV 500 ML (CANCER CENTER) 500 ML ONE (11:46)
== END 2019-05-03 | disposition home or self-care (01) ==
LOC: ONC 11:00
PROVIDERS: ATTEND Internal Medicine Hematology & Oncology
DX: Z51.11 Encounter for antineoplastic chemotherapy (principal); C34.32 Malignant neoplasm of lower lobe, left bronchus or lung; C77.1 Secondary and unspecified malignant neoplasm of intrathoracic lymph nodes; D64.9 Anemia, unspecified; E03.9 Hypothyroidism, unspecified; Z98.84 Bariatric surgery status; Z79.899 Other long term (current) drug therapy; Z45.2 Encounter for adjustment and management of vascular access device
CPT/HCPCS: 36415; 36430; 36591; 71046; 80048; 80053; 83735; 84443; 85025; 86850; 86900; 86901; 86920; 96365; 96366; 96375; 96413; 99213

== ENCOUNTER 2019-05-02 12:25 | Outpatient (CLI) | payer BC ==
[~2019-05-02] VITALS: Ht 172 cm; Wt 64.5 kg
[~2019-05-02 12:25] MED LIST changes: -GEMCITABINE HCL 1 GM, GEMCITABINE HCL 500 MG in NS (IVPB) CANCER CENTER 100 ML IV SCH; -GEMCITABINE HCL IV SCH; -NIVOLUMAB 480 MG in NS (IVPB) CANCER CENTER 100 ML IV SCH; -NS (IVPB) CANCER CENTER 250 ML IV SCH; -NS IV 1000 ML (CANCER CTR) IV SCH; -NS IV 500 ML (CANCER CENTER) 500 ML ONE; -NS IV 500 ML (CANCER CENTER) IV SCH; -NS IV ONE; -NS IV SCH; -ONDANSETRON MDV (CANCER CENTER 16 MG, DEXAMETHASONE INJECTION 10 MG in NS (IVPB) CANCER... IV SCH; -PAMIDRONATE IV ONE
[2019-05-02 12:35] VITALS: BP 110/73
[2019-05-02 14:10] VITALS: BP 130/78
--- NOTE | 2019-05-02 14:43 | Diagnostic Imaging Report ---
INDICATION: Post thoracentesis. TIME OF EXAMINATION: 2:32 PM. FINDINGS: The left hemithorax is completely opacified on today's study. There is a right chest wall port with the tip overlying the SVC. There is a small right basilar pneumothorax. Minimal right basilar atelectasis is seen. IMPRESSION: 1. Complete opacification of the left hemithorax. 2. Very small right basilar pneumothorax. Dictated by: Dictated on workstation # [id number]
--- NOTE | 2019-05-02 14:55 | NUR ---
dr steen notified of small basilar pneumothorax. instructed to observe pt for 4 hours, then repeat chest xray. pt informed, voiced understanding. resps even et unlab at this time. o2 remains on 3l/nc. will monitor closely.
--- NOTE | 2019-05-02 15:10 | Diagnostic Imaging Report ---
INDICATION: Adenocarcinoma of the left lung. FINDINGS: Sonographic guidance was provided for Dr. Najera for performance of a right-sided thoracentesis. Images demonstrate a large amount of pleural fluid on the right. IMPRESSION: Sonographic guidance for Dr. Najera for performance of right-sided thoracentesis. Dictated by: Dictated on workstation # [id number]
[2019-05-02 15:30] VITALS: BP 123/81
[2019-05-02 16:00] VITALS: BP 109/70
--- NOTE | 2019-05-02 19:05 | Diagnostic Imaging Report ---
INDICATION: Right-sided thoracentesis. Study is performed for follow-up. TIME OF EXAM: 6:47 p.m. COMPARISON: Correlation is made with prior chest earlier same day. FINDINGS: Right chest wall port remains in place. A small right-sided pneumothorax remains. This appears to have a very small basilar component. There is a very tiny apical component as well. Left hemithorax remains opacified. IMPRESSION: Continued small right-sided pneumothorax. Dictated by: Dictated on workstation # [id number]
[2019-05-02 19:25] VITALS: BP 109/70
--- NOTE | 2019-05-02 21:20 | OPERATIVE REPORT ---
DATE OF SERVICE: 05/02/2019 PREOPERATIVE DIAGNOSIS: Symptomatic right pleural effusion. POSTOPERATIVE DIAGNOSIS: Symptomatic right pleural effusion. PROCEDURE PERFORMED: Right ultrasound-guided thoracentesis. SURGEON: Shruthi Najera DO ANESTHESIA: Lidocaine 1%. ESTIMATED BLOOD LOSS: None. COMPLICATIONS: None. INDICATIONS: The patient is a 58-year-old female with right pleural effusion that is causing her symptoms of shortness of breath. She understands risks and benefits of the procedure. She has had multiple thoracentesis performed before. Consent was signed in the chart. DESCRIPTION OF PROCEDURE: The patient was prepped and draped in sterile fashion. Timeout was performed. Ultrasound was used to find the pocket that had the best target for insertion of the catheter. Local anesthetic was infiltrated around this and a #11 blade scalpel was used to make a small skin incision and the safety thoracentesis catheter and needle were then inserted through the chest wall on the right side until straw-colored fluid was returned. The catheter was then advanced and the needle was removed. Straw-colored fluid was returned until no further fluid was able to be withdrawn. The catheter was then slowly removed and sterile bandage was applied. Chest x-ray pending at dismissal. Job ID: [id number] DocumentID: [id number] Dictated Date: 05/02/2019 14:25:11 Cemetery Worker Date: 05/02/2019 21:19:24 Dictated By: SRHUTHI NAJERA DO
== END 2019-05-02 19:25 | disposition home or self-care (01) ==
LOC: RAD 12:25
PROVIDERS: ATTEND Surgery
DX: J93.9 Pneumothorax, unspecified (principal); C34.32 Malignant neoplasm of lower lobe, left bronchus or lung; Z95.828 Presence of other vascular implants and grafts
CPT/HCPCS: 32554; 71045; 76942

== ENCOUNTER 2019-05-16 12:45 | Outpatient (CLI) | payer BC ==
[~2019-05-16] VITALS: Wt 64.5 kg
[2019-05-16 13:15] VITALS: BP 0/0
--- NOTE | 2019-05-16 13:56 | Diagnostic Imaging Report ---
INDICATION: Post thoracentesis. TECHNIQUE: A frontal chest was obtained at 1:43 PM. COMPARISON: 05/09/2019. FINDINGS: The Port-A-Cath is unchanged with the tip overlying the SVC. There is near complete opacification of the left hemithorax which appears similar on the previous study. There is a minimal right pleural effusion, decreased compared to the prior study. There is no pneumothorax. There is some patchy infiltrate in the right midlung and base which appears unchanged compared to the prior study. IMPRESSION: No significant change in the near complete opacification of the left hemithorax. Decrease in right pleural fluid compared to the prior study. Patchy infiltrate in right mid lung and base again noted. There is no pneumothorax following thoracentesis. Dictated by: Dictated on workstation # [id number]
--- NOTE | 2019-05-16 15:21 | Diagnostic Imaging Report ---
INDICATION: Pleural effusion and shortness of breath. TECHNIQUE/FINDINGS: Sonographic guidance was provided for Dr. Najera for thoracentesis. Images demonstrate a large right pleural effusion. IMPRESSION: Sonographic guidance for Dr. Najera for right-sided thoracentesis. Dictated by: Dictated on workstation # [id number]
--- NOTE | 2019-05-16 20:01 | OPERATIVE REPORT ---
DATE OF SERVICE: 05/16/2019 PREOPERATIVE DIAGNOSIS: Right pleural effusion, recurrent. POSTOPERATIVE DIAGNOSIS: Right pleural effusion, recurrent. PROCEDURE: Right ultrasound-guided thoracentesis. SURGEON: Shruthi Najera DO ANESTHESIA: 1% lidocaine 4 mL. ESTIMATED BLOOD LOSS: Scant. COMPLICATIONS: None. INDICATIONS: The patient is a 58-year-old female with recurrent right pleural effusion. She needs therapeutic thoracentesis. She understands risks and benefits and wished to proceed. Consent was signed in the chart. DESCRIPTION OF PROCEDURE: The patient was placed in a sitting position, leaning forward. The ultrasound was used to isolate the largest pocket of the right chest, which was then prepped and draped in a sterile fashion and with guidance from ultrasound, a #11 blade scalpel was used to make a small skin incision and the Wbzu-A-Uuupgoaz needle and catheter were then advanced into the right chest cavity until straw colored fluid was returned. The catheter was then advanced. This was then hooked to a vacuum bottle, which removed 700 mL of straw colored fluid. Once the fluid was drained, the catheter was then removed and sterile bandage was applied. The patient tolerated procedure well without any complications. Chest x-ray is pending. Job ID: [id number] DocumentID: [id number] Dictated Date: 05/16/2019 13:36:41 Chef Instructor Date: 05/16/2019 20:00:06 Dictated By: SHRUTHI NAJERA DO
== END 2019-05-16 14:15 | disposition home or self-care (01) ==
LOC: RAD 12:45
PROVIDERS: ATTEND Surgery
DX: J90 Pleural effusion, not elsewhere classified (principal); R91.8 Other nonspecific abnormal finding of lung field; Z98.890 Other specified postprocedural states
CPT/HCPCS: 32554; 71045; 76942

== ENCOUNTER → 2019-06-01 | Outpatient (CLI) | payer BC ==
[~2019-06-01] MED LIST changes: +BARIUM SUSPENSION 2.1% (VANILLA SILQ) 450 ML PO ONE; +HOLD METFORMIN - RECEIVED CONTRAST 20 ML VIAL IV SCH; +IOHEXOL 350 MG/ML 100 ML (OMNIPAQUE 350) VIAL IV ONE; +NS 100 ML (IVPB) BAG IV ONE
[2019-06-01] MEDS: CATHETER FLUSH 10 ML SYR IV PRN ×2 (11:57→12:22)
--- NOTE | 2019-06-01 12:40 | Diagnostic Imaging Report ---
PROCEDURE: CT chest and abdomen with contrast. TECHNIQUE: Multiple contiguous axial images were obtained through the chest and abdomen after the administration of intravenous contrast. Auto Exposure Controls were utilized during the CT exam to meet ALARA standards for radiation dose reduction. INDICATION: Adenocarcinoma of the left lung. COMPARISON: Comparison is made with prior CT from 01/24/2019. FINDINGS: CT chest: Right chest wall port is again noted. There is near complete opacification of left hemithorax. The degree of aerated lung in the left upper lobe is decreased since prior with only minimal aeration in the left apex seen on today's study. Marked parenchymal consolidation is identified. The loculated fluid in the left hemithorax is similar to prior exam. A small right basilar effusion is noted. No pericardial fluid is identified. No axillary lymphadenopathy is detected. A large paratracheal node noted on prior measures approximately 17 mm x 11 mm compared with 18 mm x 14 mm. Numerous small pulmonary nodules within the right upper and right lower lobe persist consistent with metastatic disease. There is some increasing airspace consolidation in the right lower lobe posteriorly when compared with prior exam. Nodular thickening along the major fissure on the right is noted which may contain a small amount of fluid. IMPRESSION: Worsening opacification of left hemithorax since prior exam with only minimal aerated lung in the left apex seen on today's study. Loculated fluid on the left appears stable. Innumerable pulmonary nodules in the right lung are again noted consistent with metastatic disease. There is some worsening airspace consolidation in the right lower lobe on today's study. Right-sided effusion appears to be fairly stable. CT abdomen: No discrete liver mass is identified. Gallbladder is surgically absent. No biliary ductal dilatation is seen. The pancreas and spleen are unremarkable. No adrenal mass is detected. The kidneys are stable. Fatty lesion in lower pole of right kidney is stable and suggestive of an angiomyolipoma. Aorta is non-aneurysmal. There is a filter within the inferior vena cava. No central, retroperitoneal, or mesenteric lymphadenopathy is detected. The bowel loops are normal caliber. There is no ascites. Bony structures are unremarkable. IMPRESSION: Stable CT abdomen since exam from 01/24/2019. No lymphadenopathy or evidence of metastatic disease is identified. Dictated by: Dictated on workstation # [id number]
--- NOTE | 2019-06-01 18:01 | Diagnostic Imaging Report ---
EXAMINATION: Whole body bone scan. INDICATION: Adenocarcinoma of the left lung. TECHNIQUE: This study was performed following administration of 26.9 mCi of 99m-technetium MDP. Anterior and posterior whole body images were obtained. FINDINGS: The previous whole body bone scan exam performed on 01/24/2019 noted a solitary focus of uptake in the anterior right chest at the level of the fourth rib. There was no other abnormality identified. On this study, the area of abnormal uptake involving the anterior aspect of the right fourth rib is no longer visualized. There is a faint area of slightly increased activity along the lateral aspect of the left ninth rib on the posterior images. This finding was not present on the prior exam. The isolated nature of this abnormality also suggests that it may be post-traumatic in nature. The overall appearance of the bone scan is otherwise stable. Both kidneys do show excretion of the radiotracer. IMPRESSION: 1. There are mixed results. There is no longer any abnormal activity involving the anterior aspect of the right fourth rib, but there is now a small area of increased activity along the lateral aspect of the left ninth rib. This may be post-traumatic in nature as opposed to neoplastic disease. 2. The overall appearance of the bone scan is otherwise stable. Dictated by: Dictated on workstation # [id number]
== END ==
LOC: CARD 11:35
PROVIDERS: ATTEND Nurse Practitioner Adult Health
DX: Z01.89 Encounter for other specified special examinations (principal); C34.32 Malignant neoplasm of lower lobe, left bronchus or lung; C77.1 Secondary and unspecified malignant neoplasm of intrathoracic lymph nodes
CPT/HCPCS: 71260; 74160; 78306

== ENCOUNTER → 2019-06-05 | Outpatient (CLI) | payer BC ==
[~2019-06-05] MED LIST changes: -BARIUM SUSPENSION 2.1% (VANILLA SILQ) 450 ML PO ONE; +GADOBUTROL 7.5 MMOL/7.5 ML (GADAVIST) VIAL IV ONE; -HOLD METFORMIN - RECEIVED CONTRAST 20 ML VIAL IV SCH; -IOHEXOL 350 MG/ML 100 ML (OMNIPAQUE 350) VIAL IV ONE; -NS 100 ML (IVPB) BAG IV ONE
--- NOTE | 2019-06-05 10:25 | Diagnostic Imaging Report ---
PROCEDURE: MR imaging of the brain with and without contrast. TECHNIQUE: Multiplanar, multisequence MR imaging of the brain was performed with and without contrast. INDICATION: Lung cancer with metastatic disease. COMPARISON: Exam compared to 01/24/2019. FINDINGS: A 4 mm maximal diameter ring enhancing nodule right frontal lobe at the centrum semiovale is unchanged in size but showed progressive perilesional vasogenic edema but no resultant mass effect, shift or herniation. An enhancing nodule in the right cerebellar hemisphere has its nidus measuring 2.5 mm, unchanged. 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 It showed no adjacent edema or mass effect. No other area of abnormal or atypical parenchymal enhancement. There is no hydrocephalus. There is no shift or herniation. No findings of an infarct. IMPRESSION: 1. Right frontal lobe centrum semiovale lesion 4 mm ring-enhancing, presumed metastatic, unchanged. 2. 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 3. No mass effect, shift, herniation, infarct, hemorrhage or new lesion identified. Dictated by: Dictated on workstation # [id number]
== END ==
LOC: RAD 08:08
PROVIDERS: ATTEND Nurse Practitioner Adult Health
DX: C34.32 Malignant neoplasm of lower lobe, left bronchus or lung (principal); C77.1 Secondary and unspecified malignant neoplasm of intrathoracic lymph nodes
CPT/HCPCS: 70553

== ENCOUNTER 2019-06-06 12:31 | Outpatient (CLI) | payer BC ==
[~2019-06-06] VITALS: Ht 175.3 cm; Wt 64.5 kg
[~2019-06-06 12:31] MED LIST changes: -GADOBUTROL 7.5 MMOL/7.5 ML (GADAVIST) VIAL IV ONE
[2019-06-06 12:40] VITALS: BP 112/75
--- NOTE | 2019-06-06 16:50 | NUR ---
DR GARZA AT BEDSIDE FOR THORACENTESIS. LOCAL SUPERINTENDENT IN ROOM FOR US GUIDANCE. TIME OUT PROCEDURE DONE WITH VERIFICATION OF SITE AND PROCEDURE BY DR GARZA, Debo TEMPLETON, RN AND Yeyo PASTRANA RN WITH ALL CONFIRMING AGREEMENT.
--- NOTE | 2019-06-06 17:08 | NUR ---
OUTPUT TO PLEURX BOTTLE 900 CC, DARK YELLOW TO RUST COLOR. PT REQUESTING THORACENTESIS CATHETER BE REMOVED DUE TO DISCOMFORT. THORACENTESIS CATHETER REMOVED, DRESSED WITH GAUZE AND OPSITE. TEMP 36.6, PULSE 89, RESP 20, B/P 111/76, SAO2 99% ON 2L O2 PER NC. THORACENTESIS FLUID TO LAB WITH ORDERS FROM DR GARZA. CHEST XRAY ORDERED STAT, PORTABLE.
--- NOTE | 2019-06-06 17:26 | Diagnostic Imaging Report ---
INDICATION: Status post thoracentesis. TIME OF EXAM: 05:15 p.m. COMPARISON: Correlation is made with prior exam from 05/16/2019. FINDINGS: There is near complete opacification of left hemithorax, similar to prior exam with only trace aerated lung in the left upper lobe. A small right effusion noted. A right chest wall has tip overlying the SVC right atrial junction. No pneumothorax is seen status post right-sided thoracentesis. IMPRESSION: No evidence of pneumothorax, status post right thoracentesis. Dictated by: Dictated on workstation # [id number]
--- NOTE | 2019-06-06 17:36 | Diagnostic Imaging Report ---
INDICATION: Pleural effusion. Sonographic guidance was provided for Dr. Najera for thoracentesis. Images demonstrate a large right pleural effusion. IMPRESSION: Large right pleural effusion. Guidance was provided for Dr. Najera for thoracentesis. Dictated by: Dictated on workstation # [id number]
--- NOTE | 2019-06-06 17:40 | NUR ---
HAS BEEN UP TO BR TO VOID, TOLERATED WELL. STAT CHEST X-RAY REPORT CALLED TO DR GARZA. INSTRUCTED BY DR GARZA TO DISMISS PT PLANNED.
[2019-06-06 18:10] LABS: GLUCOSE,BODY FLUID 104 MG/DL; TOTAL PROTEIN,BODY FLUID 3.3 G/DL
[2019-06-06 18:31] LABS: BODY FLUID APPEARENCE MOD BLDY; BODY FLUID COLOR RED; BODY FLUID SOURCE PLEURAL
[2019-06-06 18:32] LABS: BODY FLUID RBC COUNT 6700 /uL; BODY FLUID WBC TOTAL COUNT 26 /uL
[2019-06-06 18:57] LABS: BF OTHER CELLS 0 %; LYMPHOCYTES,BODY FLUID 96 %
--- NOTE | 2019-06-07 03:43 | OPERATIVE REPORT ---
DATE OF SERVICE: 06/06/2019 PREOPERATIVE DIAGNOSIS: Recurrent right pleural effusion. POSTOPERATIVE DIAGNOSIS: Recurrent right pleural effusion. PROCEDURE: Right ultrasound-guided thoracentesis. SURGEON: Shruthi Najera DO ANESTHESIA: Local 1% 3 mL. COMPLICATIONS: None. INDICATIONS: The patient is a 58-year-old female with recurrent right pleural effusion. She understands risks and benefits of procedure and wishes to proceed. She is symptomatic having difficulty breathing. PROCEDURE IN DETAIL: Ultrasound was used to isolate the best pocket of entry. After the area was prepped and draped. Timeout was performed. Local anesthetic was infiltrated into this area of best pocket. An #11 blade scalpel was used to make a skin incision where best visualization of this pocket. The Uekj-M-Ethdvhun catheter and needle were inserted through the area until peyman-colored fluid was returned. The catheter was inserted and the fluid was then drained. A total of 900 mL of peyman-colored fluid was withdrawn. The catheter was then removed and sterile bandage was applied. The patient tolerated procedure well without any complications. Chest x-ray pending. Job ID: [id number] DocumentID: [id number] Dictated Date: 06/06/2019 22:43:30 Loss Prevention Associate Date: 06/07/2019 03:41:55 Dictated By: SHRUTHI NAJREA DO
== END 2019-06-06 17:45 | disposition home or self-care (01) ==
LOC: SDC 12:31
PROVIDERS: ATTEND Surgery
DX: J90 Pleural effusion, not elsewhere classified (principal)
CPT/HCPCS: 32554; 71045; 76942; 82945; 84157; 87070; 87205; 89051

== ENCOUNTER 2019-06-11 10:53 | Inpatient (IN) | payer BC ==
[~2019-06-11] VITALS: Ht 172 cm; Wt 67.2 kg
[2019-06-11] VITALS (15 sets, daily range): BP systolic 111–146; BP diastolic 66–121
--- NOTE | 2019-06-11 11:11 | ED Dyspnea ---
General Stated Complaint: SOB Source of Information: Patient Exam Limitations: No Limitations History of Present Illness Date Seen by Provider: Jun 11, 2019 Time Seen by Provider: 11:07 Initial Comments To ER per private vehicle from home with reports of worsening shortness of breath since Wednesday06/09/19. She has known metastatic adenocarcinoma 1. She had an MRI of the brain on 06/05 showing a 4 mm frontal lobe lesion rim-enhancing presumed metastatic which was stable from prior. She had a right pleural effusion drained on 06/[address] Najera. 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 She reports worsening swelling to bilateral ankles for the past few days as well despite the use of her Lasix. She wears oxygen at 3 L per nasal cannula at home but increased this to 5, denies any improvement. No fever or chills. Still undergoing chemotherapy. She does have a history of pulmonary embolism, not currently on anticoagulation does have an IVC filter. Timing/Duration: Other (3 days) Severity: Moderate ( with) Prior Episodes/Possible Cause: Occasional Episodes Modifying Factors: Worse With Activity Associated Symptoms: Denies Symptoms Allergies and Home Medications Allergies Coded Allergies: latex (Verified Allergy, Unknown, 04/21/17) morphine (Verified Adverse Reaction, Unknown, N/V, 04/21/17) Home Medications Acetaminophen 500 Mg Tablet, 500-1,000 MG PO Q6H PRN for PAIN-MILD, (Reported) Albuterol Sulfate 1 Puff Puff, 2 PUFF IH Q4H PRN for SHORTNESS OF BREATH, (Reported) Cholecalciferol (Vitamin D3) 2,000 Unit Capsule, 2,000 UNIT PO HS, (Reported) Cyanocobalamin (Vitamin B-12) 1,000 Mcg Tab.subl, 1,000 MCG SL DAILY, (Reported) Furosemide 40 Mg Tablet, 40 MG PO 1400, (Reported) Levothyroxine Sodium 88 Mcg Tablet, 88 MCG PO 1400, (Reported) Magnesium Oxide 400 Mg Tablet, 400 MG PO DAILY, (Reported) Pantoprazole Sodium 20 Mg Tablet.dr, 20 MG PO DAILY, (Reported) Polyethylene Glycol 3350 17 Gm Powd.pack, 17 GM PO DAILY PRN for CONSTIPATION- 2ND LINE, (Reported) Potassium Chloride 20 Meq Tab.er.prt, 40 MEQ PO BID, (Reported) TAKES 2 (20MEQ) TABLETS Prednisone 10 Mg Tab, 20 BC DAILY Prescribed by: KIMBERLY CARABALLO on 11/26/18 1221 Prednisone 10 Mg Tab.ds.pk, 0 BC DAILY Prescribed by: KIMBERLY CARABALLO on 11/26/18 1221 Triamterene/Hydrochlorothiazid 1 Each Capsule, 1 CAP PO DAILY, (Reported) [Curcumin] , 2 TAB PO BID, (Reported) Patient Home Medication List Home Medication List Reviewed: Yes Review of Systems Review of Systems Constitutional: see HPI; No chills, No fever EENTM: see HPI Respiratory: see HPI, short of breath Cardiovascular: No chest pain Genitourinary: no symptoms reported Musculoskeletal: no symptoms reported Skin: no symptoms reported Psychiatric/Neurological: No Symptoms Reported Endocrine: No Symptoms Reported Past Srvjwuk-Yxfzrl-Ritxht Hx Patient Social History Recent Foreign Travel: No Contact w/Someone Who Travel: No Recent Hopitalizations: No Immunizations Up To Date Date of Influenza Vaccine: Apr 22, 2017 Seasonal Allergies Seasonal Allergies: No Past Medical History Surgeries: Yes (gastric bypass in 2001, WISDOM TEETH, GABY FILTER, PLASTIC SURGERY,) Breast, Eye Surgery, Gallbladder, Orthopedic, Tonsillectomy Respiratory: Yes (lung ca) Pulmonary Embolism Currently Using CPAP: No Currently Using BIPAP: No Cardiac: No Neurological: Yes Headaches /Migraines Reproductive Disorders: No Female Reproductive Disorders: Denies Sexually Transmitted Disease: No HIV/AIDS: No Genitourinary: No Gastrointestinal: No Musculoskeletal: Yes Osteoporosis Endocrine: Yes (cutaneous lupus) Hyperthyroidism HEENT: No Cancer: Yes Lung, Melanoma Did You Recieve Any Treatments: Yes What Type of Treatment Did You: Chemotherapy Psychosocial: No Integumentary: No Blood Disorders: No Family Medical History Alzheimer's disease Arthritis Cardiovascular disease Diabetes mellitus Glaucoma Hypertension Myocardial infarction Thyroid disease Visual disorder Physical Exam Vital Signs Vital Signs - First Documented 06/11/19 10:54 Temp 36.7 Pulse 137 Resp 20 B/P (MAP) 141/86 (104) Pulse Ox 98 O2 Delivery OxyMask O2 Flow Rate 8.00 Capillary Refill : Height, Weight, BMI Height: 5'8.00" Weight: 148lbs. 0.0oz. [id number]; 21.62 BMI Method:Stated General Appearance: WD/WN, Anxious (respiratory distress), Moderate Distress (shallow tachypneic breathing. Tearful, states "I feel like I'm suffocating". Oxygen saturation of 5 L is 100%. Respiratory therapy called for BiPAP placeme nt, she is allergic to morphine but complains of some pains I'll give a dose of fentanyl which may help with her air hunger bit as well.) HEENT: PERRL/EOMI, TMs Normal Neck: Full Range of Motion, Normal Inspection Respiratory: Accessory Muscle Use, Decreased Breath Sounds, Respiratory Distress Cardiovascular: Tachycardia Gastrointestinal: Normal Bowel Sounds, Non Tender, Soft Extremity: Normal Capillary Refill, Normal Inspection Neurologic/Psychiatric: Alert Skin: Normal Color, Warm/Dry Focused Exam Lactate Level 06/11/19 11:10: Lactic Acid Level 1.04 Lactic Acid Level Laboratory Tests Test 06/11/19 11:10 Lactic Acid Level 1.04 MMOL/L (0.50-2.00) Progress/Results/Core Measures Results/Orders Lab Results Laboratory Tests Test 06/11/19 11:10 Range/Units White Blood Count 3.2 L 4.3-11.0 10^3/uL Red Blood Count 2.67 L 4.35-5.85 10^6/uL Hemoglobin 8.0 L 11.5-16.0 G/DL Hematocrit 27 L 35-52 % Mean Corpuscular Volume 102 H 80-99 FL Mean Corpuscular Hemoglobin 30 25-34 PG Mean Corpuscular Hemoglobin Concent 30 L 32-36 G/DL Red Cell Distribution Width 16.7 H 10.0-14.5 % Platelet Count 338 130-400 10^3/uL Mean Platelet Volume 8.4 7.4-10.4 FL Neutrophils (%) (Auto) 89 H 42-75 % Lymphocytes (%) (Auto) 6 L 12-44 % Monocytes (%) (Auto) 4 0-12 % Eosinophils (%) (Auto) 0 0-10 % Basophils (%) (Auto) 0 0-10 % Neutrophils # (Auto) 2.9 1.8-7.8 X 10^3 Lymphocytes # (Auto) 0.2 L 1.0-4.0 X 10^3 Monocytes # (Auto) 0.1 0.0-1.0 X 10^3 Eosinophils # (Auto) 0.0 0.0-0.3 10^3/uL Basophils # (Auto) 0.0 0.0-0.1 10^3/uL Neutrophils % (Manual) 95 % Lymphocytes % (Manual) 0 % Monocytes % (Manual) 4 % Eosinophils % (Manual) 0 % Basophils % (Manual) 1 % Band Neutrophils 0 % Hypochromasia SLIGHT Anisocytosis SLIGHT Sodium Level 139 135-145 MMOL/L Potassium Level 4.2 3.6-5.0 MMOL/L Chloride Level 101 98-107 MMOL/L Carbon Dioxide Level 27 21-32 MMOL/L Anion Gap 11 5-14 MMOL/L Blood Urea Nitrogen 24 H 7-18 MG/DL Creatinine 0.81 0.60-1.30 MG/DL Estimat Glomerular Filtration Rate > 60 BUN/Creatinine Ratio 30 Glucose Level 108 H 70-105 MG/DL Lactic Acid Level 1.04 0.50-2.00 MMOL/L Calcium Level 9.3 8.5-10.1 MG/DL Corrected Calcium 10.2 H 8.5-10.1 MG/DL Total Bilirubin 0.5 0.1-1.0 MG/DL Aspartate Amino Transf (AST/SGOT) 37 H 5-34 U/L Alanine Aminotransferase (ALT/SGPT) 31 0-55 U/L Alkaline Phosphatase 58 40-136 U/L Troponin I < 0.028 <0.028 NG/ML B-Type Natriuretic Peptide 29.6 <100.0 PG/ML Total Protein 6.6 6.4-8.2 GM/DL Albumin 2.9 L 3.2-4.5 GM/DL My Orders Orders - MAYKEL WILSON APRN Cbc With Automated Diff (06/11/19 11:05) Comprehensive Metabolic Panel (06/11/19 11:05) BNP (06/11/19 11:05) Troponin I (06/11/19 11:05) Ekg Tracing (06/11/19 11:05) Chest 1 View, Ap/Pa Only (06/11/19 11:05) Bipap (Bilevel) Set Up (06/11/19 11:05) Arterial Blood Gas (06/11/19 11:05) Ct Angio Chest W (06/11/19 11:05) Fentanyl Injection (Sublimaze Injection (06/11/19 11:15) Blood Culture (06/11/19 11:05) Lactic Acid Analyzer (06/11/19 11:05) Manual Differential (06/11/19 11:10) Iohexol Injection (Omnipaque 350 Mg/Ml 1 (06/11/19 11:45) Di Iv Start (Assessment) .IV start (06/11/19 11:33) Received Contrast (Hold Metformin- Contr (06/11/19 11:45) Sodium Chloride Flush (Catheter Flush Sy (06/11/19 11:45) Ns (Ivpb) (Sodium Chloride 0.9% Ivpb Bag (06/11/19 11:45) Medications Given in ED Current Medications Medications Dose Ordered Sig/Jose Luis Route Start Time Stop Time Status Last Admin Dose Admin Fentanyl Citrate 50 mcg ONCE ONCE IVP 06/11/19 11:15 06/11/19 11:16 DC 06/11/19 11:36 50 MCG Iohexol 100 ml ONCE ONCE IV 06/11/19 11:45 06/11/19 11:46 DC 06/11/19 11:52 61 ML Sodium Chloride 10 ml NEEDED PRN IV 06/11/19 11:45 06/11/19 11:52 10 ML Sodium Chloride 100 ml ONCE ONCE IV 06/11/19 11:45 06/11/19 11:46 DC 06/11/19 11:52 80 ML Vital Signs/I&O 06/11/19 06/11/19 10:54 11:34 Temp 36.7 Pulse 137 110 Resp 20 30 B/P (MAP) 141/86 (104) Pulse Ox 98 100 O2 Delivery OxyMask O2 Flow Rate 8.00 30.00 Diagnostic Imaging Diagonstic Imaging: Xray, CT Plain Films/CT/US/NM/MRI: chest Comments NAME: MANISHA RODRIGUEZ [facility] REC#: [id number] PT STATUS: REG ER : 10/04/1969 PHYSICIAN: MAYKEL WILSON APRN ADMIT DATE: 06/11/19/ER Draft POSDate of Exam:06/11/19 CT HEAD/CERVICAL SPINE WO PROCEDURE: CT head and CT cervical spine without contrast. TECHNIQUE: Multiple contiguous axial images were obtained through the brain and cervical spine without the use of intravenous contrast. Sagittal and coronal reformations through the cervical spine were then performed. Auto Exposure Controls were utilized during the CT exam to meet ALARA standards for radiation dose reduction. INDICATION: Head injury. Hit in forehead. No comparison available FINDINGS: There are no CT findings of an acute intracranial abnormality. There is no evidence of intracranial hemorrhage. There is no mass effect or shift. There is no hydrocephalus. There is a small dystrophic calcification within the deep white matter left frontal lobe. There is no territorial loss of mathew-white differentiation. Basilar cisterns patent. Posterior fossa unremarkable. A few minimally opacified air cells are within the inferior left mastoid. The right mastoids are clear. The visualized paranasal sinuses are clear. The visualized portion orbits unremarkable. There is no calvarial fracture. No significant forehead soft tissue hematoma evident Cervical spine demonstrates a normal alignment. There is normal alignment of the great cervical junction. There is normal relationships of the lateral masses of C1 and C2. The facets are normally aligned. There is no facet joint or disc space widening. There are mild endplate changes and endplate spurs with no high-grade canal or femoral stenosis. There is no acute cervical spine fracture. The lung apices are clear. The soft tissues of the neck demonstrate no acute process. IMPRESSION: 1. No CT evidence of an acute intracranial abnormality. There is no calvarial fracture. 2. Mild degenerative features within the cervical spine without acute fracture or traumatic malalignment. No high-grade canal or foraminal stenosis demonstrated. Dictated on workstation # [id number] Dict: 06/11/19 1111 Trans: 06/11/19 1122 [facility] [id number] Interpreted by: JARROD ALFARO MD Electronically signed by: Departure Communication (Admissions) Time/Spoke to Admitting Phy: 12:[address] Campo, we'll admit, consult Dr. Gil. I did speak with him, he'll do thoracentesis when she gets up to the unit, also spoke with Dr. Cannon regarding the pericardial effusion. We will order an echocardiogram upstairs. 1149-initially started her on BiPAP, vitals remain stable, heart rate decreased from 1:30 to 105, think most of her presentation here is exacerbated by anxiety. She does have a large recurrent left pleural effusion. Spoke with Dr. Gil, he'll do a thoracentesis up in the unit. Impression Primary Impression: Respiratory distress Additional Impressions: Metastatic non-small cell lung cancer Recurrent pleural effusion on left Disposition: ADMITTED INPATIENT Condition: Stable Admissions Decision to Admit Reason: Admit from ER (General) Decision to Admit/Date: Jun 11, 2019 Time/Decision to Admit Time: 11:53 Departure-Patient Inst. Referrals: YONATHAN VALDES DO (PCP/Family) Primary Care Physician MAYKEL WILSON APRN Jun 11, 2019 11:11 POS
[2019-06-11] MEDS ORDERED: fentaNYL INJECTION 100 MCG/2 ML AMP IVP ONE ×2 (11:15→16:45)
[2019-06-11 11:21] LABS: BASOPHILS % (AUTO) 0 % (0-10); EOSINOPHILS % (AUTO) 0 % (0-10); HEMATOCRIT 27 % (35-52); LYMPHOCYTES # (AUTO) 0.2 X 10^3 (1.0-4.0); LYMPHOCYTES % (AUTO) 6 % (12-44); MEAN CORPUSCULAR HEMOGLOBIN 30 PG (25-34); MEAN CORPUSCULAR HGB CONC 30 G/DL (32-36); MEAN CORPUSCULAR VOLUME 102 FL (80-99); MEAN PLATELET VOLUME 8.4 FL (7.4-10.4); MONOCYTES # (AUTO) 0.1 X 10^3 (0.0-1.0); MONOCYTES % (AUTO) 4 % (0-12); NEUTROPHILS # (AUTO) 2.9 X 10^3 (1.8-7.8); NEUTROPHILS % (AUTO) 89 % (42-75); PLATELET COUNT 338 10^3/uL (130-400); RED CELL DISTRIBUTION WIDTH 16.7 % (10.0-14.5); WHITE BLOOD COUNT 3.2 10^3/uL (4.3-11.0)
[2019-06-11 11:42] LABS: ALANINE AMINOTRANSFERASE 31 U/L (0-55); ALBUMIN 2.9 GM/DL (3.2-4.5); ALKALINE PHOSPHATASE 58 U/L (40-136); BILIRUBIN,TOTAL 0.5 MG/DL (0.1-1.0); BUN/CREATININE RATIO 30; CALCIUM 9.3 MG/DL (8.5-10.1); CARBON DIOXIDE 27 MMOL/L (21-32); CHLORIDE 101 MMOL/L (98-107); CREATININE SERUM 0.81 MG/DL (0.60-1.30); GFR ESTIMATED > 60; GLUCOSE 108 MG/DL (70-105); POTASSIUM 4.2 MMOL/L (3.6-5.0); SODIUM 139 MMOL/L (135-145); TOTAL PROTEIN 6.6 GM/DL (6.4-8.2)
[2019-06-11] MEDS ORDERED: IOHEXOL 350 MG/ML 100 ML (OMNIPAQUE 350) VIAL IV ONE (11:45)
[2019-06-11] MEDS ORDERED: NS 100 ML (IVPB) BAG IV ONE (11:45)
[2019-06-11] MEDS ORDERED: HOLD METFORMIN - RECEIVED CONTRAST 20 ML VIAL IV SCH (11:45)
[2019-06-11] MEDS ORDERED: CATHETER FLUSH 10 ML SYR IV PRN (11:45)
[2019-06-11 11:49] LABS: ANISOCYTOSIS SLIGHT; BAND NEUTROPHILS 0 %; BASOPHILS % (MANUAL) 1 %; EOSINOPHILS % (MANUAL) 0 %; HYPOCHROMASIA SLIGHT; LYMPHOCYTES % (MANUAL) 0 %; MONOCYTES % (MANUAL) 4 %; NEUTROPHILS % (MANUAL) 95 %
--- NOTE | 2019-06-11 11:58 | Diagnostic Imaging Report ---
INDICATION: Shortness of breath, chest pain. COMPARISON: 06/06/2019. FINDINGS: Single view of the chest demonstrates increasing right-sided effusion with new and/or increasing infiltrates throughout the right hemithorax. There is stable near complete opacification left hemithorax. There is no pneumothorax. Port-A-Cath is stable. IMPRESSION: 1. New and/or increasing infiltrates right hemithorax with increasing effusion. 2. Stable near complete opacification left hemithorax. Dictated by: Dictated on workstation # [id number]
--- NOTE | 2019-06-11 12:23 | Diagnostic Imaging Report ---
PROCEDURE: CT angiography of the chest with contrast. TECHNIQUE: Multiple contiguous axial images were obtained through the chest after uneventful bolus administration of intravenous contrast. 3D reconstructed CTA MIP acquisitions were also performed. Auto Exposure Controls were utilized during the CT exam to meet ALARA standards for radiation dose reduction. INDICATION: Shortness of breath, lung mass. COMPARISON: 06/01/2019. FINDINGS: Large mass is seen in the left hemithorax with associated effusion. This is unchanged from the prior examination. However, in the right hemithorax, there is some increasing nodular infiltrates and effusion. No large central pulmonary embolism is identified. There is no pneumothorax. Heart remains enlarged. There is increasing pericardial effusion measuring up to 1 cm. There is no mediastinal lymphadenopathy. Osseous structures and visualized upper abdominal solid organs are normal. IMPRESSION: 1. Increasing nodular infiltrates in the right hemithorax with increasing effusion. 2. Increasing small to medium-sized pericardial effusion. 3. Known left pulmonary mass with associated effusion. 4. No overt pulmonary embolism identified. Dictated by: Dictated on workstation # [id number]
--- NOTE | 2019-06-11 13:22 | NUR ---
THIS NURSE NOTIFIED DR JULIAN PT WAS ON THE FLOOR. DR JULIAN SAID MAKENNA WAS GOING TO DO THE THORACENTESIS.
--- NOTE | 2019-06-11 13:28 | History & Physical-Hospitalist ---
History of Present Illness HPI/Chief Complaint Pt is a 58yoCF with a PMH of metastatic lung cancer and recurrent pleural effusion who presented to the ER due to shortness of breath. She states she had 900ml drained from her right lung on 06/[address] Najera. Despite that she became progressively more short of breath and had difficulty with any exertion. Because of this she quit taking her lasix as it was too difficult to get up and go to the bathroom. She was unable to catch her breath at all today despite increasing her home oxygen so she decided to seek care in the ER. She was found to have a persistent large left pleural effusion, worsening right effusion, and CTA revealed small to moderate pericardial effusion. She is being admitted to the ICU for thoracentesis. Date Seen 06/11/19 Time Seen by a Provider: 12:45 Attending Physician Arvin Lutz MD PCP Francis Tan DO Referring Physician Date of Admission Jun 11, 2019 at 12:30 Home Medications & Allergies Home Medications Reviewed patient Home Medication Reconciliation performed by pharmacy medication reconciliations transmission technician and/or nursing. Patients Allergies have been reviewed. Allergies Allergies Coded Allergies latex (Verified Allergy, Unknown, 04/21/17) morphine (Verified Adverse Reaction, Unknown, N/V, 04/21/17) Past Ewtpaye-Mgptik-Okquvw Hx Past Med/Social Hx: Reviewed Nursing Past Med/Soc Hx Patient Social History Alcohol Use: Denies Use Recreational Drug Use: No Smoking Status: Never a Smoker Recent Foreign Travel: No Contact w/other who traveled: No Recent Hopitalizations: No Recent Infectious Disease Expo: No Immunizations Up To Date Tetanus Booster (TDap): Unknown Date of Influenza Vaccine: Apr 22, 2017 Seasonal Allergies Seasonal Allergies: No Past Medical History Surgeries: Breast, Eye Surgery, Gallbladder, Orthopedic, Tonsillectomy pleural effusions Currently Using CPAP: No Currently Using BIPAP: No Neurological: Headaches /Migraines Reproductive: No Sexually Transmitted Disease: No HIV/AIDS: No Female Reproductive Disorders: Denies Musculoskeletal: Osteoporosis Endocrine: Hyperthyroidism Cancer: Lung, Melanoma Did You Recieve Any Treatments: Yes What Type of Treatment Did You: Chemotherapy History of Blood Disorders: No Family History Reviewed Nursing Family Hx Alzheimer's disease Arthritis Cardiovascular disease Diabetes mellitus Glaucoma Hypertension Myocardial infarction Thyroid disease Visual disorder Review of Systems Constitutional: No chills, No fever EENTM: no symptoms reported Respiratory: see HPI, dyspnea on exertion, orthopnea, short of breath; No wheezing Cardiovascular: No chest pain; edema; No palpitations Gastrointestinal: abdominal pain, loss of appetite, nausea; No vomiting Genitourinary: no symptoms reported Musculoskeletal: no symptoms reported Skin: no symptoms reported Psychiatric/Neurological: No Symptoms Reported Physical Exam Physical Exam Vital Signs Vital Signs - First Documented 06/13/19 06/13/19 00:00 03:15 Temp 36.6 Pulse 92 Resp 16 B/P (MAP) 115/79 (91) Pulse Ox 100 O2 Delivery Nasal Cannula O2 Flow Rate 4.00 Capillary Refill : Less Than 3 Seconds Height, Weight, BMI Height: 5'8.00" Weight: 148lbs. 0.0oz. 67.335781yc; 21.00 BMI Method:Stated General Appearance: Mild Distress (conversationally dyspneic), Thin HEENT: No Scleral Icterus (L), No Scleral Icterus (R); Other (oxi-mask in place) Neck: Non Tender, Supple Respiratory: Decreased Breath Sounds, Respiratory Distress (mild, conversationally dyspneic); No Rhonci, No Wheezing Cardiovascular: Regular Rate, Rhythm, No JVD, No Murmur Gastrointestinal: Normal Bowel Sounds, Non Tender, Soft Extremity: Pedal Edema Neurologic/Psychiatric: Alert, Oriented x3, Normal Mood/Affect Skin: Normal Color, Warm/Dry Results Results/Procedures Labs Patient resulted labs reviewed. Imaging: Reviewed Imaging Films, Reviewed Imaging Report Imaging Date of Exam:06/11/19 CHEST 1 VIEW, AP/PA ONLY INDICATION: Shortness of breath, chest pain. COMPARISON: 06/06/2019. FINDINGS: Single view of the chest demonstrates increasing right-sided effusion with new and/or increasing infiltrates throughout the right hemithorax. There is stable near complete opacification left hemithorax. There is no pneumothorax. Port-A-Cath is stable. IMPRESSION: 1. New and/or increasing infiltrates right hemithorax with increasing effusion. 2. Stable near complete opacification left hemithorax. Date of Exam:06/11/19 CT ANGIO CHEST W PROCEDURE: CT angiography of the chest with contrast. TECHNIQUE: Multiple contiguous axial images were obtained through the chest after uneventful bolus administration of intravenous contrast. 3D reconstructed CTA MIP acquisitions were also performed. Auto Exposure Controls were utilized during the CT exam to meet ALARA standards for radiation dose reduction. INDICATION: Shortness of breath, lung mass. COMPARISON: 06/01/2019. FINDINGS: Large mass is seen in the left hemithorax with associated effusion. This is unchanged from the prior examination. However, in the right hemithorax, there is some increasing nodular infiltrates and effusion. No large central pulmonary embolism is identified. There is no pneumothorax. Heart remains enlarged. There is increasing pericardial effusion measuring up to 1 cm. There is no mediastinal lymphadenopathy. Osseous structures and visualized upper abdominal solid organs are normal. IMPRESSION: 1. Increasing nodular infiltrates in the right hemithorax with increasing effusion. 2. Increasing small to medium-sized pericardial effusion. 3. Known left pulmonary mass with associated effusion. 4. No overt pulmonary embolism identified. Assessment/Plan Admission Diagnosis Acute Respiratory Distress with pleural effusion Admission Status: Inpatient Order (span 2 midnights) Reason for Inpatient Admission: thoracentesis, high risk for decompensation if discharged early Assessment and Plan Acute Respiratory Distress Pleural Effusion Metastatic Lung Cancer Titrate sats to keep >90 Plan for thoracentesis, patient request surgery consult for this as she follow with Dr Reinaldo Coelho No evidence of pneumonia Pericardial Effusion small to moderate on CTA Echo ordered Cardiology consulted Hypothyroidism Resume home supplement HTN Pt denies history but fills lisinopril on 05/25 BP well controlled so will hold macrocytic anemia chronic near baseline, trend leukopenia last chemo was done 06/06 ANC WNL Trend ARVIN LUTZ MD Jun 11, 2019 13:28 POS
[2019-06-11] MEDS ORDERED: ANTACID SUSP 30 ML UDC (MYLANTA) PO PRN (13:45)
[2019-06-11] MEDS ORDERED: FUROSEMIDE 40 MG/4 ML INJ (LASIX) IVP ONE (13:45)
[2019-06-11] MEDS ORDERED: ACETAMINOPHEN 325 MG TABLET PO PRN (13:45)
[2019-06-11] MEDS ORDERED: POLYETHYLENE GLYCOL 17 GM (MIRALAX) PACK PO PRN (13:45)
[2019-06-11] MEDS ORDERED: MELATONIN 3 MG TABLET PO PRN (13:45)
[2019-06-11] MEDS ORDERED: BISACODYL 10 MG SUPP (DULCOLAX) PR PRN (13:45)
[2019-06-11] MEDS ORDERED: ONDANSETRON 4 MG/2 ML (SDV) Z0FRAN IV PRN (13:45)
[2019-06-11] MEDS ORDERED: fentaNYL INJECTION 100 MCG/2 ML AMP IV PRN (14:15)
--- NOTE | 2019-06-11 14:33 | NUR ---
THIS NURSE NOTIFIED DR MENSAH PT WAS ON THE FLOOR AND SUPPLIES ARE READY FOR THORACENTESIS.
[2019-06-11] MEDS ORDERED: LIDOCAINE 1% INJ 20 ML 20 ML VIAL ONE (14:45)
[2019-06-11] MEDS ORDERED: RT-ALBUTEROL/IPRATROPIUM 3 ML (DUONEB) VIAL INH PRN (16:00)
--- NOTE | 2019-06-11 16:56 | Progress Note-Post Operative ---
Post-Operative Progess Note Surgeon (s)/Gyro Compass Tester (s) Surgeon JULIO C MENSAH MD Gyro Compass Tester: none Pre-Operative Diagnosis stage 4 lung cancer with sx recurrent right pl effusion Post-Operative Diagnosis same Procedure & Operative Findings Date of Procedure 06/11/19 Procedure Performed/Findings right thorocentesis. Anesthesia Type local Estimated Blood Loss Estimated blood loss (mL): minimal Specimens/Packing Specimens Removed none JULIO C MENSAH MD Jun 11, 2019 16:56 POS
[2019-06-11] MEDS ORDERED: PROMETHAZINE INJ 25 MG/ML (PHENERGAN) AMP ONE (17:19)
[2019-06-11] MEDS: PROMETHAZINE INJ 25 MG/ML (PHENERGAN) AMP IVP PRN (17:28)
--- NOTE | 2019-06-11 17:30 | CONSULTATION REPORT ---
DATE OF SERVICE: 06/11/2019 ATTENDING PRIMARY CARE PHYSICIAN: Francis Tan DO ADMITTING PHYSICIAN: Dr. Lutz. HISTORY OF PRESENT ILLNESS: The patient is a 58-year-old female with a history of metastatic lung cancer, which started in the left lung and once she was diagnosed that she was found to have positive ipsilateral as well as contralateral lymph nodes as well as bone and brain mets. She has been on chemotherapy. She does have a recurrent right symptomatic pleural effusion and underwent a thoracentesis five days ago. At home, she developed worsening shortness of breath especially upon exertion. In the Emergency Department, she had a chest x-ray performed, which did show a recurrent large left pleural effusion. PAST MEDICAL HISTORY: Stage IV adenocarcinoma of left lung. Hyperthyroidism, osteoporosis, migraine headaches, history of skin melanoma. PAST SURGICAL HISTORY: Breast biopsy, laparoscopic cholecystectomy, tonsillectomy. ALLERGIES: LATEX, MORPHINE. MEDICATIONS: Albuterol 2 puffs q.4 hours p.r.n., furosemide 40 mg daily, levothyroxine 88 mcg daily, Protonix 20 mg daily, MiraLax p.r.n., potassium 20 mEq b.i.d., prednisone 10 mg daily, triamterene/hydrochlorothiazide 37.5/25 mg daily. SOCIAL HISTORY: Negative smoke, negative alcohol. FAMILY HISTORY: Noncontributory. VITAL SIGNS: Temperature 37.1, blood pressure 136/76, pulse 101, respirations 13, pulse ox 100% on O2 nasal cannula at 4 liters. REVIEW OF SYSTEMS: This is a well-nourished female, currently in no acute distress. She is experiencing some shortness of breath especially upon exertion. She does not report any cough or sputum production nor any hemoptysis. No chest pain, palpitations, diaphoresis. No nausea, vomiting. No diarrhea or constipation. No fever, chills, with some weight loss in the past several months. All other review of systems negative. PHYSICAL EXAMINATION: CHEST: Decreased breath sounds along the right lung base. Few scattered rales and rhonchi. HEART: Regular, no murmurs. EXTREMITIES: No lower extremity edema, negative Homans sign. HEENT: No scleral icterus. NECK: No cervical lymphadenopathy. ABDOMEN: Soft, nontender, nondistended. SKIN: Warm, dry. LABORATORY DATA: WBC 3.2, hemoglobin 8.0, hematocrit 27, platelets 338. BUN 24, creatinine 0.81. ASSESSMENT AND PLAN: A 58-year-old female with stage IV left lung adenocarcinoma status post chemotherapy and radiation. She has also had recurrent symptomatic right pleural effusion needing two other previous thoracentesis. She came in symptomatic and was found to have a recurrent pleural effusion. We will proceed with a thoracentesis. If she continues to have recurrent symptomatic pleural effusions on the right side, she may be a candidate for placement of a tunneled pleural catheter for self-drainage. Job ID: [id number] DocumentID: [id number] Dictated Date: 06/11/2019 17:04:11 Director Of Player Personnel Date: 06/11/2019 17:30:22 Dictated By: JULIO C MENSAH MD
--- NOTE | 2019-06-11 17:41 | OPERATIVE REPORT ---
DATE OF SERVICE: 06/11/2019 ATTENDING PRIMARY CARE PHYSICIAN: Dr. Tan. ADMITTING PHYSICIAN: Dr. Lutz. PREPROCEDURE DIAGNOSIS: Recurrent left symptomatic pleural effusion with history of stage IV adenocarcinoma arising from the left lung. POSTOPERATIVE DIAGNOSIS: Recurrent left symptomatic pleural effusion with history of stage IV adenocarcinoma arising from the left lung. PROCEDURE: Right thoracentesis. SURGEON: Julio C Mensah MD. ANESTHESIA: Local. ESTIMATED BLOOD LOSS: Minimal. FINDINGS: Slightly blunted hinged transudative fluid, approximately 750 mL was evacuated. DISPOSITION: The patient tolerated the procedure well. INDICATIONS: The patient is a 58-year-old female with history of stage IV adenocarcinoma arising from the left lung. She was deemed inoperable and has undergone chemotherapy as well as radiation. She has had recurrent episodes of shortness of breath and was found to have a significant right pleural effusion and has undergone 2 thoracenteses in the past. She again presents to the Emergency Department with shortness of breath and chest x-ray did confirm recurrent right pleural effusion. DESCRIPTION OF PROCEDURE: The back was prepped and draped in standard surgical fashion. A 1% lidocaine was then used to anesthetize the skin, muscle layers as well as the parietal pleura. A vertical skin incision was made using 11 blade, and the trocar and catheter were then introduced withdrawing of transudative fluid and the catheter was then advanced over the trocar without any resistance. The catheter was then placed to a vacuum suction where approximately 750 mL of lightly blood-tinged transudative fluid evacuated. The catheter was then removed and the entry site was then covered with an Op-Site. The patient tolerated the procedure well. Chest x-ray did show significant evacuation of the pleural effusion as well as no pneumothorax. Job ID: [id number] DocumentID: [id number] Dictated Date: 06/11/2019 17:07:12 Medication Coordinator Date: 06/11/2019 17:39:15 Dictated By: JULIO C MENSAH MD
--- NOTE | 2019-06-11 17:43 | Diagnostic Imaging Report ---
INDICATION: Right-sided thoracentesis. COMPARISON: 06/11/2019. FINDINGS: Single view of the chest demonstrates interval reduction in right-sided effusion. There is no postprocedure pneumothorax. There is a stable complete opacification left hemithorax. IMPRESSION: No post procedure pneumothorax. Dictated by: Dictated on workstation # [id number]
--- NOTE | 2019-06-11 17:44 | NUR ---
1620- MAKENNA AT BEDSIDE. SUPPLIES READY. CONSENT SIGNED. 1628-50 MCG OF FENTANYL GIVEN IV PER VERBAL ORDER FROM DR MENSAH. VITALS BP- 138/91, HR 120, O2 100%, AND RR 18 1629- DR MENSAH INJECTED LIDOCAINE INTO PT BACK. 1631- THORACENTESIS CATH INSERTED IN RIGHT MID CHEST. VACUUM BOTTLE APPLIED. 1635- 50 MCG OF FENTANYL GIVEN IV PER VERBAL ORDER FROM DR MENSAH. 1640- THORACENTESIS CATH REMOVED AND DRESSING APPLIED. VITALS 124/82 HR 111 02 100% RR 20 NURSE AT BEDSIDE TO MONITOR.
[2019-06-11] MEDS ORDERED: FUROSEMIDE 40 MG/4 ML INJ (LASIX) ONE (18:21)
[2019-06-11] MEDS: RT-ALBUTEROL/IPRATROPIUM 3 ML (DUONEB) VIAL INH SCH (21:24)
--- NOTE | 2019-06-11 21:31 | NUR ---
RT WAS TOLD THAT TX'S ARE NOT TO BE GIVEN IF THE PATIENT IS ASLEEP (DAY OR NOC)
[2019-06-12] VITALS (23 sets, daily range): BP systolic 91–148; BP diastolic 53–90
[2019-06-12 03:48] LABS: HEMOGLOBIN 7.2 G/DL (11.5-16.0); MEAN PLATELET VOLUME 8.4 FL (7.4-10.4); RED CELL DISTRIBUTION WIDTH 16.4 % (10.0-14.5); WHITE BLOOD COUNT 2.1 10^3/uL (4.3-11.0)
[2019-06-12 04:05] LABS: BUN/CREATININE RATIO 28; CARBON DIOXIDE 30 MMOL/L (21-32); CHLORIDE 101 MMOL/L (98-107); CREATININE SERUM 0.75 MG/DL (0.60-1.30); GFR ESTIMATED > 60; GLUCOSE 88 MG/DL (70-105); MAGNESIUM 1.7 MG/DL (1.6-2.4); PHOSPHORUS 3.8 MG/DL (2.3-4.7); POTASSIUM 4.2 MMOL/L (3.6-5.0); SODIUM 141 MMOL/L (135-145)
[2019-06-12] MEDS ORDERED: methylPREDNISolone 125 MG (Solu-MEDROL) VIAL ONE (04:57)
--- NOTE | 2019-06-12 05:00 | NUR ---
Patient heard coughing from across the valladares by this software writer, this software writer went to room to assess the patient. The patient was up on the edge of the bed stating that she was unable to breathe. Patient voice barely a whisper, patient coughing with a weak cough and c/o mucous stuck in the back of her throat. Patient given a Yankauer suction tip to attempt to get mucous from throat. Patient unable to get it out. Dr Gil at the bedside at this time. Orders to give Solu-medrol 125mg x 1 dose, give Fentanyl 50mcg and give Phenergan 25mg. 0504 Fentanyl 50MCG IV administered. 0504 Phenergan 25mg IV administered. 0504 Solu-medrol 125mg IV administered. Patient did rest for a short while but became anxious again and was unable to clear secretions. Dr Gil at the bedside again, Order to give 0.5mg IV Ativan. 0601 0.5mg IV Ativan administered. 0615 Patient resting without s/s of distress. remains at the bedside.
[2019-06-12] MEDS: RT-ALBUTEROL/IPRATROPIUM 3 ML (DUONEB) VIAL INH SCH ×4 (05:02→19:25)
[2019-06-12] MEDS: PROMETHAZINE INJ 25 MG/ML (PHENERGAN) AMP IVP PRN (05:04)
[2019-06-12] MEDS ORDERED: KCL 20 MEQ TAB (K-DUR) PO SCH (06:00)
[2019-06-12] MEDS ORDERED: MAGNESIUM 1 GM/100 ML IVPB 100 ML IV SCH (06:00)
[2019-06-12] MEDS ORDERED: POTASSIUM CL 10MEQ/50ML IVPB 50 ML IV SCH (06:00)
[2019-06-12] MEDS: LORazepam INJ 2 MG/ML (ATIVAN) VIAL IVP PRN (06:01)
--- NOTE | 2019-06-12 06:25 | Pulmonary Consultation ---
History of Present Illness History of Present Illness Time Seen by Provider: 06:18 Date of Admission History of Present Illness 58yo with PMH of metastatic lung cancer and recurrent pleural effusion presented to ED secondary to worsening SOB. Pt recently had 900ml drained from right lung on 06/[address] Najera. Pt continued to have progressive SOB after thoracentesis and worsening exertion. PT quit taking lasix secondary to her difficultly to go to bathroom. Pt has a large left effusion with left lung op acification. Pt and family does not want left drained because they have been told left lung will not re-expand. Dr. Monique drained right lung yesterday. Pt is having increased distress this morning with generalized discomfort and SOB. Allergies and Home Medications Allergies Coded Allergies: latex (Verified Allergy, Unknown, 04/21/17) morphine (Verified Adverse Reaction, Unknown, N/V, 04/21/17) Home Medications Acetaminophen 500 Mg Tablet, 500-1,000 MG PO Q6H PRN for PAIN-MILD, (Reported) Albuterol Sulfate 1 Puff Puff, 2 PUFF IH Q4H PRN for SHORTNESS OF BREATH, ( Reported) Cholecalciferol (Vitamin D3) 2,000 Unit Capsule, 2,000 UNIT PO HS, (Reported) Cyanocobalamin (Vitamin B-12) 1,000 Mcg Tab.subl, 1,000 MCG SL DAILY, (Reported) Furosemide 40 Mg Tablet, 40 MG PO 1400, (Reported) Levothyroxine Sodium 88 Mcg Tablet, 88 MCG PO 1400, (Reported) Magnesium Oxide 400 Mg Tablet, 400 MG PO DAILY, (Reported) Pantoprazole Sodium 20 Mg Tablet.dr, 20 MG PO DAILY, (Reported) Polyethylene Glycol 3350 17 Gm Powd.pack, 17 GM PO DAILY PRN for CONSTIPATION-2ND LINE, (Reported) Potassium Chloride 20 Meq Tab.er.prt, 40 MEQ PO BID, (Reported) TAKES 2 (20MEQ) TABLETS Prednisone 10 Mg Tab, 20 BC DAILY Prescribed by: KIMBERLY CARABALLO on 11/26/18 1221 Prednisone 10 Mg Tab.ds.pk, 0 BC DAILY Prescribed by: KIMBERLY CARABALLO on 11/26/18 1221 Triamterene/Hydrochlorothiazid 1 Each Capsule, 1 CAP PO DAILY, (Reported) [Curcumin] , 2 TAB PO BID, (Reported) Past [id number]-[id number] Hx Past Med/Social Hx: Reviewed Nursing Past Med/Soc Hx Patient Social History Alcohol Use: Denies Use Recreational Drug Use: No Smoking Status: Never a Smoker Recent Foreign Travel: No Contact w/Someone Who Travel: No Recent Infectious Disease Expo: No Recent Hopitalizations: No Physical Abuse: No Sexual Abuse: No Mistreated: No Fear: No Immunizations Up To Date Tetanus Booster (TDap): Unknown Date of Influenza Vaccine: May 01, 2019 Seasonal Allergies Seasonal Allergies: No Past Medical History Surgeries: Yes (gastric bypass in 2001, WISDOM TEETH, GABY FILTER, PLASTIC SURGERY,) Breast, Eye Surgery, Gallbladder, Orthopedic, Tonsillectomy Respiratory: Yes (lung ca) Pulmonary Embolism Currently Using CPAP: No Currently Using BIPAP: No Cardiac: No Neurological: Yes Headaches /Migraines Reproductive Disorders: No Female Reproductive Disorders: Denies Sexually Transmitted Disease: No HIV/AIDS: No Genitourinary: No Gastrointestinal: No Musculoskeletal: Yes Osteoporosis Endocrine: Yes (cutaneous lupus) Hyperthyroidism HEENT: No Cancer: Yes Lung, Melanoma Did You Recieve Any Treatments: Yes What Type of Treatment Did You: Chemotherapy Psychosocial: No Integumentary: No Blood Disorders: No Family Medical History Reviewed Nursing Family Hx Alzheimer's disease Arthritis Cardiovascular disease Diabetes mellitus Glaucoma Hypertension Myocardial infarction Thyroid disease Visual disorder Review of Systems Time Seen by Provider: 06:36 Constitutional: Weakness, Malaise; No: Fever, Chills, Sweats, Other Eyes: No: Pain, Vision change, Conjunctivae inflammation, Eyelid inflammation, Other, Redness ENT: No: Ear pain, Ear discharge, Nose pain, Nose discharge, Nose congestion, Mouth pain, Mouth swelling, Throat pain, Throat swelling, Other Sepsis Event Evaluation Height, Weight, BMI Height: 5'8.00" Weight: 148lbs. 0.0oz. 67.929251ss; 21.00 BMI Method:Stated Exam Exam Vital Signs Date Time Temp Pulse Resp B/P (MAP) Pulse Ox O2 Delivery O2 Flow Rate FiO2 06/12/19 05:02 94 Nasal Cannula 4.00 06/12/19 04:00 78 11 109/66 (80) 100 Nasal Cannula 4.00 06/12/19 03:40 36.8 Nasal Cannula 4.00 06/12/19 03:40 95 Nasal Cannula 4.00 06/12/19 03:00 80 11 109/63 (78) 100 Nasal Cannula 4.00 06/12/19 02:00 79 13 125/68 (87) 100 Nasal Cannula 4.00 06/12/19 01:00 81 06/12/19 01:00 80 10 107/71 (83) 100 Nasal Cannula 4.00 06/12/19 00:00 82 14 108/73 (85) 100 Nasal Cannula 4.00 06/11/19 23:55 36.6 Nasal Cannula 4.00 06/11/19 23:55 96 Nasal Cannula 4.00 06/11/19 23:00 85 16 112/69 (83) 100 Nasal Cannula 4.00 06/11/19 22:00 89 11 111/72 (85) 100 Nasal Cannula 4.00 06/11/19 21:30 93 Nasal Cannula 4.00 06/11/19 21:00 88 22 114/66 (82) 100 Nasal Cannula 4.00 06/11/19 20:00 97 Nasal Cannula 4.00 06/11/19 20:00 36.4 06/11/19 20:00 90 17 123/70 (87) 100 Nasal Cannula 4.00 06/11/19 19:50 37.1 100 38 142/67 (92) 97 Nasal Cannula 4.00 06/11/19 19:00 96 14 142/67 (92) 100 Nasal Cannula 4.00 06/11/19 19:00 96 06/11/19 18:00 98 19 119/78 (92) 100 OxyMask 4.00 06/11/19 17:00 92 30 146/81 (102) 100 OxyMask 4.00 06/11/19 16:40 98 Nasal Cannula 4.00 06/11/19 16:00 37.1 06/11/19 16:00 101 13 136/76 (96) 100 OxyMask 4.00 06/11/19 15:00 109 12 133/74 (93) OxyMask 4.00 06/11/19 14:00 96 10 124/76 (92) OxyMask 4.00 06/11/19 13:35 36.0 93 14 134/87 (103) 100 OxyMask 4.00 06/11/19 13:32 95 06/11/19 13:30 93 OxyMask 4.00 06/11/19 13:15 110 21 136/78 100 OxyMask 4.00 06/11/19 11:34 110 30 100 30.00 06/11/19 10:54 36.7 137 20 141/86 (104) 98 OxyMask 8.00 I & O 06/12/19 07:00 Intake Total 575 ml Output Total 1750 ml Balance -1175 ml Height & Weight Height: 5'8.00" Weight: 148lbs. 0.0oz. [id number]; 21.00 BMI Method:Stated General Appearance: Mild Distress (conversationally dyspneic), Thin HEENT: No Scleral Icterus (L), No Scleral Icterus (R); Other (oxi-mask in place) Neck: Non Tender, Supple Respiratory: Decreased Breath Sounds, Respiratory Distress (mild, conve rsationally dyspneic); No Rhonci, No Wheezing Cardiovascular: Regular Rate, Rhythm, No JVD, No Murmur Capillary Refill: Less Than 3 Seconds Gastrointestinal: normal bowel sounds, non tender, soft Extremity: Pedal Edema Neurologic/Psychiatric: Alert, Oriented x3, Normal Mood/Affect Skin: Normal Color, Warm/Dry Lymphatic: No Adenopathy Results Lab Laboratory Tests 06/11/19 11:10 06/12/19 03:42 Assessment/Plan Assessment/Plan Acute Respiratory Distress -Oxygen -Duoneb - change to easy PAP -Give 125mg of solumedrol x 1 bilateral Pleural Effusion L> R -Right sided drained yesterday per Dr. Monique -Pt does not want Left side drained Metastatic Lung Cancer Oncology following Pericardial Effusion small to moderate on CTA Echo ordered Cardiology consulted Anemia -Monitor Hypothyroidism HTN macrocytic anemia chronic near baseline, trend leukopenia last chemo was done 06/06 [facility] WNL Trend ANTOLIN JULIAN DO Jun 12, 2019 06:25 POS
[2019-06-12] MEDS ORDERED: LEVOTHYROXINE 88 MCG (LEVOTHORID) TAB PO SCH (06:30)
--- NOTE | 2019-06-12 08:53 | Consultation-Cardiology ---
HPI-Cardiology Cardiology Consultation: Date of Consultation 06/12/19 Date of Admission Attending Physician Zandra Lutz MD Admitting Physician Francis Tan DO Consulting Physician Debo CANNON MD HPI: Time Seen by a Provider: 09:20 Chief Complaint: shortness of breath this is a 58-year-old lady who presents with worsening shortness of breath and worsening bilateral lower extremity swelling despite using Lasix. She is on home oxygen but home oxygen requirement has increased. She denies any fever. She denies chest pain, syncope, near-syncope. She is on chemotherapy. Previous history of pulmonary embolism, has an IVC filter. She has known metastatic adenocarcinoma of the lung. 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 She has previous history of right pleural effusion, status post thoracentesis on 06/[address] chest was suspicious for pericardial effusion therefore cardiology was consulted. Normal blood pressure. Review of Systems-Cardiology Review of Systems Constitutional: As described under HPI; No As described under HPI, No no symptoms reported, No chills, No fever, No lightheadedness Eyes: No As described under HPI, No no symptoms reported, No blindness, No blurred vision, No contact lenses, No drainage, No decreased acuity, No foreign body sensation, No pain, No vision change Ears/Nose/Throat: No As described under HPI, No no symptoms reported, No chronic hearing loss, No ear discharge, No ear pain, No nasal drainage, No ulcerations Respiratory: No no symptoms reported; As described under HPI; No As described under HPI, No cough; orthopnea; No shortness of breath, No SOB with excertion Cardiovascular: No no symptoms reported; As described under HPI; No As descri bed under HPI, No chest pain, No edema, No irregular heart rate, No lightheadedness, No palpitations Gastrointestinal: No no symptoms reported, No As described under HPI, No abdomen distended, No abdominal pain, No blood streaked bowels, No constipation, No diarrhea, No nausea, No vomiting, No stool coloration changes Genitourinary: No As described under HPI, No burning, No dysuria, No discharge, No frequency, No flank pain, No hematuria, No urgency : Yes : No Skin: No rash, No skin related problems, No ulcerations Psychiatric/Neurological: No anxiety, No depression, No seizure, No focal weakness, No syncope Hematologic: No bleeding abnormalities [id number]-[id number] Hx Patient Social History Alcohol Use: Denies Use Recreational Drug Use: No Smoking Status: Never a Smoker Recent Foreign Travel: No Recent Infectious Disease Expo: No Hospitalization with Isolation: Denies Immunizations Up To Date Tetanus Booster (TDap): Unknown Date of Influenza Vaccine: May 01, 2019 Past Medical History PMH As described under Assessment. Family Medical History Family History: Alzheimer's disease Arthritis Cardiovascular disease Diabetes mellitus Glaucoma Hypertension Myocardial infarction Thyroid disease Visual disorder Allergies and Home Medications Allergies Coded Allergies: latex (Verified Allergy, Unknown, 04/21/17) morphine (Verified Adverse Reaction, Unknown, N/V, 04/21/17) Home Medications Acetaminophen 500 Mg Tablet, 500-1,000 MG PO Q6H PRN for PAIN-MILD, (Reported) Cyanocobalamin (Vitamin B-12) 1,000 Mcg Tab.subl, 1,000 MCG SL DAILY, (Reported) Furosemide 40 Mg Tablet, 40 MG PO 1400, (Reported) Levothyroxine Sodium 88 Mcg Tablet, 88 MCG PO 1400, (Reported) Lisinopril 5 Mg Tablet, 2.5 MG PO DAILY, (Reported) TAKES 1/2 (5MG) TABLET Pantoprazole Sodium 40 Mg Tablet.dr, 40 MG PO DAILY, (Reported) Potassium Chloride 20 Meq Tab.er.prt, 20 MEQ PO BID, (Reported) Promethazine HCl 25 Mg Tablet, 25 MG PO Q6H PRN for NAUSEA/VOMITING-2ND LINE, (Reported) [Curcumin] , 2 TAB PO BID, (Reported) Patient Home Medication List Home Medication List Reviewed: Yes Physical Exam-Cardiology Physical Exam Vital Signs/I&O 06/11/19 06/11/19 06/11/19 06/12/19 23:00 23:55 23:55 00:00 Temp 36.6 Pulse 85 82 Resp 16 14 B/P (MAP) 112/69 (83) 108/73 (85) Pulse Ox 100 96 100 O2 Delivery Nasal Cannula Nasal Cannula Nasal Cannula Nasal Cannula O2 Flow Rate 4.00 4.00 4.00 4.00 06/12/19 06/12/19 06/12/19 06/12/19 01:00 01:00 02:00 03:00 Pulse 80 81 79 80 Resp 10 13 11 B/P (MAP) 107/71 (83) 125/68 (87) 109/63 (78) Pulse Ox 100 100 100 O2 Delivery Nasal Cannula Nasal Cannula Nasal Cannula O2 Flow Rate 4.00 4.00 4.00 06/12/19 06/12/19 06/12/19 06/12/19 03:40 03:40 04:00 05:00 Temp 36.8 Pulse 78 115 Resp 11 18 B/P (MAP) 109/66 (80) 146/79 (101) Pulse Ox 95 100 95 O2 Delivery Nasal Cannula Nasal Cannula Nasal Cannula Nasal Cannula O2 Flow Rate 4.00 4.00 4.00 4.00 06/12/19 06/12/19 06/12/19 06/12/19 05:02 06:00 07:00 07:00 Pulse 85 97 99 Resp 15 11 B/P (MAP) 148/81 (103) 113/73 (86) Pulse Ox 94 100 100 O2 Delivery Nasal Cannula Nasal Cannula Nasal Cannula O2 Flow Rate 4.00 4.00 4.00 06/12/19 06/12/19 06/12/19 08:00 08:00 09:00 Pulse 87 98 Resp 10 25 B/P (MAP) 121/69 (86) 144/90 (108) Pulse Ox 95 100 97 O2 Delivery Nasal Cannula Nasal Cannula Nasal Cannula O2 Flow Rate 4.00 4.00 4.00 06/12/19 00:00 Intake Total 450 ml Output Total 1150 ml Balance -700 ml Capillary Refill : Less Than 3 Seconds Constitutional: AAO x 3 HEENT: pale conjunctivae (R) Neck: No non-tender, No full range of motion, No supple, No normal inspection, No carotid bruit, No limited range of motion, No lymphadenopathy (R), No lymphadenopathy (L), No tender lateral, No tender midline, No thyromegaly, No other, No carotid pulses are 2 + bilaterally, No with good upstrokes Respiratory: chest is bilaterally symmetric, other (Decreased air entry bilaterally. Mild respiratory distress.) Cardiovascular: regular rate-rhythm, S1 and S2 Gastrointestinal: soft, audible bowel sounds; No spleenomegaly Rectal: deferred Extremities: normal range of motion, non-tender, normal inspection, pedal edema; No clubbing, No cyanosis, No significant edema Neurologic/Psychiatric: no motor/sensory deficits, alert, normal mood/affect, oriented x 3, other (Very sleepy.), power is 5/5 both on sides Skin: normal color, warm/dry; No rash, No ulcerations Data Review Labs Laboratory Tests 06/11/19 11:10: White Blood Count 3.2L, Red Blood Count 2.67L, Hemoglobin 8.0L, Hematocrit 27L, Mean Corpuscular Volume 102H, Mean Corpuscular Hemoglobin 30, Mean Corpuscular Hemoglobin Concent 30L, Red Cell Distribution Width 16.7H, Platelet Count 338, Mean Platelet Volume 8.4, Neutrophils (%) (Auto) 89H, Lymphocytes (%) (Auto) 6L, Monocytes (%) (Auto) 4, Eosinophils (%) (Auto) 0, Basophils (%) (Auto) 0, Neutrophils # (Auto) 2.9, Lymphocytes # (Auto) 0.2L, Monocytes # (Auto) 0.1, Eosinophils # (Auto) 0.0, Basophils # (Auto) 0.0, Neutrophils % (Manual) 95, Lymphocytes % (Manual) 0, Monocytes % (Manual) 4, Eosinophils % (Manual) 0, Basophils % (Manual) 1, Band Neutrophils 0, Hypochromasia SLIGHT, Anisocytosis SLIGHT, Sodium Level 139, Potassium Level 4.2, Chloride Level 101, Carbon Dioxide Level 27, Anion Gap 11, Blood Urea Nitrogen 24H, Creatinine 0.81, Estimat Glomerular Filtration Rate > 60, BUN/Creatinine Ratio 30, Glucose Level 108H, Lactic Acid Level 1.04, Calcium Level 9.3, Corrected Calcium 10.2H, Total Bilirubin 0.5, Aspartate Amino Transf (AST/SGOT) 37H, Alanine Aminotransferase (ALT/SGPT) 31, Alkaline Phosphatase 58, Troponin I < 0.028, B-Type Natriuretic Peptide 29.6, Total Protein 6.6, Albumin 2.9L 06/12/19 03:42: White Blood Count 2.1L, Red Blood Count 2.41L, Hemoglobin 7.2L, Hematocrit 25L, Mean Corpuscular Volume 102H, Mean Corpuscular Hemoglobin 30, Mean Corpuscular Hemoglobin Concent 29L, Red Cell Distribution Width 16.4H, Platelet Count 243, Mean Platelet Volume 8.4, Sodium Level 141, Potassium Level 4.2, Chloride Level 101, Carbon Dioxide Level 30, Anion Gap 10, Blood Urea Nitrogen 21H, Creatinine 0.75, Estimat Glomerular Filtration Rate > 60, BUN/Creatinine Ratio 28, Glucose Level 88, Calcium Level 9.0, Phosphorus Level 3.8, Magnesium Level 1.7 A/P-Cardiology Assessment/Admission Diagnosis metastatic lung cancer, Pleural effusion, Pericardial effusion, Hypertension, Respiratory distress, Anemia, Leukopenia, Elevated LFTs. Plan metastatic lung cancer, on chemotherapy. Defer to oncology. Pleural effusion, recent thoracenteses by general surgery. Repeat thoracentesis done, however the patient continues to feel short of breath. Pericardial effusion, [id number] with diameter of 1.5 cm on echocardiogram done on 06/11/2019. No hemodynamic compromise and no tamponade physiology. Likely related to metastatic disease. Hypertension, stable blood pressure. Respiratory distress, multifactorial. Anemia, Leukopenia, Elevated LFTs. Thank you for your consultation. Please call me if you have any questions. Lazaro Cannon MD, FACP, FACC, FSCAI, FHRS, CCDS Interventional Cardiology Cardiac Electrophysiology Vascular Medicine and Endovascular Interventions Clinical Quality Measures DVT/VTE Risk/Contraindication: Risk Factor Score Per Nursin RFS Level Per Nursing on Admit: 2=Moderate Debo CANNON MD Jun 12, 2019 08:53 POS
[2019-06-12] MEDS: risperiDONE 0.25 MG (RisperDAL) TAB PO PRN ×2 (09:03→21:14)
[2019-06-12] MEDS ORDERED: PANT40TA3 PO (09:57)
[2019-06-12] MEDS ORDERED: LISI-556 PO (09:57)
[2019-06-12] MEDS ORDERED: PROM25TA14 PO (10:05)
--- NOTE | 2019-06-12 10:08 | NUR ---
SPOKE WITH THE PATIENT ABOUT HER MEDICATIONS. HAD A LIST ON THE PHONE AND I WENT OVER THE EXT MED HX. HER LISINOPRIL 5MG WAS FILLED DAILY #90 05-25-19 HOWEVER SHE STATES SHE ONLY TAKES 1/2 TAB DAILY. POTASSIUM 20MEQ WAS FILLED #120 2 BID 03-16-19 BUT SHE STATES SHE TAKES 1 BID. SHE TAKES TYLENOL PRN AND B12 AND CURCUMIN OTC.
--- NOTE | 2019-06-12 11:00 | NUR ---
Pastoral care visit with pt and pts , active members of [facility].
--- NOTE | 2019-06-12 14:01 | NUR ---
"RD ASSESSMENT PMHx: CA(lung); hypothyroidism PT INTERACTION: Pt was semi-awake and pleasant during nutrition assessment. Pt states current appetite is poor and has been for some time. Note pt avg PO intake of 25% x1d, per chart review. Pt refused Dinner 06/11 and Breakfast 06/12, but ate 75% of 06/12 Lunch, per chart review. Pt states following a regular diet at home, and currently has no issues with chewing/swallowing food. Pt states no recent issues with n/v/c/d at this time. Pt states last BM was 06/10, and note pt currently on bowel regimen of miralax PRN and biscacodyl PRN, per chart review. Pt states no recent wt changes. Note unable to determine recent wt hx, per chart review. ABNORMAL NUTRITION-RELATED LAB VALUES LOW: HIGH: BUN 21 Est. kcal needs: 4270-0923 kcal | 25-30 kcal/kg Est. Pro needs: 64-76 g Pro | 1.0-1.2 g Pro/kg PES STATEMENT: Inadequate oral intake (NI-2.1) related to loss of appetite as evidenced by pt interview | avg PO intake of 25% x1d INTERVENTION: Continue with current diet order of 2000mg Sodium diet. Continue with current supplementation order of Ensure Enlive with meals TID. Provides 350 kcal and 13 g Pro per serving. Will continue to follow and reassess as pt needs and status change. MONITOR/EVALUATE: PO Intake; Plan of Care; Hydration Status; Weight Status; Lab Values Ariadna Luke, MS, RD, LD"
--- NOTE | 2019-06-12 15:31 | Progress Note - Hospitalist ---
Subjective HPI/CC On Admission Date Seen by Provider: Jun 12, 2019 Time Seen by Provider: 09:00 Pt is a 58yoCF with a PMH of metastatic lung cancer and recurrent pleural effusion who presented to the ER due to shortness of breath. She states she had 900ml drained from her right lung on 06/[address] Najera. Despite that she became progressively more short of breath and had difficulty with any exertion. Because of this she quit taking her lasix as it was too difficult to get up and go to the bathroom. She was unable to catch her breath at all today despite increasing her home oxygen so she decided to seek care in the ER. She was found to have a persistent large left pleural effusion, worsening right effusion, and CTA revealed small to moderate pericardial effusion. She is being admitted to the ICU for thoracentesis. Subjective/Events-last exam She is feeling ok upon my examination. She had some anxiety and difficulty breathing this morning which improved with Ativan. She denies trouble breathing at this time. She denies fever and chills. She denies nausea and vomiting. Focused Exam Lactate Level 06/11/19 11:10: Lactic Acid Level 1.04 Objective Exam Vital Signs Vital Signs Date Time Temp Pulse Resp B/P (MAP) Pulse Ox O2 Delivery O2 Flow Rate FiO2 06/12/19 14:31 100 Nasal Cannula 4.00 06/12/19 13:00 102 06/12/19 12:00 19 126/73 (90) 06/12/19 11:15 36.8 Capillary Refill : Less Than 3 Seconds General Appearance: No Apparent Distress, WD/WN HEENT: PERRL/EOMI, Pharynx Normal Neck: Normal Inspection, Supple Respiratory: No Respiratory Distress, Decreased Breath Sounds, Other (wearing nasal cannula) Cardiovascular: Regular Rate, Rhythm, No Murmur Gastrointestinal: Normal Bowel Sounds, Non Tender, Soft Extremity: Normal Inspection, Non Tender, Pedal Edema, Swelling Neurologic/Psychiatric: Alert, Oriented x3, No Motor/Sensory Deficits, Normal Mood/Affect Skin: Warm/Dry, Pallor Results/Procedures Lab Laboratory Tests 06/12/19 03:42 Patient resulted labs reviewed. Imaging: Reviewed Imaging Report Assessment/Plan Assessment and Plan Assess & Plan/Chief Complaint Acute respiratory failure with hypoxia Pleural Effusion Metastatic Lung Cancer Titrate sats to keep >90 Underwent thoracentesis yesterday Continue Lasix No evidence of pneumonia Pericardial Effusion Cardiology consulted Echo performed, small to moderate effusion Likely related to metastatic disease Hypothyroidism Continue Synthroid HTN Continue Lisinopril Macrocytic anemia chronic near baseline, trend Leukopenia last chemo was done 06/06 Continue to monitor Diagnosis/Problems Diagnosis/Problems (1) Recurrent pleural effusion on left Status: Acute (2) Pericardial effusion without cardiac tamponade Status: Acute (3) Metastatic non-small cell lung cancer Status: Chronic (4) Anemia Status: Chronic Clinical Quality Measures DVT/VTE Risk/Contraindication: Risk Factor Score Per Nursin RFS Level Per Nursing on Admit: 2=Moderate MADAI SERVIN MD Jun 12, 2019 15:31 POS
--- NOTE | 2019-06-12 15:45 | Progress Note ---
Subjective Date Seen by a Provider: Jun 12, 2019 Time Seen by a Provider: 15:30 Subjective/Events-last exam Patient seen with Dr. Monique. Patient reports doing ok. Does reports SOB with exertion. Did have some nausea but was treated with anti-nausea meds and helped. No complaints of pain. Denied any F/C. Focused Exam Lactate Level 06/11/19 11:10: Lactic Acid Level 1.04 Objective Exam Vital Signs Date Time Temp Pulse Resp B/P (MAP) Pulse Ox O2 Delivery O2 Flow Rate FiO2 06/12/19 14:31 100 Nasal Cannula 4.00 06/12/19 13:00 102 06/12/19 12:24 95 Nasal Cannula 4.00 06/12/19 12:00 111 19 126/73 (90) 99 Nasal Cannula 4.00 06/12/19 11:15 36.8 06/12/19 11:00 92 12 105/73 (84) 100 Nasal Cannula 4.00 06/12/19 10:36 96 Nasal Cannula 4.00 06/12/19 10:00 88 11 121/77 (92) 100 Nasal Cannula 4.00 06/12/19 09:00 98 25 144/90 (108) 97 Nasal Cannula 4.00 06/12/19 08:00 87 10 121/69 (86) 100 Nasal Cannula 4.00 06/12/19 08:00 95 Nasal Cannula 4.00 06/12/19 07:00 99 06/12/19 07:00 97 11 113/73 (86) 100 Nasal Cannula 4.00 06/12/19 06:00 85 15 148/81 (103) 100 Nasal Cannula 4.00 06/12/19 05:02 94 Nasal Cannula 4.00 06/12/19 05:00 115 18 146/79 (101) 95 Nasal Cannula 4.00 06/12/19 04:00 78 11 109/66 (80) 100 Nasal Cannula 4.00 06/12/19 03:40 36.8 Nasal Cannula 4.00 06/12/19 03:40 95 Nasal Cannula 4.00 06/12/19 03:00 80 11 109/63 (78) 100 Nasal Cannula 4.00 06/12/19 02:00 79 13 125/68 (87) 100 Nasal Cannula 4.00 06/12/19 01:00 81 06/12/19 01:00 80 10 107/71 (83) 100 Nasal Cannula 4.00 06/12/19 00:00 82 14 108/73 (85) 100 Nasal Cannula 4.00 06/11/19 23:55 36.6 Nasal Cannula 4.00 06/11/19 23:55 96 Nasal Cannula 4.00 06/11/19 23:00 85 16 112/69 (83) 100 Nasal Cannula 4.00 06/11/19 22:00 89 11 111/72 (85) 100 Nasal Cannula 4.00 06/11/19 21:30 93 Nasal Cannula 4.00 06/11/19 21:00 88 22 114/66 (82) 100 Nasal Cannula 4.00 06/11/19 20:00 97 Nasal Cannula 4.00 06/11/19 20:00 36.4 06/11/19 20:00 90 17 123/70 (87) 100 Nasal Cannula 4.00 06/11/19 19:50 37.1 100 38 142/67 (92) 97 Nasal Cannula 4.00 06/11/19 19:00 96 14 142/67 (92) 100 Nasal Cannula 4.00 06/11/19 19:00 96 06/11/19 18:00 98 19 119/78 (92) 100 OxyMask 4.00 06/11/19 17:00 92 30 146/81 (102) 100 OxyMask 4.00 06/11/19 16:40 98 Nasal Cannula 4.00 06/11/19 16:00 37.1 06/11/19 16:00 101 13 136/76 (96) 100 OxyMask 4.00 I & O 06/12/19 07:00 Intake Total 575 ml Output Total 1750 ml Balance -1175 ml Capillary Refill : Less Than 3 Seconds General Appearance: WD/WN, Mild Distress Neck: Full Range of Motion, Non Tender, Supple Respiratory: Decreased Breath Sounds, Respiratory Distress (mild) Cardiovascular: Regular Rate, Rhythm, No Murmur Gastrointestinal: normal bowel sounds, non tender, soft Extremity: Normal Capillary Refill, Normal Inspection, Normal Range of Motion Neurologic/Psychiatric: Alert, Oriented x3 Skin: Normal Color, Warm/Dry Results Lab Laboratory Tests 06/12/19 03:42: White Blood Count 2.1L, Red Blood Count 2.41L, Hemoglobin 7.2L, Hematocrit 25L, Mean Corpuscular Volume 102H, Mean Corpuscular Hemoglobin 30, Mean Corpuscular Hemoglobin Concent 29L, Red Cell Distribution Width 16.4H, Platelet Count 243, Mean Platelet Volume 8.4, Sodium Level 141, Potassium Level 4.2, Chloride Level 101, Carbon Dioxide Level 30, Anion Gap 10, Blood Urea Nitrogen 21H, Creatinine 0.75, Estimat Glomerular Filtration Rate > 60, BUN/Creatinine Ratio 28, Glucose Level 88, Calcium Level 9.0, Phosphorus Level 3.8, Magnesium Level 1.7 Microbiology 06/11/19 Blood Culture - Preliminary, Resulted No growth Assessment/Plan Assessment/Plan Assess & Plan/Chief Complaint A 58-year-old female with stage IV left lung adenocarcinoma status post chemotherapy and radiation with symptomatic right pleural effusion needing two other previous thoracentesis. VSS. Will continue with medical management. If continues to have recurrent symptomatic pleural effusion, then may need grzegorz cement of a tunneled pleural catheter. Clinical Quality Measures DVT/VTE Risk/Contraindication: Risk Factor Score Per Nursin RFS Level Per Nursing on Admit: 2=Moderate CUAUHTEMOC LOPEZ [employer] RENOVATOR Jun 12, 2019 15:45 POS
[2019-06-12] MEDS: ENOXAPARIN 40 MG/0.4 ML (LOVENOX) SYR SC SCH (17:03)
[2019-06-12] MEDS ORDERED: guaiFENesin (MUCINEX) 600 MG TAB PO ONE (17:12)
[2019-06-12] MEDS: guaiFENesin (MUCINEX) 600 MG TAB PO SCH (17:17)
[2019-06-13] VITALS (15 sets, daily range): BP systolic 107–149; BP diastolic 67–86
[2019-06-13 03:13] LABS: BASOPHILS % (AUTO) 0 % (0-10); EOSINOPHILS % (AUTO) 0 % (0-10); HEMATOCRIT 23 % (35-52); LYMPHOCYTES # (AUTO) 0.2 X 10^3 (1.0-4.0); LYMPHOCYTES % (AUTO) 20 % (12-44); MEAN CORPUSCULAR HEMOGLOBIN 31 PG (25-34); MEAN CORPUSCULAR HGB CONC 31 G/DL (32-36); MEAN CORPUSCULAR VOLUME 102 FL (80-99); MEAN PLATELET VOLUME 8.7 FL (7.4-10.4); MONOCYTES # (AUTO) 0.4 X 10^3 (0.0-1.0); MONOCYTES % (AUTO) 31 % (0-12); NEUTROPHILS # (AUTO) 0.6 X 10^3 (1.8-7.8); NEUTROPHILS % (AUTO) 49 % (42-75); PLATELET COUNT 191 10^3/uL (130-400); RED CELL DISTRIBUTION WIDTH 16.6 % (10.0-14.5)
[2019-06-13 03:15] LABS: WHITE BLOOD COUNT 1.1 10^3/uL (4.3-11.0)
[2019-06-13 03:45] LABS: MAGNESIUM 1.8 MG/DL (1.6-2.4); PHOSPHORUS 3.3 MG/DL (2.3-4.7)
--- NOTE | 2019-06-13 06:04 | Pulmonary Progress Note ---
Subjective Time Seen by a Provider: 07:33 Subjective/Events-last exam PT feels better today. family is at bedside. Sepsis Event Evaluation Height, Weight, BMI Height: 5'8.00" Weight: 148lbs. 0.0oz. 67.878921oy; 21.00 BMI Method:Stated Focused Exam Lactate Level 06/11/19 11:10: Lactic Acid Level 1.04 Exam Exam Vital Signs Date Time Temp Pulse Resp B/P (MAP) Pulse Ox O2 Delivery O2 Flow Rate FiO2 06/13/19 04:00 96 32 107/76 (86) 100 Nasal Cannula 4.00 06/13/19 03:15 36.6 06/13/19 03:00 101 28 130/77 (94) 99 Nasal Cannula 4.00 06/13/19 02:00 93 13 108/67 (81) 100 Nasal Cannula 4.00 06/13/19 01:00 93 13 122/76 (91) 100 Nasal Cannula 4.00 06/13/19 01:00 93 06/13/19 00:00 92 16 115/79 (91) 100 Nasal Cannula 4.00 06/12/19 23:00 96 20 112/73 (86) 100 Nasal Cannula 4.00 06/12/19 22:00 102 18 116/73 (87) 100 Nasal Cannula 4.00 06/12/19 21:00 112 17 112/69 (83) 100 Nasal Cannula 4.00 06/12/19 20:00 111 29 123/81 (95) 100 Nasal Cannula 4.00 06/12/19 19:45 97 Nasal Cannula 4.00 06/12/19 19:30 37.1 Nasal Cannula 4.00 06/12/19 19:00 109 06/12/19 19:00 109 23 122/73 (89) 100 Nasal Cannula 4.00 06/12/19 18:44 97 Nasal Cannula 4.00 06/12/19 16:00 101 15 118/77 (91) 100 Nasal Cannula 4.00 06/12/19 16:00 Nasal Cannula 4.00 06/12/19 15:15 36.7 06/12/19 14:31 100 Nasal Cannula 4.00 06/12/19 13:00 102 06/12/19 12:24 95 Nasal Cannula 4.00 06/12/19 12:00 111 19 126/73 (90) 99 Nasal Cannula 4.00 06/12/19 11:15 36.8 06/12/19 11:00 92 12 105/73 (84) 100 Nasal Cannula 4.00 06/12/19 10:36 96 Nasal Cannula 4.00 06/12/19 10:00 88 11 121/77 (92) 100 Nasal Cannula 4.00 06/12/19 09:00 98 25 144/90 (108) 97 Nasal Cannula 4.00 06/12/19 08:00 87 10 121/69 (86) 100 Nasal Cannula 4.00 06/12/19 08:00 95 Nasal Cannula 4.00 06/12/19 07:00 99 06/12/19 07:00 97 11 113/73 (86) 100 Nasal Cannula 4.00 06/12/19 06:00 85 15 148/81 (103) 100 Nasal Cannula 4.00 I & O 06/13/19 07:00 Intake Total 1550 ml Output Total 775 ml Balance 775 ml Height & Weight Height: 5'8.00" Weight: 148lbs. 0.0oz. 67.842012me; 21.00 BMI Method:Stated General Appearance: WD/WN, Mild Distress HEENT: PERRL/EOMI, Pharynx Normal Neck: Full Range of Motion, Non Tender, Supple Respiratory: Decreased Breath Sounds, Respiratory Distress (mild) Cardiovascular: Regular Rate, Rhythm, No Murmur Capillary Refill: Less Than 3 Seconds Gastrointestinal: normal bowel sounds, non tender, soft Extremity: Normal Capillary Refill, Normal Inspection, Normal Range of Motion Neurologic/Psychiatric: Alert, Oriented x3 Skin: Normal Color, Warm/Dry Lymphatic: No Adenopathy Results Lab Laboratory Tests 06/11/19 11:10 06/12/19 03:42 06/13/19 03:00 Assessment/Plan Assessment/Plan Acute Respiratory Distress- Improved -Oxygen -Duoneb - change to easy PAP -Pt is DNR bilateral Pleural Effusion L> R -Right sided drained yesterday per Dr. Monique -Pt does not want Left side drained because she has been told it will not re- expand per Dr. Anderson Metastatic Lung Cancer Oncology following Pericardial Effusion small to moderate on CTA Echo Cardiology consulted Anemia -Monitor Hypothyroidism HTN macrocytic anemia chronic near baseline, trend leukopenia last chemo was done 06/06 ANC WNL Trend Discussed with family current medical condition and plan of care. Sister in law cornered me outside of room and asked me about prognosis and possible hospice care. She also asked why I have not explained this to patient. I explained to sister in law she has been following with Dr. Anderson. Dr. Monique has been doing thoracentesis when needed. Sister in Law asked me to explain hospice care to patient so I did with family and RN at bedside. 60min spent with patient, family and medical staff discussing plan of care and prognosis. I am going to sign off please call with any questions or concerns. Surgery is managing Thoracentesis PRN. End of Life Care: Comfort Measures, Pallative Care, Hospice Care (Home) Time spent on discussion(mins): 60 ANTOLIN JULIAN DO Jun 13, 2019 06:04 POS
--- NOTE | 2019-06-13 07:09 | Diagnostic Imaging Report ---
EXAM: CHEST 1 VIEW, AP/PA ONLY INDICATION: Shortness of breath. COMPARISON: 06/11/2019. FINDINGS: Stable complete opacification of the left hemithorax. Small to moderate right pleural effusion has progressed since the prior exam. Increasing airspace consolidation in the right lung base. No pneumothorax. Right IJ tunneled port CVC tip mid SVC. No acute osseous findings. IMPRESSION: Enlarging right pleural effusion and increasing airspace consolidation in the right lung base. Dictated by: Dictated on workstation # [id number]
[2019-06-13] MEDS: RT-ALBUTEROL/IPRATROPIUM 3 ML (DUONEB) VIAL INH SCH ×4 (07:41→18:50)
[2019-06-13] MEDS ORDERED: aCETylcysteine 20% (MUCOMYST) 30ML SOLN VIAL ONE (07:44)
[2019-06-13] MEDS: aCETylcysteine 20% (MUCOMYST) 30ML SOLN VIAL INH SCH ×4 (07:50→18:50)
[2019-06-13] MEDS: guaiFENesin (MUCINEX) 600 MG TAB PO SCH ×2 (08:08→20:39)
[2019-06-13] MEDS: lisINopril 5 MG (PRINIVIL) TABLET PO SCH (08:09)
[2019-06-13] MEDS: PANTOPRAZOLE 40 MG (PROTONIX) TAB PO SCH (08:09)
[2019-06-13] MEDS: LORazepam INJ 2 MG/ML (ATIVAN) VIAL IVP PRN (09:19)
--- NOTE | 2019-06-13 09:20 | NUR ---
Report received from Meirssa JACOB, will assume care of patient at this time.
--- NOTE | 2019-06-13 10:15 | NUR ---
PALLIATIVE CARE RN was asked by Dr. Pedro to see this patient who is very tearful this morning. Patient with metastatic lung CA and has had several different chemotherapy rounds. They have worked to keep the cancer at bey but make her terribly sick and tired. She is now having terrible SOB as a result of increasing fluid collection in the lungs...She has had thoracentesis' but the fluid keeps returning. Discussion has been had for PLEUREX cath placement but not sure if it is time. Patient is asking if it "is time for hospice". She is very sad and tearful about her prognosis and wants to know what Dr. Anderson thinks. I reminded her that she is the only one that can make the decision to continue with either this or a new round of chemo if offered. It will be about how she wants to feel during the last months of her life. Dr. Anderson is supposed to round around noon on her...I would like to attend so that I know what direction the discussion for POC need to go.
--- NOTE | 2019-06-13 10:50 | Cardiology Progress Note ---
Cardiology SOAP Progress Note Subjective: Continues to have shortness of breath. The patient thinks she is slightly better than on admission. Objective: I&O/Vital Signs 06/12/19 06/13/19 06/13/19 06/13/19 23:00 00:00 01:00 01:00 Pulse 96 92 93 93 Resp 20 16 13 B/P (MAP) 112/73 (86) 115/79 (91) 122/76 (91) Pulse Ox 100 100 100 O2 Delivery Nasal Cannula Nasal Cannula Nasal Cannula O2 Flow Rate 4.00 4.00 4.00 06/13/19 06/13/19 06/13/19 06/13/19 02:00 03:00 03:15 04:00 Temp 36.6 Pulse 93 101 96 Resp 13 28 32 B/P (MAP) 108/67 (81) 130/77 (94) 107/76 (86) Pulse Ox 100 99 100 O2 Delivery Nasal Cannula Nasal Cannula Nasal Cannula O2 Flow Rate 4.00 4.00 4.00 06/13/19 06/13/19 06/13/19 06/13/19 07:00 07:41 08:00 08:00 Pulse 116 106 Resp 47 B/P (MAP) 126/77 (93) Pulse Ox 94 100 98 O2 Delivery Nasal Cannula Nasal Cannula Nasal Cannula O2 Flow Rate 4.00 4.00 4.00 06/13/19 08:21 O2 Delivery Nasal Cannula O2 Flow Rate 3.00 06/13/19 00:00 Intake Total 1250 ml Output Total 575 ml Balance 675 ml Weight (Pounds): 148 Weight (Ounces): 0.0 Weight (Calculated Kilograms): 67.796699 Constitutional: AAO x 3 Respiratory: chest is bilaterally symmetric, other (Decreased air entry bilaterally. Mild respiratory distress.) Cardiovascular: regular rate-rhythm, S1 and S2 Gastrointestional: soft, audible bowel sounds; No spleenomegaly Extremities: normal range of motion, non-tender, normal inspection, pedal edema; No clubbing, No cyanosis, No significant edema Neurologic/Psychiatric: no motor/sensory deficits, alert, normal mood/affect, oriented x 3, other (Very sleepy.), power is 5/5 both on sides Skin: normal color, warm/dry; No rash, No ulcerations Results/Procedures: Labs Laboratory Tests 06/13/19 03:00: White Blood Count 1.1*L, Red Blood Count 2.25L, Hemoglobin 7.0L, Hematocrit 23L, Mean Corpuscular Volume 102H, Mean Corpuscular Hemoglobin 31, Mean Corpuscular Hemoglobin Concent 31L, Red Cell Distribution Width 16.6H, Platelet Count 191, Mean Platelet Volume 8.7, Neutrophils (%) (Auto) 49, Lymphocytes (%) (Auto) 20, Monocytes (%) (Auto) 31H, Eosinophils (%) (Auto) 0, Basophils (%) (Auto) 0, Neutrophils # (Auto) 0.6L, Lymphocytes # (Auto) 0.2L, Monocytes # (Auto) 0.4, Eosinophils # (Auto) 0.0, Basophils # (Auto) 0.0, Phosphorus Level 3.3, Magnesium Level 1.8 Microbiology 06/11/19 Blood Culture - Preliminary, Resulted No growth 06/11/19 MRSA Screen - Final, Complete MRSA not isolated A/P: Assessment/Dx: metastatic lung cancer, Pleural effusion, Pericardial effusion, Hypertension, Respiratory distress, Anemia, Leukopenia, Elevated LFTs. Plan: metastatic lung cancer, on chemotherapy. Defer to oncology. Pleural effusion, recent thoracenteses by general surgery. Repeat thoracentesis done, however the patient continues to feel short of breath. Pericardial effusion, [id number] with diameter of 1.5 cm on echocardiogram done on 06/11/2019. No hemodynamic compromise and no tamponade physiology. Likely related to metastatic disease. Hypertension, stable blood pressure. Respiratory distress, multifactorial. Anemia, Leukopenia, Elevated LFTs. Thank you for your consultation. Please call me if you have any questions. Lazaro Cannon MD, FACP, FACC, FSCAI, FHRS, CCDS Interventional Cardiology Cardiac Electrophysiology Vascular Medicine and Endovascular Interventions Focused Exam Lactate Level 06/11/19 11:10: Lactic Acid Level 1.04 Debo CANNON MD Jun 13, 2019 10:50 POS
--- NOTE | 2019-06-13 12:09 | Progress Note - Hospitalist ---
Subjective HPI/CC On Admission Date Seen by Provider: Jun 13, 2019 Time Seen by Provider: 09:00 Pt is a 58yoCF with a PMH of metastatic lung cancer and recurrent pleural effusion who presented to the ER due to shortness of breath. She states she had 900ml drained from her right lung on 06/[address] Najera. Despite that she became progressively more short of breath and had difficulty with any exertion. Because of this she quit taking her lasix as it was too difficult to get up and go to the bathroom. She was unable to catch her breath at all today despite increasing her home oxygen so she decided to seek care in the ER. She was found to have a persistent large left pleural effusion, worsening right effusion, and CTA revealed small to moderate pericardial effusion. She is being admitted to the ICU for thoracentesis. Subjective/Events-last exam She is still feeling short of breath. She is very tearful. She says she does not want to "suffocate". She is worried that she is getting worse. She denies fevers and chills. She denies abdominal pain, nausea, and vomiting. Focused Exam Lactate Level 06/11/19 11:10: Lactic Acid Level 1.04 Objective Exam Vital Signs Vital Signs Date Time Temp Pulse Resp B/P (MAP) Pulse Ox O2 Delivery O2 Flow Rate FiO2 06/13/19 11:50 98 Nasal Cannula 4.00 06/13/19 08:00 106 47 126/77 (93) 06/13/19 03:15 36.6 Capillary Refill : Less Than 3 Seconds General Appearance: No Apparent Distress, Anxious, Chronically ill Respiratory: No Respiratory Distress, Decreased Breath Sounds, Rhonci Cardiovascular: Regular Rate, Rhythm, No Edema, No Murmur Gastrointestinal: Normal Bowel Sounds, Non Tender, Soft Extremity: Normal Inspection, Non Tender, No Pedal Edema Neurologic/Psychiatric: Alert, Oriented x3, Depressed Affect Skin: Normal Color, Warm/Dry Results/Procedures Lab Laboratory Tests 06/13/19 03:00 Patient resulted labs reviewed. Imaging: Reviewed Imaging Report Assessment/Plan Assessment and Plan Assess & Plan/Chief Complaint Acute respiratory failure with hypoxia Pleural Effusion Metastatic Lung Cancer Titrate sats to keep >90 Underwent thoracentesis 06/11 Chest xray with reaccumulating right effusion Continue Lasix Add steroids Continue Mucinex No evidence of pneumonia Oncology consulted for discussion about prognosis Consult palliative care Pericardial Effusion Cardiology consulted Echo performed, small to moderate effusion Likely related to metastatic disease Hypothyroidism Continue Synthroid HTN Continue Lisinopril Macrocytic anemia Transfuse 2 units PRBC today Leukopenia last chemo was done 06/06 Continue to monitor Diagnosis/Problems Diagnosis/Problems (1) Recurrent pleural effusion on left Status: Acute (2) Pericardial effusion without cardiac tamponade Status: Acute (3) Metastatic non-small cell lung cancer Status: Chronic (4) Anemia Status: Chronic Clinical Quality Measures DVT/VTE Risk/Contraindication: Risk Factor Score Per Nursin RFS Level Per Nursing on Admit: 2=Moderate MADAI SERVIN MD Jun 13, 2019 12:09 POS
[2019-06-13] MEDS ORDERED: methylPREDNISolone 125 MG (Solu-MEDROL) VIAL IVP NR (12:15)
--- NOTE | 2019-06-13 12:26 | Progress Note ---
Standard Progress Note Progress Notes/Assess & Plan Date Seen by a Provider: Jun 13, 2019 Time Seen by a Provider: 12:23 Progress/Assessment & Plan 58-year-old female with metastatic adenocarcinoma of the lung and on multiple treatments over the past 2 years. Admitted with paroxysmal cough, shortness of breath and probable pneumonia. Hemoglobin today was 7.0. Proceed with 2 units of PRBC transfusion and maintain hemoglobin more than 8 g/dL. Continue antibiotics, steroids, bronchodilators as you are doing. May consider low-dose morphine on schedule to help with air hunger. Agree with DO NOT RESUSCITATE. If the pleural effusion is rapidly reaccumulating, she may benefit from a Pleurx catheter. Have discussed hospice care then the chemotherapy treatments are stopped. We will dictated full consult tomorrow. Focused Exam Lactate Level 06/11/19 11:10: Lactic Acid Level 1.04 KIMBERLY CARABALLO Jun 13, 2019 12:26 POS
[2019-06-13] MEDS ORDERED: NS IV 500 ML 500 ML ONE (13:28)
[2019-06-13] MEDS: NS IV 500 ML 500 ML IV SCH ×2 (13:35→20:39)
[2019-06-13] MEDS ORDERED: FUROSEMIDE 40 MG (LASIX) TAB PO SCH (14:00)
[2019-06-13] MEDS ORDERED: LEVOTHYROXINE 88 MCG (LEVOTHORID) TAB PO SCH (14:00)
--- NOTE | 2019-06-13 16:09 | NUR ---
Pt feeling better. at bedside and supportive. Will follow for continued care plans.
[2019-06-13] MEDS: ENOXAPARIN 40 MG/0.4 ML (LOVENOX) SYR SC SCH (16:52)
--- NOTE | 2019-06-13 18:38 | Progress Note ---
Subjective Date Seen by a Provider: Jun 13, 2019 Time Seen by a Provider: 14:00 Subjective/Events-last exam doing slightly better today. still has exertional SOB. better able to e xpectorate sputum. mild recurrence right pl eff on cxr today. Focused Exam Lactate Level 06/11/19 11:10: Lactic Acid Level 1.04 Objective Exam Vital Signs Date Time Temp Pulse Resp B/P (MAP) Pulse Ox O2 Delivery O2 Flow Rate FiO2 06/13/19 17:01 37.0 99 18 143/78 96 Room Air 2.00 06/13/19 16:45 37.5 105 17 136/74 92 Nasal Cannula 2.00 06/13/19 16:35 37.5 96 17 132/73 96 Nasal Cannula 2.00 06/13/19 16:26 36.5 101 18 132/73 (92) 96 Nasal Cannula 2.00 06/13/19 15:08 95 Nasal Cannula 2.00 06/13/19 14:08 37.4 86 16 120/70 95 Nasal Cannula 2.00 06/13/19 13:53 37.0 80 18 121/86 Nasal Cannula 2.00 06/13/19 12:00 36.0 112 18 128/80 (96) 99 Nasal Cannula 3.00 06/13/19 11:50 98 Nasal Cannula 4.00 06/13/19 08:21 Nasal Cannula 3.00 06/13/19 08:00 106 47 126/77 (93) 98 Nasal Cannula 4.00 06/13/19 08:00 100 Nasal Cannula 4.00 06/13/19 07:41 94 Nasal Cannula 4.00 06/13/19 07:00 116 06/13/19 04:00 96 32 107/76 (86) 100 Nasal Cannula 4.00 06/13/19 03:15 36.6 06/13/19 03:00 101 28 130/77 (94) 99 Nasal Cannula 4.00 06/13/19 02:00 93 13 108/67 (81) 100 Nasal Cannula 4.00 06/13/19 01:00 93 13 122/76 (91) 100 Nasal Cannula 4.00 06/13/19 01:00 93 06/13/19 00:00 92 16 115/79 (91) 100 Nasal Cannula 4.00 06/12/19 23:00 96 20 112/73 (86) 100 Nasal Cannula 4.00 06/12/19 22:00 102 18 116/73 (87) 100 Nasal Cannula 4.00 06/12/19 21:00 112 17 112/69 (83) 100 Nasal Cannula 4.00 06/12/19 20:00 111 29 123/81 (95) 100 Nasal Cannula 4.00 06/12/19 19:45 97 Nasal Cannula 4.00 06/12/19 19:30 37.1 Nasal Cannula 4.00 06/12/19 19:00 109 06/12/19 19:00 109 23 122/73 (89) 100 Nasal Cannula 4.00 06/12/19 18:44 97 Nasal Cannula 4.00 I & O 06/13/19 07:00 Intake Total 1570 ml Output Total 925 ml Balance 645 ml Capillary Refill : Less Than 3 Seconds General Appearance: No Apparent Distress HEENT: PERRL/EOMI Neck: Full Range of Motion Respiratory: Decreased Breath Sounds Cardiovascular: Regular Rate, Rhythm Gastrointestinal: normal bowel sounds, non tender, soft Extremity: Normal Capillary Refill Neurologic/Psychiatric: Alert, Oriented x3 Skin: Normal Color Lymphatic: No Adenopathy Results Lab Laboratory Tests 06/13/19 03:00: White Blood Count 1.1*L, Red Blood Count 2.25L, Hemoglobin 7.0L, Hematocrit 23L, Mean Corpuscular Volume 102H, Mean Corpuscular Hemoglobin 31, Mean Corpuscular Hemoglobin Concent 31L, Red Cell Distribution Width 16.6H, Platelet Count 191, Mean Platelet Volume 8.7, Neutrophils (%) (Auto) 49, Lymphocytes (%) (Auto) 20, Monocytes (%) (Auto) 31H, Eosinophils (%) (Auto) 0, Basophils (%) (Auto) 0, Neutrophils # (Auto) 0.6L, Lymphocytes # (Auto) 0.2L, Monocytes # (Auto) 0.4, Eosinophils # (Auto) 0.0, Basophils # (Auto) 0.0, Phosphorus Level 3.3, Magnesium Level 1.8 Microbiology 06/11/19 Blood Culture - Preliminary, Resulted No growth 06/11/19 MRSA Screen - Final, Complete MRSA not isolated Assessment/Plan Assessment/Plan Assess & Plan/Chief Complaint stage 4 left NSCLC s/p chemotherapy. ca has progressed during therapy. recurrent sx right pl eff. will see what retirement plan evlolves. if hospice may need tunneled throrocentesis catheter. Clinical Quality Measures DVT/VTE Risk/Contraindication: Risk Factor Score Per Nursin RFS Level Per Nursing on Admit: 2=Moderate JULIO C MENSAH MD Jun 13, 2019 18:38 POS
[2019-06-14 00:57] VITALS: BP 123/74
[2019-06-14] MEDS: PANTOPRAZOLE 40 MG (PROTONIX) TAB PO SCH (04:27)
[2019-06-14 05:08] LABS: MAGNESIUM 1.7 MG/DL (1.6-2.4); PHOSPHORUS 2.9 MG/DL (2.3-4.7)
[2019-06-14] MEDS ORDERED: predniSONE 20 MG TAB PO SCH (07:00)
[2019-06-14 07:26] LABS: BUN/CREATININE RATIO 34; CALCIUM 8.9 MG/DL (8.5-10.1); CARBON DIOXIDE 30 MMOL/L (21-32); CHLORIDE 100 MMOL/L (98-107); CREATININE SERUM 0.77 MG/DL (0.60-1.30); GFR ESTIMATED > 60; GLUCOSE 77 MG/DL (70-105); POTASSIUM 3.9 MMOL/L (3.6-5.0); SODIUM 139 MMOL/L (135-145)
[2019-06-14] MEDS: RT-ALBUTEROL/IPRATROPIUM 3 ML (DUONEB) VIAL INH SCH (07:37)
[2019-06-14] MEDS: aCETylcysteine 20% (MUCOMYST) 30ML SOLN VIAL INH SCH (07:37)
[2019-06-14] MEDS: guaiFENesin (MUCINEX) 600 MG TAB PO SCH (07:39)
[2019-06-14] MEDS: lisINopril 5 MG (PRINIVIL) TABLET PO SCH (07:39)
[2019-06-14 07:58] LABS: BASOPHILS % (AUTO) 0 % (0-10); EOSINOPHILS % (AUTO) 0 % (0-10); HEMATOCRIT 32 % (35-52); LYMPHOCYTES # (AUTO) 0.3 X 10^3 (1.0-4.0); LYMPHOCYTES % (AUTO) 10 % (12-44); MEAN CORPUSCULAR HEMOGLOBIN 30 PG (25-34); MEAN CORPUSCULAR HGB CONC 31 G/DL (32-36); MEAN CORPUSCULAR VOLUME 95 FL (80-99); MEAN PLATELET VOLUME 9.1 FL (7.4-10.4); MONOCYTES # (AUTO) 0.4 X 10^3 (0.0-1.0); MONOCYTES % (AUTO) 14 % (0-12); NEUTROPHILS % (AUTO) 75 % (42-75); PLATELET COUNT 137 10^3/uL (130-400); RED CELL DISTRIBUTION WIDTH 18.3 % (10.0-14.5); WHITE BLOOD COUNT 2.6 10^3/uL (4.3-11.0)
[2019-06-14 08:00] VITALS: BP 124/78
--- NOTE | 2019-06-14 08:35 | Diagnostic Imaging Report ---
EXAMINATION: Chest, 1 view. HISTORY: History of lung mass. COMPARISON: Chest radiograph of 06/13/2019. CTA chest of 06/11/2019. FINDINGS: Stable configuration of the right port. There is continued complete opacification of the left hemithorax secondary to the known left-sided lung mass and large left pleural effusion. There is also likely a component of atelectasis. A small right pleural effusion is unchanged. Patchy alveolar opacities are seen in the right perihilar and basilar regions. The cardiac silhouette is not evaluated due to the complete opacification of the left hemithorax. No acute osseous abnormalities. IMPRESSION: 1. Overall stable appearance of the chest with complete opacification of the left hemithorax and patchy alveolar opacities in the right perihilar and basilar regions. Stable small right pleural effusion. 2. Stable configuration of the right port. Dictated by: Dictated on workstation # [id number]
[2019-06-14] MEDS ORDERED: PRED10TA22 PO (08:51)
[2019-06-14] MEDS ORDERED: ALPR0.25 PO (08:51)
--- NOTE | 2019-06-14 09:38 | NUR ---
DISCHARGE PLANNING: Patient is discharged to home with the request of suction at home. She has large anxiety related to suffocating with the phlegm that she cannot always expectorate. I have sent order to [facility] at her request as they are the oxygen provider as well. She will also have new script for Xanax to help with the anxiety related to SOB/air hunger. We did not have the hospice discussion at this time related to her feeling so much better. I gave my card and offered her my time if she had questions in the future.
--- NOTE | 2019-06-14 13:41 | Discharge Summary ---
Discharge Summary Hospital Course Was the Problem List Reviewed?: Yes Problems/Dx: (1) Recurrent pleural effusion on left Status: Acute (2) Pericardial effusion without cardiac tamponade Status: Acute (3) Metastatic non-small cell lung cancer Status: Chronic (4) Anemia Status: Chronic Hospital Course Date of Admission: Jun 11, 2019 at 12:30 Admission Diagnosis : Acute hypoxic respiratory failure due to recurrent pleural effusion Family Physician/Provider: Francis Tan DO Date of Discharge: 06/14/19 Discharge Diagnosis: Acute hypoxic respiratory failure due to recurrent pleural effusion Hospital Course: Fozia Cosby is an unfortunate 58yoF with PMH metastatic lung cancer, chronic large left pleural effusion, recurrent right pleural effusion, who presented with shortness of breath and was admitted with acute hypoxic respiratory failure due to recurrent right pleural effusion. She follows with Dr. Najera who performs occasional thoracenteses and just had one done last week. She was also anemic and required a transfusion. She was given a taper of steroids as well. She was given a prescription for Xanax for anxiety. She will follow up with Drs. Anderson and Reinaldo. Labs and Pending Lab Test: Laboratory Tests 06/14/19 04:30: Sodium Level 139, Potassium Level 3.9, Chloride Level 100, Carbon Dioxide Level 30, Anion Gap 9, Blood Urea Nitrogen 26H, Creatinine 0.77, Estimat Glomerular Filtration Rate > 60, BUN/Creatinine Ratio 34, Glucose Level 77, Calcium Level 8.9, Phosphorus Level 2.9, Magnesium Level 1.7 06/14/19 07:35: White Blood Count 2.6L, Red Blood Count 3.38L, Hemoglobin 10.0#L, Hematocrit 32L , Mean Corpuscular Volume 95, Mean Corpuscular Hemoglobin 30, Mean Corpuscular Hemoglobin Concent 31L, Red Cell Distribution Width 18.3H, Platelet Count 137, Mean Platelet Volume 9.1, Neutrophils (%) (Auto) 75, Lymphocytes (%) (Auto) 10L, Monocytes (%) (Auto) 14H, Eosinophils (%) (Auto) 0, Basophils (%) (Auto) 0, Neutrophils # (Auto) 2.0, Lymphocytes # (Auto) 0.3L, Monocytes # (Auto) 0.4, Eosinophils # (Auto) 0.0, Basophils # (Auto) 0.0 06/14/19 08:18: Lab Scanned Report Transfusion Reaction Form Microbiology 06/11/19 Blood Culture - Preliminary, Resulted No growth 06/11/19 MRSA Screen - Final, Complete MRSA not isolated Home Meds Active Xanax (Alprazolam) 0.25 Mg Tablet 0.25 Mg PO TID PRN 7 Days Prednisone 10 Mg Tab.ds.pk 10 Mg PO DAILY Take 6 tabs(60mg)daily,decrease by 1 tab(10mg)every other day. Reported Promethazine Tablet (Promethazine HCl) 25 Mg Tablet 25 Mg PO Q6H PRN Lisinopril 5 Mg Tablet 2.5 Mg PO DAILY TAKES 1/2 (5MG) TABLET Pantoprazole Sodium 40 Mg Tablet.dr 40 Mg PO DAILY Vitamin B-12 (Cyanocobalamin (Vitamin B-12)) 1,000 Mcg Tab.subl 1,000 Mcg SL DAILY [Curcumin] 2 Tab PO BID Potassium Chloride 20 Meq Tab.er.prt 20 Meq PO BID Furosemide 40 Mg Tablet 40 Mg PO 1400 Tylenol Extra Strength (Acetaminophen) 500 Mg Tablet 500-1,000 Mg PO Q6H PRN Synthroid (Levothyroxine Sodium) 88 Mcg Tablet 88 Mcg PO 1400 Assessment/Pt Instructions Take medications as prescribed. Return with worsening shortness of breath or if you feel like you are getting worse. Follow up with Drs. Anderson and Reinaldo. Discharge Planning: >30 minutes discharge planning Discharge Instructions Discharge Diet: No Restrictions Activity as Tolerated: Yes Discharge Physical Examination Vital Signs Vital Signs Date Time Temp Pulse Resp B/P (MAP) Pulse Ox O2 Delivery O2 Flow Rate FiO2 06/14/19 11:12 06/14/19 08:00 36.2 73 20 98 Nasal Cannula 2.00 General Appearance: No Apparent Distress, WD/WN HEENT: PERRL/EOMI, Pharynx Normal Respiratory: Decreased Breath Sounds Cardiovascular: Regular Rate, Rhythm, No Murmur Gastrointestinal: Normal Bowel Sounds, Non Tender, Soft Extremity: Normal Inspection, Non Tender, No Pedal Edema Skin: Normal Color, Warm/Dry Neurologic/Psychiatric: Alert, Oriented x3, Depressed Affect Allergies: Coded Allergies: latex (Verified Allergy, Unknown, 04/21/17) morphine (Verified Adverse Reaction, Unknown, N/V, 04/21/17) Discharge Summary Date of Admission Jun 11, 2019 at 12:30 Date of Discharge Jun 14, 2019 at 11:08 Discharge Date: Jun 14, 2019 Discharge Time: 11:00 Admission Diagnosis Acute on chronic respiratory failure due to recurrent pleural effusion Consults/Procedures Consulations General surgery, Oncology, Pulmonology Procedures Thoracentesis Comfort Measures/ End of Life Care: Comfort Measures, Pallative Care, Hospice Care (Home) Time spent on discussion (min): 60 Discharge Diagnosis Acute on chronic respiratory failure with hypoxia due to recurrent pleural effusion (1) Recurrent pleural effusion on left Status: Acute (2) Pericardial effusion without cardiac tamponade Status: Acute (3) Metastatic non-small cell lung cancer Status: Chronic (4) Anemia Status: Chronic Clinical Quality Measures DVT/VTE Risk/Contraindication: Risk Factor Score Per Nursin RFS Level Per Nursing on Admit: 2=Moderate MADAI SERVIN MD Jun 14, 2019 13:37 POS
--- NOTE | 2019-06-14 15:16 | Progress Note ---
Subjective Date Seen by a Provider: Jun 14, 2019 Time Seen by a Provider: 10:00 Subjective/Events-last exam doing better today. has exertional SOB however now at baseline. tolerating diet. no change in right pleural eff on CXR Objective Exam Vital Signs Date Time Temp Pulse Resp B/P (MAP) Pulse Ox O2 Delivery O2 Flow Rate FiO2 06/14/19 11:12 06/14/19 08:00 36.2 73 20 124/78 (93) 98 Nasal Cannula 2.00 06/14/19 08:00 98 Nasal Cannula 2.00 06/14/19 07:40 94 Nasal Cannula 2.00 06/14/19 00:57 36.8 84 18 123/74 (90) 95 Nasal Cannula 2.00 06/13/19 20:15 37.1 106 22 137/85 (102) 96 Nasal Cannula 2.00 06/13/19 19:30 Nasal Cannula 3.00 06/13/19 19:15 37.0 100 17 149/77 96 Nasal Cannula 2.00 06/13/19 18:51 94 Nasal Cannula 2.00 06/13/19 17:01 37.0 99 18 143/78 96 Room Air 2.00 06/13/19 16:45 37.5 105 17 136/74 92 Nasal Cannula 2.00 06/13/19 16:35 37.5 96 17 132/73 96 Nasal Cannula 2.00 06/13/19 16:26 36.5 101 18 132/73 (92) 96 Nasal Cannula 2.00 I & O 06/14/19 07:00 Intake Total 1300 ml Output Total 500 ml Balance 800 ml Capillary Refill : Less Than 3 SecondsLess Than 3 Seconds General Appearance: No Apparent Distress HEENT: PERRL/EOMI Neck: Full Range of Motion Respiratory: Decreased Breath Sounds Cardiovascular: Regular Rate, Rhythm Gastrointestinal: normal bowel sounds, non tender, soft Extremity: Normal Capillary Refill Neurologic/Psychiatric: Alert, Oriented x3 Skin: Normal Color Lymphatic: No Adenopathy Results Lab Laboratory Tests 06/14/19 04:30: Sodium Level 139, Potassium Level 3.9, Chloride Level 100, Carbon Dioxide Level 30, Anion Gap 9, Blood Urea Nitrogen 26H, Creatinine 0.77, Estimat Glomerular Filtration Rate > 60, BUN/Creatinine Ratio 34, Glucose Level 77, Calcium Level 8.9, Phosphorus Level 2.9, Magnesium Level 1.7 06/14/19 07:35: White Blood Count 2.6L, Red Blood Count 3.38L, Hemoglobin 10.0#L, Hematocrit 32L , Mean Corpuscular Volume 95, Mean Corpuscular Hemoglobin 30, Mean Corpuscular Hemoglobin Concent 31L, Red Cell Distribution Width 18.3H, Platelet Count 137, Mean Platelet Volume 9.1, Neutrophils (%) (Auto) 75, Lymphocytes (%) (Auto) 10L, Monocytes (%) (Auto) 14H, Eosinophils (%) (Auto) 0, Basophils (%) (Auto) 0, Neutrophils # (Auto) 2.0, Lymphocytes # (Auto) 0.3L, Monocytes # (Auto) 0.4, Eosinophils # (Auto) 0.0, Basophils # (Auto) 0.0 06/14/19 08:18: Lab Scanned Report Transfusion Reaction Form Microbiology 06/11/19 Blood Culture - Preliminary, Resulted No growth 06/11/19 MRSA Screen - Final, Complete MRSA not isolated Assessment/Plan Assessment/Plan Assess & Plan/Chief Complaint stage 4 left NSCLC s/p chemotherapy. ca has progressed during therapy. recurrent sx right pl eff. 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 if hospice may need tunneled throrocentesis catheter. repeat CXR did not show increase pl eff. respiratory status now a baseline. Clinical Quality Measures DVT/VTE Risk/Contraindication: Risk Factor Score Per Nursin RFS Level Per Nursing on Admit: 2=Moderate JULIO C MENSAH MD Jun 14, 2019 15:16 POS
== END 2019-06-14 11:08 | disposition home or self-care (01) | DRG 180 ==
LOC: EDUNIT# 10:53 → ER 10:54 → ICU 12:30 → 4TH 06-13 09:29
PROVIDERS: ADMIT Family Medicine; ATTEND Family Medicine
PROC: 0W993ZZ Drainage of Right Pleural Cavity, Percutaneous Approach (ICD-10-PCS; principal; 2019-06-11)
DX: C34.92 Malignant neoplasm of unspecified part of left bronchus or lung (principal); J91.0 Malignant pleural effusion; J96.21 Acute and chronic respiratory failure with hypoxia; C77.1 Secondary and unspecified malignant neoplasm of intrathoracic lymph nodes; C79.51 Secondary malignant neoplasm of bone; C79.31 Secondary malignant neoplasm of brain; I31.3 Pericardial effusion (noninflammatory); Z66 Do not resuscitate; L93.0 Discoid lupus erythematosus; D53.9 Nutritional anemia, unspecified; M81.0 Age-related osteoporosis without current pathological fracture; E05.90 Thyrotoxicosis, unspecified without thyrotoxic crisis or storm; G43.909 Migraine, unspecified, not intractable, without status migrainosus; D72.819 Decreased white blood cell count, unspecified; Z99.81 Dependence on supplemental oxygen; Z86.711 Personal history of pulmonary embolism; Z95.828 Presence of other vascular implants and grafts; Z98.84 Bariatric surgery status; Z85.820 Personal history of malignant melanoma of skin; F41.9 Anxiety disorder, unspecified
CPT/HCPCS: 36415; 71045; 71275; 80048; 80053; 83605; 83735; 83880; 84100; 84484; 85007; 85025; 85027; 86850; 86900; 86901; 86920; 87040; 87081; 93005; 93306; 94640; 94760; 96374

== ENCOUNTER → 2019-06-22 | Outpatient (CLI) | payer BC ==
[~2019-06-22] MED LIST changes: +ALPR0.25 PO; +LIDOCAINE 1% INJ 20 ML 20 ML VIAL INJ ONE; +LISI-556 PO; -MAGN400T6 PO; +MAGN400T8 PO; +PANT40TA3 PO; +PRED10TA22 PO; +PROM25TA14 PO
--- NOTE | 2019-06-22 15:03 | NUR ---
Post thoracentesis CXR interpreted by Dr. Blayne Reyna. Notified Dr. Najera of small right basal pneumothorax noted by Dr. Reyna. Patient not symptomatic, satting 97% on baseline 3L, pt states she is not SOB. Dr. Reyna and Dr. Najera OK with discharging pt home. Instructed patient to come back to ER if she becomes SOB.
--- NOTE | 2019-06-22 15:28 | Diagnostic Imaging Report ---
INDICATION: Status post thoracentesis. TIME OF EXAM: 2:43 PM. COMPARISON: Correlation is made with prior chest from 06/14/2019. FINDINGS: There has been reduction in right-sided pleural effusion, status post thoracentesis. Very small right basilar pneumothorax is present. There continues to be near complete opacification of the left hemithorax with only minimal aerated left upper lung. The right chest wall port has tip overlying the SVC. IMPRESSION: Reduction in right pleural effusion status post thoracentesis. There is a very small right basilar pneumothorax. Dictated by: Dictated on workstation # [id number]
--- NOTE | 2019-06-22 15:29 | Diagnostic Imaging Report ---
INDICATION: Recurrent pleural effusion. Sonographic guidance was provided for Dr. Najear for thoracentesis. There is a moderate-sized right pleural effusion. IMPRESSION: Sonographic guidance for right-sided thoracentesis. Dictated by: Dictated on workstation # [id number]
--- NOTE | 2019-06-23 03:36 | OPERATIVE REPORT ---
DATE OF SERVICE: 06/22/2019 PREOPERATIVE DIAGNOSIS: Right recurrent pleural effusion. POSTOPERATIVE DIAGNOSIS: Right recurrent pleural effusion. PROCEDURE: Right ultrasound-guided thoracentesis. SURGEON: Shruthi Najera DO. ANESTHESIA: 1% lidocaine, 3 mL. ESTIMATED BLOOD LOSS: Minimal. COMPLICATIONS: None. INDICATIONS: The patient is a 58-year-old female with recurrent procedure and wished to proceed with procedure. Consent was signed in the chart. The patient is noting increased labored breathing. DESCRIPTION OF PROCEDURE: The patient was taken to the procedure room. Ultrasound was used to isolate the largest window of access for drainage of the right chest pleural effusion. She was then prepped and draped in a sterile fashion. Timeout was performed. Local anesthetic was infiltrated into the area. An 11-blade scalpel was used to make a small skin incision and safe [id number]. Needle and catheter were then advanced through the incision through the window and had best visualization with ultrasound. Once fluid was returned, the catheter was then advanced and the needle was removed. A total of 550 mL of peyman-colored fluid was withdrawn. Once drainage ceased, the catheter was withdrawn and sterile bandage was applied. The patient tolerated procedure well without any complications. Chest x-ray pending. 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
== END ==
LOC: RAD 12:31
PROVIDERS: ATTEND Surgery
DX: J90 Pleural effusion, not elsewhere classified (principal); J93.9 Pneumothorax, unspecified; Z98.890 Other specified postprocedural states
CPT/HCPCS: 32555; 71045

== ENCOUNTER 2019-07-04 14:58 | Outpatient (RCR) | payer BC ==
[2019-05-09 13:34] LABS: BASOPHILS % (AUTO) 0 % (0-10); EOSINOPHILS % (AUTO) 1 % (0-10); HEMATOCRIT 30 % (35-52); HEMOGLOBIN 8.8 G/DL (11.5-16.0); LYMPHOCYTES # (AUTO) 0.3 X 10^3 (1.0-4.0); LYMPHOCYTES % (AUTO) 7 % (12-44); MEAN CORPUSCULAR HEMOGLOBIN 29 PG (25-34); MEAN CORPUSCULAR HGB CONC 30 G/DL (32-36); MEAN CORPUSCULAR VOLUME 99 FL (80-99); MEAN PLATELET VOLUME 8.7 FL (7.4-10.4); MONOCYTES # (AUTO) 0.7 X 10^3 (0.0-1.0); MONOCYTES % (AUTO) 18 % (0-12); NEUTROPHILS % (AUTO) 74 % (42-75); PLATELET COUNT 470 10^3/uL (130-400); RED CELL DISTRIBUTION WIDTH 17.8 % (10.0-14.5)
--- NOTE | 2019-05-09 13:42 | Diagnostic Imaging Report ---
INDICATION: Pneumothorax. Follow-up. COMPARISON: 05/02/2019. FINDINGS: Frontal and lateral radiographic views of the chest were obtained and demonstrate interval resolution of previously described small right-sided pneumothorax. There has been interval redevelopment of small right effusion. Left chest shows now partial aeration of the left upper lung field, although the remainder of the left lung remains mostly opacified. Patchy and confluent predominant perihilar infiltrates are noted on the right. This does appear progressed when compared to previous exam. Cardiac silhouette is obscured. Right-sided Port-A-Cath is in stable position. IMPRESSION: 1. Interval resolution of right-sided pneumothorax. 2. Interval redevelopment of mild right-sided effusion. 3. Interval progression of patchy airspace opacities in the right perihilar region. Findings could be on the basis of increasing patchy pneumonia. Progression of metastatic disease is also a consideration. 4. Persistent dense consolidation of the left chest, but now with minimal aeration of the left upper lung. Dictated by: Dictated on workstation # [id number]
[2019-05-09 14:02] LABS: ALBUMIN 3.2 GM/DL (3.2-4.5); BILIRUBIN,TOTAL 0.5 MG/DL (0.1-1.0); CALCIUM 9.7 MG/DL (8.5-10.1); CREATININE SERUM 0.96 MG/DL (0.60-1.30); POTASSIUM 3.9 MMOL/L (3.6-5.0); TOTAL PROTEIN 7.2 GM/DL (6.4-8.2)
[2019-05-16 14:42] LABS: BASOPHILS % (AUTO) 0 % (0-10); EOSINOPHILS % (AUTO) 0 % (0-10); HEMATOCRIT 27 % (35-52); HEMOGLOBIN 8.2 G/DL (11.5-16.0); LYMPHOCYTES # (AUTO) 0.2 X 10^3 (1.0-4.0); LYMPHOCYTES % (AUTO) 8 % (12-44); MEAN CORPUSCULAR HEMOGLOBIN 29 PG (25-34); MEAN CORPUSCULAR HGB CONC 30 G/DL (32-36); MEAN CORPUSCULAR VOLUME 98 FL (80-99); MEAN PLATELET VOLUME 8.8 FL (7.4-10.4); MONOCYTES # (AUTO) 0.5 X 10^3 (0.0-1.0); MONOCYTES % (AUTO) 19 % (0-12); NEUTROPHILS # (AUTO) 1.9 X 10^3 (1.8-7.8); NEUTROPHILS % (AUTO) 73 % (42-75); PLATELET COUNT 240 10^3/uL (130-400); RED CELL DISTRIBUTION WIDTH 16.3 % (10.0-14.5); WHITE BLOOD COUNT 2.7 10^3/uL (4.3-11.0)
[2019-05-16 15:00] LABS: CALCIUM 9.8 MG/DL (8.5-10.1); CREATININE SERUM 1.09 MG/DL (0.60-1.30); POTASSIUM 4.2 MMOL/L (3.6-5.0)
[2019-05-23 12:57] LABS: BASOPHILS % (AUTO) 0 % (0-10); EOSINOPHILS % (AUTO) 0 % (0-10); HEMATOCRIT 26 % (35-52); LYMPHOCYTES # (AUTO) 0.2 X 10^3 (1.0-4.0); LYMPHOCYTES % (AUTO) 5 % (12-44); MEAN CORPUSCULAR HEMOGLOBIN 30 PG (25-34); MEAN CORPUSCULAR HGB CONC 31 G/DL (32-36); MEAN CORPUSCULAR VOLUME 99 FL (80-99); MONOCYTES # (AUTO) 0.6 X 10^3 (0.0-1.0); MONOCYTES % (AUTO) 13 % (0-12); NEUTROPHILS # (AUTO) 3.9 X 10^3 (1.8-7.8); NEUTROPHILS % (AUTO) 82 % (42-75); PLATELET COUNT 454 10^3/uL (130-400); RED CELL DISTRIBUTION WIDTH 17.5 % (10.0-14.5); WHITE BLOOD COUNT 4.7 10^3/uL (4.3-11.0)
[2019-05-23 13:17] LABS: CALCIUM 9.6 MG/DL (8.5-10.1); CREATININE SERUM 0.99 MG/DL (0.60-1.30); POTASSIUM 3.8 MMOL/L (3.6-5.0)
[2019-05-30 11:28] LABS: BASOPHILS % (AUTO) 1 % (0-10); EOSINOPHILS % (AUTO) 1 % (0-10); HEMATOCRIT 31 % (35-52); HEMOGLOBIN 9.1 G/DL (11.5-16.0); LYMPHOCYTES # (AUTO) 0.2 X 10^3 (1.0-4.0); LYMPHOCYTES % (AUTO) 13 % (12-44); MEAN CORPUSCULAR HEMOGLOBIN 29 PG (25-34); MEAN CORPUSCULAR HGB CONC 29 G/DL (32-36); MEAN CORPUSCULAR VOLUME 98 FL (80-99); MEAN PLATELET VOLUME 8.2 FL (7.4-10.4); MONOCYTES # (AUTO) 0.5 X 10^3 (0.0-1.0); MONOCYTES % (AUTO) 26 % (0-12); NEUTROPHILS # (AUTO) 1.1 X 10^3 (1.8-7.8); NEUTROPHILS % (AUTO) 60 % (42-75); PLATELET COUNT 230 10^3/uL (130-400); RED CELL DISTRIBUTION WIDTH 16.3 % (10.0-14.5); WHITE BLOOD COUNT 1.8 10^3/uL (4.3-11.0)
[2019-05-30 11:42] LABS: CALCIUM 10.1 MG/DL (8.5-10.1); CREATININE SERUM 1.07 MG/DL (0.60-1.30); POTASSIUM 4.8 MMOL/L (3.6-5.0)
[2019-06-06 10:32] LABS: BASOPHILS % (AUTO) 0 % (0-10); EOSINOPHILS % (AUTO) 1 % (0-10); HEMATOCRIT 28 % (35-52); HEMOGLOBIN 8.4 G/DL (11.5-16.0); LYMPHOCYTES # (AUTO) 0.2 X 10^3 (1.0-4.0); LYMPHOCYTES % (AUTO) 6 % (12-44); MEAN CORPUSCULAR HEMOGLOBIN 30 PG (25-34); MEAN CORPUSCULAR HGB CONC 30 G/DL (32-36); MEAN CORPUSCULAR VOLUME 100 FL (80-99); MEAN PLATELET VOLUME 8.7 FL (7.4-10.4); MONOCYTES # (AUTO) 0.5 X 10^3 (0.0-1.0); MONOCYTES % (AUTO) 15 % (0-12); NEUTROPHILS # (AUTO) 2.9 X 10^3 (1.8-7.8); NEUTROPHILS % (AUTO) 78 % (42-75); PLATELET COUNT 341 10^3/uL (130-400); RED CELL DISTRIBUTION WIDTH 17.6 % (10.0-14.5); WHITE BLOOD COUNT 3.6 10^3/uL (4.3-11.0)
[2019-06-06 10:50] LABS: ALANINE AMINOTRANSFERASE 14 U/L (0-55); ALBUMIN 3.1 GM/DL (3.2-4.5); ALKALINE PHOSPHATASE 57 U/L (40-136); BILIRUBIN,TOTAL 0.3 MG/DL (0.1-1.0); BUN/CREATININE RATIO 25; CALCIUM 9.3 MG/DL (8.5-10.1); CARBON DIOXIDE 28 MMOL/L (21-32); CHLORIDE 101 MMOL/L (98-107); CREATININE SERUM 0.93 MG/DL (0.60-1.30); GFR ESTIMATED > 60; GLUCOSE 87 MG/DL (70-105); MAGNESIUM 1.9 MG/DL (1.6-2.4); SODIUM 139 MMOL/L (135-145); TOTAL PROTEIN 6.6 GM/DL (6.4-8.2)
[2019-06-20 11:27] LABS: BASOPHILS % (AUTO) 0 % (0-10); EOSINOPHILS % (AUTO) 1 % (0-10); HEMATOCRIT 37 % (35-52); HEMOGLOBIN 11.3 G/DL (11.5-16.0); LYMPHOCYTES # (AUTO) 0.2 X 10^3 (1.0-4.0); LYMPHOCYTES % (AUTO) 6 % (12-44); MEAN CORPUSCULAR HEMOGLOBIN 31 PG (25-34); MEAN CORPUSCULAR HGB CONC 31 G/DL (32-36); MEAN CORPUSCULAR VOLUME 100 FL (80-99); MEAN PLATELET VOLUME 9.4 FL (7.4-10.4); MONOCYTES # (AUTO) 0.6 X 10^3 (0.0-1.0); MONOCYTES % (AUTO) 17 % (0-12); NEUTROPHILS # (AUTO) 2.8 X 10^3 (1.8-7.8); NEUTROPHILS % (AUTO) 76 % (42-75); PLATELET COUNT 270 10^3/uL (130-400); RED CELL DISTRIBUTION WIDTH 17.8 % (10.0-14.5); WHITE BLOOD COUNT 3.6 10^3/uL (4.3-11.0)
[2019-06-20 12:01] LABS: BUN/CREATININE RATIO 28; CALCIUM 9.6 MG/DL (8.5-10.1); CARBON DIOXIDE 31 MMOL/L (21-32); CHLORIDE 98 MMOL/L (98-107); CREATININE SERUM 0.82 MG/DL (0.60-1.30); GFR ESTIMATED > 60; GLUCOSE 91 MG/DL (70-105); POTASSIUM 4.5 MMOL/L (3.6-5.0); SODIUM 140 MMOL/L (135-145)
--- NOTE | 2019-06-27 15:15 | Diagnostic Imaging Report ---
INDICATION: Shortness of air. COMPARISON: 06/22/2019. FINDINGS: Frontal and lateral radiographic views of the chest were obtained and again show near complete opacification of left hemithorax. There is residual small area of aeration in the left upper lung. Small right effusion is also noted. No pneumothorax is seen on either side. There are also scattered and patchy alveolar opacities throughout the right lung. Cardiac silhouette is obscured. Port-A-Cath is noted. Osseous structures show no acute abnormalities. IMPRESSION: 1. Persistent near complete opacification of left hemithorax. Findings correspond a large effusion and diffuse dense infiltrate of the left lung seen on previous CT. 2. Residual small right-sided pleural effusion with scattered patchy and confluent infiltrate appearing opacities throughout the right lung. Dictated by: Dictated on workstation # [id number]
[2019-06-27 15:25] LABS: BASOPHILS % (AUTO) 0 % (0-10); EOSINOPHILS % (AUTO) 0 % (0-10); HEMATOCRIT 33 % (35-52); LYMPHOCYTES # (AUTO) 0.3 X 10^3 (1.0-4.0); LYMPHOCYTES % (AUTO) 7 % (12-44); MEAN CORPUSCULAR HEMOGLOBIN 31 PG (25-34); MEAN CORPUSCULAR HGB CONC 31 G/DL (32-36); MEAN CORPUSCULAR VOLUME 100 FL (80-99); MEAN PLATELET VOLUME 9.3 FL (7.4-10.4); MONOCYTES % (AUTO) 19 % (0-12); NEUTROPHILS # (AUTO) 3.9 X 10^3 (1.8-7.8); NEUTROPHILS % (AUTO) 74 % (42-75); PLATELET COUNT 346 10^3/uL (130-400); RED CELL DISTRIBUTION WIDTH 17.3 % (10.0-14.5); WHITE BLOOD COUNT 5.2 10^3/uL (4.3-11.0)
[2019-06-27 16:00] LABS: ALANINE AMINOTRANSFERASE 15 U/L (0-55); ALBUMIN 3.1 GM/DL (3.2-4.5); ALKALINE PHOSPHATASE 75 U/L (40-136); BILIRUBIN,TOTAL 0.6 MG/DL (0.1-1.0); BUN/CREATININE RATIO 33; CALCIUM 9.4 MG/DL (8.5-10.1); CARBON DIOXIDE 30 MMOL/L (21-32); CHLORIDE 95 MMOL/L (98-107); CREATININE SERUM 0.86 MG/DL (0.60-1.30); GFR ESTIMATED > 60; GLUCOSE 82 MG/DL (70-105); POTASSIUM 4.1 MMOL/L (3.6-5.0); SODIUM 137 MMOL/L (135-145); TOTAL PROTEIN 6.7 GM/DL (6.4-8.2)
[~2019-07-04 14:58] MED LIST changes: +GEMCITABINE HCL 1 GM, GEMCITABINE HCL 300 MG in NS (IVPB) CANCER CENTER 100 ML IV SCH; +GEMCITABINE HCL IV SCH; -LIDOCAINE 1% INJ 20 ML 20 ML VIAL INJ ONE; +NS IV 1000 ML (CANCER CTR) IV SCH; +NS IV SCH; +ONDANSETRON MDV (CANCER CENTER 16 MG, DEXAMETHASONE INJECTION 10 MG in NS (IVPB) CANCER... IV SCH; +PALONOSETRON HCL 0.25 MG, DEXAMETHASONE INJECTION 10 MG in NS (IVPB) CANCER CENTER 50 ML IV SCH
[2019-07-04 15:41] LABS: BASOPHILS % (AUTO) 0 % (0-10); EOSINOPHILS % (AUTO) 0 % (0-10); HEMATOCRIT 31 % (35-52); HEMOGLOBIN 9.6 G/DL (11.5-16.0); LYMPHOCYTES # (AUTO) 0.3 X 10^3 (1.0-4.0); LYMPHOCYTES % (AUTO) 9 % (12-44); MEAN CORPUSCULAR HEMOGLOBIN 30 PG (25-34); MEAN CORPUSCULAR HGB CONC 31 G/DL (32-36); MEAN CORPUSCULAR VOLUME 98 FL (80-99); MEAN PLATELET VOLUME 8.7 FL (7.4-10.4); MONOCYTES # (AUTO) 0.7 X 10^3 (0.0-1.0); MONOCYTES % (AUTO) 24 % (0-12); NEUTROPHILS % (AUTO) 66 % (42-75); PLATELET COUNT 132 10^3/uL (130-400); RED CELL DISTRIBUTION WIDTH 16.2 % (10.0-14.5)
[2019-07-04 16:22] LABS: BUN/CREATININE RATIO 27; CALCIUM 9.5 MG/DL (8.5-10.1); CARBON DIOXIDE 26 MMOL/L (21-32); CHLORIDE 99 MMOL/L (98-107); CREATININE SERUM 0.77 MG/DL (0.60-1.30); GFR ESTIMATED > 60; GLUCOSE 90 MG/DL (70-105); POTASSIUM 4.1 MMOL/L (3.6-5.0); SODIUM 137 MMOL/L (135-145)
== END 2019-08-07 | disposition home or self-care (01) ==
LOC: ONC 14:58
PROVIDERS: ATTEND Internal Medicine Hematology & Oncology
DX: Z51.11 Encounter for antineoplastic chemotherapy (principal); C34.92 Malignant neoplasm of unspecified part of left bronchus or lung; C77.1 Secondary and unspecified malignant neoplasm of intrathoracic lymph nodes; D64.9 Anemia, unspecified; J90 Pleural effusion, not elsewhere classified; Z98.84 Bariatric surgery status; Z79.899 Other long term (current) drug therapy; Z98.890 Other specified postprocedural states
CPT/HCPCS: 36415; 36430; 36591; 71046; 80048; 80053; 83735; 85025; 86850; 86900; 86901; 86920; 96375; 96413

== ENCOUNTER 2019-07-07 12:08 | Emergency (ER) | payer BC ==
[~2019-07-07] VITALS: Ht 175.3 cm; Wt 63.5 kg
[~2019-07-07 12:08] MED LIST changes: -HYDROcodone/APAP 5 MG/325 MG (LORTAB) TAB ONE; -HYDROcodone/APAP 5 MG/325 MG (LORTAB) TAB PO ONE; -LIDOCAINE 1% INJ 20 ML 20 ML VIAL ONE
--- NOTE | 2019-07-07 12:42 | ED Respiratory ---
General Chief Complaint: Respiratory Problems Stated Complaint: SOA Nursing Triage Note: PT TO RM 3 FROM DAY SURG AFTER THORACENTESIS PERFORMED BY DR GARZA. DAY SURG NURSE STATES PT BECAME SOA AND SATS DROPPED TO MID 80s ON PTS NORMAL 3 L. PT STATES SHE TURNED UP OXYGEN TO [address] ONCE ON ER MONITOR, PTS O2 WAS 100% ON 5LNC. TURNED PT DOWN TO 3LNC, PT CONTINUED TO 100%. Source: patient Exam Limitations: no limitations History of Present Illness Date Seen by Provider: Jul 07, 2019 Time Seen by Provider: 12:41 Initial Comments 58 yo female patient presents with c/o increased shortness of breath following thoracentesis by Dr. Garza this AM. Patient was noted in ambulatory to have an SaO2 in the mid 80's on pt's normal 3 L of oxygen. Patient reports increasing oxygen to [address] to the emergency department. Patient now noted to be 100 percent while on the 5L and also with being back on her 3 liters of O2. Patient reports feeling at baseline. Denies any increased shortness of air at this time. Timing/Duration: just prior to arrival, gone now Prior Episodes/Possible Cause: chronic episodes Modifying Factors: Improves With Other (improved with increased O2) Allergies and Home Medications Allergies Coded Allergies: latex (Verified Allergy, Unknown, 04/21/17) morphine (Verified Adverse Reaction, Unknown, N/V, 04/21/17) Home Medications Acetaminophen 500 Mg Tablet, 500-1,000 MG PO Q6H PRN for PAIN-MILD, (Reported) Alprazolam 0.25 Mg Tablet, 0.25 MG PO TID PRN for ANXIETY Prescribed by: MADAI SERVIN on 06/14/19 0851 Cyanocobalamin (Vitamin B-12) 1,000 Mcg Tab.subl, 1,000 MCG SL DAILY, (Reported) Furosemide 40 Mg Tablet, 40 MG PO 1400, (Reported) Levothyroxine Sodium 88 Mcg Tablet, 88 MCG PO 1400, (Reported) Lisinopril 5 Mg Tablet, 2.5 MG PO DAILY, (Reported) TAKES 1/2 (5MG) TABLET Pantoprazole Sodium 40 Mg Tablet.dr, 40 MG PO DAILY, (Reported) Potassium Chloride 20 Meq Tab.er.prt, 20 MEQ PO BID, (Reported) Prednisone 10 Mg Tab.ds.pk, 10 MG PO DAILY Take 6 tabs(60mg)daily,decrease by 1 tab(10mg)every other day. Prescribed by: MADAI SERVIN on 06/14/19 0851 Promethazine HCl 25 Mg Tablet, 25 MG PO Q6H PRN for NAUSEA/VOMITING-2ND LINE, (Reported) [Curcumin] , 2 TAB PO BID, (Reported) Patient Home Medication List Home Medication List Reviewed: Yes Review of Systems Review of Systems Constitutional: No chills, No diaphoresis, No fever EENTM: no symptoms reported Respiratory: cough (chronic); No phlegm; short of breath (see HPI); No wheezing Cardiovascular: No chest pain, No edema, No palpitations, No syncope Gastrointestinal: No abdominal pain, No constipation, No diarrhea, No nausea, No vomiting Genitourinary: no symptoms reported Musculoskeletal: no symptoms reported Skin: no symptoms reported Psychiatric/Neurological: No Symptoms Reported All Other Systems Reviewed Negative Unless Noted: Yes (Negative excepted noted.) Past Ywiszsh-Vtbkpk-Fywiba Hx Past Med/Social Hx: Reviewed Nursing Past Med/Soc Hx Patient Social History Alcohol Use: Denies Use Recreational Drug Use: No Smoking Status: Never a Smoker Recent Foreign Travel: No Contact w/Someone Who Travel: No Recent Infectious Disease Expo: No Recent Hopitalizations: No Physical Abuse: No Sexual Abuse: No Mistreated: No Fear: No Immunizations Up To Date Tetanus Booster (TDap): Unknown Date of Influenza Vaccine: May 01, 2019 Seasonal Allergies Seasonal Allergies: No Past Medical History Surgeries: Yes (gastric bypass in 2001, WISDOM TEETH, GABY FILTER, PLASTIC SURGERY,) Breast, Eye Surgery, Gallbladder, Orthopedic, Tonsillectomy Respiratory: Yes (lung ca) Pulmonary Embolism Currently Using CPAP: No Currently Using BIPAP: No Cardiac: No Neurological: Yes Headaches /Migraines Reproductive Disorders: No Female Reproductive Disorders: Denies Sexually Transmitted Disease: No HIV/AIDS: No Genitourinary: No Gastrointestinal: No Musculoskeletal: Yes Osteoporosis Endocrine: Yes (cutaneous lupus) Hyperthyroidism HEENT: No Cancer: Yes Lung, Melanoma Did You Recieve Any Treatments: Yes What Type of Treatment Did You: Chemotherapy Psychosocial: No Integumentary: No Blood Disorders: No Family Medical History Reviewed Nursing Family Hx Alzheimer's disease Arthritis Cardiovascular disease Diabetes mellitus Glaucoma Hypertension Myocardial infarction Thyroid disease Visual disorder No Pertinent Family Hx Physical Exam Vital Signs - First Documented 07/07/19 12:10 Pulse 109 Resp 25 B/P (MAP) 141/73 (95) Pulse Ox 100 O2 Delivery Nasal Cannula O2 Flow Rate 3.00 Capillary Refill : Less Than 3 Seconds Height: 5'8.00" Weight: 148lbs. 0.0oz. [id number]; 20.00 BMI Method:Stated General Appearance: no apparent distress, other (chronically ill appearing female) HEENT: PERRL/EOMI, pharynx normal Neck: normal inspection, other (trachea midline) Respiratory: no respiratory distress, no accessory muscle use, decreased breath sounds (decreased BS left lung), crackles (rt); No rales, No rhonchi, No stridor, No wheezing Cardiovascular: normal peripheral pulses, regular rate, rhythm, no edema, no gallop, no murmur Gastrointestinal: normal bowel sounds, non tender, soft, no organomegaly Extremities: no pedal edema, no calf tenderness, normal capillary refill Neurologic/Psychiatric: alert, normal mood/affect, oriented x 3 Skin: normal color, warm/dry Progress/Results/Core Measures Suspected Sepsis Recent Fever Within 48 Hours: No Infection Criteria Present: None New/Unexplained Altered Menta: No Sepsis Screen: No Definite Risk SIRS Temperature: Pulse: 109 Respiratory Rate: 25 Blood Pressure 141 /73 Mean: 95 Results/Orders My Orders Orders - TERE ORTEGA Chest Pa/Lat (2 View) (07/07/19 12:49) Vital Signs/I&O 07/07/19 07/07/19 12:10 13:59 Pulse 109 96 Resp 25 20 B/P (MAP) 141/73 (95) 135/71 (95) Pulse Ox 100 100 O2 Delivery Nasal Cannula Room Air O2 Flow Rate 3.00 3.00 Capillary Refill : Less Than 3 Seconds Blood Pressure Mean: 95 Diagnostic Imaging Diagonstic Imaging: Xray Plain Films/CT/US/NM/MRI: chest Comments CHEST PA/LAT (2 VIEW) INDICATION: Shortness of breath, status post thorace ntesis. COMPARISON: Correlation is made with prior study performed earlier the same day. FINDINGS: The left hemithorax remains opacified. Right chest wall port is in place. There is some right basilar fluid. There may be a tiny right basilar pneumothorax. There are some congestive changes and mild infiltrates in the right upper and right lower lobe, unchanged. IMPRESSION: Overall fairly stable appearance of the chest when compared with prior exam approximately one hour earlier. Dictated on workstation # [id number] Reviewed: Reviewed by Me (radiology report reviewed by me) Departure Communication (Admissions) patient seen and evaluated. patient reports symptoms resolved prior to being seen. cxr obtained which is stable when compared to the post thoracentesis cxr today. Plan for discharge to home with follow-up as an outpatient with Dr. Garza, patient's oncologist, and Dr. Tan. Patient case discussed with Dr. Reyes, he agrees with the plan of care. Impression Primary Impression: Lung cancer Qualified Codes: C34.92 - Malignant neoplasm of unspecified part of left bronchus or lung Additional Impression: S/P thoracentesis Disposition: 01 HOME, SELF-CARE Condition: Improved Departure-Patient Inst. Decision time for Depature: 13:48 Referrals: SHRUTHI GARZA WILLIAM J DO (PCP/Family) Primary Care Physician Patient Instructions: THORACENTESIS DISCHARGE INST Add. Discharge Instructions: All discharge instructions reviewed with patient and/or family. Voiced understanding. Continue usual home medications and orders per Dr. Garza. Continue home oxygen. Follow-up with Dr. Garza as instructed. Follow-up with her family practitioner oncologist as scheduled. Return to the emergency department immediately for worsened symptoms, fever, chest pain, dizziness, or any other concerns. TERE ORTEGA Jul 07, 2019 12:41
--- NOTE | 2019-07-07 13:36 | Diagnostic Imaging Report ---
INDICATION: Shortness of breath, status post thoracentesis. COMPARISON: Correlation is made with prior study performed earlier the same day. FINDINGS: The left hemithorax remains opacified. Right chest wall port is in place. There is some right basilar fluid. There may be a tiny right basilar pneumothorax. There are some congestive changes and mild infiltrates in the right upper and right lower lobe, unchanged. IMPRESSION: Overall fairly stable appearance of the chest when compared with prior exam approximately one hour earlier. Dictated by: Dictated on workstation # [id number]
[2019-07-07 13:59] VITALS: BP 135/71
== END 2019-07-07 14:07 | disposition home or self-care (01) ==
LOC: ER 12:08 → EDUNIT# 12:17 → ER 14:07
DX: C34.92 Malignant neoplasm of unspecified part of left bronchus or lung (principal); G43.909 Migraine, unspecified, not intractable, without status migrainosus; E05.90 Thyrotoxicosis, unspecified without thyrotoxic crisis or storm; Z85.820 Personal history of malignant melanoma of skin; Z98.890 Other specified postprocedural states; Z91.040 Latex allergy status; Z88.5 Allergy status to narcotic agent; Z90.89 Acquired absence of other organs; Z86.711 Personal history of pulmonary embolism; Z82.49 Family history of ischemic heart disease and other diseases of the circulatory system
CPT/HCPCS: 71046

== ENCOUNTER → 2019-07-07 | Outpatient (CLI) | payer BC ==
[~2019-07-07] VITALS: Ht 172.7 cm; Wt 67.2 kg
[~2019-07-07] MED LIST changes: -GEMCITABINE HCL 1 GM, GEMCITABINE HCL 300 MG in NS (IVPB) CANCER CENTER 100 ML IV SCH; -GEMCITABINE HCL IV SCH; +HYDROcodone/APAP 5 MG/325 MG (LORTAB) TAB ONE; +HYDROcodone/APAP 5 MG/325 MG (LORTAB) TAB PO ONE; +LIDOCAINE 1% INJ 20 ML 20 ML VIAL ONE; +MAGN400T6 PO; -MAGN400T8 PO; -NS IV 1000 ML (CANCER CTR) IV SCH; -NS IV SCH; -ONDANSETRON MDV (CANCER CENTER 16 MG, DEXAMETHASONE INJECTION 10 MG in NS (IVPB) CANCER... IV SCH; -PALONOSETRON HCL 0.25 MG, DEXAMETHASONE INJECTION 10 MG in NS (IVPB) CANCER CENTER 50 ML IV SCH
[2019-07-07 11:00] VITALS: BP 117/71
[2019-07-07 11:15] VITALS: BP 117/71
--- NOTE | 2019-07-07 11:25 | NUR ---
DR. GARZA AT BEDSIDE W/ ULTRASOUND GUIDANCE FOR RIGHT CHEST THORACENTESIS. PT TOLERATED PROCEDURE WELL, DRAIN CONNECTED TO PLEURX DRAINAGE KIT AND TUBING CLAMP ADJUSTED TO SLOW DRAINAGE FLOW PER DR. GARZA. ORDERS TO REMOVE CATHETER WHEN DRAINAGE STOPS AND OBTAIN STAT CHEST XRAY AT THAT TIME.
[2019-07-07 11:45] VITALS: BP 117/66
--- NOTE | 2019-07-07 11:45 | NUR ---
PT C/O OF SEVERE PAIN TO POSTERIOR RIGHT CHEST AND SLIGHT DIFFICULTY BREATHING, NO DRAINAGE FROM THORACENTESIS CATHETER NOTED. 700 ML OF SEROUSANGUINOUS DRAINAGE NOTED IN PLEURX CONTAINER. CATHETER REMOVED AND PRESSURE OBTAINED USING 2X2 STERILE GAUZE, NO DRAINAGE OBSERVED, BAND AID APPLIED OVER PUNCTURE SITE. SEE VITALS FLOW SHEET FOR DETAILS.
[2019-07-07 11:50] VITALS: BP 121/70
--- NOTE | 2019-07-07 11:50 | NUR ---
PT REPORTS WORSENING PAIN AND INCREASED DIFFICULTY BREATHING. PT USING ACCESSORY MUSCLES TO ASSIST IN BREATHING EFFORT, LUNG SOUND DIMINISHED THROUGHOUT WITH AUSCULTATION. DR. GARZA CALLED AND NOTIFIED OF PT'S STATUS, NEW ORDER RECEIVED FOR PAIN MEDICATION, SEE EMAR FOR DETAILS.
[2019-07-07 12:00] VITALS: BP 120/71
--- NOTE | 2019-07-07 12:00 | NUR ---
1200:PT CONTINUES TO REPORT WORSENING DIFFICULTY TO BREATHE, PT UNABLE TO SWALLOW PAIN MEDICATION DUE TO RESPIRATORY DISTRESS. PT TACHYPNEIC, USE OF ACCESSORY MUSCLES NOTED, O2 SAT 84% OR 3 L/NC, O2 INCREASED TO 5 L/NC, WITH SLIGHT IMPROVEMENT OF O2 SAT TO 87%. XRAY AT BEDSIDE FOR STAT CHEST XRAY. 1210: XRAY COMPLETED, PT'S O2 SAT REMAINS 88% OF 5 L/NC, PT TAKEN VIA W/C TO ER AT THIS TIME DUE TO RESPIRATORY DISTRESS AND DECREASED OXYGENATION. 1215: REPORT GIVEN TO ETL TESTER, PT'S AT BEDSIDE. DR GARZA CALLED AND NOTIFIED THAT PT WAS TRANSPORTED TO ER.
--- NOTE | 2019-07-07 12:18 | Diagnostic Imaging Report ---
INDICATION: Status post thoracentesis. TIME OF EXAM: 12:04 p.m. COMPARISON: Correlation is made with prior exam from 06/27/2019. FINDINGS: Right chest wall port has tip overlying the SVC right atrial junction. Right-sided effusion has decreased, status post thoracentesis. There may be a very small right basilar pneumothorax. Left chest is completely opacified. There is central congestion. IMPRESSION: 1. Reduction in right pleural effusion status post thoracentesis. There is a very small right basilar pneumothorax. 2. Complete opacification of the left hemithorax. Dictated by: Dictated on workstation # [id number]
--- NOTE | 2019-07-08 03:00 | OPERATIVE REPORT ---
DATE OF SERVICE: 07/07/2019 PREOPERATIVE DIAGNOSIS: Recurrent right pleural effusion. POSTOPERATIVE DIAGNOSIS: Recurrent right pleural effusion. PROCEDURE: Right ultrasound-guided thoracentesis. SURGEON: Shruthi Najera DO ANESTHESIA: Local 4 mL of 1% lidocaine. ESTIMATED BLOOD LOSS: Minimal. COMPLICATIONS: None. INDICATIONS: The patient is a 58-year-old female with recurrent pleural effusion on the right. She understands risks and benefits of procedure and wished to proceed with procedure. She has had increasing shortness of breath and feeling that she needs to have it drained again. Consent was signed in the chart. DESCRIPTION OF PROCEDURE: The patient was in the sitting position, slightly leaning forward. Ultrasound was used to isolate the largest pocket to be accessed. The area was then prepped and draped. Timeout was performed. Local anesthetic was infiltrated at the pocket site and 11 blade scalpel was used to make a small skin incision. The [id number] needle and catheter were then advanced through the incision and bloody serous fluid was returned. The catheter was then advanced and the needle was removed. A total of 700 mL of fluid was removed from the right chest. Once completed, the catheter was then removed and sterile bandage was applied. The patient tolerated procedure well without any complications. Chest x-ray pending. Job ID: [id number] DocumentID: [id number] Dictated Date: 07/07/2019 17:46:45 Plastic Finisher Date: 07/08/2019 02:59:46 Dictated By: SHRUTHI NAJERA DO
--- NOTE | 2019-07-10 10:03 | Diagnostic Imaging Report ---
INDICATION: Pleural effusion. Sonographic guidance was provided for Dr. Najera for thoracentesis. Images demonstrate a large right pleural effusion. IMPRESSION: Guidance for right-sided thoracentesis. Dictated by: Dictated on workstation # [id number]
== END ==
LOC: RAD 10:40
PROVIDERS: ATTEND Surgery
DX: J90 Pleural effusion, not elsewhere classified (principal)
CPT/HCPCS: 32554; 71045; 76942